=== PATIENT | female | born 1955 | race Caucasian/White ===

== ENCOUNTER → 2018-01-15 08:23 | Outpatient (CLI) | payer MEDICARE, OTHER, SELFPAY ==
--- NOTE | 2018-01-15 | DI.ECHO.S_ITS ---
[facility] +---------+ : : [address] : [address] : : : : [id number] : : : : Phone: [phone]+ Echocardiogram Report + + :Name: JASON WILKERSON Study Date: 01/15/2018 Height: 67 in : :[facility] Exam Location: IS Weight: 135 lb : : Gender: Female BSA: 1.7 m2 : :: 1955 Age: 63 yrs BP: 162/65 mmHg: :Reason For Study: MATTHIEU GODINEZ : : Performed By: Dionicio Bhandari : :Referring: YANELI YATES : + + Interpretation Summary The left ventricle is normal in size. The ejection fraction is estimated to be 60-65%. The right ventricle is normal in size and function. The left atrium is severely dilated. There is mild mitral regurgitation. The aortic root is normal size. The dimensions of the ascending aorta are normal. The aortic arch is normal in size. The IVC is of normal diameter and collapses greater than 50% with a sniff. This suggests a low right atrial pressure of 3 mm Hg. Procedure: A two-dimensional transthoracic echocardiogram with color flow and Doppler was performed. The study quality was technically good. There is no prior echocardiogram noted for this patient. The patient was in normal sinus rhythm during the exam. Left Ventricle: The left ventricle is normal in size. There is normal left ventricular wall thickness. There is no thrombus. The ejection fraction is estimated to be 60-65%. Septal motion is consistent with conduction abnormality. Assessment of diastolic parameters indicates normal left ventricular diastolic function and normal filling pressures. Right Ventricle: The right ventricle is normal in size and function. Atria: The left atrium is severely dilated. The right atrium is mildly dilated. The interatrial septum is intact with no evidence for an atrial septal defect. Mitral Valve: The mitral valve leaflets are slightly calcified. There is no evidence of mitral valve prolapse. There is mild mitral regurgitation. Aortic Valve: The aortic valve is trileaflet. The aortic valve opens well. There is no aortic valve stenosis. There is trace aortic regurgitation. Tricuspid Valve: The tricuspid valve is normal in structure and function. There is trace tricuspid regurgitation. The right ventricular systolic pressure is estimated at 19 mmHg assuming a right atrial pressure of 3 mm Hg. Pulmonic Valve: The pulmonic valve is normal in structure and function. There is trace pulmonic regurgitation. Great Vessels: The aortic root is normal size. The dimensions of the ascending aorta are normal. The aortic arch is normal in size. The pulmonary artery is normal size. The IVC is of normal diameter and collapses greater than 50% with a sniff. This suggests a low right atrial pressure of 3 mm Hg. Pericardium/ Pleura There is no pericardial effusion. There is an anterior echo-free space consistent with a fat pad. There is no pleural effusion. MMode/2D Measurements & Calculations LVIDd: 5.0 cm Ao root diam: 2.8 cm LVIDs: 3.3 cm Aortic Jxn: 2.4 cm FS: 33.7 % asc Aorta Diam: 3.2 cm EPSS: 0.28 cm Ao Arch Diam (Prox Trans): 2.7 cm IVSd: 0.82 cm LVPWd: 0.64 cm LV holguin. diameter/BSA (cm/m^2): 2.9 LV sys. diameter/BSA (cm/m^2): 2.0 LA dimension: 3.5 cm RA long axis: 4.8 cm LA A2 area: 22.7 cm2 RA area: 17.8 cm2 LA A4 area: 25.5 cm2 RA vol: 56.4 ml LA length (vol): 5.6 cm RA : 33.0 ml/m2 LA vol: 87.8 ml IVC diam: 1.9 cm LA vol index: 51.3 ml/m2 Doppler Measurements & Calculations Ao V2 max: 97.1 cm/sec MV E max timmy: 75.7 cm/sec Ao V2 mean: 70.6 cm/sec MV A max timmy: 46.7 cm/sec Ao max P.8 mmHg MV E/A: 1.6 Ao mean P.1 mmHg Med Peak E' Timmy: 11.9 cm/sec Ao V2 VTI: 22.4 cm E/E' med: 6.3 Lat Peak E' Timmy: 7.6 cm/sec E/E' lat: 9.9 E/e' average: 8.1 MV dec time: 0.13 sec TR max timmy: 197.2 cm/sec TR max P.6 mmHg PA V2 max: 68.6 cm/sec PA V2 mean: 51.4 cm/sec PA mean P.1 mmHg PA pr(Accel): 12.5 mmHg PA Accel Time: 0.14 sec Reading Physician:PM
--- NOTE | 2018-01-15 | DI.CT.S_ITS ---
PROCEDURE: CT ANGIO CHEST ABDOMEN INDICATIONS: MATTHIEU DANLOS SYNDROME PALPITATIONS TECHNIQUE: Precontrast 5 mm thick sections acquired from the lung apices to the iliac crests. After the administration of intravenous contrast, 2.5 mm thick sections again acquired from the lung apices to the iliac crests. 10 mm maximum intensity projection (MIP) oblique sagittal and coronal reformats were then acquired. For radiation dose reduction, the following was used: automated exposure control. COMPARISON: [facility], CHEST 2 VIEW, 05/27/2017, 12:51. [facility], CHEST 2 VIEW, 08/04/2014, 10:00. FINDINGS: Image quality: Excellent. AORTA: Intramural hematoma: Absent Maximum hematoma thickness: Not applicable. Focal contrast enhancement: Intramural blood pool (< 2 mm neck or imperceptible communication with aortic lumen): Absent Ulcer-like projection (broad communication with aortic lumen > 3 mm): Absent. Dissection: Absent Kennedy classification: Not applicable Maximum aortic diameter: 3.4 cm, ascending aorta. Periaortic hematoma: Absent. CHEST: Lungs and pleura: No acute airspace opacities. There is, however, a potential pulmonary mass lesion is present at the left lower lobe anteriorly, mid chest level, seen on series 6 image 53, measuring up to 4 mm AP, 9 mm transverse and approximately 6-7 mm craniocaudad. There is no associated internal calcification, and this structure cannot be seen on prior chest plain films. No pleural effusions or pneumothorax. Central and peripheral airways are patent and normal in caliber. Mediastinum: Heart size is normal. No pericardial effusion. No mediastinal or hilar adenopathy by size criteria. Central pulmonary arteries are normal in size. Esophagus is normal in caliber. No hiatal hernias. Bones and chest wall: No axillary adenopathy by size criteria. Thyroid gland appears normal where well visualized. No suspicious bony lesions. No vertebral body compression fractures. ABDOMEN: Vasculature: Celiac trunk and mesenteric arteries are patent. Renal arteries are also patent. Solid organs: Liver is normal in size and enhancement. Gallbladder appears normal. Biliary system is non dilated. Pancreas enhances normally. Spleen is normal in size and enhancement. No adrenal nodules. Both kidneys are normal in size and enhancement, without hydronephrosis. Peritoneum and bowel: No free fluid or air. Bowel loops are normal in caliber and wall thickness. Nodes and vessels: No retroperitoneal or mesenteric adenopathy by size criteria. Inferior vena cava is normal in morphology. Bones: No suspicious bony lesions. No vertebral body compression fractures. Miscellaneous: No ventral hernias. IMPRESSION: 1. No evidence of aortic aneurysm or dissection, or aortic branch vessel disease. No perianeurysmal fibrosis or inflammation is seen. 2. There is an unexpected finding requiring followup, comprised of a masslike lesion within the anterior border of the left lower lobe, measuring up to 9 mm in maximal dimension. Please refer to the Fleischner society criteria for pulmonary nodule workup below: Fleischner Society criteria for lung nodule followup. Nodule size (mm)Low-risk patientHigh-risk patient<=4No follow-up needed.Follow-up at 12 months; if no change, no further follow-up.>1-4Lsqzcu-iz CT at 12 months; if no change, no further follow-up needed.Initial follow-up CT at 6-12 months, then 18-24 months if no change.>6-8Initial follow-up CT at 6-12 months, then 18-24 months if no change.Initial follow-up CT at 3-6 months, then 9-12 months and 24 months if no change.>8Follow-up CT at 3,9 and 24 months or PET and/or biopsySame as for low-risk patientsNon-solid (ground-glass) or partly solid nodules may require longer follow-up to exclude indolent adenocarcinoma. Therefore, a followup noncontrast pulmonary nodule followup CT is recommended in 3 months and thereafter in 9 months from today and thereafter in months from today . Dictated by: Zelalem Bhatti M.D. on 01/15/2018 at 11:14 Approved by: Zelalem Bhatti M.D. on 01/15/2018 at 11:34
[2018-01-15 09:31] LABS: Blood Urea Nitrogen 11 mg/dL (7-17); Carbon Dioxide 29 mmol/L (22-32); Chloride 104 mmol/L (98-107); Estimated Glomerular Filt Rate 55.6 mL/min (>60); Glucose 98 mg/dL (80-110); HEMOLYSIS < 15 (0-50); Magnesium 2.1 mg/dL (1.6-2.3); Potassium 4.8 mmol/L (3.4-5.1); Sodium 142 mmol/L (137-145)
== END ==
PROVIDERS: Family Provider Physician Assistant; PCP Physician Assistant; Visit Provider Internal Medicine Cardiovascular Disease
DX: R00.2 Palpitations (principal); Q79.6 Ehlers-Danlos syndromes; I10 Essential (primary) hypertension; R91.8 Other nonspecific abnormal finding of lung field; I34.0 Nonrheumatic mitral (valve) insufficiency; I51.7 Cardiomegaly
CPT/HCPCS: 36415; 71275; 74175; 80048; 83735; 93306; Q9967

== ENCOUNTER → 2018-03-05 11:31 | Outpatient (CLI) | payer MEDICARE, OTHER, SELFPAY ==
[2018-03-05 12:43] LABS: Cholesterol 226 mg/dL (140-199); HDL Cholesterol 68 mg/dL (40-60); LDL Cholesterol Calculated 134 mg/dL (<100); Triglycerides 118 mg/dL (35-150)
== END ==
PROVIDERS: Family Provider Physician Assistant; PCP Physician Assistant; Visit Provider Internal Medicine Cardiovascular Disease
DX: E78.00 Pure hypercholesterolemia, unspecified (principal)
CPT/HCPCS: 36415; 80061

== ENCOUNTER → 2018-07-12 09:44 | Outpatient (CLI) | payer MEDICARE, OTHER, SELFPAY ==
--- NOTE | 2018-07-12 09:59 | DI.CT.S_ITS ---
PROCEDURE: CT CHEST WO CON INDICATIONS: PULMONARY NODULE TECHNIQUE: Noncontrast 5 mm thick sections acquired from the pulmonary apices to the posterior costophrenic angles. 7 mm thick coronal and sagittal MIP reformats were then acquired. For radiation dose reduction, the following was used: automated exposure control, adjustment of mA and/or kV according to patient size. COMPARISON: [facility], CT, CT ANGIO CHEST ABDOMEN, 01/15/2018, 9:57. FINDINGS: Image quality: Excellent. Lungs and pleura: Along the left oblique fissure, there is again seen a soft tissue nodule, as on series 2 image 78 that measures up to 8 mm. This is not significantly changed compared to the prior examination dated 01/15/18. No additional pulmonary soft tissue nodules can be seen. Scattered tiny calcified granulomas are seen within the lungs. No focal infiltrates are seen. No pneumothorax or pleural effusions are seen. The central airways are patent. Mediastinum: Heart size is normal. No pericardial effusion. No mediastinal adenopathy by size criteria. Thoracic aorta and central pulmonary arteries are normal in size. Esophagus is normal in caliber. No hiatal hernia. Bones and chest wall: No suspicious bony lesions. Mild dextroconvex scoliotic curvature is seen. Age-appropriate bony degenerative changes are seen. No vertebral body compression fractures. No axillary or supraclavicular adenopathy by size criteria. Thyroid gland is small in size. Abdomen: Visualized upper abdominal solid organs and bowel loops appear normal in the absence of contrast. IMPRESSION: Stable left midlung pulmonary nodule on the oblique fissure. A followup noncontrast chest CT is recommended in approximately 9 months for further evaluation. No new pulmonary nodules can be seen. Incidental note is made of: Prior granulomatous exposure. Dictated by: Mahendra Gaitan M.D. on 07/12/2018 at 10:33 Approved by: Mahendra Gaitan M.D. on 07/12/2018 at 10:40
== END ==
PROVIDERS: Family Provider Physician Assistant; PCP Physician Assistant; Visit Provider Internal Medicine
DX: R91.1 Solitary pulmonary nodule (principal)
CPT/HCPCS: 71250

== ENCOUNTER → 2019-05-30 12:04 | Outpatient (CLI) | payer MEDICARE, OTHER, SELFPAY ==
--- NOTE | 2019-05-30 | DI.CT.S_ITS ---
PROCEDURE: CT CHEST WO CON INDICATIONS: Other disorders of lung TECHNIQUE: Noncontrast 5 mm thick sections acquired from the pulmonary apices to the posterior costophrenic angles. 1 mm lung window, 5 mm thick coronal and sagittal and 7 mm axial MIP reformats were then acquired. For radiation dose reduction, the following was used: automated exposure control, adjustment of mA and/or kV according to patient size. COMPARISON: [facility], CR, XR CHEST 2VW, 08/26/2016, 16:12. [facility], CR, CHEST 2 VIEW, 05/27/2017, 12:51. [facility], CT, CT ANGIO CHEST ABDOMEN, 01/15/2018, 9:57. [facility], CT, CT CHEST WO CON, 07/12/2018, 9:46. FINDINGS: Image quality: Excellent. Lungs and pleura: No acute air space opacities. The focal density at the left mid lung is most accurately visualize by the current study and is seen to represent a focus of what appears to be scarring along the major fissure on the left, unchanged from the initial CT scanning and this could be seen 01/15/18. It measures approximately 3 x 9 mm. No pleural effusions or pneumothorax. Central and peripheral airways are patent and normal in caliber. Mediastinum: Heart size is normal. No pericardial effusion. No mediastinal adenopathy by size criteria. Thoracic aorta and central pulmonary arteries are normal in size. Esophagus is normal in caliber. No hiatal hernia. Bones and chest wall: No suspicious bony lesions. No vertebral body compression fractures. No axillary or supraclavicular adenopathy by size criteria. Thyroid gland is not well-seen.. Abdomen: Visualized upper abdominal solid organs and bowel loops appear normal in the absence of contrast. IMPRESSION: Stable appearance of focal pleural scarring left midlung, abutting the major fissure, from 01/15/18. No followup recommended. Dictated by: Zelalem Bhatti M.D. on 05/30/2019 at 12:55 Approved by: Zelalem Bhatti M.D. on 05/30/2019 at 13:00
== END ==
PROVIDERS: Family Provider Physician Assistant; PCP Physician Assistant; Visit Provider Physician Assistant
DX: J98.4 Other disorders of lung (principal)
CPT/HCPCS: 71250

== ENCOUNTER → 2019-09-05 12:41 | Outpatient (CLI) | payer MEDICARE, OTHER, SELFPAY ==
--- NOTE | 2019-09-05 | DI.MRI.S_ITS ---
PROCEDURE: MR STROKE Pre- and post-contrast brain MRI, non-contrast brain MR angiogram, pre- and postcontrast neck MR angiogram INDICATIONS: RIGHT ARM WEAKNESS TECHNIQUE: Brain: Noncontrast axial T1 spin echo, axial T2 fast spin echo, sagittal and axial FLAIR, coronal T2 fast spin echo, axial gradient echo, axial diffusion and ADC through the brain. After the administration of contrast, axial 3D VIBE of the cranial vasculature and brain. Brain MRA: Non-contrast 3-D time of flight MR angiogram, with multiple pcxfmgo-vdkbzeihe-nnabanroul (MIP) reformats performed. Neck MRA: Axial and sagittal TruFISP through the neck. Coronal dynamic MR angiogram during administration of contrast in the arterial and venous phases, with 3-dimenstional ishzifm-sooacemqh-aoolqexcwb (MIP) reformats constructed from subtraction images. COMPARISON: None. FINDINGS: Image quality: Excellent. BRAIN: CSF spaces: Ventricles are normal in size and shape. Basal cisterns are patent. No extra-axial fluid collections. Brain: No intracranial bleeds or mass effects. Scattered small white matter changes, probably represent chronic microvascular ischemic disease, versus statistically less likely demyelination or other infectious, inflammatory, neurodegenerative etiology, technically nonspecific. Freire-white matter interface is normal. Diffusion weighted images show no acute ischemic insults. Brainstem appears normal. Normal intravascular flow voids are present. No abnormal intracranial enhancement. Skull and face: Calvarial marrow signal is normal. Orbits appear normal. Sinuses: Sinuses and mastoids are clear. BRAIN MR ANGIOGRAM: Anterior circulation: Intracranial internal carotid arteries are normal in size and enhancement. The flow within the paired anterior cerebral arteries is normal and symmetric. The flow within the middle cerebral arteries is normal and symmetric. The anterior communicating artery is seen. Posterior circulation: The visualized portions of the vertebral arteries demonstrate normal caliber Possible basilar artery tip aneurysm although technically indeterminate measuring 3 mm. The flow within the posterior cerebral arteries is normal and symmetric. NECK MR ANGIOGRAM: Carotids: Great vessels demonstrate a conventional anatomy as they arise from the aortic arch. The origins of the common carotid arteries appear patent. The calibers and courses of both common carotid arteries are normal. The bifurcation regions appear normal bilaterally. The internal carotid arteries demonstrate normal course and caliber. Posterior circulation: Origin of the right vertebral artery appears grossly patent. The origin of the left vertebral artery not well-visualized. More superior portions of both vertebral arteries demonstrate normal course and caliber, and join to form a normal appearing basilar artery. Miscellaneous: Subclavian arteries appear patent. Pre-contrast images through the neck show no soft tissue abnormalities. IMPRESSION: BRAIN MRI: No areas of acute ischemia. Diffuse small white matter changes, probably represent chronic microvascular ischemic disease, versus statistically less likely demyelination or other infectious, inflammatory, neurodegenerative etiology, technically nonspecific. BRAIN MR ANGIOGRAM: Possible early basilar artery tip aneurysmal ectasia, although technically indeterminate and quite subtle If clinically desired, long-term surveillance with CTA head could be performed No intracranial stenosis or occlusion. NECK MR ANGIOGRAM: No ICA stenosis Dictated by: Christian Mendoza M.D. on 09/05/2019 at 15:19 Approved by: Christian Mendoza M.D. on 09/05/2019 at 15:37
--- NOTE | 2019-09-05 12:46 | DI.MRI.S_ITS ---
PROCEDURE: MR CERVICAL SPINE WO CON INDICATIONS: RIGHT ARM WEAKNESS TECHNIQUE: Noncontrast sagittal T1 spin echo and T2 fast spin echo, sagittal STIR, foraminal oblique sagittal T2 fast spin echo, and axial gradient echo or T2 fast spin echo through the cervical spine. COMPARISON: [facility], MR, MR CERVICAL SPINE WO CON, 10/29/2017, 8:32. FINDINGS: Image quality: Excellent. Alignment and Curvature: Focal kyphosis centered at the C5-C6 level as before. Chronic osseous fusion of the C4-C5, C5-C6 vertebral bodies. Bone Marrow: No fracture. Grade 1 anterolisthesis of C2 on C3 and C3 on C4. Spinal Cord: Visualized spinal cord has normal size and signal. No cerebellar tonsillar herniation. Paraspinous Soft Tissues: No paravertebral masses. Prevertebral soft tissues are normal in thickness. C2-C3: Minimal canal narrowing. Severe bilateral foraminal stenoses with nerve root compression, grossly unchanged. C3-C4: Minimal central canal narrowing. Severe left foraminal stenosis. Moderate right foraminal narrowing. Nerve root compression on both sides. C4-C5: Minimal canal narrowing. Mild left foraminal narrowing. Moderate foraminal stenosis with nerve root compression, grossly unchanged. C5-C6: Minimal canal narrowing. Severe bilateral foraminal stenoses with nerve root compression. C6-C7: Moderate canal stenosis, grossly unchanged. Severe bilateral foraminal narrowing with nerve root compression, unchanged. C7-T1: Minimal canal narrowing. Vnxz-kk-khyjisnn right foraminal stenosis with slight nerve root compression. No definite left foraminal stenosis. No interval change IMPRESSION: Overall, no interval change. 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 on 09/05/2019 at 14:57 Approved by: Christian Mendoza M.D. on 09/05/2019 at 15:19
== END ==
PROVIDERS: Family Provider Physician Assistant; PCP Physician Assistant; Referring Provider Physician Assistant; Visit Provider Physician Assistant
DX: R29.898 Other symptoms and signs involving the musculoskeletal system (principal); M43.12 Spondylolisthesis, cervical region; M48.02 Spinal stenosis, cervical region; M40.202 Unspecified kyphosis, cervical region; M43.22 Fusion of spine, cervical region
CPT/HCPCS: 70548; 70553; 72141; A9579

== ENCOUNTER → 2019-11-04 10:01 | Outpatient (CLI) | payer MEDICARE, OTHER, SELFPAY ==
[2019-11-04 10:57] LABS: Alanine Aminotransferase 20 IU/L (<35); Albumin 4.2 g/dL (3.5-5.0); Albumin Globulin Ratio 1.6 (1.0-2.8); Alkaline Phosphatase 59 U/L (38-126); Aspartate Aminotransferase 33 IU/L (14-36); BUN Creatinine Ratio 18.2 (6-22); Bilirubin Total 0.4 mg/dL (0.2-1.3); Blood Urea Nitrogen 16 mg/dL (7-17); Carbon Dioxide 28 mmol/L (22-32); Chloride 105 mmol/L (98-107); Cholesterol 279 mg/dL (140-199); Estimated Glomerular Filt Rate > 60.0 mL/min (>60); Globulin 2.6 g/dL (1.7-4.1); Glucose 111 mg/dL (80-110); HDL Cholesterol 58 mg/dL (40-60); HEMOLYSIS < 15 (0-50); LDL Cholesterol Calculated 203 mg/dL (<100); Potassium 4.9 mmol/L (3.4-5.1); Sodium 139 mmol/L (137-145); Total Protein 6.8 g/dL (6.3-8.2); Triglycerides 90 mg/dL (35-150)
--- NOTE | 2019-11-04 11:07 | DI.CT.S_ITS ---
PROCEDURE: CT ANGIO HEAD INDICATIONS: Cerebral aneurysm, nonruptured TECHNIQUE: Precontrast 4.5 mm thick angled axial sections acquired from the foramen magnum to the vertex. After the administration of intravenous contrast, 1 mm thick sections acquired through the [place] of [place]. Postcontrast 4.5 mm thick sections then re-acquired from the foramen magnum to the vertex. 10 mm thick wmnbrty-brtwqptcu-hfqaneqsrs (MIP) reformats were acquired of the central intracranial vasculature. For radiation dose reduction, the following was used: automated exposure control, adjustment of mA and/or kV according to patient size. COMPARISON: [facility], , MR STROKE, 09/05/2019, 13:16. FINDINGS: Image quality: Excellent. Anterior circulation: Intracranial internal carotid arteries are normal in size and flow. The flow within the paired anterior cerebral arteries is normal and symmetric. The flow within the middle cerebral arteries is normal and symmetric. The anterior communicating artery is seen. No aneurysms are seen. Posterior circulation: Visualized portions of the vertebral arteries demonstrate normal caliber. There is an unchanged appearance of mild proximal basilar aneurysmal dilation measuring approximately 3 mm. Flow within the posterior cerebral arteries is normal and symmetric. No aneurysms are seen. CSF spaces: Ventricles are normal in size and shape. Basal cisterns are patent. No extra-axial fluid collections. Brain: No midline shift. No intracranial bleeds or masses. Freire-white matter interface appears intact. Skull and face: Calvarium and facial bones appear intact, without suspicious lesions. Sinuses: Visualized sinuses and mastoids are clear. IMPRESSION: 1. Unchanged appearance of mild basilar aneurysmal prominence measuring 3 mm. Dictated by: Nelsy Hernandez M.D. on 11/04/2019 at 12:57 Approved by: Nelsy Hernandez M.D. on 11/04/2019 at 13:16
[2019-11-07 23:07] LABS: 1,25-Dihydroxy, Vitamin D-2 <10 pg/mL (.)
== END ==
PROVIDERS: Family Provider Physician Assistant; PCP Physician Assistant
DX: I67.1 Cerebral aneurysm, nonruptured (principal); E78.5 Hyperlipidemia, unspecified; M25.511 Pain in right shoulder; G89.29 Other chronic pain
CPT/HCPCS: 36415; 70496; 80053; 80061; 82652; Q9967

== ENCOUNTER → 2019-12-21 13:36 | Outpatient (CLI) | payer MEDICARE, OTHER, SELFPAY ==
--- NOTE | 2019-12-21 | DI.RAD.S_ITS ---
PROCEDURE: FL SHOULDER INJECTION MR/CT RT INDICATIONS: ARTHRITIS TECHNIQUE: The indications, alternatives, benefits, risks, and complications of the procedure were explained to the patient. Written informed consent was obtained and placed in the chart. The shoulder was examined fluoroscopically and a site for needle placement chosen for entry into the glenohumeral joint from an anterior approach. The skin was prepped and draped in a sterile fashion, and 1% lidocaine infiltrated from skin down to joint capsule. A spinal needle was inserted into the glenohumeral joint, and a small amount of iodinated contrast media injected to confirm intra-articular placement of the needle tip. This was followed by approximately 12 mL of iodinated contrast. The needle was removed and a dressing was applied. The patient was given postprocedural instructions and sent to the CT suite for imaging. FINDINGS: A single fluoroscopic spot image demonstrates intra-articular location of injected iodinated contrast. IMPRESSION: Successful fluoroscopically guided administration of iodinated contrast solution into the shoulder joint for CT arthrogram. Dictated by: Christian Mendoza M.D. on 12/21/2019 at 15:37 Approved by: Christian Mendoza M.D. on 12/21/2019 at 15:39
--- NOTE | 2019-12-21 | DI.CT.S_ITS ---
PROCEDURE: CT UE RT W CON INDICATIONS: ARTHRITIS TECHNIQUE: After the intra-articular administration of 12 mL of dilute non-ionic contrast, 1-1.5 mm thick sections acquired from the acromioclavicular joint to the inferior scapula, with coronal and sagittal reformatting. COMPARISON: [facility], RF, [place] SHOULDER INJECTION MR/CT RT, 12/21/2019, 13:14. [facility], CR, XR SHOULDER 2+ VIEWS RIGHT, 09/17/2018, 15:45. FINDINGS: Image quality: Excellent. Bones: No fracture or focal osseous destruction. Severe right shoulder joint degeneration with bvjo-fr-qdpq appearance. Injected contrast material outlines a large partially calcified focus in the posterior joint space measuring 2.0 x 1.6 cm, possibly loose body. Additional areas of presumed debris, versus reactive synovitis, within the dependent/posterior joint space for example image 74/2. Circumferential blunted labral tear. High-grade partial-thickness articular sided tear involving the supraspinatus tendon. There is probably pinpoint perforation possibly image 154/5 with leakage of injected contrast material into the subacromial-subdeltoid bursa. IMPRESSION: Severe right shoulder joint degeneration. Large loose body measuring 2.0 cm involving the posterior joint space. Additional area of debris/smaller loose bodies noted within the dependent/posterior joint space. Circumferential blunted appearance of the labrum suggestive of chronic tear/maceration High-grade partial-thickness articular sided tear of the supraspinatus tendon. Of note there is probable pinpoint full-thickness perforation of the bursal surface given leakage of contrast material into the subacromial-subdeltoid bursa. Dictated by: Christian Mendoza M.D. on 12/21/2019 at 15:43 Approved by: Christian Mendoza M.D. on 12/21/2019 at 15:49
== END ==
PROVIDERS: Family Provider Physician Assistant; PCP Physician Assistant; Referring Provider Orthopaedic Surgery; Visit Provider Orthopaedic Surgery
DX: M19.011 Primary osteoarthritis, right shoulder (principal); M75.111 Incomplete rotator cuff tear or rupture of right shoulder, not specified as traumatic
CPT/HCPCS: 23350; 73201; 77002

== ENCOUNTER → 2020-06-15 08:11 | Outpatient (CLI) | payer MEDICARE, OTHER, SELFPAY ==
--- NOTE | 2020-06-15 | DI.MRI.S_ITS ---
PROCEDURE: MR ANGIO HEAD WO CON INDICATIONS: Cerebral aneurysm, nonruptured TECHNIQUE: Noncontrast axial 3-D [id number] MR angiogram, with 3-dimensional maximum intensity projection (MIP) reformats of the internal carotid arteries and posterior circulation then performed. COMPARISON: [facility], MR, MR STROKE, 09/05/2019, 13:16. [facility], CT, CT ANGIO HEAD, 11/04/2019, 11:02. FINDINGS: Image quality: Excellent. Anterior circulation: Intracranial internal carotid arteries demonstrate normal size and intraluminal flow signal. The flow within the paired anterior cerebral arteries is normal and symmetric. The flow within the middle cerebral arteries is normal and symmetric. The anterior communicating artery is seen. No stenoses, occlusions, or aneurysms. Posterior circulation: Visualized portions of the vertebral arteries demonstrate normal caliber, and join to form a normal appearing basilar artery. The flow within the posterior cerebral arteries is normal and symmetric. No stenoses or occlusions. 3 millimeter basilar tip aneurysm is stable compared to prior exams.. 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 Dictated by: Apoorva Rose MD, PhD on 06/15/2020 at 14:17 Approved by: Apoorva Rose MD, PhD on 06/15/2020 at 14:23
== END ==
PROVIDERS: Family Provider Physician Assistant; PCP Physician Assistant; Referring Provider Physician Assistant; Visit Provider Neurological Surgery
DX: I67.1 Cerebral aneurysm, nonruptured (principal)
CPT/HCPCS: 70544

== ENCOUNTER → 2020-07-10 10:31 | Outpatient (CLI) | payer MEDICARE, OTHER, SELFPAY ==
--- NOTE | 2020-07-10 | DI.RAD.S_ITS ---
PROCEDURE: XR HIP W PEL IF DONE LT 2V INDICATIONS: LEFT HIP PAIN TECHNIQUE: A total of 2 views of the hip were acquired. [id number], [facility], 11:47. [facility], [facility], HIP 2V LEFT, 07/28/2008, 8:33. FINDINGS: Bones: No fractures or dislocations. No suspicious bony lesions. The visualized pelvic ring appears intact. Soft tissues: No suspicious soft tissue calcifications or masses. IMPRESSION: There is mild hip joint osteoarthritis symmetric bilaterally, and no trauma is found. Dictated by: Zelalem Bhatti M.D. on 07/10/2020 at 11:01 Approved by: Zelalem Bhatti M.D. on 07/10/2020 at 11:02
[2020-07-10 11:46] LABS: Alanine Aminotransferase 20 IU/L (<35); Albumin 4.1 g/dL (3.5-5.0); Albumin Globulin Ratio 1.8 (1.0-2.8); Alkaline Phosphatase 47 U/L (38-126); Aspartate Aminotransferase 29 IU/L (14-36); BUN Creatinine Ratio 14.1 (6-22); Bilirubin Total 0.3 mg/dL (0.2-1.3); Blood Urea Nitrogen 13 mg/dL (7-17); Calcium 9.5 mg/dL (8.4-10.2); Carbon Dioxide 28 mmol/L (22-32); Chloride 107 mmol/L (98-107); Cholesterol 249 mg/dL (140-199); Estimated Glomerular Filt Rate > 60.0 mL/min (>60); Globulin 2.3 g/dL (1.7-4.1); Glucose 104 mg/dL (80-110); HDL Cholesterol 76 mg/dL (40-60); HEMOLYSIS < 15 (0-50); LDL Cholesterol Calculated 151 mg/dL (<100); Potassium 4.4 mmol/L (3.4-5.1); Sodium 136 mmol/L (137-145); Total Protein 6.4 g/dL (6.3-8.2); Triglycerides 108 mg/dL (35-150)
[2020-07-10 12:27] LABS: Thyroid Stimulating Hormone 9.34 uIU/mL (0.47-4.68)
[2020-07-10 17:22] LABS: Vitamin D 25 Hydroxy (D3) 56.4 ng/mL (30.0-100.0)
[2020-07-12 03:17] LABS: Parathyroid Hormone Int 35 pg/mL (15-65)
[2020-07-13 13:46] LABS: Alkaline Phosphatase, Bone Spe 8.9 ug/L (.)
== END ==
PROVIDERS: Family Provider Physician Assistant; PCP Physician Assistant; Referring Provider Internal Medicine Endocrinology, Diabetes & Metabolism; Visit Provider Physician Assistant
DX: M25.552 Pain in left hip (principal); E78.5 Hyperlipidemia, unspecified; E55.9 Vitamin D deficiency, unspecified; M80.00XS Age-related osteoporosis with current pathological fracture, unspecified site, sequela; Q79.60 Ehlers-Danlos syndrome, unspecified
CPT/HCPCS: 36415; 73502; 80053; 80061; 82306; 82523; 83970; 84080; 84443

== ENCOUNTER → 2020-09-10 08:13 | Outpatient (CLI) | payer MEDICARE, OTHER, SELFPAY ==
[2020-09-10] MEDS: COVID-19 VACC, Ad26(JANSSEN)/PF 0.5 ML IM (08:20)
== END ==
PROVIDERS: Family Provider Physician Assistant; PCP Physician Assistant; Visit Provider Internal Medicine
DX: Z23 Encounter for immunization (principal)
CPT/HCPCS: 0031A; 91303

== ENCOUNTER → 2020-12-25 08:09 | Outpatient (CLI) | payer MEDICARE, OTHER, SELFPAY ==
--- NOTE | 2020-12-25 08:13 | DI.RAD.S_ITS ---
PROCEDURE: FL SHOULDER INJECTION MR/CT RT INDICATIONS: ARTHRITIS OF RIGHT GLENOHUMERAL JOINT COMPARISON: [facility], US, US NONVASCULAR EXTREMITY RIGHT, 10/17/2020, 10:32. [facility], [place], CT UE RT W CON, 12/25/2020, 8:52. TECHNIQUE: The indications, alternatives, benefits, risks, and complications of the procedure were explained to the patient. Written informed consent was obtained and placed in the chart. The shoulder was examined fluoroscopically and a site for needle placement chosen for entry into the glenohumeral joint from an anterior approach. The skin was prepped and draped in a sterile fashion, and 1% lidocaine infiltrated from skin down to joint capsule. A spinal needle was inserted into the glenohumeral joint, and a small amount of iodinated contrast media injected to confirm intra-articular placement of the needle tip. This was followed by approximately 12 mL of iodinated contrast. The needle was removed and a dressing was applied. The patient was given postprocedural instructions and sent to the CT suite for imaging. FINDINGS: A single fluoroscopic spot image demonstrates intra-articular location of injected iodinated contrast. IMPRESSION: Successful fluoroscopically guided administration of iodinated contrast solution into the shoulder joint for CT arthrogram. Dictated by: Brenda Rojo M.D. on 12/25/2020 at 11:09 Approved by: Brenda Rojo M.D. on 12/25/2020 at 11:10
--- NOTE | 2020-12-25 09:16 | DI.CT.S_ITS ---
PROCEDURE: CT UE RT W CON INDICATIONS: ARTHRITIS OF RIGHT GLENOHUMERAL JOINT TECHNIQUE: After the intra-articular administration of 12 mL of dilute non-ionic contrast, 1-1.5 mm thick sections acquired from the acromioclavicular joint to the inferior scapula, with coronal and sagittal reformatting. COMPARISON: [facility], CR, XR SHOULDER 2+ VIEWS RIGHT, 03/19/2020, 13:30. [facility], CR, XR SHOULDER 2+ VIEWS RIGHT, 09/19/2020, 12:52. [facility], [place], [place] SHOULDER INJECTION MR/CT RT, 12/25/2020, 8:29. [facility], CT, CT UE RT W CON, 12/21/2019, 14:34. FINDINGS: Image quality: Excellent. Bones: Postsurgical changes are seen from conventional right total shoulder arthroplasty. The glenoid component is visualized in expected position without signs of loosening. The humeral component is intact without signs of loosening. There is superior migration of the humeral head relative to the glenoid. No acute perihardware fracture is identified. Thinning of the lateral acromion may be related to chronic remodeling or prior acromioplasty. The remainder of the scapula and the included ribs are intact. Soft tissues: There is a full-thickness defect in the distal supraspinatus tendon measuring approximately 1.1 cm in anterior-posterior dimension with proximal tendon retraction measuring up to 1.6 cm and contrast material extending through the defect into the subacromial/subdeltoid bursa. Is the infraspinatus tendon appears to be intact. Evaluation of the teres minor and subscapularis tendons are mildly compromised by metallic streak artifact, but no full-thickness defect is seen. Evaluation of the supraspinatus muscle belly is also partially compromised, but no definite severe fatty infiltration is seen. The biceps long head tendon is not well visualized. Included portions of the right lung are clear. IMPRESSION: 1. Postsurgical changes from conventional shoulder arthroplasty. The hardware is intact. There is mild superior migration of the humeral head component relative to the glenoid. 2. Full-thickness tearing of the supraspinatus tendon at its distal insertion measuring 1.1 cm in anterior-posterior dimension with proximal tendon retraction measuring up to 1.6 cm. Glenohumeral contrast material communicates with the subacromial/subdeltoid bursa. 1. Dictated by: Kane Ruiz M.D. on 12/25/2020 at 12:16 Approved by: Kane Ruiz M.D. on 12/25/2020 at 12:26
== END ==
PROVIDERS: Family Provider Physician Assistant; PCP Physician Assistant; Referring Provider Orthopaedic Surgery; Visit Provider Orthopaedic Surgery
DX: M19.011 Primary osteoarthritis, right shoulder (principal); M75.121 Complete rotator cuff tear or rupture of right shoulder, not specified as traumatic
CPT/HCPCS: 23350; 73201; 77002

== ENCOUNTER → 2021-03-15 08:12 | Outpatient (CLI) | payer MEDICARE, OTHER, SELFPAY ==
--- NOTE | 2021-03-15 | DI.RAD.S_ITS ---
PROCEDURE: XR FOOT LT MIN 3V INDICATIONS: Pham-Danlos syndrome, unspecified TECHNIQUE: 3 views of the foot were acquired. COMPARISON: [facility], CR, ANKLE 3 VIEWS LEFT, 02/22/2007, 12:25. 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 A metallic screw is seen in the proximal 5th metatarsal shaft. The hardware is intact. There is generalized osteopenia. No acute fracture or dislocation is seen. The 2nd and 3rd metatarsophalangeal joints are extended with flexion of the proximal interphalangeal joints, which is nonspecific on a nonweightbearing exam. The posterior subtalar joint space is not well seen with cystic changes, possibly representing an osseous coalition. Soft tissues: No suspicious soft tissue calcification. IMPRESSION: 1. No acute osseous abnormality. If the symptoms persist, consider cross sectional imaging such as MRI or CT for further assessment. 2. Chronic postsurgical changes involving the 5th metatarsal and 5th proximal phalanx. 3. 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 Dictated by: Kane Ruiz M.D. on 03/15/2021 at 8:46 Approved by: Kane Ruiz M.D. on 03/15/2021 at 8:52
--- NOTE | 2021-03-15 | DI.RAD.S_ITS ---
PROCEDURE: XR ANKLE LT MIN 3V INDICATIONS: Pham-Danlos syndrome, unspecified TECHNIQUE: 3 views of the ankle were acquired. COMPARISON: [facility], , ANKLE 3 VIEWS LEFT, 02/22/2007, 12:25. FINDINGS: Bones: Postsurgical changes are seen involving the 5th metatarsal with a metallic screw. The hardware is intact. There is generalized osteopenia. No acute fracture or dislocation is seen. The ankle mortise is maintained. Chronic posttraumatic changes are seen at the medial malleolus. Irregularity of the posterior subtalar facet with subchondral lucencies may represent degenerative changes or fiber osseous coalition. No fractures or dislocations. Ankle mortise is normally aligned. No suspicious bony lesions. Soft tissues: No suspicious soft tissue calcification. IMPRESSION: 1. No acute osseous abnormality. If the symptoms persist, consider cross sectional imaging such as MRI or CT for further assessment. 2. Postsurgical changes at the 5th metatarsal base. 3. Possible fibro-osseous coalition versus degenerative changes at the posterior subtalar facet. Dictated by: Kane Ruiz M.D. on 03/15/2021 at 8:52 Approved by: Kane Ruiz M.D. on 03/15/2021 at 8:57
--- NOTE | 2021-03-15 | DI.RAD.S_ITS ---
PROCEDURE: XR FOOT RT MIN 3V INDICATIONS: Pham-Danlos syndrome, unspecified TECHNIQUE: 3 views of the foot were acquired. COMPARISON: [facility], CR, XR FOOT 3+ VIEWS RIGHT, 09/07/2018, 14:03. FINDINGS: Bones: There is generalized osteopenia. No acute fractures or dislocations. No suspicious bony lesions. Soft tissues: No suspicious soft tissue calcification. IMPRESSION: No acute osseous abnormality. If the symptoms persist, consider cross sectional imaging such as MRI or CT for further assessment. Dictated by: Kane Ruiz M.D. on 03/15/2021 at 8:43 Approved by: Kane Ruiz M.D. on 03/15/2021 at 8:45
== END ==
PROVIDERS: Family Provider Physician Assistant; PCP Physician Assistant; Referring Provider Physician Assistant; Visit Provider Physician Assistant
DX: Q79.60 Ehlers-Danlos syndrome, unspecified (principal)
CPT/HCPCS: 73610; 73630

== ENCOUNTER 2021-03-27 05:50 | Emergency (ER) | payer MEDICARE, OTHER, SELFPAY ==
[2021-03-27 05:57] VITALS: BP 148/67; PULSE 70; RESP 18; TEMP 36.6; O2SAT 97; BMI 20.3
--- NOTE | 2021-03-27 06:04 | ED.RECABL ---
HPI - Recheck/Abnormal Lab/Rx General Chief Complaint: Recheck/Abnormal Lab/Rx Stated Complaint: mental problems, ran out of medication Time Seen by Provider: 03/27/21 05:51 Source: patient Mode of arrival: Ambulatory Limitations: no limitations History of Present Illness HPI narrative: This is a 66-year-old female comes emergency department with complaint of anxiety and depression which is longstanding. She states she was quite depressed for some time but has actually been improving recently. She states she out of her Wellbutrin and Cymbalta about 2 days ago. She has felt some increased anxiety. She denies any thoughts of self-harm or harm to others. She states she has a prescription that is supposed to be filled but she is not sure if she can fill today or perhaps by the . She is requesting a dose of each medication if available here as well as a short-term prescription of a few tablets. She takes Wellbutrin 200 mg b.i.d. as well as Cymbalta she states 60 mg daily. She follows with primary care doctor Berhane in [facility]. She has a history of Pahm-Danlos, atrophic right kidney with chronic renal insufficiency, hypothyroidism, osteoarthritis and depression. Patient denies any drug allergies. Related Data Home Medications Medication Instructions Recorded Confirmed losartan 25 mg tablet (Cozaar) 50 mg PO HS #0 10/25/12 hydrocodone 7.5 mg-acetaminophen 1 tab PO TID #0 01/31/16 325 mg tablet amlodipine 5 mg tablet (Norvasc) 5 mg PO QDAY #0 09/03/16 Previous Rx's Medication Instructions Recorded aripiprazole 2 mg tablet (Abilify) 2 mg PO QDAY #30 tab 04/17/17 buspirone 10 mg tablet 10 mg PO BID #60 tab 04/17/17 duloxetine 30 mg capsule,delayed 90 mg PO QDAY #90 cap 04/17/17 release (Cymbalta) prazosin 1 mg capsule (Minipress) 1 mg PO HS #30 cap 05/18/17 bupropion HCl 200 mg tablet,12 hr 200 mg PO BID #60 tab 10/29/17 sustained-release bupropion HCl 200 mg tablet,12 hr 200 mg PO BID #10 ea 03/27/21 sustained-release duloxetine 60 mg capsule,delayed 60 mg PO DAILY #5 cap 03/27/21 release (Cymbalta) Review of Systems Review of Systems ROS Unobtainable: All systems reviewed & are unremarkable except as noted in HPI and below Patient History Family History (Updated 01/19/14 @ 00:00 by Dread Smith MD) Sister Tremor Sister Tremor Social History Smoking Status: Never smoker Smoking Status: Never smoker Substance Use Type: marijuana Exam Narrative Exam Narrative: GENERAL: Alert and oriented x three, thin female in mild distress. Patient appears anxious. HEENT: Head normocephalic, atraumatic, EOMI, pupils reactive, face symmetric, moist mucous membranes NECK: Supple, full range of motion CARDIOVASCULAR: Regular rate and rhythm without murmurs, rubs or gallops. RESPIRATORY: Breath sounds equal bilaterally, no wheezes rales or rhonchi. ABDOMEN: Soft, nontender. Normoactive bowel sounds all 4 quadrants. No guarding or rebound, rigidity, no mass : No CVA tenderness EXTREMITIES: Normal range of motion, no clubbing or edema. Neurovascularly intact NEUROLOGICAL: Cranial nerves II through XII grossly intact. Moving all extremities SKIN: Warm, dry, no petechiae, no rashes or lesions. PSYCH: anxiety and depression, no thoughts or self harm or injury, no thoughts of harm to others. Initial Vital Signs Initial Vital Signs: Vital Signs Temperature 98 F 03/27/21 05:57 Pulse Rate 70 03/27/21 05:57 Respiratory Rate 18 03/27/21 05:57 Blood Pressure 148/67 H 03/27/21 05:57 Pulse Oximetry 97 03/27/21 05:57 Course Orders Ordered: Discontinued Medications Bupropion HCl (Bupropion 100 Mg Tablet) 200 mg PO NOW ONE Stop: 03/27/21 06:05 Last Admin: 03/27/21 06:17 Dose: 200 mg Documented by: Duloxetine HCl (Duloxetine 30 Mg Capsule) 60 mg PO NOW ONE Stop: 03/27/21 06:04 Last Admin: 03/27/21 06:17 Dose: 60 mg Documented by: Vital Signs Vital signs: Vital Signs - 8 hr 03/27/21 05:57 Temperature 98 F Pulse Rate 70 Respiratory Rate 18 Blood Pressure 148/67 H Pulse Oximetry 97 MDM - Recheck/Abnormal Lab/Rx MDM Narrative Medical decision making narrative: This is a 66 female with known mental health disorder of anxiety and depression. Patient is requesting dose of her Cymbalta and Wellbutrin which she states she has run out of 2 days ago. She has been touch with her primary care she has a prescription at the supposed to be filled within the next couple days but she is not sure if the prescription is available yet. She does ask if she can have a prescription for a few days worth of medication for a short-term bridging prescription. She alert, appropriate and denies any thoughts of harm or injury to others and does not appear to be gravely disabled. Discharge Plan Departure Patient Disposition: Home Clinical Impression: Medication requested, Anxiety Activity Restrictions/Additional Instructions: Follow up with your physician. I hope you feel better after getting restarted on your medications. Prescription was sent to [facility] in [place]. Please return if you have thoughts of harming yourself or others, feel that your depression or anxiety is uncontrolled or for having other new or concerning symptoms. Prescriptions: New bupropion HCl 200 mg tablet sustained-release 12 hr 200 mg PO BID Qty: 10 RF: 0 duloxetine [Cymbalta] 60 mg capsule,delayed release(DR/EC) 60 mg PO DAILY Qty: 5 RF: 0 No Action losartan [Cozaar] 25 MG tablet 50 mg PO HS Qty: 0 RF: 0 hydrocodone-acetaminophen 7.5 MG/325 MG tablet 1 tab PO TID Qty: 0 RF: 0 amlodipine [Norvasc] 5 MG tablet 5 mg PO QDAY Qty: 0 RF: 0 buspirone 10 MG tablet 10 mg PO BID Qty: 60 RF: 2 duloxetine [Cymbalta] 30 MG capsule,delayed release(DR/EC) 90 mg PO QDAY Qty: 90 RF: 2 aripiprazole [Abilify] 2 MG tablet 2 mg PO QDAY Qty: 30 RF: 2 prazosin [Minipress] 1 MG capsule 1 mg PO HS Qty: 30 RF: 1 bupropion HCl 200 mg tablet extended release 12 hr 200 mg PO BID Qty: 60 RF: 0 Referrals: Mallory Last PA-C [Primary Care Provider] -
[2021-03-27] MEDS: buPROPion 100 MG TABLET 200 MG PO (06:17)
[2021-03-27] MEDS: DULOXETINE 30 MG CAPSULE 60 MG PO (06:17)
--- NOTE | 2021-03-27 06:19 | PC.NURSE ---
She has history of depression and anxiety which she says is improving.Denies any thoughts of self harm or homicidal ideas.Very,polite,calm appearing.Here because she is out of her meds for two days.
== END 2021-03-27 06:23 | disposition home or self-care (01) ==
PROVIDERS: Emergency Provider Emergency Medicine; Family Provider Physician Assistant; PCP Physician Assistant
DX: Z76.0 Encounter for issue of repeat prescription (principal); F41.9 Anxiety disorder, unspecified; F32.9 Major depressive disorder, single episode, unspecified
CPT/HCPCS: 99283

== ENCOUNTER → 2021-04-24 09:58 | Outpatient (CLI) | payer MEDICARE, OTHER, SELFPAY ==
--- NOTE | 2021-04-24 10:03 | DI.RAD.S_ITS ---
PROCEDURE: XR ANKLE RT MIN 3V INDICATIONS: MATTHIEU DANLOS DISEASE TECHNIQUE: 3 views of the ankle were acquired. COMPARISON: [facility], CR, XR ANKLE LT MIN 3V, 03/15/2021, 8:10. FINDINGS: Bones: No fractures or dislocations. Fibrocystic change of the posterior subtalar articulation. Ankle mortise is normally aligned. No suspicious bony lesions. Soft tissues: No tibiotalar joint effusion. Achilles tendon appears normal. IMPRESSION: No acute abnormality. Dictated by: Casey Hernández M.D. on 04/24/2021 at 10:23 Approved by: Casey Hernández M.D. on 04/24/2021 at 10:26
== END ==
PROVIDERS: Family Provider Physician Assistant; PCP Physician Assistant; Referring Provider Physician Assistant; Visit Provider Physician Assistant
DX: Q79.60 Ehlers-Danlos syndrome, unspecified (principal)
CPT/HCPCS: 73610

== ENCOUNTER → 2021-05-03 07:09 | Outpatient (CLI) | payer MEDICARE, OTHER, SELFPAY ==
--- NOTE | 2021-05-03 | DI.MRI.S_ITS ---
PROCEDURE: MR ANGIO HEAD WO CON INDICATIONS: Cerebral aneurysm, nonruptured TECHNIQUE: Noncontrast axial 3-D [id number] MR angiogram, with 3-dimensional maximum intensity projection (MIP) reformats of the internal carotid arteries and posterior circulation then performed. COMPARISON: [facility], MR, MR STROKE, 09/05/2019, 13:16. [facility], CT, CT ANGIO HEAD, 11/04/2019, 11:02. [facility], MR, MR ANGIO HEAD WO CON, 06/15/2020, 8:30. FINDINGS: Image quality: Diagnostic, with note made of motion artifact. Anterior circulation: Intracranial internal carotid arteries demonstrate normal size and intraluminal flow signal. The flow within the paired anterior cerebral arteries is normal and symmetric. The flow within the middle cerebral arteries is normal and symmetric. The anterior communicating artery is seen. No stenoses, occlusions, or aneurysms. Posterior circulation: Visualized portions of the vertebral arteries demonstrate normal caliber, and join to form a normal appearing basilar artery. The left distal vertebral artery largely terminates in the left posterior inferior cerebellar artery. The flow within the posterior cerebral arteries is normal and symmetric. No stenoses or occlusions are seen. There is a mild stable 3 mm aneurysm seen at the basilar tip. 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 Dictated by: Mahendra Gaitan M.D. on 05/03/2021 at 8:30 Approved by: Mahendra Gaitan M.D. on 05/03/2021 at 8:33
== END ==
PROVIDERS: Family Provider Physician Assistant; PCP Physician Assistant; Referring Provider Nurse Practitioner Family; Visit Provider Nurse Practitioner Family
DX: I67.1 Cerebral aneurysm, nonruptured (principal)
CPT/HCPCS: 70544

== ENCOUNTER → 2021-12-24 08:06 | Outpatient (CLI) | payer MEDICARE, OTHER, SELFPAY ==
--- NOTE | 2021-12-24 08:40 | DI.CT.S_ITS ---
PROCEDURE: CT UE LT WO CON INDICATIONS: Primary osteoarthritis, left shoulder TECHNIQUE: Noncontrast 1-1.5 mm thick sections acquired from the acromioclavicular joint to the inferior scapula, with coronal and sagittal reformatting. COMPARISON: None. FINDINGS: Image quality: Excellent. Bones: Shoulder alignment is anatomic. Moderate to severe glenohumeral joint osteoarthritic changes are seen with joint space narrowing, subchondral sclerosis and inferior marginal osteophyte formation. Moderate acromioclavicular joint osteoarthritic changes also seen. Nonspecific subcortical cystic areas are seen scattered in posterior and lateral aspect of humeral head. No suspicious intraosseous lesion. Visualized left upper ribs are intact. Soft tissues: There is no full-thickness rotator cuff tendon rupture. Mild to moderate supraspinatus muscle atrophy is seen on sagittal images. Small to moderate joint effusion is seen, no intra-articular loose bodies. No abnormal soft tissue calcifications. There is no left axillary lymphadenopathy. Visualized left lung field show no focal infiltrate or pneumothorax. IMPRESSION: 1. Moderate to severe glenohumeral joint osteoarthritis and moderate acromioclavicular joint osteoarthritis. No fracture or dislocation. Nonspecific subcortical cystic area in posterior and lateral aspect of humeral head. No suspicious intraosseous lesions. 2. No full-thickness rotator cuff tendon rupture. Mild to moderate supraspinatus muscle atrophy. 3. Small to moderate joint effusion. No gross intra-articular loose bodies. No abnormal soft tissue calcifications. Dictated by: Kenny Mayfield M.D. on 12/24/2021 at 10:59 Approved by: Kenny Mayfield M.D. on 12/24/2021 at 11:04
== END ==
PROVIDERS: Family Provider Physician Assistant; PCP Physician Assistant; Referring Provider Orthopaedic Surgery; Visit Provider Orthopaedic Surgery
DX: M19.012 Primary osteoarthritis, left shoulder (principal); M25.412 Effusion, left shoulder; M62.512 Muscle wasting and atrophy, not elsewhere classified, left shoulder
CPT/HCPCS: 73200

== ENCOUNTER → 2022-05-07 15:09 | Outpatient (CLI) | payer MEDICARE, OTHER, SELFPAY ==
--- NOTE | 2022-05-07 15:11 | DI.MRI.S_ITS ---
PROCEDURE: MR ANGIO HEAD WO CON INDICATIONS: Aneurysm of other precerebral arteries TECHNIQUE: Noncontrast axial 3-D [id number] MR angiogram, with 3-dimensional maximum intensity projection (MIP) reformats of the internal carotid arteries and posterior circulation then performed. COMPARISON: [facility], MR, MR STROKE, 09/05/2019, 13:16. [facility], MR, MR ANGIO HEAD WO CON, 05/03/2021, 7:49. [facility], MR, MR ANGIO HEAD WO CON, 06/15/2020, 8:30. FINDINGS: Image quality: Excellent. Anterior circulation: Intracranial internal carotid arteries demonstrate normal size and intraluminal flow signal. The flow within the paired anterior cerebral arteries is normal and symmetric. The flow within the middle cerebral arteries is normal and symmetric. The anterior communicating artery is seen. No stenoses, occlusions, or aneurysms. Posterior circulation: Visualized portions of the vertebral arteries demonstrate normal caliber, with note made that the right vertebral artery is dominant to the left. They join to form the basilar artery. At the basilar artery tip, there is mild prominence seen, which is similar over time, with a 3 mm basilar tip aneurysm. The flow within the posterior cerebral arteries is normal and symmetric. No stenoses, occlusions, or aneurysms. IMPRESSION: There is a stable appearance of the 3 mm basilar tip aneurysm. Dictated by: Mahendra Gaitan M.D. on 05/07/2022 at 17:07 Approved by: Mahendra Gaitan M.D. on 05/07/2022 at 17:11
== END ==
PROVIDERS: Family Provider Physician Assistant; PCP Physician Assistant; Referring Provider Neurological Surgery; Visit Provider Neurological Surgery
DX: I72.5 Aneurysm of other precerebral arteries (principal)
CPT/HCPCS: 70544

== ENCOUNTER 2022-07-05 03:47 | Emergency (ER) | payer MEDICARE, OTHER, SELFPAY ==
[2022-07-05 03:50] VITALS: BP 144/64; PULSE 69; RESP 18; TEMP 36.6; O2SAT 99
--- NOTE | 2022-07-05 03:57 | DI.CT.S_ITS ---
PROCEDURE: CT HEAD/BRAIN WO CON INDICATIONS: fall with LOC TECHNIQUE: Noncontrast 4.5 mm thick angled axial sections acquired from the foramen magnum to the vertex, with coronal and sagittal reformats. For radiation dose reduction, the following was used: automated exposure control, adjustment of mA and/or kV according to patient size. COMPARISON: [facility], CT, HEAD WITHOUT CONTRAST, 02/06/2015, 12:50. FINDINGS: Image quality: Excellent. CSF spaces: Basal cisterns are patent. No extra-axial fluid collections. Ventricles are normal in size and shape. Brain: No midline shift. No intracranial masses or hemorrhage. Freire-white matter interface is normal. Moderate cerebral and cerebellar volume loss with multifocal white matter chronic ischemic change noted. Atherosclerotic calcification noted associated with cavernous segments of both internal carotid arteries. Skull and face: Calvarium and visualized facial bones are intact, without suspicious lesions. Sinuses: Visualized sinuses and mastoids are clear. IMPRESSION: Atrophy and ischemic change without intracranial hemorrhage or mass Note: Final report is concordant with preliminary interpretation by [facility], [place] Approved by: Parag Preston M.D. on 07/05/2022 at 6:37
--- NOTE | 2022-07-05 03:58 | ED.GENADULT ---
HPI - General Adult General Chief complaint: Trauma Stated complaint: fell cut chin/upper rt. eye Time Seen by Provider: 07/05/22 03:54 Source: patient and family () Mode of arrival: Ambulatory Limitations: no limitations History of Present Illness HPI narrative: 67-year-old female not on anticoagulation who is here for evaluation of injuries that she sustained when she tripped very a piece of cardboard that they were using to block a door way in order to contain some cast. She fell forward and did hit her face. She reports no injuries except for cut above her right eye and under her chin. She is unsure if she lost consciousness but does not quite remember the event. The patient's who is at bedside states that after she fell she was repeating questions about what had happened to her. She is no neck pain. Denies any extremity injuries. Denies any dental complaints Related Data Home Medications Medication Instructions Recorded Confirmed losartan 25 mg tablet (Cozaar) 50 mg PO HS ##0 10/25/12 hydrocodone 7.5 mg-acetaminophen 1 tab PO TID ##0 01/31/16 325 mg tablet amlodipine 5 mg tablet (Norvasc) 5 mg PO QDAY ##0 09/03/16 Previous Rx's Medication Instructions Recorded aripiprazole 2 mg tablet (Abilify) 2 mg PO QDAY #30 tabs 04/17/17 buspirone 10 mg tablet 10 mg PO BID #60 tabs 04/17/17 duloxetine 30 mg capsule,delayed 90 mg PO QDAY #90 caps 04/17/17 release (Cymbalta) prazosin 1 mg capsule (Minipress) 1 mg PO HS #30 caps 05/18/17 bupropion HCl 200 mg tablet,12 hr 200 mg PO BID #60 tabs 10/29/17 sustained-release bupropion HCl 200 mg tablet,12 hr 200 mg PO BID #10 ea 03/27/21 sustained-release duloxetine 60 mg capsule,delayed 60 mg PO DAILY #5 caps 03/27/21 release (Cymbalta) Review of Systems Constitutional Constitutional: Reports system reviewed and no additional complaints, except as documented Eyes Eyes: Reports system reviewed and no additional complaints, except as documented ENT Ears, Nose, Mouth, and Throat: Reports system reviewed and no additional complaints, except as documented Cardiovascular Cardiovascular: Reports system reviewed and no additional complaints, except as documented Respiratory Respiratory: Reports system reviewed and no additional complaints, except as documented Gastrointestinal Gastrointestinal: Reports system reviewed and no additional complaints, except as documented Integumentary/Breasts Comments: Cut above right eye and under chin Neurologic Neurologic: Reports system reviewed and no additional complaints, except as documented Hematologic/Lymphatic On Anticoagulants: No Patient History Family History (Updated 01/19/14 @ 00:00 by Dread Smith MD) Sister Tremor Sister Tremor Social History Smoking Status: Never smoker Smoking Status: Never smoker Substance Use Type: marijuana Exam Initial Vital Signs Initial Vital Signs: Vital Signs Temperature 98 F 07/05/22 03:50 Pulse Rate 69 07/05/22 03:50 Respiratory Rate 18 07/05/22 03:50 Blood Pressure 144/64 H 07/05/22 03:50 Pulse Oximetry 99 07/05/22 03:50 Oxygen Delivery Method 07/05/22 03:50 Const General: cooperative and healthy appearing [facility] Head: No contusion, No hematoma and No laceration Eyes General: Yes appearance normal, both eyes and all related structures Resp Effort & Inspection: normal respiratory effort Back/Spine/Pelvis Cervical Spine: No cervical spinal tenderness Skin Other: A custom of right eye and under chin. Extrem General: normal to inspection and capillary refill normal Procedures Laceration Repair Laceration 1: Site: other (Chin) Side (If applicable): right Size (cm): 1 Description: linear Depth: simple, single layer Local Anesthetic: lidocaine 2% Amount of anesthesia used (mL): 1.5 Pre-repair: wound explored and deep structures intact Skin layer closed with: nylon Skin layer suture size: 5-0 Number of sutures: 4 Technique: simple, interrupted Laceration 2: Site: other (Above right eye) Side (If applicable): right Size (cm): 1 Description: linear Depth: simple, single layer Local Anesthetic: lidocaine 2% Amount of anesthesia used (mL): 1.5 Pre-repair: wound explored Skin layer closed with: nylon Skin layer suture size: 5-0 Number of sutures: 4 Technique: simple, interrupted Scores GCS Tatum coma scale eye opening: Spontaneous Tatum coma scale verbal response: Orientated Tatum coma scale motor response: Obey commands Jarrod coma scale total score: 15 Nexus Score for C-Spine Focal Neurologic deficit present: No Midline spinal tenderness present: No Altered level of conciousness present: No Intoxication present: No Distracting Injury Present: No Nexus Criteria for C-spine: 0 Course Orders Ordered: ED Orders 07/05/22 03:57 CT head/brain wo con Stat Discontinued Medications Bacitracin (Bacitracin Oint 0.9 Gm Pckt) 1 applic TOP NOW ONE Stop: 07/05/22 04:37 Last Admin: 07/05/22 04:49 Dose: 1 applic Documented By: AP Vital Signs Vital signs: Vital Signs - 8 hr 07/05/22 03:50 07/05/22 04:19 Temperature 98 F Pulse Rate 69 80 Respiratory Rate 18 18 Blood Pressure 144/64 H 141/61 H Pulse Oximetry 99 98 Oxygen Delivery Method Room Air Room Air Medical Decision Making Imaging Data CT scan - head: Radiologist's Impression: No acute intracranial findings MDM Narrative Medical decision making narrative: The lacerations above her right eye and under her chin were closed as described above. She reports no other injuries from the event. Currently she is alert oriented x3 and has a GCS of 15. Her cervical spine was cleared by nexus criteria. This was an obvious mechanical fall as she tripped. Given the fact that she does not remember the event and has some confusion afterwards I do suspect that she sustained a concussion. We discussed care instructions and return precautions. She expressed understanding and agreement. Discharge Plan Departure Patient Disposition: Home Clinical Impression: Concussion, Chin laceration, Eyebrow laceration Instructions: Concussion, DI for Laceration Repair -- Simple Activity Restrictions/Additional Instructions: You can continue to take all medications as directed. You can eat like normal and sleep like normal. You can take Tylenol for any headaches. The stitches that were placed today do need to be removed in approximately 10 days. You can cover the cuts with antibiotic ointment and a bandage. You can shower like normal. Return to the emergency department for any new symptoms. Prescriptions: No Action losartan [Cozaar] 25 MG tablet 50 mg PO HS Qty: 0 hydrocodone-acetaminophen 7.5 MG/325 MG tablet 1 tab PO TID Qty: 0 amlodipine [Norvasc] 5 MG tablet 5 mg PO QDAY Qty: 0 buspirone 10 MG tablet 10 mg PO BID Qty: 60 2RF duloxetine [Cymbalta] 30 MG capsule,delayed release(/EC) 90 mg PO QDAY Qty: 90 2RF aripiprazole [Abilify] 2 MG tablet 2 mg PO QDAY Qty: 30 2RF prazosin [Minipress] 1 MG capsule 1 mg PO HS Qty: 30 1RF bupropion HCl 200 mg tablet extended release 12 hr 200 mg PO BID Qty: 60 0RF Rx Instructions: I tab twice daily. needs to be scheduled for follow up for further refills. call to schedule. bupropion HCl 200 mg tablet sustained-release 12 hr 200 mg PO BID Qty: 10 0RF duloxetine [Cymbalta] 60 mg capsule,delayed release(DR/EC) 60 mg PO DAILY Qty: 5 0RF Referrals: Mallory Last PA-C [Primary Care Provider] - Stand Alone Forms: Patient Portal/API
[2022-07-05 04:19] VITALS: BP 141/61; PULSE 80; RESP 18; O2SAT 98
--- NOTE | 2022-07-05 04:46 | PC.NURSE ---
Addendum entered by Deidre Bourne R.N. 07/05/22 05:08: eye brow lac not eye lid Original Note: after wound cleaning by dr purvis and sutures,bacitracin and bank aids to rt eylid and chin lacs.
[2022-07-05] MEDS: BACITRACIN OINT 0.9 GM PCKT 1 APPLIC TOP (04:49)
== END 2022-07-05 05:07 | disposition home or self-care (01) ==
PROVIDERS: Emergency Provider Emergency Medicine; Family Provider Physician Assistant; PCP Physician Assistant
DX: S06.0X0A Concussion without loss of consciousness, initial encounter (principal); S01.81XA Laceration without foreign body of other part of head, initial encounter; S01.111A Laceration without foreign body of right eyelid and periocular area, initial encounter; W01.10XA Fall on same level from slipping, tripping and stumbling with subsequent striking against unspecified object, initial encounter
CPT/HCPCS: 12011; 70450; 99283; 99284

== ENCOUNTER → 2022-09-01 12:40 | Outpatient (CLI) | payer MEDICARE, OTHER, SELFPAY ==
--- NOTE | 2022-09-01 13:24 | DI.MRI.S_ITS ---
PROCEDURE: MR LUMBAR SPINE WO CON INDICATIONS: Radiculopathy, lumbar region TECHNIQUE: Noncontrast sagittal T1 spin echo and T2 fast echo, sagittal STIR, and T2 fast spin echo through the lumbar spine. In cases with scoliosis, additional coronal T2 fast spin echo may be performed. COMPARISON: [facility], MR, L-SPINE WITHOUT CONTRAST, 08/01/2013, 17:58. FINDINGS: Image quality: Excellent. Alignment and Curvature: Trace anterolisthesis of L2 on L3. Interval increase in levocurvature, centered L2, [id number]. Bone Marrow: Marrow is of normal overall signal. No acute vertebral body compression fractures. Spinal Cord: Conus medullaris terminates at the T12-L1 level. Visualized cord demonstrates normal signal and size. Paraspinous Soft Tissues: No paravertebral masses. T11-T12: Normal appearance. T12-L1: Normal appearance. L1-L2: Disc bulge. Facet hypertrophy. No significant canal stenosis. No significant foraminal stenosis. L2-L3: Interval development of a large free fragment in the right lateral recess slightly above the disc space and extending into the right foramen. The disc fragment measures approximately 10 x 16 x 8 mm. It obliterates the right L2 nerve root in the lateral recess above the foramen and also in the medial foramen. L3-L4: Disc bulge. Facet hypertrophy. No canal stenosis. Mild left foraminal stenosis. L4-L5: Central canal is unchanged with disc bulge and facet hypertrophy resulting in moderate canal stenosis. There has been interval development of a right foraminal disc protrusion which contributes to moderate to severe right foraminal narrowing with right foraminal L4 nerve root impingement. No significant left foraminal narrowing. L5-S1: Posterior disc bulge. Facet hypertrophy. No canal stenosis. [id number] right foraminal narrowing. Progression of left foraminal narrowing with moderate to severe left foraminal narrowing and a mild degree of left foraminal L5 nerve root impingement. IMPRESSION: 1. Interval development of a large free disc fragment arising from L2-L3 in the right lateral recess extending superiorly behind the L2 vertebral body. It also extends into the foramen. It obliterates the right L2 nerve root in the right lateral recess above the foramen and also in the medial foramen. 2. At L4-L5, a right foraminal disc protrusion has developed, contributing to moderate to severe right foraminal narrowing. 3. Again noted is moderate canal stenosis at L4-L5. 4. Multilevel foraminal narrowing as described above. This includes moderate to severe right foraminal narrowing at L4-L5 and moderate to severe left foraminal narrowing at L5-S1. Dictated by: Ja Lemus M.D. on 09/01/2022 at 14:25 Approved by: Ja Lemus M.D. on 09/01/2022 at 14:37
== END ==
PROVIDERS: Family Provider Physician Assistant; PCP Physician Assistant; Referring Provider Physician Assistant; Visit Provider Physician Assistant
DX: M51.16 Intervertebral disc disorders with radiculopathy, lumbar region (principal); M51.17 Intervertebral disc disorders with radiculopathy, lumbosacral region; M48.061 Spinal stenosis, lumbar region without neurogenic claudication; M48.07 Spinal stenosis, lumbosacral region
CPT/HCPCS: 72148

== ENCOUNTER 2023-05-14 08:15 | Outpatient (RCR) | payer MEDICARE, OTHER, SELFPAY ==
--- NOTE | 2023-03-04 11:53 | PT.OIE ---
Current Diagnoses Primary osteoarthritis, right shoulder (03/04/23) Weakness (03/04/23) Other mechanical complication of other internal orthopedic devices, implants and grafts, subsequent encounter (03/04/23) Encounter for other preprocedural examination (03/04/23) Visit Care Team Role Provider Type Mallory Last PA-C Family Provider Non-Staff Primary Care Provider Specialty: Medical Address: [address] [place] [address] [address], [place], [address] Email: Mamadou Hernandez DO Attending Provider Non-Staff Referring Provider Specialty: Orthopedics Address: [address] [place] [address], [id number] Email: Physical Therapy Initial Evaluation PT-OP-A Visit Information Start: 02/12/23 15:57 Freq: Status: Active Protocol: Document 03/04/23 10:32 SAK (Rec: 03/04/23 11:45 [facility] [id number]) Out-Patient Physical Therapy Visit Information Visit Information Visit Type Initial Evaluation Visit Note Post op reverse total shoulder 01/03/23 Visit Start Time 10:32 Visit Stop Time 11:20 Total Visit Minutes 48 Visit Number 1 Evaluation Information Evaluation Date 03/04/23 Precautions Precautions Ehler's Danlo, essential tremor, osteoporosis, left TKA , c/s fusion, triple arthrodesis right foot, depression, SOTO, history falls POST OP PROTOCOL IN CHART PT-OP-B Current Condition Start: 02/12/23 15:57 Freq: Status: Active Protocol: Document 03/04/23 10:32 SAK (Rec: 03/04/23 11:45 [facility] [id number]) Current Condition History of Current Condition Onset Date 02/03/23 Current Complaints right UE pain and limited function History of Current Condition Has had 1 reverse TSA on left and 2 on right most recently Feb 03 2023 at [facility]. Reports doctor said no precautions. Hasn't done PT yet; has been doing wall walking. Brought referral Treatment Goals Patient/Caregiver Goals regain functional use of right UE. Patient is left handed. Prior Functional Status Baseline Function- ADL's Modified Independent Current Functional Impairments (Reported) Functional Limitations- ADL's can't reach overhead or behind his back. PT-OP-C Subjective Start: 02/12/23 15:57 Freq: Status: Active Protocol: Document 03/04/23 10:32 SAK (Rec: 03/04/23 11:45 [facility] [id number]) OP-PT Pain Assessment Pain Assessment Grid Paper Pain Assessment Grid Completed Yes Location right shoulder Intensity 8 PT-OP-H Neuro Start: 02/12/23 15:57 Freq: Status: Active Protocol: Document 03/04/23 10:32 SAK (Rec: 03/04/23 11:45 [facility] [id number]) Sensation Evaluation Gross Sensation Gross Sensation Right UE Impaired Sensation Description [employer] PT-OP-J Posture/Palpation/Skin Start: 02/12/23 15:57 Freq: Status: Active Protocol: Document 03/04/23 10:32 SAK (Rec: 03/04/23 11:45 [facility] [id number]) Posture Evaluation Position Sitting Head/C-Spine Posture Forward Head Shoulder Posture (L) Rounded,(R) Rounded Scapula Posture (R) Tipped Arm Posture (L) Internally Rotated,(R) Internally Rotated Palpation Assessment Location scar tissue Palpation Findings Soft Tissue Tightness Skin Assessment Incisional Assessment Incision Appearance/Comments well-healed, no signs or symptoms of infection. PT-OP-K Range of Motion Start: 02/12/23 15:57 Freq: Status: Active Protocol: Document 03/04/23 10:32 SAK (Rec: 03/04/23 11:45 [facility] [id number]) Cervical Spine Range of Motion Cervical Spine Active Comments mod limitations all motions, prior c/s fusion Shoulder Goniometric Range of Motion Shoulder Right Shoulder ROM WFL No Testing Position Standing Flexion 84 Extension 10 Abduction 78 External Rotation at 0 degrees Abduction 25 Internal Rotation Behind Back (text) lateral hip Left Flexion 125 Extension 20 Abduction 120 External Rotation at 45 degrees 28 Abduction External Rotation at 0 degrees Abduction 40 Internal Rotation 70 Internal Rotation Behind Back (text) T10 Elbow/Forearm Range of Motion Elbow/Forearm sadia Elbow/Forearm ROM WFL Yes PT-OP-M Strength Start: 02/12/23 15:57 Freq: Status: Active Protocol: Document 03/04/23 10:32 SAK (Rec: 03/04/23 11:45 [facility] [id number]) Shoulder Strength Shoulder Manual Muscle Testing Left Flexion 4 Good Extension 4 Good Abduction (C5) 4 Good External Rotation 4- Good- Internal Rotation 4 Good Right Flexion 3- Fair- Extension 3- Fair- Abduction (C5) 3- Fair- Adduction 3+ Fair+ External Rotation 3- Fair- Internal Rotation 3- Fair- Horizontal Abduction 3- Fair- Horizontal Adduction 3- Fair- PT-OP-Q Treatments Start: 02/12/23 15:57 Freq: Status: Active Protocol: Document 03/04/23 10:32 SAK (Rec: 03/04/23 11:45 [facility] [id number]) Therapeutic Exercises Supine Exercises shoulder IR Comments NEXT SESSION shoulder ER Comments NEXT SESSION shoulder flex Comments NEXT SESSION Sidelying Exercises shoulder flex Comments NEXT SESSION shoulder abd Comments NEXT SESSION Sitting Exercises pulleys Sitting Exercise Name flex and scap Side right Comments NEXT SESSION scapular retraction Comments NEXT SESSION shoulder rolls Sitting Exercise Name sadia and unil Comments NEXT SESSION Standing Exercises wall slide Comments NEXT SESSION Manual Therapy Treatment Joint Mobilizations scapulothoracic Comments next session Self-Care/Home Management Treatment Education Patient Education Home Exercise Program,Posture Other Education issued written handout, urged to do in pain-free ROM PT-OP-R Modalities Start: 02/12/23 15:57 Freq: Status: Active Protocol: Document 03/04/23 10:32 SAK (Rec: 03/04/23 11:47 [facility] [id number]) Hot Pack/Cold Pack Treatment Hot Pack Location right shoulder Patient Position Hooklying Treatment Duration (minutes) 15 Patient Tolerance Good Comments during patient education PT-OP-T Assessment and Plan Start: 02/12/23 15:57 Freq: Status: Active Protocol: Document 03/04/23 10:32 SAK (Rec: 03/04/23 11:45 [facility] [id number]) Physical Therapy Assessment Goals Three Impairment Q Impairment Quickdash UE disability score 82% Short Term Goal (STG) Improver Quickdash score to no greater than 60% STG Duration 04/03/23 Fire Suppression Captain Goal (LTG) Improve Quickdash score to no greater than 30% as measure of improved right UE function in her daily life LTG Duration 05/04/23 Two Impairment weakness right shoulder Impairment 3-/5 Short Term Goal (STG) Instruct in strengthening exercises for right shoulder STG Duration 04/03/23 Prison Goal (LTG) Patient will demonstrate at least 4/5 muscle strength throughout right shoulder to allow her to do all usual activities LTG Duration 05/04/23 One Impairment unable to reach overhead or behind her back to perform ADL 's Short Term Goal (STG) Patient to be instructed in a progressive HEP for purposes of restoring functional ROM to her right UE, following post- op protocol STG Duration 04/03/23 Fire Suppression Captain Goal (LTG) Patient will be independent and compliant with HEP and will demonstrate ability to reach overhead and behind her back to perform all ADL's and usual activities without difficulty LTG Duration 05/04/23 Assessment Summary Assessment Patient presents to PT s/p right reverese total shoulder arthroplasty with c/o typical limited ROM, pain 2-02/05, uses ice and heat at home. So far only doing wall walk exercise . Will benefit from PT to achieve functional active use of her right UE. Precautions include Ehler's Danlo and osteoporosis. Physical Therapy Plan Frequency and Duration Frequency of Treatment 2x/Week Duration of treatment (weeks) 8 Plan of Care Start Date 03/04/23 Plan of Care End Date 04/03/23 Therapeutic Interventions Therapeutic Interventions Home Exercise Program,Joint Mobilizations,Manual Therapy, Patient/Caregiver Education, Self-Care/Home Management,Soft Tissue Mobilization,Taping, Therapeutic Activities, Therapeutic Exercises Modalities Cold Pack/Ice Massage,Electric Stimulation,Hot Packs, Iontophoresis Next Visit Focus/Plan Next Note Type Treatment Note Next Visit Plan Review HEP, post-op protocol, gentle progression of shoulder ROM as tolerated, avoid IR and hyperextension per protocol. Instruct in submax shoulder isometric ex. Gentle scapular mobilization. Manual therapy to decrease muscle tension and pain. Ice or heat PRN pain.
--- NOTE | 2023-03-04 11:53 | PT.OPPOC ---
Physical, Occupational & Speech Therapy At Current Diagnoses Primary osteoarthritis, right shoulder (03/04/23) Weakness (03/04/23) Other mechanical complication of other internal orthopedic devices, implants and grafts, subsequent encounter (03/04/23) Encounter for other preprocedural examination (03/04/23) Visit Care Team Role Provider Type Mallory Last PA-C Family Provider Non-Staff Primary Care Provider Specialty: Medical Address: [address] [place] [address] [address], [place], [address] Email: Mamadou Hernandez DO Attending Provider Non-Staff Referring Provider Specialty: Orthopedics Address: [address] [place] [address], [id number] Email: Plan Of Care PT-OP-T Assessment and Plan Start: 02/12/23 15:57 Freq: Status: Active Protocol: Document 03/04/23 10:32 SAK (Rec: 03/04/23 11:45 [facility] [id number]) Physical Therapy Assessment Goals Three Impairment Q Impairment Quickdash UE disability score 82% Short Term Goal (STG) Improver Quickdash score to no greater than 60% STG Duration 04/03/23 Prop Maker Goal (LTG) Improve Quickdash score to no greater than 30% as measure of improved right UE function in her daily life LTG Duration 05/04/23 Two Impairment weakness right shoulder Impairment 3-/5 Short Term Goal (STG) Instruct in strengthening exercises for right shoulder STG Duration 04/03/23 Prop Maker Goal (LTG) Patient will demonstrate at least 4/5 muscle strength throughout right shoulder to allow her to do all usual activities LTG Duration 05/04/23 One Impairment unable to reach overhead or behind her back to perform ADL 's Short Term Goal (STG) Patient to be instructed in a progressive HEP for purposes of restoring functional ROM to her right UE, following post- op protocol STG Duration 04/03/23 Assisted Goal (LTG) Patient will be independent and compliant with HEP and will demonstrate ability to reach overhead and behind her back to perform all ADL's and usual activities without difficulty LTG Duration 05/04/23 Assessment Summary Assessment Patient presents to PT s/p right reverese total shoulder arthroplasty with c/o typical limited ROM, pain 2-02/05, uses ice and heat at home. So far only doing wall walk exercise . Will benefit from PT to achieve functional active use of her right UE. Precautions include Ehler's Danlo and osteoporosis. Physical Therapy Plan Frequency and Duration Frequency of Treatment 2x/Week Duration of treatment (weeks) 8 Plan of Care Start Date 03/04/23 Plan of Care End Date 04/03/23 Therapeutic Interventions Therapeutic Interventions Home Exercise Program,Joint Mobilizations,Manual Therapy, Patient/Caregiver Education, Self-Care/Home Management,Soft Tissue Mobilization,Taping, Therapeutic Activities, Therapeutic Exercises Modalities Cold Pack/Ice Massage,Electric Stimulation,Hot Packs, Iontophoresis Next Visit Focus/Plan Next Note Type Treatment Note Next Visit Plan Review HEP, post-op protocol, gentle progression of shoulder ROM as tolerated, avoid IR and hyperextension per protocol. Instruct in submax shoulder isometric ex. Gentle scapular mobilization. Manual therapy to decrease muscle tension and pain. Ice or heat PRN pain. Plan of Care Dates Plan of Care Start Date 03/04/23 Plan of Care End Date 04/03/23 Electronically Signed by: Maddie Cassidy, PT 03/04/23 8084 If you are in agreement with this Plan of Care, please return a signed and dated copy. I have reviewed this Plan of Care and certify that the skilled therapy services above are required to meet the patient?s needs. Physician Signature Date Printed Name and Credentials Clinical Instructor Signature Printed Name and Credentials
--- NOTE | 2023-03-06 10:45 | PT.OTN ---
Current Diagnoses Primary osteoarthritis, right shoulder (03/06/23) Weakness (03/06/23) Other mechanical complication of other internal orthopedic devices, implants and grafts, subsequent encounter (03/06/23) Encounter for other preprocedural examination (03/06/23) Physical Therapy Treatment Note PT-OP-A Visit Information Start: 02/12/23 15:57 Freq: Status: Active Protocol: Document 03/06/23 10:04 SP (Rec: 03/06/23 10:49 SP [id number]) Out-Patient Physical Therapy Visit Information Visit Information Visit Type Treatment Note Visit Start Time 10:04 Visit Stop Time 10:45 Total Visit Minutes 41 Visit Number 2 Number of FOOD SAFETY MANAGER Visits 1 Evaluation Information Evaluation Date 03/04/23 Precautions Precautions Ehler's Danlo, essential tremor, osteoporosis, left TKA , c/s fusion, triple arthrodesis right foot, depression, SOTO, history falls POST OP PROTOCOL IN CHART Post op reverse total shoulder 01/03/23 PT-OP-B Current Condition Start: 02/12/23 15:57 Freq: Status: Active Protocol: Document 03/04/23 10:32 SAK (Rec: 03/04/23 11:45 SAK [id number]) Current Condition History of Current Condition Onset Date 02/03/23 Current Complaints right UE pain and limited function History of Current Condition Has had 1 reverse TSA on left and 2 on right most recently Feb [address] [facility]. Reports doctor said no precautions. Hasn't done PT yet; has been doing wall walking. Brought referral Treatment Goals Patient/Caregiver Goals regain functional use of right UE. Patient is left handed. Prior Functional Status Baseline Function- ADL's Modified Independent Current Functional Impairments (Reported) Functional Limitations- ADL's can't reach overhead or behind his back. PT-OP-C Subjective Start: 02/12/23 15:57 Freq: Status: Active Protocol: Document 03/06/23 10:04 SP (Rec: 03/06/23 10:49 SP [id number]) OP-PT Subjective Patient Comments Patient Comments Pt reported did not start the exercises yet that was given at eval/ last tx. PT-OP-H Neuro Start: 02/12/23 15:57 Freq: Status: Active Protocol: Document 03/04/23 10:32 SAK (Rec: 03/04/23 11:45 SAK [id number]) Sensation Evaluation Gross Sensation Gross Sensation Right UE Impaired Sensation Description [place] [facility] [place] PT-OP-J Posture/Palpation/Skin Start: 02/12/23 15:57 Freq: Status: Active Protocol: Document 03/04/23 10:[address] [facility] (Rec: 03/04/23 11:[address] [facility] [id number]) Posture Evaluation Position Sitting Head/C-Spine Posture Forward Head Shoulder Posture (L) Rounded,(R) Rounded Scapula Posture (R) Tipped Arm Posture (L) Internally Rotated,(R) Internally Rotated Palpation Assessment Location scar tissue Palpation Findings Soft Tissue Tightness Skin Assessment Incisional Assessment Incision Appearance/Comments well-healed, no signs or symptoms of infection. PT-OP-K Range of Motion Start: 02/12/23 15:57 Freq: Status: Active Protocol: Document 03/04/23 10:[address] [facility] (Rec: 03/04/23 11:[address] [facility] [id number]) Cervical Spine Range of Motion Cervical Spine Active Comments mod limitations all motions, prior c/s fusion Shoulder Goniometric Range of Motion Shoulder Right Shoulder ROM WFL No Testing Position Standing Flexion 84 Extension 10 Abduction 78 External Rotation at 0 degrees Abduction 25 Internal Rotation Behind Back (text) lateral hip Left Flexion 125 Extension 20 Abduction 120 External Rotation at 45 degrees 28 Abduction External Rotation at 0 degrees Abduction 40 Internal Rotation 70 Internal Rotation Behind Back (text) T10 Elbow/Forearm Range of Motion Elbow/Forearm sadia Elbow/Forearm ROM WFL Yes PT-OP-M Strength Start: 02/12/23 15:57 Freq: Status: Active Protocol: Document 03/04/23 10:[address] [facility] (Rec: 03/04/23 11:[address] [facility] [id number]) Shoulder Strength Shoulder Manual Muscle Testing Left Flexion 4 Good Extension 4 Good Abduction (C5) 4 Good External Rotation 4- Good- Internal Rotation 4 Good Right Flexion 3- Fair- Extension 3- Fair- Abduction (C5) 3- Fair- Adduction 3+ Fair+ External Rotation 3- Fair- Internal Rotation 3- Fair- Horizontal Abduction 3- Fair- Horizontal Adduction 3- Fair- PT-OP-Q Treatments Start: 02/12/23 15:57 Freq: Status: Active Protocol: Document 03/06/23 10:04 SP (Rec: 03/06/23 10:49 SP [id number]) Therapeutic Exercises Supine Exercises shoulder IR Supine Exercise Name HEP reviewed w/ HOs: humerus 45 deg abd Side right Resistance AAROM Reps/Minutes x10 reps Comments cued slow pacing, tolerant 45 deg abd today shoulder ER Supine Exercise Name HEP reviewed w/ HOs: humerus 45 deg abd Side right Resistance AAROM Equipment Used dowel assist Reps/Minutes 10 reps Comments cued slow pacing, tolerant 45 deg abd today shoulder flex Supine Exercise Name HEP reviewed w/ HOs Resistance AAROM Equipment Used dowel Reps/Minutes 10 reps 5 SH Comments cued slow pacing Sidelying Exercises shoulder flex Sidelying Exercise Name in PT Side right Resistance AAROM therapist support Equipment Used dowel Reps/Minutes 8 reps Comments cued slow pacing, painfree and fluid AAROM shoulder abd Sidelying Exercise Name in PT Side right Resistance AAROM therapist support Reps/Minutes 8 reps Comments cued slow pacing, painfree and fluid AAROM Sitting Exercises pulleys Sitting Exercise Name flex and scap Side right Comments NEXT SESSION scapular retraction Sitting Exercise Name added to HEP Side bilateral Reps/Minutes 5 SH x10 reps- discussed the baseline support when progress strengthening Comments cued let arms rest in lap, just scapular ROM- improved form with reps shoulder rolls Comments NEXT SESSION Standing Exercises wall slide Comments NEXT SESSION Other Exercises self STMs Other Exercise Name theracane posterior neck, ball wall post scap: rhomboid, UT Side right Reps/Minutes theracane only performed 10 sec good feedback response feels good. Comments MWM head nods/turns , self ball roll at wall (suggested in sock) Manual Therapy Treatment Soft Tissue Mobilization R shld,neck Body Location UT, LS, rhomboid, supra, infra , pec Comments manual, MWM theracane/ ball wall Joint Mobilizations scapulothoracic Joint R shld: PROM Direction protraction/retraction, UR/DR with PROM abd Grade I Body Position Sidelying Comments manual PROM, AAROM scapular w/ FF, ABD, HABD with tactile cues for scapular glide mobility. PT-OP-R Modalities Start: 02/12/23 15:57 Freq: Status: Active Protocol: Document 03/04/23 10:[address] [facility] (Rec: 03/04/23 11:[address] [facility] [id number]) Hot Pack/Cold Pack Treatment Hot Pack Location right shoulder Patient Position Hooklying Treatment Duration (minutes) 15 Patient Tolerance Good Comments during patient education PT-OP-T Assessment and Plan Start: 02/12/23 15:57 Freq: Status: Active Protocol: Document 03/06/23 10:04 SP (Rec: 03/06/23 10:49 SP [id number]) Physical Therapy Assessment Goals Three Impairment Q Impairment Quickdash UE disability score 82% Short Term Goal (STG) Improver Quickdash score to no greater than 60% STG Duration 04/03/23 Fpc Goal (LTG) Improve Quickdash score to no greater than 30% as measure of improved right UE function in her daily life LTG Duration 05/04/23 Assessment Summary Assessment Pt responded well to manual and ed on self application use theracane and racquetball/ tennis ball on wall at home carryover. She reports the stretching and AAROM HEP review allowed her muscles to be more active and able to move shoulder with less pain and tension in neck. Good understanding with added handouts for set up/proper form post cues. Physical Therapy Plan Frequency and Duration Frequency of Treatment 2x/Week Duration of treatment (weeks) 8 Plan of Care Start Date 03/04/23 Plan of Care End Date 04/03/23 Therapeutic Interventions Therapeutic Interventions Home Exercise Program,Joint Mobilizations,Manual Therapy, Patient/Caregiver Education, Self-Care/Home Management,Soft Tissue Mobilization,Taping, Therapeutic Activities, Therapeutic Exercises Modalities Cold Pack/Ice Massage,Electric Stimulation,Hot Packs, Iontophoresis Next Visit Focus/Plan Next Note Type Treatment Note Next Visit Plan *avoid IR and hyperextension per protocol. Review HEP, post-op protocol, gentle progression of shoulder ROM as tolerated. Instruct in submax shoulder isometric ex. Gentle scapular mobilization. Manual therapy to decrease muscle tension and pain. Ice or heat PRN pain.
--- NOTE | 2023-03-09 16:18 | PT.OTN ---
Current Diagnoses Primary osteoarthritis, right shoulder (03/09/23) Weakness (03/09/23) Other mechanical complication of other internal orthopedic devices, implants and grafts, subsequent encounter (03/09/23) Encounter for other preprocedural examination (03/09/23) Physical Therapy Treatment Note PT-OP-A Visit Information Start: 02/12/23 15:57 Freq: Status: Active Protocol: Document 03/09/23 13:59 SAK (Rec: 03/09/23 15:00 SAK [id number]) Out-Patient Physical Therapy Visit Information Visit Information Visit Type Treatment Note Visit Start Time 14:00 Visit Stop Time 14:55 Total Visit Minutes 55 Visit Number 3 Evaluation Information Evaluation Date 03/04/23 Precautions Precautions Ehler's Danlo, essential tremor, osteoporosis, left TKA , c/s fusion, triple arthrodesis right foot, depression, SOTO, history falls POST OP PROTOCOL IN CHART Post op reverse total shoulder 01/03/23 PT-OP-B Current Condition Start: 02/12/23 15:57 Freq: Status: Active Protocol: Document 03/04/23 10:32 SAK (Rec: 03/04/23 11:45 SAK [id number]) Current Condition History of Current Condition Onset Date 02/03/23 Current Complaints right UE pain and limited function History of Current Condition Has had 1 reverse TSA on left and 2 on right most recently Feb 03 2023 at [facility]. Reports doctor said no precautions. Hasn't done PT yet; has been doing wall walking. Brought referral Treatment Goals Patient/Caregiver Goals regain functional use of right UE. Patient is left handed. Prior Functional Status Baseline Function- ADL's Modified Independent Current Functional Impairments (Reported) Functional Limitations- ADL's can't reach overhead or behind his back. PT-OP-C Subjective Start: 02/12/23 15:57 Freq: Status: Active Protocol: Document 03/09/23 13:59 SAK (Rec: 03/09/23 15:00 SAK [id number]) OP-PT Subjective Patient Comments Patient Comments No new c/o, no inc in pain with PT. Compliant with HEP, states she feels she continues to improve. PT-OP-H Neuro Start: 02/12/23 15:57 Freq: Status: Active Protocol: Document 03/04/23 10:32 SAK (Rec: 03/04/23 11:45 [facility] [id number]) Sensation Evaluation Gross Sensation Gross Sensation Right UE Impaired Sensation Description [place] PT-OP-J Posture/Palpation/Skin Start: 02/12/23 15:57 Freq: Status: Active Protocol: Document 03/04/23 10:32 [facility] (Rec: 03/04/23 11:45 [facility] [id number]) Posture Evaluation Position Sitting Head/C-Spine Posture Forward Head Shoulder Posture (L) Rounded,(R) Rounded Scapula Posture (R) Tipped Arm Posture (L) Internally Rotated,(R) Internally Rotated Palpation Assessment Location scar tissue Palpation Findings Soft Tissue Tightness Skin Assessment Incisional Assessment Incision Appearance/Comments well-healed, no signs or symptoms of infection. PT-OP-K Range of Motion Start: 02/12/23 15:57 Freq: Status: Active Protocol: Document 03/04/23 10:32 [facility] (Rec: 03/04/23 11:45 [facility] [id number]) Cervical Spine Range of Motion Cervical Spine Active Comments mod limitations all motions, prior c/s fusion Shoulder Goniometric Range of Motion Shoulder Right Shoulder ROM WFL No Testing Position Standing Flexion 84 Extension 10 Abduction 78 External Rotation at 0 degrees Abduction 25 Internal Rotation Behind Back (text) lateral hip Left Flexion 125 Extension 20 Abduction 120 External Rotation at 45 degrees 28 Abduction External Rotation at 0 degrees Abduction 40 Internal Rotation 70 Internal Rotation Behind Back (text) T10 Elbow/Forearm Range of Motion Elbow/Forearm sadia Elbow/Forearm ROM WFL Yes PT-OP-M Strength Start: 02/12/23 15:57 Freq: Status: Active Protocol: Document 03/04/23 10:32 [facility] (Rec: 03/04/23 11:45 [facility] [id number]) Shoulder Strength Shoulder Manual Muscle Testing Left Flexion 4 Good Extension 4 Good Abduction (C5) 4 Good External Rotation 4- Good- Internal Rotation 4 Good Right Flexion 3- Fair- Extension 3- Fair- Abduction (C5) 3- Fair- Adduction 3+ Fair+ External Rotation 3- Fair- Internal Rotation 3- Fair- Horizontal Abduction 3- Fair- Horizontal Adduction 3- Fair- PT-OP-Q Treatments Start: 02/12/23 15:57 Freq: Status: Active Protocol: Document 03/09/23 13:59 [facility] (Rec: 03/09/23 15:00 [facility] [id number]) Therapeutic Exercises Supine Exercises shoulder IR Supine Exercise Name no greater than 50 deg Side right Resistance AAROM Reps/Minutes x10 reps Comments cued slow pacing, tolerant 45 deg abd today shoulder ER Side right Resistance AAROM Equipment Used dowel assist Reps/Minutes 10 reps Comments cued slow pacing, tolerant 50 deg abd today shoulder flex Supine Exercise Name HEP reviewed w/ HOs Resistance AAROM Equipment Used dowel Reps/Minutes 10 reps 5 SH Comments cued slow pacing Sidelying Exercises rhythmic stab scap Reps/Minutes 5 ea direction shoulder IR Reps/Minutes 10x shoulder ER Reps/Minutes 10x shoulder flex Sidelying Exercise Name in PT Side right Resistance AAROM therapist support Equipment Used dowel Reps/Minutes 5 reps Comments cued slow pacing, painfree and fluid AAROM shoulder abd Sidelying Exercise Name in PT Side right Resistance AAROM therapist support Reps/Minutes 5 reps Comments cued slow pacing, painfree and fluid AAROM Sitting Exercises table slide Sitting Exercise Name flex Equipment Used slider sheet Reps/Minutes 10x pulleys Sitting Exercise Name flex and scap Side right Reps/Minutes 5x Comments instructed gentle at home scapular retraction Sitting Exercise Name added to HEP Side bilateral Reps/Minutes 5 SH x10 reps- discussed the baseline support when progress strengthening Comments cued let arms rest in lap, just scapular ROM- improved form with reps shoulder rolls Sitting Exercise Name sadia and un Reps/Minutes 5x Standing Exercises ball roll Standing Exercise Name fwd, diagonal AROM UE reaching motion with ball support Equipment Used table Reps/Minutes 5x shoulder ER/IR Standing Exercise Name elbows straight Reps/Minutes 5x ER/IR isometric Reps/Minutes 5x wall slide Reps/Minutes 5x Other Exercises self STMs Other Exercise Name review Manual Therapy Treatment Soft Tissue Mobilization R shld,neck Body Location UT, LS, rhomboid, supra, infra , pec Comments manual, Joint Mobilizations scapulothoracic Joint R shld: PROM Direction protraction/retraction, UR/DR with PROM abd Grade I Body Position Sidelying Comments manual PROM, AAROM scapular w/ FF, ABD, HABD with tactile cues for scapular glide mobility. Self-Care/Home Management Treatment Education Patient Education Home Exercise Program,Joint Protection,Pain Management, Posture,Safety Other Education caution to be gentle with ther ex, continue to limit IR to no more than 45-50 deg PT-OP-R Modalities Start: 02/12/23 15:57 Freq: Status: Active Protocol: Document 03/09/23 13:59 [facility] (Rec: 03/09/23 16:18 [facility] [id number]) Hot Pack/Cold Pack Treatment Hot Pack Location right shoulder Patient Position Hooklying Treatment Duration (minutes) 15 Patient Tolerance Good PT-OP-T Assessment and Plan Start: 02/12/23 15:57 Freq: Status: Active Protocol: Document 03/09/23 13:59 [facility] (Rec: 03/09/23 15:00 [facility] [id number]) Physical Therapy Assessment Goals Three Impairment Q Impairment Quickdash UE disability score 82% Short Term Goal (STG) Improver Quickdash score to no greater than 60% STG Duration 04/03/23 [employer] Gatherer Goal (LTG) Improve Quickdash score to no greater than 30% as measure of improved right UE function in her daily life LTG Duration 05/04/23 Two Impairment weakness right shoulder Impairment 3-/5 Short Term Goal (STG) Instruct in strengthening exercises for right shoulder STG Duration 04/03/23 Moss Gatherer Goal (LTG) Patient will demonstrate at least 4/5 muscle strength throughout right shoulder to allow her to do all usual activities LTG Duration 05/04/23 One Impairment unable to reach overhead or behind her back to perform ADL 's Short Term Goal (STG) Patient to be instructed in a progressive HEP for purposes of restoring functional ROM to her right UE, following post- op protocol STG Duration 04/03/23 Fpc Goal (LTG) Patient will be independent and compliant with HEP and will demonstrate ability to reach overhead and behind her back to perform all ADL's and usual activities without difficulty LTG Duration 05/04/23 Assessment Summary Assessment Gentle progression of ther ex today with good tolerance, cues to inhibit UT, gentle with ther ex. Updated written HEP. Patient felt table slide and use of therapy ball for ROM helpful, demonstrates good understanding of new ex. Physical Therapy Plan Frequency and Duration Frequency of Treatment 2x/Week Duration of treatment (weeks) 8 Plan of Care Start Date 03/04/23 Plan of Care End Date 04/03/23 Therapeutic Interventions Therapeutic Interventions Home Exercise Program,Joint Mobilizations,Manual Therapy, Patient/Caregiver Education, Self-Care/Home Management,Soft Tissue Mobilization,Taping, Therapeutic Activities, Therapeutic Exercises Modalities Cold Pack/Ice Massage,Electric Stimulation,Hot Packs, Iontophoresis Next Visit Focus/Plan Next Note Type Treatment Note Next Visit Plan *avoid IR and hyperextension per protocol. Review updated HEP, continue to progress per protocol as tolerated, encourage gentle, painfree, no impingment symptoms.
--- NOTE | 2023-03-11 13:39 | PT.OTN ---
Current Diagnoses Primary osteoarthritis, right shoulder (03/11/23) Weakness (03/11/23) Other mechanical complication of other internal orthopedic devices, implants and grafts, subsequent encounter (03/11/23) Encounter for other preprocedural examination (03/11/23) Physical Therapy Treatment Note PT-OP-A Visit Information Start: 02/12/23 15:57 Freq: Status: Active Protocol: Document 03/11/23 11:19 [facility] (Rec: 03/11/23 12:[address] [facility] [id number]) Out-Patient Physical Therapy Visit Information Visit Information Visit Type Treatment Note Visit Start Time 11:20 Visit Stop Time 12:10 Total Visit Minutes 55 Visit Number 4 Evaluation Information Evaluation Date 03/04/23 Precautions Precautions Ehler's Danlo, essential tremor, osteoporosis, left TKA , c/s fusion, triple arthrodesis right foot, depression, SOTO, history falls POST OP PROTOCOL IN CHART Post op reverse total shoulder 01/03/23 PT-OP-B Current Condition Start: 02/12/23 15:57 Freq: Status: Active Protocol: Document 03/04/23 10:32 [facility] (Rec: 03/04/23 11:[address] [facility] [id number]) Current Condition History of Current Condition Onset Date 02/03/23 Current Complaints right UE pain and limited function History of Current Condition Has had 1 reverse TSA on left and 2 on right most recently Feb 03 2023 at [facility]. Reports doctor said no precautions. Hasn't done PT yet; has been doing wall walking. Brought referral Treatment Goals Patient/Caregiver Goals regain functional use of right UE. Patient is left handed. Prior Functional Status Baseline Function- ADL's Modified Independent Current Functional Impairments (Reported) Functional Limitations- ADL's can't reach overhead or behind his back. PT-OP-C Subjective Start: 02/12/23 15:57 Freq: Status: Active Protocol: Document 03/11/23 11:19 [facility]AK (Rec: 03/11/23 12:[address] [facility] [id number]) OP-PT Subjective Patient Comments Patient Comments A little sore. PT-OP-H Neuro Start: 02/12/23 15:57 Freq: Status: Active Protocol: Document 03/04/23 10:32 [facility]AK (Rec: 03/04/23 11:[address] [facility] [id number]) Sensation Evaluation Gross Sensation Gross Sensation Right UE Impaired Sensation Description [facility] [employer] [place] PT-OP-J Posture/Palpation/Skin Start: 02/12/23 15:57 Freq: Status: Active Protocol: Document 03/04/23 10:[address] [facility] (Rec: 03/04/23 11:[address] [facility] [id number]) Posture Evaluation Position Sitting Head/C-Spine Posture Forward Head Shoulder Posture (L) Rounded,(R) Rounded Scapula Posture (R) Tipped Arm Posture (L) Internally Rotated,(R) Internally Rotated Palpation Assessment Location scar tissue Palpation Findings Soft Tissue Tightness Skin Assessment Incisional Assessment Incision Appearance/Comments well-healed, no signs or symptoms of infection. PT-OP-K Range of Motion Start: 02/12/23 15:57 Freq: Status: Active Protocol: Document 03/04/23 10:[address] [facility] (Rec: 03/04/23 11:[address] [facility] [id number]) Cervical Spine Range of Motion Cervical Spine Active Comments mod limitations all motions, prior c/s fusion Shoulder Goniometric Range of Motion Shoulder Right Shoulder ROM WFL No Testing Position Standing Flexion 84 Extension 10 Abduction 78 External Rotation at 0 degrees Abduction 25 Internal Rotation Behind Back (text) lateral hip Left Flexion 125 Extension 20 Abduction 120 External Rotation at 45 degrees 28 Abduction External Rotation at 0 degrees Abduction 40 Internal Rotation 70 Internal Rotation Behind Back (text) T10 Elbow/Forearm Range of Motion Elbow/Forearm sadia Elbow/Forearm ROM WFL Yes PT-OP-M Strength Start: 02/12/23 15:57 Freq: Status: Active Protocol: Document 03/04/23 10:[address] [facility] (Rec: 03/04/23 11:[address] [facility] [id number]) Shoulder Strength Shoulder Manual Muscle Testing Left Flexion 4 Good Extension 4 Good Abduction (C5) 4 Good External Rotation 4- Good- Internal Rotation 4 Good Right Flexion 3- Fair- Extension 3- Fair- Abduction (C5) 3- Fair- Adduction 3+ Fair+ External Rotation 3- Fair- Internal Rotation 3- Fair- Horizontal Abduction 3- Fair- Horizontal Adduction 3- Fair- PT-OP-Q Treatments Start: 02/12/23 15:57 Freq: Status: Active Protocol: Document 03/11/23 11:[address] [facility] (Rec: 03/11/23 12:[address] [facility] [id number]) Therapeutic Exercises Supine Exercises shoulder IR Supine Exercise Name no greater than 50 deg Side right Resistance AAROM Reps/Minutes x10 reps Comments cued slow pacing, tolerant 45 deg abd today shoulder ER Side right Resistance AAROM Equipment Used dowel assist Reps/Minutes 10 reps Comments cued slow pacing, tolerant 50 deg abd today shoulder flex Supine Exercise Name HEP reviewed w/ HOs Resistance AAROM Equipment Used dowel Reps/Minutes 10 reps 5 SH Comments cued slow pacing Sidelying Exercises rhythmic stab scap Reps/Minutes 5 ea direction shoulder ER Reps/Minutes 10x Comments verbal and tactile cues shoulder flex Sidelying Exercise Name in PT Side right Resistance AAROM therapist support Equipment Used dowel Reps/Minutes 5 reps Comments cued slow pacing, painfree and fluid AAROM Sitting Exercises pulleys Sitting Exercise Name flex and scap Side right Reps/Minutes 5x Comments instructed gentle at home scapular retraction Sitting Exercise Name added to HEP Side bilateral Reps/Minutes 5 SH x10 reps- discussed the baseline support when progress strengthening Comments cued let arms rest in lap, just scapular ROM- improved form with reps shoulder rolls Sitting Exercise Name sadia and un Reps/Minutes 10x Standing Exercises shoulder ER/IR Standing Exercise Name elbows straight Reps/Minutes 5x ER/IR isometric Equipment Used wall Reps/Minutes 7x wall slide Equipment Used pillowcase Reps/Minutes 6x Manual Therapy Treatment Soft Tissue Mobilization incision Body Location right shoulder Mobilization Type Instrument Assisted,Myofascial Release,Strumming Intensity/Depth gentle Body Position Hooklying Comments small suction tool R shld,neck Body Location UT, LS, rhomboid, supra, infra , pec Comments manual, Joint Mobilizations scapulothoracic Joint R shld: PROM Direction protraction/retraction, UR/DR with PROM abd Grade I Body Position Sidelying Comments manual PROM, AAROM scapular w/ FF, ABD, HABD with tactile cues for scapular glide mobility. PT-OP-R Modalities Start: 02/12/23 15:57 Freq: Status: Active Protocol: Document 03/11/23 11:[address] [facility] (Rec: 03/11/23 12:[address] [facility] [id number]) Hot Pack/Cold Pack Treatment Hot Pack Location right shoulder Patient Position Hooklying Treatment Duration (minutes) 15 Patient Tolerance Good PT-OP-T Assessment and Plan Start: 02/12/23 15:57 Freq: Status: Active Protocol: Document 03/11/23 11:[address] [facility] (Rec: 03/11/23 12:[address] [facility] [id number]) Physical Therapy Assessment Goals Three Impairment Q Impairment Quickdash UE disability score 82% Short Term Goal (STG) Improver Quickdash score to no greater than 60% STG Duration 04/03/23 [employer] Goal (LTG) Improve Quickdash score to no greater than 30% as measure of improved right UE function in her daily life LTG Duration 05/04/23 Two Impairment weakness right shoulder Impairment 3-/5 Short Term Goal (STG) Instruct in strengthening exercises for right shoulder STG Duration 04/03/23 [employer] Goal (LTG) Patient will demonstrate at least 4/5 muscle strength throughout right shoulder to allow her to do all usual activities LTG Duration 05/04/23 One Impairment unable to reach overhead or behind her back to perform ADL 's Short Term Goal (STG) Patient to be instructed in a progressive HEP for purposes of restoring functional ROM to her right UE, following post- op protocol STG Duration 04/03/23 [employer] Goal (LTG) Patient will be independent and compliant with HEP and will demonstrate ability to reach overhead and behind her back to perform all ADL's and usual activities without difficulty LTG Duration 05/04/23 Assessment Summary Assessment Demonstrating improved functional use and scapular activation. Has started using her own pulleys at home. Shoulder ER to 54 eg AAROM. Shoulder flex 126 AAROM. Continue to limit IR to no greater than 50 deg. Patient instructed further in self massage of scar noting directional restrictions. Physical Therapy Plan Frequency and Duration Frequency of Treatment 2x/Week Duration of treatment (weeks) 8 Plan of Care Start Date 03/04/23 Plan of Care End Date 04/03/23 Therapeutic Interventions Therapeutic Interventions Home Exercise Program,Joint Mobilizations,Manual Therapy, Patient/Caregiver Education, Self-Care/Home Management,Soft Tissue Mobilization,Taping, Therapeutic Activities, Therapeutic Exercises Modalities Cold Pack/Ice Massage,Electric Stimulation,Hot Packs, Iontophoresis Next Visit Focus/Plan Next Note Type Treatment Note Next Visit Plan *avoid IR and hyperextension per protocol. Continue ther ex per protocol, manual therapy to scar, scapula. Modalities PRN pain. Emphasis on pain free, gentle, movement with no impingement.
--- NOTE | 2023-03-16 14:47 | PT.OTN ---
Current Diagnoses Primary osteoarthritis, right shoulder (03/16/23) Weakness (03/16/23) Other mechanical complication of other internal orthopedic devices, implants and grafts, subsequent encounter (03/16/23) Encounter for other preprocedural examination (03/16/23) Physical Therapy Treatment Note PT-OP-A Visit Information Start: 02/12/23 15:57 Freq: Status: Active Protocol: Document 03/16/23 14:02 [facility]AK (Rec: 03/16/23 14:44 [facility] [id number]) Out-Patient Physical Therapy Visit Information Visit Information Visit Type Treatment Note Visit Start Time 14:02 PT-OP-B Current Condition Start: 02/12/23 15:57 Freq: Status: Active Protocol: Document 03/04/23 10:32 [facility]AK (Rec: 03/04/23 11:45 [facility] [id number]) Current Condition History of Current Condition Onset Date 02/03/23 Current Complaints right UE pain and limited function History of Current Condition Has had 1 reverse TSA on left and 2 on right most recently Feb 03 2023 at [facility]. Reports doctor said no precautions. Hasn't done PT yet; has been doing wall walking. Brought referral Treatment Goals Patient/Caregiver Goals regain functional use of right UE. Patient is left handed. Prior Functional Status Baseline Function- ADL's Modified Independent Current Functional Impairments (Reported) Functional Limitations- ADL's can't reach overhead or behind his back. PT-OP-C Subjective Start: 02/12/23 15:57 Freq: Status: Active Protocol: Document 03/16/23 14:02 [facility]AK (Rec: 03/16/23 14:46 [facility] [id number]) OP-PT Subjective Patient Comments Patient Reported Progress Improving PT-OP-H Neuro Start: 02/12/23 15:57 Freq: Status: Active Protocol: Document 03/04/23 10:32 [facility]AK (Rec: 03/04/23 11:45 [facility]AK [id number]) Sensation Evaluation Gross Sensation Gross Sensation Right UE Impaired Sensation Description [facility] [place] PT-OP-J Posture/Palpation/Skin Start: 02/12/23 15:57 Freq: Status: Active Protocol: Document 03/04/23 10:32 [facility]AK (Rec: 03/04/23 11:45 [facility]AK [id number]) Posture Evaluation Position Sitting Head/C-Spine Posture Forward Head Shoulder Posture (L) Rounded,(R) Rounded Scapula Posture (R) Tipped Arm Posture (L) Internally Rotated,(R) Internally Rotated Palpation Assessment Location scar tissue Palpation Findings Soft Tissue Tightness Skin Assessment Incisional Assessment Incision Appearance/Comments well-healed, no signs or symptoms of infection. PT-OP-K Range of Motion Start: 02/12/23 15:57 Freq: Status: Active Protocol: Document 03/04/23 10:32 [facility] (Rec: 03/04/23 11:45 [facility] [id number]) Cervical Spine Range of Motion Cervical Spine Active Comments mod limitations all motions, prior c/s fusion Shoulder Goniometric Range of Motion Shoulder Right Shoulder ROM WFL No Testing Position Standing Flexion 84 Extension 10 Abduction 78 External Rotation at 0 degrees Abduction 25 Internal Rotation Behind Back (text) lateral hip Left Flexion 125 Extension 20 Abduction 120 External Rotation at 45 degrees 28 Abduction External Rotation at 0 degrees Abduction 40 Internal Rotation 70 Internal Rotation Behind Back (text) T10 Elbow/Forearm Range of Motion Elbow/Forearm sadia Elbow/Forearm ROM WFL Yes PT-OP-M Strength Start: 02/12/23 15:57 Freq: Status: Active Protocol: Document 03/04/23 10:32 [facility] (Rec: 03/04/23 11:45 [facility] [id number]) Shoulder Strength Shoulder Manual Muscle Testing Left Flexion 4 Good Extension 4 Good Abduction (C5) 4 Good External Rotation 4- Good- Internal Rotation 4 Good Right Flexion 3- Fair- Extension 3- Fair- Abduction (C5) 3- Fair- Adduction 3+ Fair+ External Rotation 3- Fair- Internal Rotation 3- Fair- Horizontal Abduction 3- Fair- Horizontal Adduction 3- Fair- PT-OP-Q Treatments Start: 02/12/23 15:57 Freq: Status: Active Protocol: Document 03/16/23 14:02 [facility] (Rec: 03/16/23 14:44 [facility] [id number]) Therapeutic Exercises Sidelying Exercises chest press Sidelying Exercise Name 40 deg elevated HOB plinth Side bilateral Reps/Minutes 10x rhythmic stab scap Reps/Minutes 5 ea direction shoulder IR Reps/Minutes 10x shoulder ER Reps/Minutes 10x Comments verbal and tactile cues shoulder flex Sidelying Exercise Name 40 deg elevated HOB plinth Side bilateral Resistance AAROM therapist support Equipment Used dowel Reps/Minutes 10x Comments cued slow pacing, painfree and fluid AAROM shoulder abd Sidelying Exercise Name in PT Side right Resistance AAROM therapist support Reps/Minutes 5 reps Comments cued slow pacing, painfree and fluid AAROM Sitting Exercises pulleys Sitting Exercise Name flex and scap Side right Reps/Minutes 5x Comments instructed gentle at home shoulder rolls Sitting Exercise Name sadia and un Reps/Minutes 10x Standing Exercises bicep curl Side bilateral Equipment Used 1# wts Reps/Minutes 10x ball roll Standing Exercise Name fwd, diagonal AROM UE reaching motion with ball support Equipment Used table Reps/Minutes 5x Manual Therapy Treatment Soft Tissue Mobilization incision Body Location right shoulder Mobilization Type Instrument Assisted,Myofascial Release,Strumming Intensity/Depth gentle Body Position Hooklying Comments small suction tool R shld,neck Body Location UT, LS, rhomboid, supra, infra , pec Comments manual, Joint Mobilizations scapulothoracic Joint R shld: PROM Direction protraction/retraction, UR/DR with PROM abd Grade I Body Position Sidelying Comments manual PROM, AAROM scapular w/ FF, ABD, HABD with tactile cues for scapular glide mobility. PT-OP-R Modalities Start: 02/12/23 15:57 Freq: Status: Active Protocol: Document 03/16/23 14:02 [facility] (Rec: 03/16/23 14:45 [facility] [id number]) Hot Pack/Cold Pack Treatment Hot Pack Location right shoulder Patient Position Hooklying Treatment Duration (minutes) 15 Patient Tolerance Good PT-OP-T Assessment and Plan Start: 02/12/23 15:57 Freq: Status: Active Protocol: Document 03/16/23 14:02 [facility] (Rec: 03/16/23 14:44 [facility] [id number]) Physical Therapy Assessment Goals Three Impairment Q Impairment Quickdash UE disability score 82% Short Term Goal (STG) Improver Quickdash score to no greater than 60% STG Duration 04/03/23 [facility] Goal (LTG) Improve Quickdash score to no greater than 30% as measure of improved right UE function in her daily life LTG Duration 05/04/23 Two Impairment weakness right shoulder Impairment 3-/5 Short Term Goal (STG) Instruct in strengthening exercises for right shoulder STG Duration 04/03/23 [employer] Goal (LTG) Patient will demonstrate at least 4/5 muscle strength throughout right shoulder to allow her to do all usual activities LTG Duration 05/04/23 One Impairment unable to reach overhead or behind her back to perform ADL 's Short Term Goal (STG) Patient to be instructed in a progressive HEP for purposes of restoring functional ROM to her right UE, following post- op protocol STG Duration 04/03/23 [facility] Goal (LTG) Patient will be independent and compliant with HEP and will demonstrate ability to reach overhead and behind her back to perform all ADL's and usual activities without difficulty LTG Duration 05/04/23 Assessment Summary Assessment Soreness, no increase in pain. Continue with ROM, gentle strengthening per post-op protocol in chart with good tolerance. Benefits from scapular mob and soft tissue mob entire GH girdle. Physical Therapy Plan Frequency and Duration Frequency of Treatment 2x/Week Duration of treatment (weeks) 8 Plan of Care Start Date 03/04/23 Plan of Care End Date 04/03/23 Therapeutic Interventions Therapeutic Interventions Home Exercise Program,Joint Mobilizations,Manual Therapy, Patient/Caregiver Education, Self-Care/Home Management,Soft Tissue Mobilization,Taping, Therapeutic Activities, Therapeutic Exercises Modalities Cold Pack/Ice Massage,Electric Stimulation,Hot Packs, Iontophoresis Next Visit Focus/Plan Next Note Type Treatment Note Next Visit Plan *avoid IR and hyperextension per protocol. Continue ther ex per protocol, manual therapy to scar, scapula. Modalities PRN pain. Emphasis on pain free, gentle, movement with no impingement.
--- NOTE | 2023-03-19 09:55 | PT.OTN ---
Current Diagnoses Primary osteoarthritis, right shoulder (03/19/23) Weakness (03/19/23) Other mechanical complication of other internal orthopedic devices, implants and grafts, subsequent encounter (03/19/23) Encounter for other preprocedural examination (03/19/23) Physical Therapy Treatment Note PT-OP-A Visit Information Start: 02/12/23 15:57 Freq: Status: Active Protocol: Document 03/19/23 09:05 SP (Rec: 03/19/23 09:50 SP [id number]) Out-Patient Physical Therapy Visit Information Visit Information Visit Type Treatment Note Visit Start Time 09:05 Visit Stop Time 09:55 Total Visit Minutes 50 Visit Number 6 Number of GAMBLING COUNSELLOR Visits 1 Evaluation Information Evaluation Date 03/04/23 Precautions Precautions Ehler's Danlo, essential tremor, osteoporosis, left TKA , c/s fusion, triple arthrodesis right foot, depression, SOTO, history falls POST OP PROTOCOL IN CHART Post op reverse total shoulder 01/03/23 PT-OP-B Current Condition Start: 02/12/23 15:57 Freq: Status: Active Protocol: Document 03/04/23 10:32 SAK (Rec: 03/04/23 11:45 SAK [id number]) Current Condition History of Current Condition Onset Date 02/03/23 Current Complaints right UE pain and limited function History of Current Condition Has had 1 reverse TSA on left and 2 on right most recently Feb 03 2023 at [facility]. Reports doctor said no precautions. Hasn't done PT yet; has been doing wall walking. Brought referral Treatment Goals Patient/Caregiver Goals regain functional use of right UE. Patient is left handed. Prior Functional Status Baseline Function- ADL's Modified Independent Current Functional Impairments (Reported) Functional Limitations- ADL's can't reach overhead or behind his back. PT-OP-C Subjective Start: 02/12/23 15:57 Freq: Status: Active Protocol: Document 03/19/23 09:05 SP (Rec: 03/19/23 09:50 SP [id number]) OP-PT Subjective Patient Comments Patient Comments Pt reports R shld coming along well with PT's help. Patient Reported Progress Improving PT-OP-H Neuro Start: 02/12/23 15:57 Freq: Status: Active Protocol: Document 03/04/23 10:32 SAK (Rec: 03/04/23 11:45 SAK [id number]) Sensation Evaluation Gross Sensation Gross Sensation Right UE Impaired Sensation Description [facility] [employer] [place] PT-OP-J Posture/Palpation/Skin Start: 02/12/23 15:57 Freq: Status: Active Protocol: Document 03/04/23 10:32 [facility] (Rec: 03/04/23 11:45 [facility] [id number]) Posture Evaluation Position Sitting Head/C-Spine Posture Forward Head Shoulder Posture (L) Rounded,(R) Rounded Scapula Posture (R) Tipped Arm Posture (L) Internally Rotated,(R) Internally Rotated Palpation Assessment Location scar tissue Palpation Findings Soft Tissue Tightness Skin Assessment Incisional Assessment Incision Appearance/Comments well-healed, no signs or symptoms of infection. PT-OP-K Range of Motion Start: 02/12/23 15:57 Freq: Status: Active Protocol: Document 03/04/23 10:32 [facility] (Rec: 03/04/23 11:45 [facility] [id number]) Cervical Spine Range of Motion Cervical Spine Active Comments mod limitations all motions, prior c/s fusion Shoulder Goniometric Range of Motion Shoulder Right Shoulder ROM WFL No Testing Position Standing Flexion 84 Extension 10 Abduction 78 External Rotation at 0 degrees Abduction 25 Internal Rotation Behind Back (text) lateral hip Left Flexion 125 Extension 20 Abduction 120 External Rotation at 45 degrees 28 Abduction External Rotation at 0 degrees Abduction 40 Internal Rotation 70 Internal Rotation Behind Back (text) T10 Elbow/Forearm Range of Motion Elbow/Forearm sadia Elbow/Forearm ROM WFL Yes PT-OP-M Strength Start: 02/12/23 15:57 Freq: Status: Active Protocol: Document 03/04/23 10:32 [facility] (Rec: 03/04/23 11:45 [facility] [id number]) Shoulder Strength Shoulder Manual Muscle Testing Left Flexion 4 Good Extension 4 Good Abduction (C5) 4 Good External Rotation 4- Good- Internal Rotation 4 Good Right Flexion 3- Fair- Extension 3- Fair- Abduction (C5) 3- Fair- Adduction 3+ Fair+ External Rotation 3- Fair- Internal Rotation 3- Fair- Horizontal Abduction 3- Fair- Horizontal Adduction 3- Fair- PT-OP-Q Treatments Start: 02/12/23 15:57 Freq: Status: Active Protocol: Document 03/19/23 09:05 SP (Rec: 03/19/23 09:50 SP [id number]) Therapeutic Exercises Sidelying Exercises chest press Sidelying Exercise Name 40 deg elevated HOB plinth Side bilateral Reps/Minutes 10x Comments tactile cues for rhomboid, LT engagement support prevent winging. shoulder IR Reps/Minutes 10x Comments tactile cues for rhomboid, LT engagement support prevent winging. shoulder ER Reps/Minutes 10x Comments verbal and tactile cues shoulder flex Sidelying Exercise Name 40 deg elevated HOB plinth Side bilateral Resistance AAROM therapist support 10%A Reps/Minutes 10x Comments cued slow pacing, painfree and fluid AAROM, elbow straight w / fist shoulder abd Sidelying Exercise Name in PT Side right Resistance 5%A therapist support Reps/Minutes 5 reps Comments cued slow pacing, rhomboid/LT fac tactile cues, elbow straight w/ fist Sitting Exercises pulleys Sitting Exercise Name flex and scap Side right Equipment Used use mirror level shld/neutral CS Reps/Minutes 2x5 reps Comments instructed gentle at home, palm toward face as elevates shoulder rolls Sitting Exercise Name sadia and un Equipment Used mirror use for scapular ROM fluid mov't self awareness Reps/Minutes 10x Comments good form Manual Therapy Treatment Soft Tissue Mobilization incision Body Location right shoulder Mobilization Type Instrument Assisted,Myofascial Release,Strumming Intensity/Depth gentle Body Position Hooklying Comments small suction tool R shld,neck Body Location UT, LS, rhomboid, supra, infra , pec Comments manual, Joint Mobilizations scapulothoracic Joint R shld: PROM, AAROM Direction protraction/retraction, UR/DR with PROM abd Grade I Body Position Sidelying Comments manual PROM, AAROM scapular w/ FF, ABD, HABD with tactile cues for Rhomboid, LT scapular stability mobility. PT-OP-R Modalities Start: 02/12/23 15:57 Freq: Status: Active Protocol: Document 03/19/23 09:05 SP (Rec: 03/19/23 09:50 SP [id number]) Hot Pack/Cold Pack Treatment Hot Pack Location right shoulder Patient Position Hooklying Treatment Duration (minutes) 15 Patient Tolerance Good PT-OP-T Assessment and Plan Start: 02/12/23 15:57 Freq: Status: Active Protocol: Document 03/19/23 09:05 SP (Rec: 03/19/23 09:50 SP [id number]) Physical Therapy Assessment Goals Three Impairment Q Impairment Quickdash UE disability score 82% Short Term Goal (STG) Improver Quickdash score to no greater than 60% STG Duration 04/03/23 Detention Goal (LTG) Improve Quickdash score to no greater than 30% as measure of improved right UE function in her daily life LTG Duration 05/04/23 Two Impairment weakness right shoulder Impairment 3-/5 Short Term Goal (STG) Instruct in strengthening exercises for right shoulder STG Duration 04/03/23 Detention Goal (LTG) Patient will demonstrate at least 4/5 muscle strength throughout right shoulder to allow her to do all usual activities LTG Duration 05/04/23 One Impairment unable to reach overhead or behind her back to perform ADL 's Short Term Goal (STG) Patient to be instructed in a progressive HEP for purposes of restoring functional ROM to her right UE, following post- op protocol STG Duration 04/03/23 Detention Goal (LTG) Patient will be independent and compliant with HEP and will demonstrate ability to reach overhead and behind her back to perform all ADL's and usual activities without difficulty LTG Duration 05/04/23 Assessment Summary Assessment Pt tolerated ther ex well, little soreness but painfree and muscle tiring. Tactile cues for R rhomboid, LT and tricep fac during during ther ex to allow scapular stabilization and lessen UT recruitment, prevent winging. Improved form and reports muscle tiring, therapist light support. Physical Therapy Plan Frequency and Duration Frequency of Treatment 2x/Week Duration of treatment (weeks) 8 Plan of Care Start Date 03/04/23 Plan of Care End Date 04/03/23 Therapeutic Interventions Therapeutic Interventions Home Exercise Program,Joint Mobilizations,Manual Therapy, Patient/Caregiver Education, Self-Care/Home Management,Soft Tissue Mobilization,Taping, Therapeutic Activities, Therapeutic Exercises Modalities Cold Pack/Ice Massage,Electric Stimulation,Hot Packs, Iontophoresis Next Visit Focus/Plan Next Note Type Treatment Note Next Visit Plan Update POC: 04/02 appt. *avoid IR and hyperextension per protocol. Continue ther ex per protocol, manual therapy to scar, scapula. Modalities PRN pain. Emphasis on pain free, gentle, movement with no impingement.
--- NOTE | 2023-03-26 10:30 | PT.OTN ---
Current Diagnoses Primary osteoarthritis, right shoulder (03/26/23) Weakness (03/26/23) Other mechanical complication of other internal orthopedic devices, implants and grafts, subsequent encounter (03/26/23) Encounter for other preprocedural examination (03/26/23) Physical Therapy Treatment Note PT-OP-A Visit Information Start: 02/12/23 15:57 Freq: Status: Active Protocol: Document 03/26/23 09:31 SAK (Rec: 03/26/23 10:30 SAK [id number]) Out-Patient Physical Therapy Visit Information Visit Information Visit Type Treatment Note Visit Start Time 09:30 Total Visit Minutes 50 Visit Number 7 Number of [employer]ALS Visits 0 Evaluation Information Evaluation Date 03/04/23 Precautions Precautions Ehler's Danlo, essential tremor, osteoporosis, left TKA , c/s fusion, triple arthrodesis right foot, depression, SOTO, history falls POST OP PROTOCOL IN CHART Post op reverse total shoulder 01/03/23 PT-OP-B Current Condition Start: 02/12/23 15:57 Freq: Status: Active Protocol: Document 03/04/23 10:32 SAK (Rec: 03/04/23 11:45 SAK [id number]) Current Condition History of Current Condition Onset Date 02/03/23 Current Complaints right UE pain and limited function History of Current Condition Has had 1 reverse TSA on left and 2 on right most recently Feb 03 2023 at [facility]. Reports doctor said no precautions. Hasn't done PT yet; has been doing wall walking. Brought referral Treatment Goals Patient/Caregiver Goals regain functional use of right UE. Patient is left handed. Prior Functional Status Baseline Function- ADL's Modified Independent Current Functional Impairments (Reported) Functional Limitations- ADL's can't reach overhead or behind his back. PT-OP-C Subjective Start: 02/12/23 15:57 Freq: Status: Active Protocol: Document 03/26/23 09:31 SAK (Rec: 03/26/23 10:30 SAK [id number]) OP-PT Subjective Patient Comments Patient Comments No new c/o, compliant with HEP . Can put cup into cupboard, pain has decreased. Sees surgeon next Thursday. Patient Reported Progress Improving PT-OP-H Neuro Start: 02/12/23 15:57 Freq: Status: Active Protocol: Document 03/04/23 10:32 SAK (Rec: 03/04/23 11:45 [facility] [id number]) Sensation Evaluation Gross Sensation Gross Sensation Right UE Impaired Sensation Description [facility] [place] PT-OP-J Posture/Palpation/Skin Start: 02/12/23 15:57 Freq: Status: Active Protocol: Document 03/04/23 10:32 [facility] (Rec: 03/04/23 11:45 [facility] [id number]) Posture Evaluation Position Sitting Head/C-Spine Posture Forward Head Shoulder Posture (L) Rounded,(R) Rounded Scapula Posture (R) Tipped Arm Posture (L) Internally Rotated,(R) Internally Rotated Palpation Assessment Location scar tissue Palpation Findings Soft Tissue Tightness Skin Assessment Incisional Assessment Incision Appearance/Comments well-healed, no signs or symptoms of infection. PT-OP-K Range of Motion Start: 02/12/23 15:57 Freq: Status: Active Protocol: Document 03/04/23 10:32 [facility] (Rec: 03/04/23 11:45 [facility] [id number]) Cervical Spine Range of Motion Cervical Spine Active Comments mod limitations all motions, prior c/s fusion Shoulder Goniometric Range of Motion Shoulder Right Shoulder ROM WFL No Testing Position Standing Flexion 84 Extension 10 Abduction 78 External Rotation at 0 degrees Abduction 25 Internal Rotation Behind Back (text) lateral hip Left Flexion 125 Extension 20 Abduction 120 External Rotation at 45 degrees 28 Abduction External Rotation at 0 degrees Abduction 40 Internal Rotation 70 Internal Rotation Behind Back (text) T10 Elbow/Forearm Range of Motion Elbow/Forearm sadia Elbow/Forearm ROM WFL Yes PT-OP-M Strength Start: 02/12/23 15:57 Freq: Status: Active Protocol: Document 03/04/23 10:32 [facility] (Rec: 03/04/23 11:45 [facility] [id number]) Shoulder Strength Shoulder Manual Muscle Testing Left Flexion 4 Good Extension 4 Good Abduction (C5) 4 Good External Rotation 4- Good- Internal Rotation 4 Good Right Flexion 3- Fair- Extension 3- Fair- Abduction (C5) 3- Fair- Adduction 3+ Fair+ External Rotation 3- Fair- Internal Rotation 3- Fair- Horizontal Abduction 3- Fair- Horizontal Adduction 3- Fair- PT-OP-Q Treatments Start: 02/12/23 15:57 Freq: Status: Active Protocol: Document 03/26/23 09:31 [facility] (Rec: 03/26/23 10:30 [facility] [id number]) Cardio Equipment Recumbent Elliptical (Biodex) Duration (Minutes) 5 Resistance 1 Seat Position 7 Other cues for gentle Therapeutic Exercises Sidelying Exercises open book Reps/Minutes 5x Comments cues for gentle chest press Sidelying Exercise Name 40 deg elevated HOB plinth; supine Side bilateral Reps/Minutes 10x Comments tactile cues for rhomboid, LT engagement support prevent winging. shoulder IR Reps/Minutes 10x Comments tactile cues for rhomboid, LT engagement support prevent winging. shoulder ER Reps/Minutes 10x Comments verbal and tactile cues shoulder flex Sidelying Exercise Name 40 deg elevated HOB plinth Side bilateral Resistance AAROM therapist support 10%A Reps/Minutes 10x Comments cued slow pacing, painfree and fluid AAROM, elbow straight w / fist shoulder abd Sidelying Exercise Name in PT Side right Resistance 5%A therapist support Reps/Minutes 5 reps Comments cued slow pacing, rhomboid/LT fac tactile cues, elbow straight w/ fist Sitting Exercises pulleys Sitting Exercise Name flex and scap Side right Equipment Used use mirror level shld/neutral CS Reps/Minutes 2x5 reps Comments instructed gentle at home, palm toward face as elevates Standing Exercises shld ER Resistance L1 TB Reps/Minutes 10x shld add Resistance L1 TB Reps/Minutes 10x shld ext Resistance L1 TB row Resistance L1 TB Reps/Minutes 10x ball roll Standing Exercise Name fwd Equipment Used table, 55 cm Reps/Minutes 5x Comments table elevated and on appr 30 deg incline, max 125 deg elevaion Manual Therapy Treatment Soft Tissue Mobilization incision Body Location right shoulder Mobilization Type Instrument Assisted,Myofascial Release,Strumming Intensity/Depth gentle Body Position Hooklying Comments small suction tool R shld,neck Body Location UT, LS, rhomboid, supra, infra , pec Comments manual, PT-OP-R Modalities Start: 02/12/23 15:57 Freq: Status: Active Protocol: Document 03/26/23 09:31 [facility] (Rec: 03/26/23 10:30 [facility] [id number]) Hot Pack/Cold Pack Treatment Hot Pack Location right shoulder Patient Position Hooklying Treatment Duration (minutes) 15 Patient Tolerance Good PT-OP-T Assessment and Plan Start: 02/12/23 15:57 Freq: Status: Active Protocol: Document 03/26/23 09:31 [facility] (Rec: 03/26/23 10:30 SAK [id number]) Physical Therapy Assessment Goals Three Impairment Q Impairment Quickdash UE disability score 82% Short Term Goal (STG) Improver Quickdash score to no greater than 60% STG Duration 04/03/23 [employer] Employee [employer] Goal (LTG) Improve Quickdash score to no greater than 30% as measure of improved right UE function in her daily life LTG Duration 05/04/23 Two Impairment weakness right shoulder Impairment 3-/5 Short Term Goal (STG) Instruct in strengthening exercises for right shoulder STG Duration 04/03/23 [employer] Employee [employer] Goal (LTG) Patient will demonstrate at least 4/5 muscle strength throughout right shoulder to allow her to do all usual activities LTG Duration 05/04/23 One Impairment unable to reach overhead or behind her back to perform ADL 's Short Term Goal (STG) Patient to be instructed in a progressive HEP for purposes of restoring functional ROM to her right UE, following post- op protocol STG Duration 04/03/23 [facility] Goal (LTG) Patient will be independent and compliant with HEP and will demonstrate ability to reach overhead and behind her back to perform all ADL's and usual activities without difficulty LTG Duration 05/04/23 Progress Towards Goals Progress Towards Goals Progressing Toward Goals Assessment Summary Assessment Shoulder elevation to 125 with ball roll, ER supine 55. Compliant to HEP. Cues for dec UT activation, scap stab Physical Therapy Plan Frequency and Duration Frequency of Treatment 2x/Week Duration of treatment (weeks) 8 Plan of Care Start Date 03/04/23 Plan of Care End Date 04/03/23 Therapeutic Interventions Therapeutic Interventions Home Exercise Program,Joint Mobilizations,Manual Therapy, Patient/Caregiver Education, Self-Care/Home Management,Soft Tissue Mobilization,Taping, Therapeutic Activities, Therapeutic Exercises Modalities Cold Pack/Ice Massage,Electric Stimulation,Hot Packs, Iontophoresis Next Visit Focus/Plan Next Note Type Treatment Note Next Visit Plan Update POC: 04/02 appt. *avoid IR and hyperextension per protocol. Continue ther ex per protocol, manual therapy to scar, scapula. Modalities PRN pain. Emphasis on pain free, gentle, movement with no impingement.
--- NOTE | 2023-03-30 11:20 | PT.OTN ---
Current Diagnoses Primary osteoarthritis, right shoulder (03/30/23) Weakness (03/30/23) Other mechanical complication of other internal orthopedic devices, implants and grafts, subsequent encounter (03/30/23) Encounter for other preprocedural examination (03/30/23) Physical Therapy Treatment Note PT-OP-A Visit Information Start: 02/12/23 15:57 Freq: Status: Active Protocol: Document 03/30/23 10:47 SP (Rec: 03/30/23 11:29 SP [id number]) Out-Patient Physical Therapy Visit Information Visit Information Visit Type Treatment Note Visit Start Time 10:47 Visit Stop Time 11:20 Total Visit Minutes 33 Visit Number 8 Number of HOT MILL SHEARER Visits 1 Evaluation Information Evaluation Date 03/04/23 Precautions Precautions Ehler's Danlo, essential tremor, osteoporosis, left TKA , c/s fusion, triple arthrodesis right foot, depression, SOTO, history falls POST OP PROTOCOL IN CHART Post op reverse total shoulder 01/03/23 PT-OP-B Current Condition Start: 02/12/23 15:57 Freq: Status: Active Protocol: Document 03/04/23 10:32 SAK (Rec: 03/04/23 11:45 SAK [id number]) Current Condition History of Current Condition Onset Date 02/03/23 Current Complaints right UE pain and limited function History of Current Condition Has had 1 reverse TSA on left and 2 on right most recently Feb 03 2023 at [facility]. Reports doctor said no precautions. Hasn't done PT yet; has been doing wall walking. Brought referral Treatment Goals Patient/Caregiver Goals regain functional use of right UE. Patient is left handed. Prior Functional Status Baseline Function- ADL's Modified Independent Current Functional Impairments (Reported) Functional Limitations- ADL's can't reach overhead or behind his back. PT-OP-C Subjective Start: 02/12/23 15:57 Freq: Status: Active Protocol: Document 03/30/23 10:47 SP (Rec: 03/30/23 11:29 SP [id number]) OP-PT Subjective Patient Comments Patient Comments Pt reports has to leave little early to attend brother's appt. She reports her ROM seems to be improving, but still challenged pushing motion like getting shoes off. Patient Reported Progress Improving PT-OP-H Neuro Start: 02/12/23 15:57 Freq: Status: Active Protocol: Document 03/04/23 10:32 SAK (Rec: 03/04/23 11:45 [facility] [id number]) Sensation Evaluation Gross Sensation Gross Sensation Right UE Impaired Sensation Description [place] PT-OP-J Posture/Palpation/Skin Start: 02/12/23 15:57 Freq: Status: Active Protocol: Document 03/04/23 10:32 SAK (Rec: 03/04/23 11:45 [facility] [id number]) Posture Evaluation Position Sitting Head/C-Spine Posture Forward Head Shoulder Posture (L) Rounded,(R) Rounded Scapula Posture (R) Tipped Arm Posture (L) Internally Rotated,(R) Internally Rotated Palpation Assessment Location scar tissue Palpation Findings Soft Tissue Tightness Skin Assessment Incisional Assessment Incision Appearance/Comments well-healed, no signs or symptoms of infection. PT-OP-K Range of Motion Start: 02/12/23 15:57 Freq: Status: Active Protocol: Document 03/04/23 10:32 SAK (Rec: 03/04/23 11:45 [facility] [id number]) Cervical Spine Range of Motion Cervical Spine Active Comments mod limitations all motions, prior c/s fusion Shoulder Goniometric Range of Motion Shoulder Right Shoulder ROM WFL No Testing Position Standing Flexion 84 Extension 10 Abduction 78 External Rotation at 0 degrees Abduction 25 Internal Rotation Behind Back (text) lateral hip Left Flexion 125 Extension 20 Abduction 120 External Rotation at 45 degrees 28 Abduction External Rotation at 0 degrees Abduction 40 Internal Rotation 70 Internal Rotation Behind Back (text) T10 Elbow/Forearm Range of Motion Elbow/Forearm sadia Elbow/Forearm ROM WFL Yes PT-OP-M Strength Start: 02/12/23 15:57 Freq: Status: Active Protocol: Document 03/04/23 10:32 SAK (Rec: 03/04/23 11:45 [facility] [id number]) Shoulder Strength Shoulder Manual Muscle Testing Left Flexion 4 Good Extension 4 Good Abduction (C5) 4 Good External Rotation 4- Good- Internal Rotation 4 Good Right Flexion 3- Fair- Extension 3- Fair- Abduction (C5) 3- Fair- Adduction 3+ Fair+ External Rotation 3- Fair- Internal Rotation 3- Fair- Horizontal Abduction 3- Fair- Horizontal Adduction 3- Fair- PT-OP-Q Treatments Start: 02/12/23 15:57 Freq: Status: Active Protocol: Document 03/30/23 10:47 SP (Rec: 03/30/23 11:29 SP [id number]) Cardio Equipment Recumbent Elliptical (Biodex) Other unavailable 10/2 Recumbent Stepper (Sci-Fit) Duration (Minutes) 6 Resistance 2 Seat Position 9 Other BUEs and LEs. Therapeutic Exercises Sitting Exercises pulleys Sitting Exercise Name flex and scap Side right Resistance AAROM Equipment Used use mirror level shld/neutral CS Reps/Minutes x10 reps Comments cued slow pacing AAROM Standing Exercises shld ER Standing Exercise Name Challenged ROM against resistance 10/2 shld add Standing Exercise Name added to HEP Side right Resistance L1 TB Reps/Minutes 5 reps x2 Comments cued shld ext Standing Exercise Name added to HEP Side right Resistance L1 TB Reps/Minutes 5 reps x2 Comments good scap retract/depress row Standing Exercise Name added to HEP Resistance L1 TB Reps/Minutes 5 reps x2 Comments cued UE depression (no UT recruitment ecc return) ER/IR isometric Standing Exercise Name IR and ER isometric step outs Side right Resistance TB #1 peach Equipment Used towel roll under arm Reps/Minutes 1 step out/back x5 reps x2 sets Comments cued maintain 90 deg front then small step out maintain position- painfree PT-OP-R Modalities Start: 02/12/23 15:57 Freq: Status: Active Protocol: Document 03/26/23 09:31 SAK (Rec: 03/26/23 10:30 SAK [id number]) Hot Pack/Cold Pack Treatment Hot Pack Location right shoulder Patient Position Hooklying Treatment Duration (minutes) 15 Patient Tolerance Good PT-OP-T Assessment and Plan Start: 02/12/23 15:57 Freq: Status: Active Protocol: Document 03/30/23 10:47 SP (Rec: 03/30/23 11:29 SP [id number]) Physical Therapy Assessment Goals Three Impairment Q Impairment Quickdash UE disability score 82% Short Term Goal (STG) Improver Quickdash score to no greater than 60% STG Duration 04/03/23 [place] Pocket Machine Operator Goal (LTG) Improve Quickdash score to no greater than 30% as measure of improved right UE function in her daily life LTG Duration 05/04/23 Two Impairment weakness right shoulder Impairment 3-/5 Short Term Goal (STG) Instruct in strengthening exercises for right shoulder STG Duration 04/03/23 Prison Goal (LTG) Patient will demonstrate at least 4/5 muscle strength throughout right shoulder to allow her to do all usual activities LTG Duration 05/04/23 One Impairment unable to reach overhead or behind her back to perform ADL 's Short Term Goal (STG) Patient to be instructed in a progressive HEP for purposes of restoring functional ROM to her right UE, following post- op protocol STG Duration 04/03/23 Prison Goal (LTG) Patient will be independent and compliant with HEP and will demonstrate ability to reach overhead and behind her back to perform all ADL's and usual activities without difficulty LTG Duration 05/04/23 Assessment Summary Assessment Pt good tolerance to ther ex today. Occasional cues for CS and level shld during pulleys, mirror use for self corrections improvement. Modified resisted TB IR&ER to isometric walk out with good response. Limited appt time today, had to leave early for appt. Pt good understanding set up/form for carryover R shld strengthening at home, provided HOs and peach TB for support. She reported will use modalities if need later. Physical Therapy Plan Frequency and Duration Frequency of Treatment 2x/Week Duration of treatment (weeks) 8 Plan of Care Start Date 03/04/23 Plan of Care End Date 04/03/23 Therapeutic Interventions Therapeutic Interventions Home Exercise Program,Joint Mobilizations,Manual Therapy, Patient/Caregiver Education, Self-Care/Home Management,Soft Tissue Mobilization,Taping, Therapeutic Activities, Therapeutic Exercises Modalities Cold Pack/Ice Massage,Electric Stimulation,Hot Packs, Iontophoresis Next Visit Focus/Plan Next Note Type Treatment Note Next Visit Plan Update POC: 04/02 appt. *avoid IR and hyperextension per protocol. Continue ther ex per protocol, manual therapy to scar, scapula. Modalities PRN pain. Emphasis on pain free, gentle, movement with no impingement.
--- NOTE | 2023-04-02 16:49 | PT.OTRE ---
Current Diagnoses Primary osteoarthritis, right shoulder (04/02/23) Weakness (04/02/23) Other mechanical complication of other internal orthopedic devices, implants and grafts, subsequent encounter (04/02/23) Encounter for other preprocedural examination (04/02/23) Visit Care Team Role Provider Type Mallory Last PA-C Family Provider Non-Staff Primary Care Provider Specialty: Medical Address: [address] [place] [address] [address], [place], [address] Email: Mamadou Hernandez DO Attending Provider Non-Staff Referring Provider Specialty: Orthopedics Address: [address] [place] [address], [id number] Email: Physical Therapy Re-Evaluation PT-OP-A Visit Information Start: 02/12/23 15:57 Freq: Status: Active Protocol: Document 04/02/23 10:23 SAK (Rec: 04/02/23 11:18 [facility] [id number]) Out-Patient Physical Therapy Visit Information Visit Information Visit Type Treatment Note Visit Start Time 10:30 Visit Stop Time 11:25 Total Visit Minutes 55 Visit Number 9 Number of HOUSE MOVING SUPERVISOR Visits 0 Precautions Precautions Ehler's Danlo, essential tremor, osteoporosis, left TKA , c/s fusion, triple arthrodesis right foot, depression, SOTO, history falls POST OP PROTOCOL IN CHART Post op reverse total shoulder 01/03/23 PT-OP-B Current Condition Start: 02/12/23 15:57 Freq: Status: Active Protocol: Document 03/04/23 10:32 SAK (Rec: 03/04/23 11:45 [facility] [id number]) Current Condition History of Current Condition Onset Date 02/03/23 Current Complaints right UE pain and limited function History of Current Condition Has had 1 reverse TSA on left and 2 on right most recently Feb 03 2023 at [facility]. Reports doctor said no precautions. Hasn't done PT yet; has been doing wall walking. Brought referral Treatment Goals Patient/Caregiver Goals regain functional use of right UE. Patient is left handed. Prior Functional Status Baseline Function- ADL's Modified Independent Current Functional Impairments (Reported) Functional Limitations- ADL's can't reach overhead or behind his back. PT-OP-C Subjective Start: 02/12/23 15:57 Freq: Status: Active Protocol: Document 04/02/23 10:23 SAK (Rec: 04/02/23 11:18 [facility] [id number]) OP-PT Subjective Patient Comments Patient Comments Shoulder feeling stiff this am , but thats always the case. Uses ice and heat at home, doing HEP and using pulleys. PT-OP-H Neuro Start: 02/12/23 15:57 Freq: Status: Active Protocol: Document 03/04/23 10:32 SAK (Rec: 03/04/23 11:45 [facility] [id number]) Sensation Evaluation Gross Sensation Gross Sensation Right UE Impaired Sensation Description [place] PT-OP-J Posture/Palpation/Skin Start: 02/12/23 15:57 Freq: Status: Active Protocol: Document 03/04/23 10:32 SAK (Rec: 03/04/23 11:45 [facility] [id number]) Posture Evaluation Position Sitting Head/C-Spine Posture Forward Head Shoulder Posture (L) Rounded,(R) Rounded Scapula Posture (R) Tipped Arm Posture (L) Internally Rotated,(R) Internally Rotated Palpation Assessment Location scar tissue Palpation Findings Soft Tissue Tightness Skin Assessment Incisional Assessment Incision Appearance/Comments well-healed, no signs or symptoms of infection. PT-OP-K Range of Motion Start: 02/12/23 15:57 Freq: Status: Active Protocol: Document 03/04/23 10:32 SAK (Rec: 03/04/23 11:45 [facility] [id number]) Cervical Spine Range of Motion Cervical Spine Active Comments mod limitations all motions, prior c/s fusion Shoulder Goniometric Range of Motion Shoulder Measured in Degrees Right Shoulder ROM WFL No Testing Position Standing Flexion 84 Extension 10 Abduction 78 External Rotation at 0 degrees Abduction 25 Internal Rotation Behind Back (text) lateral hip Left Flexion 125 Extension 20 Abduction 120 External Rotation at 45 degrees 28 Abduction External Rotation at 0 degrees Abduction 40 Internal Rotation 70 Internal Rotation Behind Back (text) T10 Elbow/Forearm Range of Motion Elbow/Forearm Measured in Degrees sadia Elbow/Forearm ROM WFL Yes PT-OP-M Strength Start: 02/12/23 15:57 Freq: Status: Active Protocol: Document 03/04/23 10:32 SAK (Rec: 03/04/23 11:45 [facility] [id number]) Shoulder Strength Shoulder Manual Muscle Testing Left Flexion 4 Good Extension 4 Good Abduction (C5) 4 Good External Rotation 4- Good- Internal Rotation 4 Good Right Flexion 3- Fair- Extension 3- Fair- Abduction (C5) 3- Fair- Adduction 3+ Fair+ External Rotation 3- Fair- Internal Rotation 3- Fair- Horizontal Abduction 3- Fair- Horizontal Adduction 3- Fair- PT-OP-Q Treatments Start: 02/12/23 15:57 Freq: Status: Active Protocol: Document 04/02/23 10:23 [facility] (Rec: 04/02/23 11:18 [facility] [id number]) Cardio Equipment Recumbent Elliptical (BiodDasher) Duration (Minutes) 6 Resistance 1-2 Seat Position 6 Therapeutic Exercises Supine Exercises overhead press Resistance 1# Reps/Minutes 5x chest press Resistance 1# Reps/Minutes 10 fly Resistance 1# Reps/Minutes 5x shoulder ER Side right Resistance AAROM Reps/Minutes 10x Comments PT assist shoulder flex Resistance 1# Reps/Minutes 10x Comments cued slow pacing Sidelying Exercises open book Reps/Minutes 5x Comments cues for gentle rhythmic stab scap Reps/Minutes 5 ea direction shoulder IR Reps/Minutes 10x Comments tactile cues for rhomboid, LT engagement support prevent winging. shoulder ER Reps/Minutes 10x Comments verbal and tactile cues, patient reports painful today shoulder flex Sidelying Exercise Name 40 deg elevated HOB plinth Side bilateral Resistance AAROM therapist support 10%A Reps/Minutes 10x Comments cued slow pacing, painfree and fluid AAROM, elbow straight w / fist shoulder abd Sidelying Exercise Name in PT Side right Resistance 5%A therapist support Reps/Minutes 5 reps Comments with pin and stretch manual by PT Sitting Exercises pulleys Sitting Exercise Name flex and scap Side right Resistance AAROM Equipment Used use mirror level shld/neutral CS Reps/Minutes x10 reps Comments cued slow pacing AAROM Standing Exercises shld add Side right Resistance L1 TB Reps/Minutes 5 reps x2 Comments cued ball roll Standing Exercise Name fwd Equipment Used table, 55 cm Reps/Minutes 10x Comments table elevated and on appr 40 deg incline, max 125 deg elevation, end-range shoulder ER/IR Standing Exercise Name elbows straight Reps/Minutes 5x ER/IR isometric Standing Exercise Name IR and ER isometric step outs Side right Resistance TB #1 peach Equipment Used towel roll under arm Reps/Minutes 10 reps x 5 se Comments cued maintain 90 deg front then small step out maintain position- painfree Manual Therapy Treatment Soft Tissue Mobilization incision Body Location right shoulder Mobilization Type Instrument Assisted,Myofascial Release,Strumming Intensity/Depth gentle Body Position Hooklying Comments small and medium suction tool for scar mobilization PT-OP-R Modalities Start: 02/12/23 15:57 Freq: Status: Active Protocol: Document 04/02/23 10:23 [facility] (Rec: 04/02/23 16:48 [facility] [id number]) Hot Pack/Cold Pack Treatment Cold Pack Location right shoulder Patient Position Hooklying Treatment Duration (minutes) 10 PT-OP-T Assessment and Plan Start: 02/12/23 15:57 Freq: Status: Active Protocol: Document 04/02/23 10:23 [facility] (Rec: 04/02/23 11:18 [facility] [id number]) Physical Therapy Assessment Goals Three Impairment Q Impairment Quickdash UE disability score 82% Short Term Goal (STG) Improver Quickdash score to no greater than 60% 04/02/23: 52% STG Duration goal met Intermediate Goal (LTG) Improve Quickdash score to no greater than 30% as measure of improved right UE function in her daily life LTG Duration 05/04/23 Two Impairment weakness right shoulder Impairment 3-/5 Short Term Goal (STG) Instruct in strengthening exercises for right shoulder 04/02/23: per protocol, ongoing progression, goal met STG Duration goal met Intermediate Goal (LTG) Patient will demonstrate at least 4/5 muscle strength throughout right shoulder to allow her to do all usual activities LTG Duration 05/04/23 One Impairment unable to reach overhead or behind her back to perform ADL 's Short Term Goal (STG) Patient to be instructed in a progressive HEP for purposes of restoring functional ROM to her right UE, following post- op protocol 04/02/23: continue progression per protocol, patient highly compliant STG Duration goal met Coating Machine Operator Helper Goal (LTG) Patient will be independent and compliant with HEP and will demonstrate ability to reach overhead and behind her back to perform all ADL's and usual activities without difficulty LTG Duration 05/04/23 Progress Towards Goals Progress Towards Goals Progressing Toward Goals Assessment Summary Assessment Right shoulder flex 118 AROM 127 PROM, abd 100 AROM 132 AAROM, ER 24 AROM, 78 PROM, IR 10 AROM, 19 PROM, continue to follow post-op protocol. Patient making steady progress . Scar mobility very restricted so have started scar mobilization and instructed patient. She is highly motivated and compliant to HEP and all recommendations. Should continue to improve with progression of protocol pending physician approval next week. Physical Therapy Plan Frequency and Duration Frequency of Treatment 2x/Week Duration of treatment (weeks) 8 Plan of Care Start Date 04/02/23 Plan of Care End Date 06/03/23 Therapeutic Interventions Therapeutic Interventions Home Exercise Program,Joint Mobilizations,Manual Therapy, Patient/Caregiver Education, Self-Care/Home Management,Soft Tissue Mobilization,Taping, Therapeutic Activities, Therapeutic Exercises Modalities Cold Pack/Ice Massage,Electric Stimulation,Hot Packs, Iontophoresis Next Visit Focus/Plan Next Note Type Treatment Note Next Visit Plan Continue PT per POC following post-op protocol to help patient regain active functional use of her right shoulder with minimal to no pain.
--- NOTE | 2023-04-02 16:49 | PT.OPPOC ---
Physical, Occupational & Speech Therapy At [facility] Current Diagnoses Primary osteoarthritis, right shoulder (04/02/23) Weakness (04/02/23) Other mechanical complication of other internal orthopedic devices, implants and grafts, subsequent encounter (04/02/23) Encounter for other preprocedural examination (04/02/23) Visit Care Team Role Provider Type Mallory Last PA-C Family Provider Non-Staff Primary Care Provider Specialty: Medical Address: [address] [place] [address] [address], [place], [address] Email: Mamadou Hernandez DO Attending Provider Non-Staff Referring Provider Specialty: Orthopedics Address: [address] [place] [address], [id number] Email: Plan Of Care PT-OP-T Assessment and Plan Start: 02/12/23 15:57 Freq: Status: Active Protocol: Document 04/02/23 10:23 SAK (Rec: 04/02/23 11:18 [facility] [id number]) Physical Therapy Assessment Goals Three Impairment Q Impairment Quickdash UE disability score 82% Short Term Goal (STG) Improver Quickdash score to no greater than 60% 04/02/23: 52% STG Duration goal met Public Relations Counselor Goal (LTG) Improve Quickdash score to no greater than 30% as measure of improved right UE function in her daily life LTG Duration 05/04/23 Two Impairment weakness right shoulder Impairment 3-/5 Short Term Goal (STG) Instruct in strengthening exercises for right shoulder 04/02/23: per protocol, ongoing progression, goal met STG Duration goal met Public Relations Counselor Goal (LTG) Patient will demonstrate at least 4/5 muscle strength throughout right shoulder to allow her to do all usual activities LTG Duration 05/04/23 One Impairment unable to reach overhead or behind her back to perform ADL 's Short Term Goal (STG) Patient to be instructed in a progressive HEP for purposes of restoring functional ROM to her right UE, following post- op protocol 04/02/23: continue progression per protocol, patient highly compliant STG Duration goal met Public Relations Counselor Goal (LTG) Patient will be independent and compliant with HEP and will demonstrate ability to reach overhead and behind her back to perform all ADL's and usual activities without difficulty LTG Duration 05/04/23 Progress Towards Goals Progress Towards Goals Progressing Toward Goals Assessment Summary Assessment Right shoulder flex 118 AROM 127 PROM, abd 100 AROM 132 AAROM, ER 24 AROM, 78 PROM, IR 10 AROM, 19 PROM, continue to follow post-op protocol. Patient making steady progress . Scar mobility very restricted so have started scar mobilization and instructed patient. She is highly motivated and compliant to HEP and all recommendations. Should continue to improve with progression of protocol pending physician approval next week. Physical Therapy Plan Frequency and Duration Frequency of Treatment 2x/Week Duration of treatment (weeks) 8 Plan of Care Start Date 04/02/23 Plan of Care End Date 06/03/23 Therapeutic Interventions Therapeutic Interventions Home Exercise Program,Joint Mobilizations,Manual Therapy, Patient/Caregiver Education, Self-Care/Home Management,Soft Tissue Mobilization,Taping, Therapeutic Activities, Therapeutic Exercises Modalities Cold Pack/Ice Massage,Electric Stimulation,Hot Packs, Iontophoresis Next Visit Focus/Plan Next Note Type Treatment Note Next Visit Plan Continue PT per POC following post-op protocol to help patient regain active functional use of her right shoulder with minimal to no pain. Plan of Care Dates Plan of Care Start Date 04/02/23 Plan of Care End Date 06/03/23 Electronically Signed by: Maddie Cassidy, PT 04/02/23 0619 If you are in agreement with this Plan of Care, please return a signed and dated copy. I have reviewed this Plan of Care and certify that the skilled therapy services above are required to meet the patient?s needs. Physician Signature Date Printed Name and Credentials Clinical Instructor Signature Printed Name and Credentials
--- NOTE | 2023-04-06 09:44 | PT-OP ANOTE ---
VENEER GRADER called to inquire reason for cancel today, no reason given in messaging. VENEER GRADER left voice message inquiring reason of cancel if would affect our therapy should be aware of. Also requested call back to change 04/09 appt time from 0815 to 9 or 10 am due to therapist unavailable teaching class to incoming new staff from 730-9.
--- NOTE | 2023-04-09 09:24 | PT-OP ANOTE ---
Pt cancelled today appt, having colitis flare up and unable to attend appt. Confirmed tomorrow's appt at 0815 and will call as far advance if needs to cancel but at this time plans to attend appt tomorrow.
--- NOTE | 2023-04-10 09:33 | PT-OP ANOTE ---
Pt called early this am <24 hrs to cancel today's appt due to continued intestinal issue flare up today unable to attend PT.
--- NOTE | 2023-04-13 16:45 | PT.OTN ---
Current Diagnoses Primary osteoarthritis, right shoulder (04/13/23) Weakness (04/13/23) Other mechanical complication of other internal orthopedic devices, implants and grafts, subsequent encounter (04/13/23) Encounter for other preprocedural examination (04/13/23) Physical Therapy Treatment Note PT-OP-A Visit Information Start: 02/12/23 15:57 Freq: Status: Active Protocol: Document 04/13/23 10:32 SAK (Rec: 04/13/23 11:16 SAK [id number]) Out-Patient Physical Therapy Visit Information Visit Information Visit Type Treatment Note Visit Start Time : Visit Stop Time 11:25 Total Visit Minutes 53 Visit Number 10 Precautions Precautions Ehler's Danlo, essential tremor, osteoporosis, left TKA , c/s fusion, triple arthrodesis right foot, depression, SOTO, history falls POST OP PROTOCOL IN CHART Post op reverse total shoulder 01/03/23 PT-OP-B Current Condition Start: 02/12/23 15:57 Freq: Status: Active Protocol: Document 03/04/23 10:32 SAK (Rec: 03/04/23 11:45 SAK [id number]) Current Condition History of Current Condition Onset Date 02/03/23 Current Complaints right UE pain and limited function History of Current Condition Has had 1 reverse TSA on left and 2 on right most recently Feb 03 2023 at [facility]. Reports doctor said no precautions. Hasn't done PT yet; has been doing wall walking. Brought referral Treatment Goals Patient/Caregiver Goals regain functional use of right UE. Patient is left handed. Prior Functional Status Baseline Function- ADL's Modified Independent Current Functional Impairments (Reported) Functional Limitations- ADL's can't reach overhead or behind his back. PT-OP-C Subjective Start: 02/12/23 15:57 Freq: Status: Active Protocol: Document 04/13/23 10:32 SAK (Rec: 04/13/23 11:16 SAK [id number]) OP-PT Subjective Patient Comments Patient Comments Had to cancel appt with surgeon due to her colitis, also missed last PT session. PT-OP-H Neuro Start: 02/12/23 15:57 Freq: Status: Active Protocol: Document 03/04/23 10:32 SAK (Rec: 03/04/23 11:45 SAK [id number]) Sensation Evaluation Gross Sensation Gross Sensation Right UE Impaired Sensation Description [facility] [facility] [place] PT-OP-J Posture/Palpation/Skin Start: 02/12/23 15:57 Freq: Status: Active Protocol: Document 03/04/23 10:32 [facility] (Rec: 03/04/23 11:45 [facility] [id number]) Posture Evaluation Position Sitting Head/C-Spine Posture Forward Head Shoulder Posture (L) Rounded,(R) Rounded Scapula Posture (R) Tipped Arm Posture (L) Internally Rotated,(R) Internally Rotated Palpation Assessment Location scar tissue Palpation Findings Soft Tissue Tightness Skin Assessment Incisional Assessment Incision Appearance/Comments well-healed, no signs or symptoms of infection. PT-OP-K Range of Motion Start: 02/12/23 15:57 Freq: Status: Active Protocol: Document 03/04/23 10:32 [facility] (Rec: 03/04/23 11:45 [facility] [id number]) Cervical Spine Range of Motion Cervical Spine Active Comments mod limitations all motions, prior c/s fusion Shoulder Goniometric Range of Motion Shoulder Right Shoulder ROM WFL No Testing Position Standing Flexion 84 Extension 10 Abduction 78 External Rotation at 0 degrees Abduction 25 Internal Rotation Behind Back (text) lateral hip Left Flexion 125 Extension 20 Abduction 120 External Rotation at 45 degrees 28 Abduction External Rotation at 0 degrees Abduction 40 Internal Rotation 70 Internal Rotation Behind Back (text) T10 Elbow/Forearm Range of Motion Elbow/Forearm sadia Elbow/Forearm ROM WFL Yes PT-OP-M Strength Start: 02/12/23 15:57 Freq: Status: Active Protocol: Document 03/04/23 10:32 [facility] (Rec: 03/04/23 11:45 [facility] [id number]) Shoulder Strength Shoulder Manual Muscle Testing Left Flexion 4 Good Extension 4 Good Abduction (C5) 4 Good External Rotation 4- Good- Internal Rotation 4 Good Right Flexion 3- Fair- Extension 3- Fair- Abduction (C5) 3- Fair- Adduction 3+ Fair+ External Rotation 3- Fair- Internal Rotation 3- Fair- Horizontal Abduction 3- Fair- Horizontal Adduction 3- Fair- PT-OP-Q Treatments Start: 02/12/23 15:57 Freq: Status: Active Protocol: Document 04/13/23 10:32 [facility] (Rec: 04/13/23 11:16 [facility] [id number]) Cardio Equipment Recumbent Elliptical ([employer]) Duration (Minutes) 8 Resistance 1-2 Seat Position 6 Therapeutic Exercises Standing Exercises overhead press Equipment Used wand Reps/Minutes 10x shoulder IR Equipment Used wand Reps/Minutes 10x Comments cues for neutral posture, gentle shld ER Standing Exercise Name AAROM, AROM Equipment Used dowl for AAROM, towel roll Reps/Minutes 10x, 10x shld ext Standing Exercise Name AAROM Equipment Used wand Reps/Minutes 10 Comments cues for neutral posture, gentle wall slide Equipment Used pillowcase, railing on stairs Reps/Minutes 6x Comments forward flexion at hips with slide Manual Therapy Treatment Soft Tissue Mobilization incision Body Location right shoulder Mobilization Type Instrument Assisted,Myofascial Release,Strumming Intensity/Depth gentle Body Position Hooklying Joint Mobilizations scapulothoracic Joint R shld: PROM, AAROM Direction protraction/retraction, UR/DR with PROM abd Grade I Body Position Sidelying Comments manual PROM, AAROM scapular w/ FF, ABD, HABD with tactile cues for Rhomboid, LT scapular stability mobility. PT-OP-R Modalities Start: 02/12/23 15:57 Freq: Status: Active Protocol: Document 04/13/23 10:32 [facility] (Rec: 04/13/23 11:16 [facility] [id number]) Hot Pack/Cold Pack Treatment Hot Pack Location right shoulder Patient Position Hooklying Treatment Duration (minutes) 15 Patient Tolerance Good PT-OP-T Assessment and Plan Start: 02/12/23 15:57 Freq: Status: Active Protocol: Document 04/13/23 10:32 [facility] (Rec: 04/13/23 11:16 [facility] [id number]) Physical Therapy Assessment Goals Three Impairment Q Impairment Quickdash UE disability score 82% Short Term Goal (STG) Improver Quickdash score to no greater than 60% 04/02/23: 52% STG Duration goal met Residential Goal (LTG) Improve Quickdash score to no greater than 30% as measure of improved right UE function in her daily life 04/13/23:59% LTG Duration 05/04/23 Two Impairment weakness right shoulder Impairment 3-/5 Short Term Goal (STG) Instruct in strengthening exercises for right shoulder 04/02/23: per protocol, ongoing progression, goal met STG Duration goal met [place] Automatic Goal (LTG) Patient will demonstrate at least 4/5 muscle strength throughout right shoulder to allow her to do all usual activities 04/13/23: goal progress LTG Duration 05/04/23 One Impairment unable to reach overhead or behind her back to perform ADL 's Short Term Goal (STG) Patient to be instructed in a progressive HEP for purposes of restoring functional ROM to her right UE, following post- op protocol 04/02/23: continue progression per protocol, patient highly compliant STG Duration goal met [place] Automatic Goal (LTG) Patient will be independent and compliant with HEP and will demonstrate ability to reach overhead and behind her back to perform all ADL's and usual activities without difficulty 04/13/23: goal progress LTG Duration 05/04/23 Assessment Summary Assessment Right shoulder flex 121 AROM 127 PROM, abd 101 AROM 132 AAROM, ER 24 AROM, 78 PROM, IR 10 AROM, 25 PROM, continue to follow post-op protocol. Patient making steady progress and is highly compliant with HEP and highly motivated. Physical Therapy Plan Frequency and Duration Frequency of Treatment 2x/Week Duration of treatment (weeks) 8 Plan of Care Start Date 04/02/23 Plan of Care End Date 06/03/23 Therapeutic Interventions Therapeutic Interventions Home Exercise Program,Joint Mobilizations,Manual Therapy, Patient/Caregiver Education, Self-Care/Home Management,Soft Tissue Mobilization,Taping, Therapeutic Activities, Therapeutic Exercises Modalities Cold Pack/Ice Massage,Electric Stimulation,Hot Packs, Iontophoresis Next Visit Focus/Plan Next Note Type Treatment Note Next Visit Plan Continue PT per POC following post-op protocol to help patient regain active functional use of her right shoulder with minimal to no pain.
--- NOTE | 2023-04-16 09:45 | PT.OTN ---
Current Diagnoses Primary osteoarthritis, right shoulder (04/16/23) Weakness (04/16/23) Other mechanical complication of other internal orthopedic devices, implants and grafts, subsequent encounter (04/16/23) Encounter for other preprocedural examination (04/16/23) Physical Therapy Treatment Note PT-OP-A Visit Information Start: 02/12/23 15:57 Freq: Status: Active Protocol: Document 04/16/23 09:02 SP (Rec: 04/16/23 09:51 SP [id number]) Out-Patient Physical Therapy Visit Information Visit Information Visit Type Treatment Note Visit Start Time 09:02 Visit Stop Time 09:45 Total Visit Minutes 43 Visit Number 11 Number of WEAVER DOBBY LOOM Visits 1 Evaluation Information Evaluation Date 03/04/23 Precautions Precautions Ehler's Danlo, essential tremor, osteoporosis, left TKA , c/s fusion, triple arthrodesis right foot, depression, SOTO, history falls POST OP PROTOCOL IN CHART Post op reverse total shoulder 01/03/23 PT-OP-B Current Condition Start: 02/12/23 15:57 Freq: Status: Active Protocol: Document 03/04/23 10:32 SAK (Rec: 03/04/23 11:45 SAK [id number]) Current Condition History of Current Condition Onset Date 02/03/23 Current Complaints right UE pain and limited function History of Current Condition Has had 1 reverse TSA on left and 2 on right most recently Feb 03 2023 at [facility]. Reports doctor said no precautions. Hasn't done PT yet; has been doing wall walking. Brought referral Treatment Goals Patient/Caregiver Goals regain functional use of right UE. Patient is left handed. Prior Functional Status Baseline Function- ADL's Modified Independent Current Functional Impairments (Reported) Functional Limitations- ADL's can't reach overhead or behind his back. PT-OP-C Subjective Start: 02/12/23 15:57 Freq: Status: Active Protocol: Document 04/16/23 09:02 SP (Rec: 04/16/23 09:51 SP [id number]) OP-PT Subjective Patient Comments Patient Comments Pt reports see Dr Hernandez with [facility] in 2 weeks. PT-OP-H Neuro Start: 02/12/23 15:57 Freq: Status: Active Protocol: Document 03/04/23 10:32 SAK (Rec: 03/04/23 11:45 SAK [id number]) Sensation Evaluation Gross Sensation Gross Sensation Right UE Impaired Sensation Description [place] PT-OP-J Posture/Palpation/Skin Start: 02/12/23 15:57 Freq: Status: Active Protocol: Document 03/04/23 10:[address] [facility] (Rec: 03/04/23 11:[address] [facility] [id number]) Posture Evaluation Position Sitting Head/C-Spine Posture Forward Head Shoulder Posture (L) Rounded,(R) Rounded Scapula Posture (R) Tipped Arm Posture (L) Internally Rotated,(R) Internally Rotated Palpation Assessment Location scar tissue Palpation Findings Soft Tissue Tightness Skin Assessment Incisional Assessment Incision Appearance/Comments well-healed, no signs or symptoms of infection. PT-OP-K Range of Motion Start: 02/12/23 15:57 Freq: Status: Active Protocol: Document 03/04/23 10:[address] [facility] (Rec: 03/04/23 11:[address] [facility] [id number]) Cervical Spine Range of Motion Cervical Spine Active Comments mod limitations all motions, prior c/s fusion Shoulder Goniometric Range of Motion Shoulder Right Shoulder ROM WFL No Testing Position Standing Flexion 84 Extension 10 Abduction 78 External Rotation at 0 degrees Abduction 25 Internal Rotation Behind Back (text) lateral hip Left Flexion 125 Extension 20 Abduction 120 External Rotation at 45 degrees 28 Abduction External Rotation at 0 degrees Abduction 40 Internal Rotation 70 Internal Rotation Behind Back (text) T10 Elbow/Forearm Range of Motion Elbow/Forearm sadia Elbow/Forearm ROM WFL Yes PT-OP-M Strength Start: 02/12/23 15:57 Freq: Status: Active Protocol: Document 03/04/23 10:[address] [facility] (Rec: 03/04/23 11:[address] [facility] [id number]) Shoulder Strength Shoulder Manual Muscle Testing Left Flexion 4 Good Extension 4 Good Abduction (C5) 4 Good External Rotation 4- Good- Internal Rotation 4 Good Right Flexion 3- Fair- Extension 3- Fair- Abduction (C5) 3- Fair- Adduction 3+ Fair+ External Rotation 3- Fair- Internal Rotation 3- Fair- Horizontal Abduction 3- Fair- Horizontal Adduction 3- Fair- PT-OP-Q Treatments Start: 02/12/23 15:57 Freq: Status: Active Protocol: Document 04/16/23 09:02 SP (Rec: 04/16/23 09:51 SP [id number]) Cardio Equipment Recumbent Elliptical ([employer]) Duration (Minutes) 8 Resistance 1-2 Seat Position 6 Therapeutic Exercises Supine Exercises chest press Resistance 1# DB Reps/Minutes 10 Comments weakness bicep flickering. fly Supine Exercise Name hooklying Resistance 1# DB Reps/Minutes x10 Comments little shaky weakeness- painfree ROM shoulder ER Side right Resistance AAROM Reps/Minutes 10x Comments WEAVER DOBBY LOOM assist shoulder flex Supine Exercise Name alternate UEs hooklying Resistance 1#DB Reps/Minutes 10x Comments cued slow pacing, tolerant range Standing Exercises overhead press Standing Exercise Name FF, Scaption Resistance AAROM Equipment Used wand, in mirror Reps/Minutes 10x shoulder IR Standing Exercise Name AAROM Side bilateral Resistance front mirror for posturing Equipment Used wand/towel behind back Reps/Minutes 10x Comments cues for neutral posture, gentle shld ER Standing Exercise Name AAROM, AROM Resistance in mirror Equipment Used dowl for AAROM, towel roll under arm Reps/Minutes 10x, 10x Comments cued shld add Side right Resistance L1 TB Reps/Minutes 10 reps Comments weakness, only pulled to side, unable cross front. shld ext Standing Exercise Name AAROM Equipment Used wand Reps/Minutes 10 Comments cues for neutral posture, gentle ball roll Standing Exercise Name FF, scaption (does home) Equipment Used table 27, 55 cm (home) Reps/Minutes 10x each Comments forward flexion at hips PT-OP-R Modalities Start: 02/12/23 15:57 Freq: Status: Active Protocol: Document 04/13/23 10:32 SAK (Rec: 04/13/23 11:16 SAK [id number]) Hot Pack/Cold Pack Treatment Hot Pack Location right shoulder Patient Position Hooklying Treatment Duration (minutes) 15 Patient Tolerance Good PT-OP-T Assessment and Plan Start: 02/12/23 15:57 Freq: Status: Active Protocol: Document 04/16/23 09:02 SP (Rec: 04/16/23 09:51 SP [id number]) Physical Therapy Assessment Goals Three Impairment Q Impairment Quickdash UE disability score 82% Short Term Goal (STG) Improver Quickdash score to no greater than 60% 04/02/23: 52% STG Duration goal met [employer] Man Goal (LTG) Improve Quickdash score to no greater than 30% as measure of improved right UE function in her daily life 04/13/23:59% LTG Duration 05/04/23 Two Impairment weakness right shoulder Impairment 3-/5 Short Term Goal (STG) Instruct in strengthening exercises for right shoulder 04/02/23: per protocol, ongoing progression, goal met STG Duration goal met [employer] Man Goal (LTG) Patient will demonstrate at least 4/5 muscle strength throughout right shoulder to allow her to do all usual activities 04/13/23: goal progress LTG Duration 05/04/23 One Impairment unable to reach overhead or behind her back to perform ADL 's Short Term Goal (STG) Patient to be instructed in a progressive HEP for purposes of restoring functional ROM to her right UE, following post- op protocol 04/02/23: continue progression per protocol, patient highly compliant STG Duration goal met [employer] Man Goal (LTG) Patient will be independent and compliant with HEP and will demonstrate ability to reach overhead and behind her back to perform all ADL's and usual activities without difficulty 04/13/23: goal progress LTG Duration 05/04/23 Assessment Summary Assessment Pt good feedback AAROM use wand and DB for progression in ROM painfree. Cues for alignment as needed. Physical Therapy Plan Frequency and Duration Frequency of Treatment 2x/Week Duration of treatment (weeks) 8 Plan of Care Start Date 04/02/23 Plan of Care End Date 06/03/23 Therapeutic Interventions Therapeutic Interventions Home Exercise Program,Joint Mobilizations,Manual Therapy, Patient/Caregiver Education, Self-Care/Home Management,Soft Tissue Mobilization,Taping, Therapeutic Activities, Therapeutic Exercises Modalities Cold Pack/Ice Massage,Electric Stimulation,Hot Packs, Iontophoresis Next Visit Focus/Plan Next Note Type Treatment Note Next Visit Plan Continue PT per POC following post-op protocol to help patient regain active functional use of her right shoulder with minimal to no pain.
--- NOTE | 2023-04-20 16:21 | PT-OP ANOTE ---
cancelled today's appt, sick.
--- NOTE | 2023-04-23 10:25 | PT.OTN ---
Current Diagnoses Primary osteoarthritis, right shoulder (04/23/23) Weakness (04/23/23) Other mechanical complication of other internal orthopedic devices, implants and grafts, subsequent encounter (04/23/23) Encounter for other preprocedural examination (04/23/23) Physical Therapy Treatment Note PT-OP-A Visit Information Start: 02/12/23 15:57 Freq: Status: Active Protocol: Document 04/23/23 09:37 SAK (Rec: 04/23/23 10:24 SAK [id number]) Out-Patient Physical Therapy Visit Information Visit Information Visit Type Treatment Note Visit Start Time 09:34 Total Visit Minutes 41 Visit Number 12 Evaluation Information Evaluation Date 03/04/23 Precautions Precautions Ehler's Danlo, essential tremor, osteoporosis, left TKA , c/s fusion, triple arthrodesis right foot, depression, SOTO, history falls POST OP PROTOCOL IN CHART Post op reverse total shoulder 01/03/23 PT-OP-B Current Condition Start: 02/12/23 15:57 Freq: Status: Active Protocol: Document 03/04/23 10:32 SAK (Rec: 03/04/23 11:45 SAK [id number]) Current Condition History of Current Condition Onset Date 02/03/23 Current Complaints right UE pain and limited function History of Current Condition Has had 1 reverse TSA on left and 2 on right most recently Feb 03 2023 at [facility]. Reports doctor said no precautions. Hasn't done PT yet; has been doing wall walking. Brought referral Treatment Goals Patient/Caregiver Goals regain functional use of right UE. Patient is left handed. Prior Functional Status Baseline Function- ADL's Modified Independent Current Functional Impairments (Reported) Functional Limitations- ADL's can't reach overhead or behind his back. PT-OP-C Subjective Start: 02/12/23 15:57 Freq: Status: Active Protocol: Document 04/23/23 09:37 SAK (Rec: 04/23/23 10:24 SAK [id number]) OP-PT Subjective Patient Comments Patient Comments Patient reports able to wash her hair using her right UE for the first time. States she irritated her right arm yesterday while making her bed ; used right UE to throw blanket across her bed without thinking about it. PT-OP-H Neuro Start: 02/12/23 15:57 Freq: Status: Active Protocol: Document 03/04/23 10:32 SAK (Rec: 03/04/23 11:45 [facility] [id number]) Sensation Evaluation Gross Sensation Gross Sensation Right UE Impaired Sensation Description [place] [employer] [place] PT-OP-J Posture/Palpation/Skin Start: 02/12/23 15:57 Freq: Status: Active Protocol: Document 03/04/23 10:32 SAK (Rec: 03/04/23 11:45 [facility] [id number]) Posture Evaluation Position Sitting Head/C-Spine Posture Forward Head Shoulder Posture (L) Rounded,(R) Rounded Scapula Posture (R) Tipped Arm Posture (L) Internally Rotated,(R) Internally Rotated Palpation Assessment Location scar tissue Palpation Findings Soft Tissue Tightness Skin Assessment Incisional Assessment Incision Appearance/Comments well-healed, no signs or symptoms of infection. PT-OP-K Range of Motion Start: 02/12/23 15:57 Freq: Status: Active Protocol: Document 03/04/23 10:32 SAK (Rec: 03/04/23 11:45 [facility] [id number]) Cervical Spine Range of Motion Cervical Spine Active Comments mod limitations all motions, prior c/s fusion Shoulder Goniometric Range of Motion Shoulder Right Shoulder ROM WFL No Testing Position Standing Flexion 84 Extension 10 Abduction 78 External Rotation at 0 degrees Abduction 25 Internal Rotation Behind Back (text) lateral hip Left Flexion 125 Extension 20 Abduction 120 External Rotation at 45 degrees 28 Abduction External Rotation at 0 degrees Abduction 40 Internal Rotation 70 Internal Rotation Behind Back (text) T10 Elbow/Forearm Range of Motion Elbow/Forearm sadia Elbow/Forearm ROM WFL Yes PT-OP-M Strength Start: 02/12/23 15:57 Freq: Status: Active Protocol: Document 03/04/23 10:32 SAK (Rec: 03/04/23 11:45 [facility] [id number]) Shoulder Strength Shoulder Manual Muscle Testing Left Flexion 4 Good Extension 4 Good Abduction (C5) 4 Good External Rotation 4- Good- Internal Rotation 4 Good Right Flexion 3- Fair- Extension 3- Fair- Abduction (C5) 3- Fair- Adduction 3+ Fair+ External Rotation 3- Fair- Internal Rotation 3- Fair- Horizontal Abduction 3- Fair- Horizontal Adduction 3- Fair- PT-OP-Q Treatments Start: 02/12/23 15:57 Freq: Status: Active Protocol: Document 04/23/23 09:37 SAK (Rec: 04/23/23 10:24 [facility] [id number]) Cardio Equipment Recumbent Elliptical (Biodex) Duration (Minutes) 8 Resistance 1-2 Seat Position 6 Therapeutic Exercises Supine Exercises chest press Resistance 1# DB Reps/Minutes 10 Comments weakness bicep flickering. fly Supine Exercise Name hooklying Resistance 1# DB Reps/Minutes x10 Comments little shaky weakeness- painfree ROM shoulder ER Side right Resistance AAROM Reps/Minutes 10x Comments PT assist shoulder flex Supine Exercise Name alternate UEs hooklying Resistance 1#DB Reps/Minutes 10x Comments cued slow pacing, tolerant range Standing Exercises overhead press Standing Exercise Name FF, Scaption Resistance AAROM Equipment Used wand, in mirror Reps/Minutes 10x shoulder IR Standing Exercise Name AAROM Side bilateral Resistance front mirror for posturing Equipment Used wand/towel behind back Reps/Minutes 10x Comments cues for neutral posture, gentle shld ER Standing Exercise Name AAROM, AROM Resistance in mirror Equipment Used dowl for AAROM, towel roll under arm Reps/Minutes 10x, 10x Comments cued shld add Side right Resistance L1 TB Reps/Minutes 10 reps Comments weakness, only pulled to side, unable cross front. shld ext Standing Exercise Name AAROM Equipment Used wand Reps/Minutes 10 Comments cues for neutral posture, gentle wall slide Equipment Used pillowcase, railing on stairs Reps/Minutes 6x Comments forward flexion at hips with slide Manual Therapy Treatment Joint Mobilizations scapulothoracic Joint R shld: PROM, AAROM Direction protraction/retraction, UR/DR with PROM abd Grade I Body Position Sidelying Comments manual PROM, AAROM scapular w/ FF, ABD, HABD with tactile cues for Rhomboid, LT scapular stability mobility. PT-OP-R Modalities Start: 02/12/23 15:57 Freq: Status: Active Protocol: Document 04/23/23 09:37 [facility] (Rec: 04/23/23 10:25 [facility] [id number]) Hot Pack/Cold Pack Treatment Hot Pack Location right shoulder Patient Position Hooklying Treatment Duration (minutes) 15 Patient Tolerance Good Comments heat vs ice per patient request. PT-OP-T Assessment and Plan Start: 02/12/23 15:57 Freq: Status: Active Protocol: Document 04/23/23 09:37 [facility] (Rec: 10/26/23 10:24 SAK [id number]) Physical Therapy Assessment Goals Three Impairment Q Impairment Quickdash UE disability score 82% Short Term Goal (STG) Improver Quickdash score to no greater than 60% 04/02/23: 52% STG Duration goal met Assembly Supervisor Goal (LTG) Improve Quickdash score to no greater than 30% as measure of improved right UE function in her daily life 04/13/23:59% LTG Duration 05/04/23 Two Impairment weakness right shoulder Impairment 3-/5 Short Term Goal (STG) Instruct in strengthening exercises for right shoulder 04/02/23: per protocol, ongoing progression, goal met STG Duration goal met Assembly Supervisor Goal (LTG) Patient will demonstrate at least 4/5 muscle strength throughout right shoulder to allow her to do all usual activities 04/13/23: goal progress LTG Duration 05/04/23 One Impairment unable to reach overhead or behind her back to perform ADL 's Short Term Goal (STG) Patient to be instructed in a progressive HEP for purposes of restoring functional ROM to her right UE, following post- op protocol 04/02/23: continue progression per protocol, patient highly compliant STG Duration goal met Fpc Goal (LTG) Patient will be independent and compliant with HEP and will demonstrate ability to reach overhead and behind her back to perform all ADL's and usual activities without difficulty 04/13/23: goal progress LTG Duration 05/04/23 Assessment Summary Assessment Patient ROM more restricted today due to irritating right shoulder after throwing a blanklet. Highly motivated and compliant to HEP. Patient having teeth pulled tomorrow and will be cancelling PT next week due to this and getting used to dentures. Agrees to continue HEP as tolerated, use UE for function but no fast movements. Physical Therapy Plan Frequency and Duration Frequency of Treatment 2x/Week Duration of treatment (weeks) 8 Plan of Care Start Date 04/02/23 Plan of Care End Date 06/03/23 Therapeutic Interventions Therapeutic Interventions Home Exercise Program,Joint Mobilizations,Manual Therapy, Patient/Caregiver Education, Self-Care/Home Management,Soft Tissue Mobilization,Taping, Therapeutic Activities, Therapeutic Exercises Modalities Cold Pack/Ice Massage,Electric Stimulation,Hot Packs, Iontophoresis Next Visit Focus/Plan Next Note Type Treatment Note Next Visit Plan REsume PT after patient off x 1 week for dental procedure.
--- NOTE | 2023-05-04 16:17 | PT-OP ANOTE ---
Pt has had to cancel last 4 appts due to intestinal medical known chronic flare up and unable to go to far from the bathroom so challenged by attending lately. She stated saw ortho and is pleased with progress is making in PT and to continue. Pt confirmed next appt 05/07.
--- NOTE | 2023-05-07 09:51 | PT.OTN ---
Current Diagnoses Primary osteoarthritis, right shoulder (05/07/23) Weakness (05/07/23) Other mechanical complication of other internal orthopedic devices, implants and grafts, subsequent encounter (05/07/23) Encounter for other preprocedural examination (05/07/23) Physical Therapy Treatment Note PT-OP-A Visit Information Start: 02/12/23 15:57 Freq: Status: Active Protocol: Document 05/07/23 07:56 SAK (Rec: 05/07/23 08:46 SAK [id number]) Out-Patient Physical Therapy Visit Information Visit Information Visit Type Treatment Note Visit Start Time 08:00 Visit Stop Time 08:56 Total Visit Minutes 56 Visit Number 13 Evaluation Information Evaluation Date 03/04/23 Precautions Precautions Ehler's Danlo, essential tremor, osteoporosis, left TKA , c/s fusion, triple arthrodesis right foot, depression, SOTO, history falls POST OP PROTOCOL IN CHART Post op reverse total shoulder 01/03/23 PT-OP-B Current Condition Start: 02/12/23 15:57 Freq: Status: Active Protocol: Document 05/07/23 07:56 SAK (Rec: 05/07/23 08:46 SAK [id number]) Current Condition History of Current Condition Onset Date 02/03/23 Current Complaints right UE pain and limited function History of Current Condition Has had 1 reverse TSA on left and 2 on right most recently Feb 03 2023 at . Reports doctor said no precautions. Hasn't done PT yet; has been doing wall walking. Brought referral Treatment Goals Patient/Caregiver Goals regain functional use of right UE. Patient is left handed. PT-OP-C Subjective Start: 02/12/23 15:57 Freq: Status: Active Protocol: Document 05/07/23 07:56 SAK (Rec: 05/07/23 08:46 SAK [id number]) OP-PT Subjective Patient Comments Patient Comments PT on hold due to dental procedure. Returns to PT. No new c/o. Can now wash under her left arm with right UE. PT-OP-H Neuro Start: 02/12/23 15:57 Freq: Status: Active Protocol: Document 03/04/23 10:32 SAK (Rec: 03/04/23 11:45 SAK [id number]) Sensation Evaluation Gross Sensation Gross Sensation Right UE Impaired Sensation Description [place] [employer] [place] PT-OP-J Posture/Palpation/Skin Start: 02/12/23 15:57 Freq: Status: Active Protocol: Document 03/04/23 10:32 [facility] (Rec: 03/04/23 11:45 [facility] [id number]) Posture Evaluation Position Sitting Head/C-Spine Posture Forward Head Shoulder Posture (L) Rounded,(R) Rounded Scapula Posture (R) Tipped Arm Posture (L) Internally Rotated,(R) Internally Rotated Palpation Assessment Location scar tissue Palpation Findings Soft Tissue Tightness Skin Assessment Incisional Assessment Incision Appearance/Comments well-healed, no signs or symptoms of infection. PT-OP-K Range of Motion Start: 02/12/23 15:57 Freq: Status: Active Protocol: Document 03/04/23 10:32 [facility] (Rec: 03/04/23 11:45 [facility] [id number]) Cervical Spine Range of Motion Cervical Spine Active Comments mod limitations all motions, prior c/s fusion Shoulder Goniometric Range of Motion Shoulder Right Shoulder ROM WFL No Testing Position Standing Flexion 84 Extension 10 Abduction 78 External Rotation at 0 degrees Abduction 25 Internal Rotation Behind Back (text) lateral hip Left Flexion 125 Extension 20 Abduction 120 External Rotation at 45 degrees 28 Abduction External Rotation at 0 degrees Abduction 40 Internal Rotation 70 Internal Rotation Behind Back (text) T10 Elbow/Forearm Range of Motion Elbow/Forearm sadia Elbow/Forearm ROM WFL Yes PT-OP-M Strength Start: 02/12/23 15:57 Freq: Status: Active Protocol: Document 03/04/23 10:32 [facility] (Rec: 03/04/23 11:45 [facility] [id number]) Shoulder Strength Shoulder Manual Muscle Testing Left Flexion 4 Good Extension 4 Good Abduction (C5) 4 Good External Rotation 4- Good- Internal Rotation 4 Good Right Flexion 3- Fair- Extension 3- Fair- Abduction (C5) 3- Fair- Adduction 3+ Fair+ External Rotation 3- Fair- Internal Rotation 3- Fair- Horizontal Abduction 3- Fair- Horizontal Adduction 3- Fair- PT-OP-Q Treatments Start: 02/12/23 15:57 Freq: Status: Active Protocol: Document 05/07/23 07:56 SAK (Rec: 05/07/23 08:46 [facility] [id number]) Cardio Equipment Recumbent Elliptical (shoutr) Duration (Minutes) 10 Resistance 2 Seat Position 6 Therapeutic Exercises Supine Exercises shoulder IR Side right Resistance AAROM Reps/Minutes x10 reps w/5sh Comments PT assist, to 50 deg shoulder ER Side right Resistance AAROM Reps/Minutes 10x Comments PT assist, to 60 deg Sidelying Exercises open book Reps/Minutes 5x Comments cues for gentle rhythmic stab scap Reps/Minutes 5 ea direction shoulder IR Reps/Minutes 10x Comments tactile cues for rhomboid, LT engagement support prevent winging. shoulder ER Reps/Minutes 10x Comments verbal and tactile cues, no pain today, to 30 deg shoulder abd Sidelying Exercise Name in PT Side right Resistance 5%A therapist support Reps/Minutes 10 reps Comments with pin and stretch manual by PT, to 95 deg Sitting Exercises shoulder ext Side bilateral Equipment Used L1 TB Reps/Minutes 10x pulleys Sitting Exercise Name flex, scap, IR Side right Resistance AAROM Equipment Used use mirror level shld/neutral CS Reps/Minutes x10 reps Comments cued slow pacing AAROM Standing Exercises wall push-ups Reps/Minutes 10x Comments small movement, close to wall good tolerance Manual Therapy Treatment Soft Tissue Mobilization incision Body Location right shoulder Mobilization Type Instrument Assisted,Myofascial Release,Strumming Intensity/Depth Moderate Body Position Hooklying Joint Mobilizations scapulothoracic Joint R shld: PROM, AAROM Direction protraction/retraction, UR/DR with PROM abd Grade I Body Position Sidelying Comments manual PROM, AAROM scapular w/ FF, ABD, HABD with tactile cues for Rhomboid, LT scapular stability mobility. PT-OP-R Modalities Start: 02/12/23 15:57 Freq: Status: Active Protocol: Document 05/07/23 07:56 [facility] (Rec: 05/07/23 08:46 [facility] [id number]) Hot Pack/Cold Pack Treatment Hot Pack Location right shoulder Patient Position Hooklying Treatment Duration (minutes) 15 Patient Tolerance Good Comments heat vs ice per patient request. PT-OP-T Assessment and Plan Start: 02/12/23 15:57 Freq: Status: Active Protocol: Document 05/07/23 07:56 [facility] (Rec: 05/07/23 08:46 [facility] [id number]) Physical Therapy Assessment Goals Three Impairment Q Impairment Quickdash UE disability score 82% Short Term Goal (STG) Improver Quickdash score to no greater than 60% 04/02/23: 52% STG Duration goal met Web Content Coordinator Goal (LTG) Improve Quickdash score to no greater than 30% as measure of improved right UE function in her daily life 04/13/23:59% LTG Duration 06/03/23 Two Impairment weakness right shoulder Impairment 3-/5 Short Term Goal (STG) Instruct in strengthening exercises for right shoulder 04/02/23: per protocol, ongoing progression, goal met STG Duration goal met Senior Living Goal (LTG) Patient will demonstrate at least 4/5 muscle strength throughout right shoulder to allow her to do all usual activities 04/13/23: goal progress LTG Duration 06/03/23 One Impairment unable to reach overhead or behind her back to perform ADL 's Short Term Goal (STG) Patient to be instructed in a progressive HEP for purposes of restoring functional ROM to her right UE, following post- op protocol 04/02/23: continue progression per protocol, patient highly compliant STG Duration goal met Senior Living Goal (LTG) Patient will be independent and compliant with HEP and will demonstrate ability to reach overhead and behind her back to perform all ADL's and usual activities without difficulty 04/13/23: goal progress LTG Duration 06/03/23 Assessment Summary Assessment Patient reporting functional improvement now able to reach across body with right UE to wash left underarm. Having difficulty achieving further shoulder elevation. Min pain with all mobility skills. Functional IR to buttock, now able to use right UE to help pull up pants. Physical Therapy Plan Frequency and Duration Frequency of Treatment 2x/Week Duration of treatment (weeks) 8 Plan of Care Start Date 04/02/23 Plan of Care End Date 06/03/23 Therapeutic Interventions Therapeutic Interventions Home Exercise Program,Joint Mobilizations,Manual Therapy, Patient/Caregiver Education, Self-Care/Home Management,Soft Tissue Mobilization,Taping, Therapeutic Activities, Therapeutic Exercises Modalities Cold Pack/Ice Massage,Electric Stimulation,Hot Packs, Iontophoresis Next Visit Focus/Plan Next Note Type Treatment Note Next Visit Plan Continue gentle therapeutic exercise progression for ROM and strengthening right shoulder.
--- NOTE | 2023-05-11 10:30 | PT.OTN ---
Current Diagnoses Primary osteoarthritis, right shoulder (05/11/23) Weakness (05/11/23) Other mechanical complication of other internal orthopedic devices, implants and grafts, subsequent encounter (05/11/23) Encounter for other preprocedural examination (05/11/23) Physical Therapy Treatment Note PT-OP-A Visit Information Start: 02/12/23 15:57 Freq: Status: Active Protocol: Document 05/11/23 09:48 SP (Rec: 05/11/23 10:33 SP [id number]) Out-Patient Physical Therapy Visit Information Visit Information Visit Type Treatment Note Visit Start Time 09:48 Visit Stop Time 10:30 Total Visit Minutes 42 Visit Number 14 Number of EARTHMOVING LABOURER Visits 1 Evaluation Information Evaluation Date 03/04/23 Precautions Precautions Ehler's Danlo, essential tremor, osteoporosis, left TKA , c/s fusion, triple arthrodesis right foot, depression, SOTO, history falls POST OP PROTOCOL IN CHART Post op reverse total shoulder 01/03/23 PT-OP-B Current Condition Start: 02/12/23 15:57 Freq: Status: Active Protocol: Document 05/07/23 07:56 SAK (Rec: 05/07/23 08:46 SAK [id number]) Current Condition History of Current Condition Onset Date 02/03/23 Current Complaints right UE pain and limited function History of Current Condition Has had 1 reverse TSA on left and 2 on right most recently Feb 03 2023 at [facility]. Reports doctor said no precautions. Hasn't done PT yet; has been doing wall walking. Brought referral Treatment Goals Patient/Caregiver Goals regain functional use of right UE. Patient is left handed. PT-OP-C Subjective Start: 02/12/23 15:57 Freq: Status: Active Protocol: Document 05/11/23 09:48 SP (Rec: 05/11/23 10:33 SP [id number]) OP-PT Subjective Patient Comments Patient Comments Pt reports had her all her shots: RSV, [place], COVID, Flu at [employer] yesterday. She stated able to snap own shirts , wash under her arm L arm now with RUE. She states exercises helping feel stronger. PT-OP-H Neuro Start: 02/12/23 15:57 Freq: Status: Active Protocol: Document 03/04/23 10:32 SAK (Rec: 03/04/23 11:45 SAK [id number]) Sensation Evaluation Gross Sensation Gross Sensation Right UE Impaired Sensation Description [place] PT-OP-J Posture/Palpation/Skin Start: 02/12/23 15:57 Freq: Status: Active Protocol: Document 03/04/23 10:32 [facility] (Rec: 03/04/23 11:45 [facility] [id number]) Posture Evaluation Position Sitting Head/C-Spine Posture Forward Head Shoulder Posture (L) Rounded,(R) Rounded Scapula Posture (R) Tipped Arm Posture (L) Internally Rotated,(R) Internally Rotated Palpation Assessment Location scar tissue Palpation Findings Soft Tissue Tightness Skin Assessment Incisional Assessment Incision Appearance/Comments well-healed, no signs or symptoms of infection. PT-OP-K Range of Motion Start: 02/12/23 15:57 Freq: Status: Active Protocol: Document 03/04/23 10:32 [facility] (Rec: 03/04/23 11:45 [facility] [id number]) Cervical Spine Range of Motion Cervical Spine Active Comments mod limitations all motions, prior c/s fusion Shoulder Goniometric Range of Motion Shoulder Right Shoulder ROM WFL No Testing Position Standing Flexion 84 Extension 10 Abduction 78 External Rotation at 0 degrees Abduction 25 Internal Rotation Behind Back (text) lateral hip Left Flexion 125 Extension 20 Abduction 120 External Rotation at 45 degrees 28 Abduction External Rotation at 0 degrees Abduction 40 Internal Rotation 70 Internal Rotation Behind Back (text) T10 Elbow/Forearm Range of Motion Elbow/Forearm sadia Elbow/Forearm ROM WFL Yes PT-OP-M Strength Start: 02/12/23 15:57 Freq: Status: Active Protocol: Document 03/04/23 10:32 [facility] (Rec: 03/04/23 11:45 [facility] [id number]) Shoulder Strength Shoulder Manual Muscle Testing Left Flexion 4 Good Extension 4 Good Abduction (C5) 4 Good External Rotation 4- Good- Internal Rotation 4 Good Right Flexion 3- Fair- Extension 3- Fair- Abduction (C5) 3- Fair- Adduction 3+ Fair+ External Rotation 3- Fair- Internal Rotation 3- Fair- Horizontal Abduction 3- Fair- Horizontal Adduction 3- Fair- PT-OP-Q Treatments Start: 02/12/23 15:57 Freq: Status: Active Protocol: Document 05/11/23 09:48 SP (Rec: 05/11/23 10:33 SP [id number]) Cardio Equipment Recumbent Elliptical (Biodex) Duration (Minutes) 10 Resistance 2>3 Seat Position 7 Other BUEs/BLEs Therapeutic Exercises Sidelying Exercises open book Side right Reps/Minutes 10x Comments good slow ROM, cued slow head turn with AROM, go c/scap glide not GH stress shoulder IR Reps/Minutes 10x Comments tactile cues for rhomboid, LT engagement support prevent winging. shoulder abd Sidelying Exercise Name AROM 120>126 deg post manual Side right Resistance AROM Reps/Minutes 10 reps Comments tactile cues stacked on side, humeral inf glide try stay in frontal plane Standing Exercises wall push-ups Equipment Used Naomy shape hands on wall, tactile cues no UT awareness, elbows 45 deg Reps/Minutes 5 reps x2 Comments small movement, close to wall good tolerance overhead press Standing Exercise Name FF, Scaption Side right Resistance AAROM Equipment Used wand, in mirror Reps/Minutes 10x Comments cued try no UT more scapular ROM wall slide Standing Exercise Name wall walk: FF/scaption 122 deg Side right Resistance AAROM Reps/Minutes x3 reps, 3 breath hold ROM Comments cued level shld, no LB arch PT-OP-R Modalities Start: 02/12/23 15:57 Freq: Status: Active Protocol: Document 05/07/23 07:56 SAK (Rec: 05/07/23 08:46 SAK [id number]) Hot Pack/Cold Pack Treatment Hot Pack Location right shoulder Patient Position Hooklying Treatment Duration (minutes) 15 Patient Tolerance Good Comments heat vs ice per patient request. PT-OP-T Assessment and Plan Start: 02/12/23 15:57 Freq: Status: Active Protocol: Document 05/11/23 09:48 SP (Rec: 05/11/23 10:33 SP [id number]) Physical Therapy Assessment Goals Three Impairment Q Impairment Quickdash UE disability score 82% Short Term Goal (STG) Improver Quickdash score to no greater than 60% 04/02/23: 52% STG Duration goal met Snf Goal (LTG) Improve Quickdash score to no greater than 30% as measure of improved right UE function in her daily life 04/13/23:59% LTG Duration 06/03/23 Two Impairment weakness right shoulder Impairment 3-/5 Short Term Goal (STG) Instruct in strengthening exercises for right shoulder 04/02/23: per protocol, ongoing progression, goal met STG Duration goal met Snf Goal (LTG) Patient will demonstrate at least 4/5 muscle strength throughout right shoulder to allow her to do all usual activities 04/13/23: goal progress LTG Duration 06/03/23 One Impairment unable to reach overhead or behind her back to perform ADL 's Short Term Goal (STG) Patient to be instructed in a progressive HEP for purposes of restoring functional ROM to her right UE, following post- op protocol 04/02/23: continue progression per protocol, patient highly compliant STG Duration goal met Snf Goal (LTG) Patient will be independent and compliant with HEP and will demonstrate ability to reach overhead and behind her back to perform all ADL's and usual activities without difficulty 04/13/23: goal progress LTG Duration 06/03/23 Assessment Summary Assessment Pt improved less UT recruitment during ther ex with vc/ tactile cues for trunk and shld alignment awareness. Pt able to increase into AROM gained ROM approx 120-122 deg. Physical Therapy Plan Frequency and Duration Frequency of Treatment 2x/Week Duration of treatment (weeks) 8 Plan of Care Start Date 04/02/23 Plan of Care End Date 06/03/23 Therapeutic Interventions Therapeutic Interventions Home Exercise Program,Joint Mobilizations,Manual Therapy, Patient/Caregiver Education, Self-Care/Home Management,Soft Tissue Mobilization,Taping, Therapeutic Activities, Therapeutic Exercises Modalities Cold Pack/Ice Massage,Electric Stimulation,Hot Packs, Iontophoresis Next Visit Focus/Plan Next Note Type Treatment Note Next Visit Plan Continue gentle therapeutic exercise progression for ROM and strengthening right shoulder.
--- NOTE | 2023-05-14 11:49 | PT.OTN ---
Current Diagnoses Primary osteoarthritis, right shoulder (05/14/23) Weakness (05/14/23) Other mechanical complication of other internal orthopedic devices, implants and grafts, subsequent encounter (05/14/23) Encounter for other preprocedural examination (05/14/23) Physical Therapy Treatment Note PT-OP-A Visit Information Start: 02/12/23 15:57 Freq: Status: Active Protocol: Document 05/14/23 08:18 SAK (Rec: 05/14/23 09:01 [facility] [id number]) Out-Patient Physical Therapy Visit Information Visit Information Visit Type Treatment Note Visit Start Time 08:15 Visit Stop Time 09:14 Total Visit Minutes 59 Visit Number 15 Number of PIPE COVERER Visits 0 Evaluation Information Evaluation Date 03/04/23 Precautions Precautions Ehler's Danlo, essential tremor, osteoporosis, left TKA , c/s fusion, triple arthrodesis right foot, depression, SOTO, history falls POST OP PROTOCOL IN CHART Post op reverse total shoulder 01/03/23 PT-OP-B Current Condition Start: 02/12/23 15:57 Freq: Status: Active Protocol: Document 05/14/23 08:18 SAK (Rec: 05/14/23 09:01 [facility] [id number]) Current Condition History of Current Condition Onset Date 02/03/23 Current Complaints right UE pain and limited function History of Current Condition Has had 1 reverse TSA on left and 2 on right most recently Feb 03 2023 at [facility]. Reports doctor said no precautions. Hasn't done PT yet; has been doing wall walking. Brought referral Treatment Goals Patient/Caregiver Goals regain functional use of right UE. Patient is left handed. PT-OP-C Subjective Start: 02/12/23 15:57 Freq: Status: Active Protocol: Document 05/14/23 08:18 SAK (Rec: 05/14/23 09:01 [facility] [id number]) OP-PT Subjective Patient Comments Patient Comments States her shoulder is feeling better, Dr. Hernandez told me it would never be as good as my left because of 2 prior shoulder replacements. PT-OP-H Neuro Start: 02/12/23 15:57 Freq: Status: Active Protocol: Document 03/04/23 10:32 SAK (Rec: 03/04/23 11:45 SAK [id number]) Sensation Evaluation Gross Sensation Gross Sensation Right UE Impaired Sensation Description [place] PT-OP-J Posture/Palpation/Skin Start: 02/12/23 15:57 Freq: Status: Active Protocol: Document 03/04/23 10:32 [facility] (Rec: 03/04/23 11:45 [facility] [id number]) Posture Evaluation Position Sitting Head/C-Spine Posture Forward Head Shoulder Posture (L) Rounded,(R) Rounded Scapula Posture (R) Tipped Arm Posture (L) Internally Rotated,(R) Internally Rotated Palpation Assessment Location scar tissue Palpation Findings Soft Tissue Tightness Skin Assessment Incisional Assessment Incision Appearance/Comments well-healed, no signs or symptoms of infection. PT-OP-K Range of Motion Start: 02/12/23 15:57 Freq: Status: Active Protocol: Document 03/04/23 10:32 [facility] (Rec: 03/04/23 11:45 [facility] [id number]) Cervical Spine Range of Motion Cervical Spine Active Comments mod limitations all motions, prior c/s fusion Shoulder Goniometric Range of Motion Shoulder Right Shoulder ROM WFL No Testing Position Standing Flexion 84 Extension 10 Abduction 78 External Rotation at 0 degrees Abduction 25 Internal Rotation Behind Back (text) lateral hip Left Flexion 125 Extension 20 Abduction 120 External Rotation at 45 degrees 28 Abduction External Rotation at 0 degrees Abduction 40 Internal Rotation 70 Internal Rotation Behind Back (text) T10 Elbow/Forearm Range of Motion Elbow/Forearm sadia Elbow/Forearm ROM WFL Yes PT-OP-M Strength Start: 02/12/23 15:57 Freq: Status: Active Protocol: Document 03/04/23 10:32 [facility] (Rec: 03/04/23 11:45 [facility] [id number]) Shoulder Strength Shoulder Manual Muscle Testing Left Flexion 4 Good Extension 4 Good Abduction (C5) 4 Good External Rotation 4- Good- Internal Rotation 4 Good Right Flexion 3- Fair- Extension 3- Fair- Abduction (C5) 3- Fair- Adduction 3+ Fair+ External Rotation 3- Fair- Internal Rotation 3- Fair- Horizontal Abduction 3- Fair- Horizontal Adduction 3- Fair- PT-OP-Q Treatments Start: 02/12/23 15:57 Freq: Status: Active Protocol: Document 05/14/23 08:18 SAK (Rec: 05/14/23 09:01 [facility] [id number]) Cardio Equipment Recumbent Elliptical (Hyperfair) Duration (Minutes) 10 Resistance 2>3 Seat Position 7 Other BUEs/BLEs Therapeutic Exercises Supine Exercises serratus punch Reps/Minutes 10x Comments tactile and verbal cues shoulder IR Side right Resistance AAROM Reps/Minutes x10 reps w/5sh Comments PT assist, to 50 deg shoulder ER Side right Resistance AAROM Reps/Minutes 10x Comments PT assist, to 60 deg Sidelying Exercises scapular clock Side right Resistance light manual Reps/Minutes 10 x ea Comments 9:00, 8:00, 7:00 open book Side right Reps/Minutes 10x Comments good slow ROM, cued slow head turn with AROM, go c/scap glide not GH stress shoulder IR Reps/Minutes 10x Comments tactile cues for rhomboid, LT engagement support prevent winging. shoulder abd Sidelying Exercise Name AROM 120>126 deg post manual Side right Resistance AROM Reps/Minutes 10 reps Comments tactile cues stacked on side, humeral inf glide try stay in frontal plane Sitting Exercises pulleys Sitting Exercise Name flex, scap, IR Side right Resistance AAROM Equipment Used use mirror level shld/neutral CS Reps/Minutes x10 reps Comments cued slow pacing AAROM Manual Therapy Treatment Joint Mobilizations scapulothoracic Joint R shld: PROM, AAROM Direction protraction/retraction, UR/DR with PROM abd Grade I Body Position Sidelying Comments manual PROM, AAROM scapular w/ FF, ABD, HABD with tactile cues for Rhomboid, LT scapular stability mobility. Self-Care/Home Management Treatment Education Other Education pt ed regarding scapulohumeral rhythm, importance of upward rotation of scapular for shoulder mobility and health; demonstrated good understanding. PT-OP-R Modalities Start: 02/12/23 15:57 Freq: Status: Active Protocol: Document 05/07/23 07:56 [facility] (Rec: 05/07/23 08:46 [facility] [id number]) Hot Pack/Cold Pack Treatment Hot Pack Location right shoulder Patient Position Hooklying Treatment Duration (minutes) 15 Patient Tolerance Good Comments heat vs ice per patient request. PT-OP-T Assessment and Plan Start: 02/12/23 15:57 Freq: Status: Active Protocol: Document 05/14/23 08:18 [facility] (Rec: 05/14/23 09:01 [facility] [id number]) Physical Therapy Assessment Goals Three Impairment Q Impairment Quickdash UE disability score 82% Short Term Goal (STG) Improver Quickdash score to no greater than 60% 04/02/23: 52% STG Duration goal met [employer] Bench Goal (LTG) Improve Quickdash score to no greater than 30% as measure of improved right UE function in her daily life 04/13/23:59% LTG Duration 06/03/23 Two Impairment weakness right shoulder Impairment 3-/5 Short Term Goal (STG) Instruct in strengthening exercises for right shoulder 04/02/23: per protocol, ongoing progression, goal met STG Duration goal met [employer] Bench Goal (LTG) Patient will demonstrate at least 4/5 muscle strength throughout right shoulder to allow her to do all usual activities 04/13/23: goal progress LTG Duration 06/03/23 One Impairment unable to reach overhead or behind her back to perform ADL 's Short Term Goal (STG) Patient to be instructed in a progressive HEP for purposes of restoring functional ROM to her right UE, following post- op protocol 04/02/23: continue progression per protocol, patient highly compliant STG Duration goal met [facility] Goal (LTG) Patient will be independent and compliant with HEP and will demonstrate ability to reach overhead and behind her back to perform all ADL's and usual activities without difficulty 04/13/23: goal progress LTG Duration 06/03/23 Assessment Summary Assessment demonstrated good understanding of need for scapula to rotate upward with shoulder elevation after further discussion, shown online picture. Patient compliant to HEP, improving right shoulder function. Physical Therapy Plan Frequency and Duration Frequency of Treatment 2x/Week Duration of treatment (weeks) 8 Plan of Care Start Date 04/02/23 Plan of Care End Date 06/03/23 Therapeutic Interventions Therapeutic Interventions Home Exercise Program,Joint Mobilizations,Manual Therapy, Patient/Caregiver Education, Self-Care/Home Management,Soft Tissue Mobilization,Taping, Therapeutic Activities, Therapeutic Exercises Modalities Cold Pack/Ice Massage,Electric Stimulation,Hot Packs, Iontophoresis Next Visit Focus/Plan Next Note Type Treatment Note Next Visit Plan Continue gentle therapeutic exercise progression for ROM and strengthening right shoulder.
--- NOTE | 2023-05-18 09:14 | PT-OP ANOTE ---
Called patient when she was 10 min late for appt today; her roommate reports Leta in hospital in [place] due to SOB, CHF exacerbation. Likely will need to cancel PT appt 05/20/23 as well.
--- NOTE | 2023-05-20 08:23 | PT-OP ANOTE ---
Pt cancelled today due to currently admitted in ER in [place] for pneumonia. STEAMBOAT INSPECTOR spoke with family and she is improving and on way to visit and see if/when cleared to DC home. STEAMBOAT INSPECTOR suggested to speak with DC'ing physician and if ok to return to PT to progress with shoulder rehab. Family member verbalized understanding.
--- NOTE | 2023-05-25 10:03 | PT.OPDS ---
Current Diagnoses Primary osteoarthritis, right shoulder (05/14/23) Weakness (05/14/23) Other mechanical complication of other internal orthopedic devices, implants and grafts, subsequent encounter (05/14/23) Encounter for other preprocedural examination (05/14/23) Visit Care Team Role Provider Type Mallory Last PA-C Family Provider Non-Staff Primary Care Provider Specialty: Medical Address: [address] [place] [address] [place], [address] Email: Mamadou Hernandez DO Attending Provider Non-Staff Referring Provider Specialty: Orthopedics Address: [address] [place] [address], [id number] Email: Visit Number Visit Number 15 Discharge Summary PT-OP-B Current Condition Start: 02/12/23 15:57 Freq: Status: Active Protocol: Document 05/14/23 08:18 SAK (Rec: 05/14/23 09:01 [facility] [id number]) Current Condition History of Current Condition Onset Date 02/03/23 Current Complaints right UE pain and limited function History of Current Condition Has had 1 reverse TSA on left and 2 on right most recently Feb 03 2023 at [facility]. Reports doctor said no precautions. Hasn't done PT yet; has been doing wall walking. Brought referral Treatment Goals Patient/Caregiver Goals regain functional use of right UE. Patient is left handed. PT-OP-C Subjective Start: 02/12/23 15:57 Freq: Status: Active Protocol: Document 05/14/23 08:18 SAK (Rec: 05/14/23 09:01 [facility] [id number]) OP-PT Subjective Patient Comments Patient Comments States her shoulder is feeling better, Dr. Hernandez told me it would never be as good as my left because of 2 prior shoulder replacements. PT-OP-H Neuro Start: 02/12/23 15:57 Freq: Status: Active Protocol: Document 03/04/23 10:32 SAK (Rec: 03/04/23 11:45 [facility]AK [id number]) Sensation Evaluation Gross Sensation Gross Sensation Right UE Impaired Sensation Description [place] PT-OP-J Posture/Palpation/Skin Start: 02/12/23 15:57 Freq: Status: Active Protocol: Document 03/04/23 10:32 [facility] (Rec: 03/04/23 11:45 [facility] [id number]) Posture Evaluation Position Sitting Head/C-Spine Posture Forward Head Shoulder Posture (L) Rounded,(R) Rounded Scapula Posture (R) Tipped Arm Posture (L) Internally Rotated,(R) Internally Rotated Palpation Assessment Location scar tissue Palpation Findings Soft Tissue Tightness Skin Assessment Incisional Assessment Incision Appearance/Comments well-healed, no signs or symptoms of infection. PT-OP-K Range of Motion Start: 02/12/23 15:57 Freq: Status: Active Protocol: Document 03/04/23 10:32 [facility] (Rec: 03/04/23 11:45 [facility] [id number]) Cervical Spine Range of Motion Cervical Spine Active Comments mod limitations all motions, prior c/s fusion Shoulder Goniometric Range of Motion Shoulder Right Shoulder ROM WFL No Testing Position Standing Flexion 84 Extension 10 Abduction 78 External Rotation at 0 degrees Abduction 25 Internal Rotation Behind Back (text) lateral hip Left Flexion 125 Extension 20 Abduction 120 External Rotation at 45 degrees 28 Abduction External Rotation at 0 degrees Abduction 40 Internal Rotation 70 Internal Rotation Behind Back (text) T10 Elbow/Forearm Range of Motion Elbow/Forearm sadia Elbow/Forearm ROM WFL Yes PT-OP-M Strength Start: 02/12/23 15:57 Freq: Status: Active Protocol: Document 03/04/23 10:32 [facility] (Rec: 03/04/23 11:45 [facility] [id number]) Shoulder Strength Shoulder Manual Muscle Testing Left Flexion 4 Good Extension 4 Good Abduction (C5) 4 Good External Rotation 4- Good- Internal Rotation 4 Good Right Flexion 3- Fair- Extension 3- Fair- Abduction (C5) 3- Fair- Adduction 3+ Fair+ External Rotation 3- Fair- Internal Rotation 3- Fair- Horizontal Abduction 3- Fair- Horizontal Adduction 3- Fair- PT-OP-T Assessment and Plan Start: 02/12/23 15:57 Freq: Status: Active Protocol: Document 05/25/23 10:02 SAK (Rec: 05/25/23 10:03 [facility] [id number]) Physical Therapy Plan Discharge Physical Therapy Discharge Reasons No Longer Attending PT Discharge Comments Patient was in ICU in [place] at [facility] last week. She contacted PT to report having cardiac issues and will be attending cardiac rehab at this time. Will get new prescription for shoulder when cardiac issues stabilized.
== END 2023-05-27 13:28 | disposition home or self-care (01) ==
LOC: PHYS 08:15
PROVIDERS: Family Provider Physician Assistant; PCP Physician Assistant; Referring Provider Orthopaedic Surgery; Visit Provider Orthopaedic Surgery
DX: Z01.818 Encounter for other preprocedural examination (principal); T84.498D Other mechanical complication of other internal orthopedic devices, implants and grafts, subsequent encounter; M19.011 Primary osteoarthritis, right shoulder; R53.1 Weakness
CPT/HCPCS: 97110; 97140; 97162; 97535

== ENCOUNTER 2023-05-17 07:14 | Emergency (ER) | payer MEDICARE, OTHER, SELFPAY ==
[2023-05-17] VITALS (16 sets, daily range): BP systolic 100–157; BP diastolic 66–86; PULSE 103–114; RESP 16–25; TEMP 36.6; O2SAT 90–99; BMI 24.0
--- NOTE | 2023-05-17 07:25 | ED_ITS ---
HPI - SOB/Dyspnea General Chief Complaint: Weakness Stated Complaint: Weakness, SOB Time Seen by Provider: 05/17/23 07:25 Source: patient, EMS, RN notes reviewed and old records reviewed Mode of arrival: EMS Limitations: no limitations History of Present Illness HPI Narrative: 68-year-old female with history anxiety and depression, Pham-Danlos, hypertension, dyslipidemia, chronic kidney disease, hypothyroidism, osteoarthritis. Patient presents with complaint of recent flare in her colitis she states this happens about once monthly, she is had diarrhea she denies any black or bloody stools. She states she has had nausea and vomiting over the last 24 hours. She states this has been going on for about 24 hours but then today started to feel short of breath. She denies fevers, chills or diaphoresis. She states no chest pain or pressure but she feels like she is short of breath. She denies any cough. She denies any orthopnea. Patient denies any swelling of extremities. Patient states she has lower pelvic pain as well as bilateral flank pain which is typical of her colitis flares. She states loose liquidy stools with no black or blood. She states her urine has been dark and had an odor. She denies any dysuria, urgency or frequency but states there has been slower than usual. She denies rash or skin changes. Patient states she is on multiple medications including aspirin, Wellbutrin, duloxetine, lisinopril, labetalol, Valium as needed, rosuvastatin she does not recall all of her medications states there may be some missing. She was noted to be 90 systolic with EMS initially but came up to 117 systolic. Patient states normally about 120 systolic. She notes she is had prior left knee surgery bilateral shoulder surgery and had surgery for bilateral ectopics in the past. Denies any drug allergies. No tobacco, alcohol, no IV drug she uses marijuana once weekly. Dr. Last at [facility] is her primary care. Related Data Home Medications Medication Instructions Recorded Confirmed losartan 25 mg tablet (Cozaar) 50 mg PO HS ##0 10/25/12 hydrocodone 7.5 mg-acetaminophen 1 tab PO TID ##0 01/31/16 325 mg tablet amlodipine 5 mg tablet (Norvasc) 5 mg PO QDAY ##0 09/03/16 Previous Rx's Medication Instructions Recorded aripiprazole 2 mg tablet (Abilify) 2 mg PO QDAY #30 tabs 04/17/17 buspirone 10 mg tablet 10 mg PO BID #60 tabs 04/17/17 duloxetine 30 mg capsule,delayed 90 mg (3 x 30 mg) PO QDAY #90 caps 04/17/17 release (Cymbalta) prazosin 1 mg capsule (Minipress) 1 mg PO HS #30 caps 05/18/17 bupropion HCl 200 mg tablet,12 hr 200 mg PO BID #60 tabs 10/29/17 sustained-release bupropion HCl 200 mg tablet,12 hr 200 mg PO BID #10 ea 03/27/21 sustained-release duloxetine 60 mg capsule,delayed 60 mg PO DAILY #5 caps 03/27/21 release (Cymbalta) Allergies Allergy/AdvReac Type Severity Reaction Status Date / Time No Known Drug Allergies Allergy Verified 05/17/23 10:53 Review of Systems Review of Systems ROS Unobtainable: All systems reviewed & are unremarkable except as noted in HPI and below Patient History Family History Sister Tremor Sister Tremor Social History Smoking Status: Never smoker Smoking Status: Never smoker Substance Use Type: marijuana Exam Narrative Exam Narrative: GEN: Thin female, alert and oriented x 3, patient appears to be in [default value] distress. Patient appears slightly jaundiced. HEENT: Atraumatic, pupils are equal round reactive to light, extraocular movements are intact, nares are clear, Tthere is no conjunctival pallor. Throat is clear without any exudates, erythema, tonsillar enlargement or uvular deviation HEART: Regular rate and rhythm without murmur, clicks, rubs. pulses are equal in upper and lower extremities LUNGS:Lungs clear to auscultation, no wheezes, rales, crackles, chest moves symmetrically, no tachypnea accessory muscle use, patient's speaks in full sentences ABD:bowel sounds normal, soft, non-tender, no guarding, rebound, rigidity, no masses noted, no hepatosplenomegaly :No CVA tenderness MSCL: Non-tender, no muscle atrophy, muscles strength 5/5 upper and lower extremities, full range of motion, normal gait NEURO:CN 2-12 intact, sensation normal SKIN: Patient appears slightly jaundiced. Initial Vital Signs Initial Vital Signs: Vital Signs Pulse Rate 114 H 05/17/23 07:19 Blood Pressure 119/69 05/17/23 07:19 Course Orders Ordered: ED Orders 05/17/23 07:25 Complete Blood Count AUTO DIFF Stat Comprehensive Metabolic Panel Stat D Dimer Stat Lactate (Lactic Acid) Stat NT-proBNP (BNP-Adult 18+) Stat PTT Partial Thromboplastin Tico Stat Procalcitonin Stat Prothrombin Time INR Stat Troponin & CK Cardiac Panel Stat 05/17/23 07:32 XR chest 1V Stat 05/17/23 07:35 EKG-12 Lead Stat 05/17/23 07:56 CT abdomen pelvis w con Stat CT angio chest PE protocol Stat 05/17/23 08:08 Blood Culture Stat 05/17/23 08:19 EC echo doppler complete Stat 05/17/23 08:30 Respiratory Panel (Film Array) Stat 05/17/23 09:19 Troponin I Stat 05/17/23 11:53 Urine Microscopic Stat Discontinued Medications Heparin Sodium (Porcine) (Heparin 5,000 Unit/Ml Vial) 3,900 unit 60 unit/kg (3900 unit) IV NOW ONE Stop: 05/17/23 10:32 Last Admin: 05/17/23 10:55 Dose: 3,900 unit Documented By: LISSETH Sodium Chloride (Normal Saline 0.9%) 1,000 mls @ 1,000 mls/hr IV BOLUS ONE Stop: 05/17/23 08:35 Last Admin: 05/17/23 07:57 Dose: Not Given Documented By: CTS Sodium Chloride (Normal Saline 0.9%) 1,962 mls @ 654 mls/hr 30 ml/kg infuse over 3 hr (1962 ml) IV NOW ONE Stop: 05/17/23 10:53 Last Admin: 05/17/23 08:27 Dose: Not Given Documented By: CTS Piperacillin Sod/Tazobactam (Sod 4.5 gm/ Sodium Chloride) 100 mls @ 200 mls/hr IV NOW ONE Stop: 05/17/23 07:55 Last Infusion: 05/17/23 09:10 Dose: Infused Documented By: Admin: 05/17/23 08:28 Dose: 200 mls/hr Documented By: CTS Sodium Chloride (Normal Saline 0.9%) 1,000 mls @ 1,000 mls/hr IV BOLUS ONE Stop: 05/17/23 09:18 Last Admin: 05/17/23 08:25 Dose: Not Given Documented By: JAMIN Heparin Sodium/Dextrose (Heparin Drip) 25,000 unit in 500 mls @ 15.696 mls/hr IV CONT TANA; Protocol Last Titration: 05/17/23 12:33 Dose: 12 units/kg/hr, 15.696 mls/hr Documented By: JAMIN Co-signed By: JESUS Admin: 05/17/23 10:57 Dose: 12 units/kg/hr, 15.696 mls/hr Documented By: LISSETH Co-signed By: JESUS Doxycycline Hyclate 100 mg/ (Sodium Chloride) 100 mls @ 100 mls/hr IV NOW ONE Stop: 05/17/23 11:19 Last Infusion: 05/17/23 12:33 Dose: 100 mls/hr Documented By: Admin: 05/17/23 12:01 Dose: 100 mls/hr Documented By: LISSETH Ondansetron HCl (Ondansetron 4 Mg/2 Ml Inj) 4 mg IV NOW ONE Stop: 05/17/23 07:37 Last Admin: 05/17/23 08:27 Dose: 4 mg Documented By: JAMIN Vital Signs Vital signs: Vital Signs - 8 hr 05/17/23 08:29 05/17/23 08:29 05/17/23 08:30 Pulse Rate 113 H 114 H Respiratory Rate 24 18 Blood Pressure 157/71 H Pulse Oximetry 91 90 L Oxygen Delivery Method Oxygen Flow Rate 05/17/23 08:31 05/17/23 08:31 05/17/23 09:00 Pulse Rate 114 H 108 H Respiratory Rate 16 21 Blood Pressure 130/77 Pulse Oximetry 90 L 97 Oxygen Delivery Method Oxygen Flow Rate 05/17/23 09:00 05/17/23 09:30 05/17/23 09:33 Pulse Rate 105 H 103 H Respiratory Rate 21 18 Blood Pressure 117/86 Pulse Oximetry 98 97 Oxygen Delivery Method Oxygen Flow Rate 05/17/23 09:33 05/17/23 10:00 05/17/23 10:00 Pulse Rate 106 H Respiratory Rate 21 Blood Pressure 114/75 106/83 Pulse Oximetry 98 Oxygen Delivery Method Oxygen Flow Rate 05/17/23 10:30 05/17/23 10:30 05/17/23 11:00 Pulse Rate 107 H 109 H Respiratory Rate 21 22 Blood Pressure 132/66 Pulse Oximetry 97 95 Oxygen Delivery Method Oxygen Flow Rate 05/17/23 11:00 05/17/23 11:30 05/17/23 11:30 Pulse Rate 106 H Respiratory Rate 21 Blood Pressure 119/78 113/84 Pulse Oximetry 97 Oxygen Delivery Method Room Air Oxygen Flow Rate 05/17/23 12:00 05/17/23 12:30 Pulse Rate 104 H 104 H Respiratory Rate 19 Blood Pressure Pulse Oximetry 97 96 Oxygen Delivery Method Nasal Cannula Oxygen Flow Rate 2 MDM - SOB/Dyspnea Lab Data 05/17/23 07:25 05/17/23 07:25 Labs: Lab Results 05/17/23 05/17/23 05/17/23 Range/Units 07:25 08:30 09:19 WBC 25.2 H (4.5-11.0) X10^3/uL RBC 4.39 (4.0-5.2) X10^6/uL Hgb 13.0 (12.0-16.0) g/dL Hct 40.0 (36-46) % MCV 91.0 (80-100) fL MCH 29.6 (26-34) PG MCHC 32.5 (30-36) % RDW 15.4 H (11.6-14.8) % Plt Count 461 H (150-400) X10^3/uL Neut % (Auto) Not Reportable Lymph % (Auto) Not Reportable Beadle % (Auto) Not Reportable Eos % (Auto) Not Reportable Baso % (Auto) Not Reportable Lymph # (Auto) Not Reportable [place] # (Auto) Not Reportable Baso # (Auto) Not Reportable Total Counted 100 Seg Neutrophils % 81.0 H (38-70) % Band Neutrophils % 1.0 L (3-7) % Lymphocytes % (Manual) 14.0 L (25-45) % Monocytes % (Manual) 3.0 (2-11) % Metamyelocytes % 1.0 H (-0) % Neutrophils # (Manual) 14795 H (5269-3135) /uL RBC Morphology Normal morphology PT 13.9 H (10.1-12.7) SECONDS INR 1.2 (0.9-1.3) APTT 25 L (26-36) SECONDS D-Dimer 2282 H (<500) ng/ml Sodium 140 (137-145) mmol/L Potassium 3.6 (3.4-5.1) mmol/L Chloride 115 H (98-107) mmol/L Carbon Dioxide 14 L (22-32) mmol/L BUN 26 H (7-17) mg/dL Creatinine 1.12 H (0.52-1.04) mg/dL Estimated GFR 53 L (>60) mL/min BUN/Creatinine Ratio 23.2 H (6-22) Glucose 172 H (80-110) mg/dL Lactate 4.2 H* 3.5 H (0.7-2.1) mmol/L Calcium 8.1 L (8.4-10.2) mg/dL Total Bilirubin 0.4 (0.2-1.3) mg/dL AST 33 (14-36) IU/L ALT 18 (<35) IU/L Alkaline Phosphatase 55 (38-126) U/L Total Creatine Kinase 234 H (30-135) U/L Troponin I 1.290 H* 1.600 H* (0.01-0.034) ng/mL NT-Pro-B Natriuret Pep 93954 H (<125) pg/mL Total Protein 5.2 L (6.3-8.2) g/dL Albumin 3.0 L (3.5-5.0) g/dL Globulin 2.2 (1.7-4.1) g/dL Albumin/Globulin Ratio 1.4 (1.0-2.8) Procalcitonin 0.51 H (<0.5) ng/mL Urine RBC (0-5/HPF) Urine WBC (0-5/HPF) Ur Squamous Epith Cells (0-5/HPF) Urine Bacteria (None) Hyaline Casts (None) Ur Culture Indicated? Chlamy pneumoniae PCR Not detected (Not Detect) Adenovirus (PCR) Not detected (Not Detect) B.parapertussis DNA PCR Not detected (Not Detecte) Coronavirus OC43 (PCR) Not detected (Not Detect) Coronavirus HKU1 (PCR) Not detected (Not Detect) Coronavirus 229E (PCR) Not detected (Not Detect) SARS-CoV-2 (PCR) Not detected (Not Detecte) Coronavirus NL63 (PCR) Not detected (Not Detect) Human Metapneumovir PCR Not detected (Not Detect) Influenza Type A (PCR) Not detected (Not Detect) Influenza Type B (PCR) Not detected (Not Detect) M. pneumoniae (PCR) Not detected (Not Detect) Parainfluenza 1 (PCR) Not detected (Not Detect) Parainfluenza 2 (PCR) Not detected (Not Detect) Parainfluenza 3 (PCR) Not detected (Not Detect) Parainfluenza 4 (PCR) Not detected (Not Detect) RSV (PCR) Not detected (Not Detect) Entero/Rhino (PCR) Not detected (Not Detect) 05/17/23 Range/Units 11:53 WBC (4.5-11.0) X10^3/uL RBC (4.0-5.2) X10^6/uL Hgb (12.0-16.0) g/dL Hct (36-46) % MCV (80-100) fL MCH (26-34) PG MCHC (30-36) % RDW (11.6-14.8) % Plt Count (150-400) X10^3/uL Neut % (Auto) Lymph % (Auto) Beadle % (Auto) Eos % (Auto) Baso % (Auto) Lymph # (Auto) Beadle # (Auto) Baso # (Auto) Total Counted Seg Neutrophils % (38-70) % Band Neutrophils % (3-7) % Lymphocytes % (Manual) (25-45) % Monocytes % (Manual) (2-11) % Metamyelocytes % (-0) % Neutrophils # (Manual) (6372-8372) /uL RBC Morphology PT (10.1-12.7) SECONDS INR (0.9-1.3) APTT (26-36) SECONDS D-Dimer (<500) ng/ml Sodium (137-145) mmol/L Potassium (3.4-5.1) mmol/L Chloride (98-107) mmol/L Carbon Dioxide (22-32) mmol/L BUN (7-17) mg/dL Creatinine (0.52-1.04) mg/dL Estimated GFR (>60) mL/min BUN/Creatinine Ratio (6-22) Glucose (80-110) mg/dL Lactate (0.7-2.1) mmol/L Calcium (8.4-10.2) mg/dL Total Bilirubin (0.2-1.3) mg/dL AST (14-36) IU/L ALT (<35) IU/L Alkaline Phosphatase (38-126) U/L Total Creatine Kinase (30-135) U/L Troponin I (0.01-0.034) ng/mL NT-Pro-B Natriuret Pep (<125) pg/mL Total Protein (6.3-8.2) g/dL Albumin (3.5-5.0) g/dL Globulin (1.7-4.1) g/dL Albumin/Globulin Ratio (1.0-2.8) Procalcitonin (<0.5) ng/mL Urine RBC 0-1/hpf (0-5/HPF) Urine WBC None seen (0-5/HPF) Ur Squamous Epith Cells None seen (0-5/HPF) Urine Bacteria Occasional (0-1) (None) Hyaline Casts 0-1/lpf (None) Ur Culture Indicated? Cult not indicated Chlamy pneumoniae PCR (Not Detect) Adenovirus (PCR) (Not Detect) B.parapertussis DNA PCR (Not Detecte) Coronavirus OC43 (PCR) (Not Detect) Coronavirus HKU1 (PCR) (Not Detect) Coronavirus 229E (PCR) (Not Detect) SARS-CoV-2 (PCR) (Not Detecte) Coronavirus NL63 (PCR) (Not Detect) Human Metapneumovir PCR (Not Detect) Influenza Type A (PCR) (Not Detect) Influenza Type B (PCR) (Not Detect) M. pneumoniae (PCR) (Not Detect) Parainfluenza 1 (PCR) (Not Detect) Parainfluenza 2 (PCR) (Not Detect) Parainfluenza 3 (PCR) (Not Detect) Parainfluenza 4 (PCR) (Not Detect) RSV (PCR) (Not Detect) Entero/Rhino (PCR) (Not Detect) Urine Dip Bedside Urine Glucose Negative Bedside Urine Bilirubin - Negative Bedside Urine Ketone - Negative Urine Specific [place] 1.015 Bedside Urine Occult Blood - Negative Bedside Urine pH 5.0 Bedside Urine Protein + 30 Bedside Urine Urobilinogen - Negative Bedside Urine Nitrite - Negative Bedside Urine Leukocytes +/- 15 Esterase Imaging Data Chest x-ray: Radiologist's Impression: [address] [address] XRay Report Signed Patient: Leta Block MR#: [id number] : 1955 Acct:[id number] Age/Sex: 68 / F Date of Service: 05/17/23 Loc: ED Accession Number: [id number] Procedure: XR chest 1V Ordering Provider: Magda Palma D.O. PROCEDURE: XR CHEST 1V INDICATIONS: sob, abd pain, n/v TECHNIQUE: One view of the chest was acquired. COMPARISON: [facility], CT, CT CHEST WO CON, 05/30/2019, 12:04. FINDINGS: Surgical changes and devices: Bilateral reverse total shoulder arthroplasties. Lungs and pleura: Diffuse interstitial prominence is seen throughout both lungs. No focal consolidation. No pleural effusion or pneumothorax. Mediastinum: Mediastinal contours appear normal. Heart size is normal. Bones and chest wall: No suspicious bony lesions. Overlying soft tissues appear unremarkable. IMPRESSION: Diffuse bilateral interstitial prominence is suspicious for an atypical or viral pneumonia versus mild interstitial edema. Approved by: Kane Ruiz M.D. on 05/17/2023 at 7:59 ECG Data Attestation: I personally reviewed and interpreted this ECG as follows: Prior ECG tracings: available for review Interpretation: Sinus rhythm with marked sinus arrhythmia rate of 93 OK 154 QRS 82 QTC 467. Patient has what appears to be new T-wave inversion in to AVF, V4 V5 V6. No new ST elevation noted priors from 04/27/2012 with similar appearing V1 V2 AVR aVL and lead 1. [facility] [place] Narrative Medical decision making narrative: 68-year-old presents with complaint of shortness of breath but also nausea vomiting and diarrhea with abdominal and flank pain. Patient states nausea vomiting diarrhea is consistent with her prior colitis she gets a flare about every month but the shortness of breath is new. No syncope, no chest pain or pressure no diaphoresis but patient does appear dry and unwell. She is tachycardic initially blood pressure was 119/69 afebrile with no tachypnea accessory muscle use. Initial white count is 25, lactate 4.2, creatinine is slightly bumped at 1.12 BUN 26 potassium is 3 6 with a sodium of 140 and a CO2 of 14, total CK is 234. Troponin BNP Procalcitonin EKG shows a sinus rhythm at 93 but she does appear to have T-wave inversion with some depression in 2 3 AVF and lateral leads no elevation noted V1 V2 AVR and aVL appears similar to priors from 04/27/2012. Patient appears more dry than fluid overloaded initially on examination was given flipped sepsis fluids, IV antibiotics, CT of chest as well abdomen pelvis for further evaluation. CT angio does not show any pulmonary emboli does show changes consistent with possible pneumonia and/or edema. CT abdomen shows some mild colitis but no perforation or other significant infection. [place] [address], troponin is positive at 1.29 with a positive procalcitonin as well. Unclear if this is demand ischemia versus NSTEMI patient does have T-wave changes but no elevation. Patient's fluids were held she received 1L total made blood pressure has been maintaining about 114 occasional dips below but has not dropped her MAP below 70. Did start to require 2 L of O2. Has not had significant increased work of breathing at this point. Echo was ordered and is currently pending. Called for transfer for inpatient ICU and/or Cardiology which we do not have we do have tele intensive care. Spoke with Dr. Fernandez cardiology [facility] happy to follow with patient states potentially be NSTEMI but could also be demand ischemia would like to see the echo. Recommends talk with hospitalist or ICU and they are happy to consult. Patient's lactate trending down words from 4.2-3.5 but troponin trending upward from 1.29-1 6. Heparin was initiated. Spoke with Usama, textile bag sewer [facility] reviewed patient's workup findings and evaluation likely would benefit from sort of intermediate care he would asked that we speak with the hospitalist if hospitalist his uncomfortable will take the patient for ICU otherwise under hospitalist service. Spoke with Dr. Cornell hospitalist who accepts for transfe to [facility].. Does ask for some atypical coverage with azithromycin or doxycycline. Discussed have not given Lasix yet but she is been maintaining with somewhat soft pressures so will hold off unless we have increasing work of breathing. ECHO still pending prior to transport. Will forward on to [facility] after results are back. ECHO: Report shows EF of 10-15% with diffuse hypokinesis accepted basal segments. Consider stress cardiomyopathy. [facility] was contacted and results faxed to coordinator. Critical Care Time Critical Care Time Critical Care Time: Yes Total Critical Care Time: 45 Attestation: The high probability of a clinically significant, sudden or life threatening deterioration of the [cardiac, pulm] system(s) required my full and direct attention, intervention and personal management. The aggregate critical care time was [] minutes. This time is in addition to time spent performing reported procedures but includes the following: [x] Data Review and interpretation [x] Patient assessment and monitoring of vital signs [x] Documentation [x] Medication orders and management Discharge Plan Departure Patient Disposition: [facility] Clinical Impression: Sepsis, Non-ST elevation [place] (NSTEMI), Acute exacerbation of CHF (congestive heart failure), Pneumonia Prescriptions: No Action losartan [Cozaar] 25 MG tablet 50 mg PO HS Qty: 0 hydrocodone-acetaminophen 7.5 MG/325 MG tablet 1 tab PO TID Qty: 0 amlodipine [Norvasc] 5 MG tablet 5 mg PO QDAY Qty: 0 buspirone 10 MG tablet 10 mg PO BID Qty: 60 2RF duloxetine [Cymbalta] 30 MG capsule,delayed release(DR/EC) 90 mg PO QDAY Qty: 90 2RF aripiprazole [Abilify] 2 MG tablet 2 mg PO QDAY Qty: 30 2RF prazosin [Minipress] 1 MG capsule 1 mg PO HS Qty: 30 1RF bupropion HCl 200 mg tablet extended release 12 hr 200 mg PO BID Qty: 60 0RF Rx Instructions: I tab twice daily. needs to be scheduled for follow up for further refills. call to schedule. bupropion HCl 200 mg tablet sustained-release 12 hr 200 mg PO BID Qty: 10 0RF duloxetine [Cymbalta] 60 mg capsule,delayed release(DR/EC) 60 mg PO DAILY Qty: 5 0RF Referrals: Mallory Last PA-C [Primary Care Provider] -
--- NOTE | 2023-05-17 07:32 | DI.RAD.S_ITS ---
PROCEDURE: XR CHEST 1V INDICATIONS: sob, abd pain, n/v TECHNIQUE: One view of the chest was acquired. COMPARISON: [facility], CT, CT CHEST WO CON, 05/30/2019, 12:04. FINDINGS: Surgical changes and devices: Bilateral reverse total shoulder arthroplasties. Lungs and pleura: Diffuse interstitial prominence is seen throughout both lungs. No focal consolidation. No pleural effusion or pneumothorax. Mediastinum: Mediastinal contours appear normal. Heart size is normal. Bones and chest wall: No suspicious bony lesions. Overlying soft tissues appear unremarkable. IMPRESSION: Diffuse bilateral interstitial prominence is suspicious for an atypical or viral pneumonia versus mild interstitial edema. Approved by: Kane Ruiz M.D. on 05/17/2023 at 7:59
[2023-05-17 07:48] LABS: Add Manual Diff / Slide Review YES; Alanine Aminotransferase 18 IU/L (<35); Albumin Globulin Ratio 1.4 (1.0-2.8); Alkaline Phosphatase 55 U/L (38-126); Aspartate Aminotransferase 33 IU/L (14-36); BUN Creatinine Ratio 23.2 (6-22); Bilirubin Total 0.4 mg/dL (0.2-1.3); Blood Urea Nitrogen 26 mg/dL (7-17); Calcium 8.1 mg/dL (8.4-10.2); Carbon Dioxide 14 mmol/L (22-32); Chloride 115 mmol/L (98-107); Creatine Kinase 234 U/L (30-135); Estimated Glomerular Filt Rate 53 mL/min (>60); Globulin 2.2 g/dL (1.7-4.1); Glucose 172 mg/dL (80-110); HEMOLYSIS < 15 (0-50); Mean Corpuscular HGB Conc 32.5 % (30-36); Mean Corpuscular Hemoglobin 29.6 PG (26-34); Platelet Count 461 X10^3/uL (150-400); Potassium 3.6 mmol/L (3.4-5.1); Red Blood Cell Count 4.39 X10^6/uL (4.0-5.2); Red Cell Distribution Width 15.4 % (11.6-14.8); Sodium 140 mmol/L (137-145); Total Protein 5.2 g/dL (6.3-8.2); White Blood Cell Count 25.2 X10^3/uL (4.5-11.0)
[2023-05-17 07:50] LABS: D Dimer 2282 ng/ml (<500); INR 1.2 (0.9-1.3); Prothrombin Time 13.9 SECONDS (10.1-12.7)
[2023-05-17 07:51] LABS: PTT Partial Thromboplastin Tim 25 SECONDS (26-36)
[2023-05-17 07:53] LABS: Lactate (Lactic Acid) 4.2 mmol/L (0.7-2.1)
--- NOTE | 2023-05-17 07:56 | DI.CT.S_ITS ---
PROCEDURE: CT ABDOMEN PELVIS W CON INDICATIONS: n/v/diarrhea with abd pain hx colitis, new SOB TECHNIQUE: After the administration of intravenous contrast, axial sections acquired from the lung bases to the pubic symphysis. Coronal and sagittal reformats were performed. For radiation dose reduction, the following was used: automated exposure control, adjustment of mA and/or kV according to patient size. COMPARISON: None. FINDINGS: Image quality: Excellent. Lung bases: Small bilateral pleural effusions with atelectasis at the lung bases. Ground-glass opacities and interlobular septal thickening are also noted in the included lungs. Heart: Mildly enlarged. ABDOMEN: Liver: Unremarkable. Gallbladder: Unremarkable. Biliary ducts: Unremarkable. Pancreas: Unremarkable. Spleen: Unremarkable. Adrenal Glands: Unremarkable. Kidneys and Ureters: Unremarkable. Stomach and Bowel: Scattered diverticula are seen in the colon. There is diffuse bowel wall thickening versus underdistention throughout the entire colon. No signs of small bowel obstruction. Peritoneum: No abnormal intraperitoneal fluid. No free air. Ventral Wall: No hernias. Abdominal Nodes: No retroperitoneal or mesenteric adenopathy by size criteria. Vessels: Aorta and inferior vena cava are normal in size. PELVIS: Pelvic Organs: Status post hysterectomy. Bladder: Unremarkable. Pelvic Nodes: No enlarged lymph nodes. Miscellaneous: No hernias are seen. Bones: Multilevel degenerative changes are seen in the spine. Mild levoconvex curvature. IMPRESSION: 1. Diffuse bowel wall thickening throughout the colon may be secondary to underdistention versus a nonspecific colitis. No signs of small bowel obstruction. 2. Colonic diverticulosis without signs of acute diverticulitis. 3. Small bilateral pleural effusions with ground-glass opacities and interlobular septal thickening at the lung bases. Mild cardiomegaly. Approved by: Kane Ruiz M.D. on 05/17/2023 at 8:54
--- NOTE | 2023-05-17 07:56 | DI.CT.S_ITS ---
PROCEDURE: CT ANGIO CHEST PE PROTOCOL INDICATIONS: n/v/diarrhea with abd pain hx colitis, new SOB TECHNIQUE: After the administration of intravenous contrast, 2 mm thick sections acquired from the pulmonary apices to the posterior costophrenic angles. 3-dimensional maximum intensity projection (MIP) coronal and sagittal reformats were then acquired through the thorax. For radiation dose reduction, the following was used: automated exposure control, adjustment of mA and/or kV according to patient size. COMPARISON: [facility], CR, XR CHEST 1V, 05/17/2023, 7:37. FINDINGS: Image quality: Diagnostic. Pulmonary arteries: Pulmonary arteries are normal in size, and demonstrate no intraluminal filling defects to suggest central pulmonary embolism. Lungs and pleura: Small bilateral pleural effusions, slightly greater on the right than on the left, with atelectasis of the adjacent lung bases. No pneumothorax. Diffuse bilateral ground-glass opacities and interlobular septal thickening in both lungs. No suspicious pulmonary nodule that requires dedicated imaging follow-up, although evaluation is compromised by additional pulmonary findings. Central and peripheral airways are patent. Mediastinum: Heart size is mildly enlarged, without pericardial effusion. No mediastinal or hilar adenopathy. Thoracic aorta is normal in caliber and enhancement. Esophagus is normal in caliber, without hiatal hernia. 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 No suspicious bony lesions. Ribs and thoracic spine appear intact throughout. No axillary or supraclavicular adenopathy. No thyroid nodules which require sonographic follow up, per consensus guidelines. Abdomen: There is reflux of contrast material into the hepatic veins. Chondral organs are better evaluated on the dedicated CT of the abdomen and pelvis performed same time. IMPRESSION: 1. No acute pulmonary embolus. 2. Bilateral ground-glass opacities, interlobular septal thickening, and small pleural effusions are suspicious for pulmonary edema although an atypical pneumonia could appear similarly. 3. Mild cardiomegaly. Approved by: Kane Ruiz M.D. on 05/17/2023 at 8:49
[2023-05-17 08:05] LABS: Procalcitonin 0.51 ng/mL (<0.5)
[2023-05-17 08:14] LABS: NT-proBNP (BNP-Adult 18+) 48600 pg/mL (<125)
[2023-05-17 08:17] LABS: Neutrophils Absolute Manual 20664 /uL (3000-5900); Total Cells Counted 100
[2023-05-17 08:18] LABS: RBC Morphology Normal Morphology
--- NOTE | 2023-05-17 08:19 | DI.ECHO.S_ITS ---
[facility] +---------+ : : [address] : : : : [id number] : : : : Phone: [phone]---------+ Echocardiogram Report + + :Name: JASON WILKERSON Study Date: 05/17/2023 Height: 65 in : :[facility] ReadingLocation: Weight: 144 lb : : Gender: Female BSA: 1.7 m2 : :: 1955 Age: 68 yrs BP: 130/77 mmHg: :Reason For Study: Congestive Heart Failure : :Ordering Physician: ELIDA, : :MARAH Performed By: Trena Valladares : :Referring: MARAH MARRERO : + + Interpretation Summary The left ventricle is mildly dilated. The ejection fraction is estimated to be 10-15%. There is severe diffuse hypokinesis except in the basal segments. Consider stress cardiomyopathy. Diastolic function could not be accurately assessed due to unobtainable data. The left atrium is moderately dilated. The right ventricle is normal in size and function. There is moderate mitral regurgitation. There is trace aortic regurgitation. There is mild to moderate tricuspid regurgitation. The right ventricular systolic pressure is estimated to be at least 40 mmHg based on an estimated right atrial pressure of 3 mm Hg. Compared to the prior study dated 01/15/2018, there is now a severely reduced ejection fraction. Procedure: A two-dimensional transthoracic echocardiogram with color flow and Doppler was performed. The study quality was technically adequate. Comparison is made with the echocardiogram of 01/15/2018. The patient was in sinus tachycardia with heart rates between 105-115 bpm during the exam. Left Ventricle: The left ventricle is mildly dilated. There is normal left ventricular wall thickness. The ejection fraction is estimated to be 10-15%. There is severe diffuse hypokinesis except in the basal segments. Consider stress cardiomyopathy. Diastolic function could not be accurately assessed due to unobtainable data. Right Ventricle: The right ventricle is normal in size and function. Atria: The left atrium is moderately dilated. Right atrial size is normal. There is no Doppler evidence for an interatrial shunt. Mitral Valve: The mitral valve leaflets appear borderline thickened, but open well. There is moderate mitral regurgitation. Aortic Valve: The aortic valve is trileaflet. The aortic valve opens well. There is no aortic valve stenosis. There is trace aortic regurgitation. Tricuspid Valve: The tricuspid valve leaflets are thin and pliable. There is mild to moderate tricuspid regurgitation. The right ventricular systolic pressure is estimated to be at least 40 mmHg based on an estimated right atrial pressure of 3 mm Hg. Pulmonic Valve: The pulmonic valve is not well seen, but is grossly normal. There is no pulmonic valvular regurgitation. Great Vessels: The aortic root is normal size. The dimensions of the ascending aorta are normal. The IVC is of normal diameter and collapses greater than 50% with a sniff. This suggests a low right atrial pressure of 3 mm Hg. Pericardium/ Pleura There is no pericardial effusion. There is no pleural effusion. MMode/2D Measurements & Calculations LVIDd: 4.6 cm LVOT diam: 2.0 cm LVIDs: 4.1 cm Ao root diam: 3.0 cm FS: 10.1 % asc Aorta Diam: 2.7 cm EPSS: 1.1 cm Ao Arch Diam (Prox Trans): 2.7 cm IVSd: 0.93 cm LVPWd: 0.81 cm LV holguin. diameter/BSA (cm/m^2): 2.7 LV sys. diameter/BSA (cm/m^2): 2.4 LA A2 area: 16.0 cm2 RA long axis: 4.0 cm LA A4 area: 21.1 cm2 RA area: 10.1 cm2 LA length (vol): 5.3 cm RA vol: 21.5 ml LA vol: 54.2 ml RA : 12.5 ml/m2 LA vol index: 31.5 ml/m2 IVC diam: 1.3 cm RVD1 (basal): 3.5 cm TAPSE: 1.7 cm Doppler Measurements & Calculations Ao V2 max: 73.2 cm/sec LVOT Max Timmy: 41.1 cm/sec Ao V2 mean: 52.7 cm/sec LV V1 max P.68 mmHg Ao max P.1 mmHg LV V1 VTI: 5.2 cm Ao mean P.2 mmHg IDA(I,D): 2.0 cm2 Ao V2 VTI: 8.6 cm IDA(V,D): 1.8 cm2 sev ratio: 0.61 IDA indexed to BSA (cm^2/m^2): 1.1 MV E max timmy: 65.9 cm/sec TR max timmy: 298.9 cm/sec MV A max timmy: 19.3 cm/sec TR max P.8 mmHg MV E/A: 3.4 PA pr(Accel): 57.2 mmHg Med Peak E' Timmy: 5.5 cm/sec E/E' med: 11.9 Lat Peak E' Timmy: 7.7 cm/sec E/E' lat: 8.5 E/e' average: 10.2 MV dec time: 0.13 sec SV(LVOT): 16.9 ml Reading Physician:12:18 PM
--- NOTE | 2023-05-17 08:25 | PC.NURSE ---
Addendum entered by Shirley Nava R.N. 05/17/23 08:25: Pt received 1L NS from EMS which has completed Original Note: fluids held per Dr Palma for BNP over 4000
[2023-05-17] MEDS: ONDANSETRON 4 MG/2 ML INJ IV (08:27)
[2023-05-17] MEDS: PIPERACILLIN/TAZO 4.5 GM in SODIUM CHLORIDE 0.9% 100 ML IV (08:28)
--- NOTE | 2023-05-17 08:38 | PC.NURSE ---
86% on RA. placed on 3L with improvement to 97%
[2023-05-17 09:20] LABS: Reflexed Lactate in 2 Hours Y
[2023-05-17 09:35] LABS: Adenovirus Not Detected (Not Detect); B. parapertussis Not Detected (Not Detecte); Bordetella pertussis Not Detected (Not Detect); Chlamydophila pneumoniae Not Detected (Not Detect); Coronavirus 229E Not Detected (Not Detect); Coronavirus HKU1 Not Detected (Not Detect); Coronavirus NL 63 Not Detected (Not Detect); Coronavirus OC43 Not Detected (Not Detect); Human Metapneumovirus Not Detected (Not Detect); Human Rhinovirus/Enterovirus Not Detected (Not Detect); Influenza A Not Detected (Not Detect); Influenza B Not Detected (Not Detect); Mycoplasma pneumoniae Not Detected (Not Detect); Parainfluenza Virus 1 Not Detected (Not Detect); Parainfluenza Virus 2 Not Detected (Not Detect); Parainfluenza Virus 3 Not Detected (Not Detect); Parainfluenza Virus 4 Not Detected (Not Detect); Respiratory Syncytial Virus Not Detected (Not Detect); SARS- CoV-2 Not Detected (Not Detecte)
[2023-05-17 09:42] LABS: Lactate 2HR (Lactic Acid Rflx) 3.5 mmol/L (0.7-2.1)
[2023-05-17] MEDS: HEPARIN 5,000 UNIT/ML VIAL 3900 UNIT IV (10:55)
[2023-05-17] MEDS: HEPARIN DRIP 25,000 UNIT/500 ML IV.SOLN 15.696 UNIT IV (10:57)
--- NOTE | 2023-05-17 11:53 | PC.NURSE ---
report given to Kassidy CANALES at [facility]
[2023-05-17] MEDS: DOXYCYCLINE 100 MG in SODIUM CHLORIDE 0.9% 100 ML IV (12:01)
[2023-05-17 12:08] LABS: Bacteria Urine Occasional (0-1); Culture Indicated Urine Cult Not Indicated; Hyaline Casts Urine 0-1/LPF; RBC Urine 0-1/HPF (0-5/HPF); Squamous Epithelial Cell Urine None Seen (0-5/HPF); WBC Urine None Seen (0-5/HPF)
== END 2023-05-17 12:34 | disposition short-term general hospital (02) ==
PROVIDERS: Emergency Provider Emergency Medicine; Family Provider Physician Assistant; PCP Physician Assistant
DX: J18.9 Pneumonia, unspecified organism (principal); I50.9 Heart failure, unspecified; A41.9 Sepsis, unspecified organism; R10.2 Pelvic and perineal pain; Z20.822 Contact with and (suspected) exposure to COVID-19; R11.2 Nausea with vomiting, unspecified; Z79.899 Other long term (current) drug therapy
CPT/HCPCS: 36415; 71045; 71275; 74177; 80053; 81003; 81015; 82550; 83605; 83880; 84145; 84484; 85007; 85025; 85379; 85610; 85730; 87040; 87633; 93005; 93010; 93306; 96365; 96366; 96367; 96368; 96375; 99285; J1644; J2405; J2543

== ENCOUNTER 2023-05-25 16:35 | Emergency (ER) | payer MEDICARE, OTHER, SELFPAY ==
[2023-05-25] VITALS (12 sets, daily range): BP systolic 99–136; BP diastolic 49–67; PULSE 71–89; RESP 13–25; TEMP 38.1; O2SAT 87–98; BMI 20.9
--- NOTE | 2023-05-25 17:00 | DI.RAD.S_ITS ---
PROCEDURE: XR CHEST 1V INDICATIONS: chest pain TECHNIQUE: One view of the chest was acquired. COMPARISON: [facility], CR, XR CHEST 1V, 05/17/2023, 7:37. FINDINGS: Surgical changes and devices: Bilateral reverse shoulder arthroplasties. Lungs and pleura: Lungs are clear. No pleural effusions or pneumothorax. Mediastinum: Mediastinal contours appear normal. Heart size is stable. Bones and chest wall: No suspicious bony lesions. Overlying soft tissues appear unremarkable. IMPRESSION: No acute cardiopulmonary abnormality is seen. Previously seen interstitial opacities have resolved. Approved by: Kane Ruiz M.D. on 05/25/2023 at 17:23
[2023-05-25] MEDS: ASPIRIN 81 MG CHEW TAB 324 MG PO (17:25)
[2023-05-25 17:27] LABS: Add Manual Diff / Slide Review NO; Basophils Absolute Auto 100 /uL (0-100); Basophils Percent Auto 1.1 % (0-2); Eosinophils Absolute Auto 300 /uL (0-450); Eosinophils Percent Auto 2.9 % (2-4); Hematocrit 33.3 % (36-46); Hemoglobin 11.2 g/dL (12.0-16.0); Lymphocytes Absolute Auto 3500 /uL (1100-4500); Lymphocytes Percent Auto 31.9 % (25-40); Mean Corpuscular HGB Conc 33.6 % (30-36); Mean Corpuscular Hemoglobin 30.6 PG (26-34); Monocytes Absolute Auto 1700 /uL (0-900); Monocytes Percent Auto 15.8 % (3-14); Neutrophils Absolute Auto 5300 /uL (1500-7000); Neutrophils Percent Auto 48.3 % (50-75); Platelet Count 331 X10^3/uL (150-400); Red Blood Cell Count 3.66 X10^6/uL (4.0-5.2); Red Cell Distribution Width 15.1 % (11.6-14.8)
--- NOTE | 2023-05-25 17:37 | PC.NURSE ---
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
[2023-05-25 17:38] LABS: PTT Partial Thromboplastin Tim 29 SECONDS (25.1-36.5)
[2023-05-25 17:44] LABS: Alanine Aminotransferase 21 IU/L (<35); Albumin 3.8 g/dL (3.5-5.0); Albumin Globulin Ratio 1.5 (1.0-2.8); Alkaline Phosphatase 62 U/L (38-126); Aspartate Aminotransferase 35 IU/L (14-36); BUN Creatinine Ratio 14.1 (6-22); Bilirubin Total 0.4 mg/dL (0.2-1.3); Blood Urea Nitrogen 12 mg/dL (7-17); Calcium 9.7 mg/dL (8.4-10.2); Carbon Dioxide 27 mmol/L (22-32); Chloride 102 mmol/L (98-107); Creatine Kinase 26 U/L (30-135); Estimated Glomerular Filt Rate > 60 mL/min (>60); Globulin 2.6 g/dL (1.7-4.1); Glucose 101 mg/dL (80-110); HEMOLYSIS < 15 (0-50); Lipase 231 U/L (23-300); Magnesium 1.8 mg/dL (1.6-2.3); Potassium 3.5 mmol/L (3.4-5.1); Sodium 135 mmol/L (137-145); Total Protein 6.4 g/dL (6.3-8.2)
--- NOTE | 2023-05-25 17:53 | ED_ITS ---
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 Patient states that she was recently seen here and transferred to [facility] for pneumonia and ?water around my heart?. Patient is a very poor historian and she does not remember many of the details of her hospitalization at [facility], but states that she did have a heart catheterization and her heart ?only functions at 10%?. Currently pain-free Related Data Home Medications Medication Instructions Recorded Confirmed losartan 25 mg tablet (Cozaar) 50 mg PO HS ##0 10/25/12 hydrocodone 7.5 mg-acetaminophen 1 tab PO TID ##0 01/31/16 325 mg tablet amlodipine 5 mg tablet (Norvasc) 5 mg PO QDAY ##0 09/03/16 Previous Rx's Medication Instructions Recorded aripiprazole 2 mg tablet (Abilify) 2 mg PO QDAY #30 tabs 04/17/17 buspirone 10 mg tablet 10 mg PO BID #60 tabs 04/17/17 duloxetine 30 mg capsule,delayed 90 mg (3 x 30 mg) PO QDAY #90 caps 04/17/17 release (Cymbalta) prazosin 1 mg capsule (Minipress) 1 mg PO HS #30 caps 05/18/17 bupropion HCl 200 mg tablet,12 hr 200 mg PO BID #60 tabs 10/29/17 sustained-release bupropion HCl 200 mg tablet,12 hr 200 mg PO BID #10 ea 03/27/21 sustained-release duloxetine 60 mg capsule,delayed 60 mg PO DAILY #5 caps 03/27/21 release (Cymbalta) Allergies Allergy/AdvReac Type Severity Reaction Status Date / Time No Known Drug Allergies Allergy Verified 05/17/23 10:53 Review of Systems <Magda Turner MD - Last Filed: 05/26/23 09:13> Review of Systems Narrative: Negative except as noted above Patient History <Magda Turner MD - Last Filed: 05/26/23 09:13> Family History Sister Tremor Sister Tremor Social History Smoking Status: Former smoker Smoking Status: Former smoker Substance Use Type: does not use Exam <Magda Turner MD - Last Filed: 05/26/23 09:13> Initial Vital Signs Initial Vital Signs: Vital Signs Temperature 100.6 F H 05/25/23 16:54 Pulse Rate 87 05/25/23 16:54 Respiratory Rate 20 05/25/23 16:54 Blood Pressure 129/67 05/25/23 16:54 Pulse Oximetry 98 05/25/23 16:54 Oxygen Delivery Method Room Air 05/25/23 16:54 Const: Awake, alert, no acute distress Eyes: PERRL, EOMI, conjunctiva normal ENT: Atraumatic, dentition normal, mucous membranes moist Cardiac: regular rate, regular rhythm RESP: unlabored, clear bilaterally, no wheezing GI: Atraumatic, soft, nontender, nondistended, no rebound, no guarding MSK: Atraumatic, full range of motion, pulses equal Skin: Warm, Dry, intact, no rashes Neuro: AO x3, CN II-XII grossly intact, moves all extremities Psych: affect normal, mood normal, not suicidal, not homicidal <Giovanny Banerjee DO - Last Filed: 05/26/23 03:32> Initial Vital Signs Initial Vital Signs: Vital Signs Temperature 100.6 F H 05/25/23 16:54 Pulse Rate 87 05/25/23 16:54 Respiratory Rate 20 05/25/23 16:54 Blood Pressure 129/67 05/25/23 16:54 Pulse Oximetry 98 05/25/23 16:54 Oxygen Delivery Method Room Air 05/25/23 16:54 Course <Magda Turner MD - Last Filed: 05/26/23 09:13> Orders Ordered: Discontinued Medications Aspirin (Aspirin 81 Mg Chew Tab) 324 mg PO NOW ONE Stop: 05/25/23 17:00 Last Admin: 05/25/23 17:25 Dose: 324 mg Documented By: SPF Vital Signs Vital signs: Vital Signs - 8 hr 05/25/23 19:30 05/25/23 19:30 05/25/23 20:00 Pulse Rate 72 71 Respiratory Rate 13 18 Blood Pressure 107/53 L Pulse Oximetry 96 95 05/25/23 20:00 05/25/23 20:30 05/25/23 20:31 Pulse Rate 74 78 Respiratory Rate 21 23 Blood Pressure 105/56 L Pulse Oximetry 96 97 05/25/23 20:31 Pulse Rate Respiratory Rate Blood Pressure 99/49 L Pulse Oximetry <Giovanny Banerjee DO - Last Filed: 05/26/23 03:32> Orders Ordered: Discontinued Medications Aspirin (Aspirin 81 Mg Chew Tab) 324 mg PO NOW ONE Stop: 05/25/23 17:00 Last Admin: 05/25/23 17:25 Dose: 324 mg Documented By: SPF Vital Signs Vital signs: Vital Signs - 8 hr 05/25/23 19:30 05/25/23 19:30 05/25/23 20:00 Pulse Rate 72 71 Respiratory Rate 13 18 Blood Pressure 107/53 L Pulse Oximetry 96 95 05/25/23 20:00 05/25/23 20:30 05/25/23 20:31 Pulse Rate 74 78 Respiratory Rate 21 23 Blood Pressure 105/56 L Pulse Oximetry 96 97 05/25/23 20:31 Pulse Rate Respiratory Rate Blood Pressure 99/49 L Pulse Oximetry MDM - Chest Pain <Magda Turner MD - Last Filed: 05/26/23 09:13> Differential Diagnosis Differential diagnosis: Likely pneumothorax, stable angina and unstable angina pectoris Lab Data 05/25/23 17:15 05/25/23 17:15 Labs: Lab Results 05/25/23 05/25/23 Range/Units 17:15 20:13 WBC 11.0 (4.5-11.0) X10^3/uL RBC 3.66 L (4.0-5.2) X10^6/uL Hgb 11.2 L (12.0-16.0) g/dL Hct 33.3 L (36-46) % MCV 91.0 (80-100) fL MCH 30.6 (26-34) PG MCHC 33.6 (30-36) % RDW 15.1 H (11.6-14.8) % Plt Count 331 (150-400) X10^3/uL Neut % (Auto) 48.3 L (50-75) % Lymph % (Auto) 31.9 (25-40) % Carlisle % (Auto) 15.8 H (3-14) % Eos % (Auto) 2.9 (2-4) % Baso % (Auto) 1.1 (0-2) % Neut # (Auto) 5300 (0835-4447) /uL Lymph # (Auto) 3500 (1552-4731) /uL Carlisle # (Auto) 1700 H (0-900) /uL Eos # (Auto) 300 (0-450) /uL Baso # (Auto) 100 (0-100) /uL PT 12.0 (9.4-12.5) SECONDS INR 1.0 (0.9-1.3) APTT 29 (25.1-36.5) SECONDS Sodium 135 L (137-145) mmol/L Potassium 3.5 (3.4-5.1) mmol/L Chloride 102 (98-107) mmol/L Carbon Dioxide 27 (22-32) mmol/L BUN 12 (7-17) mg/dL Creatinine 0.85 (0.52-1.04) mg/dL Estimated GFR > 60 (>60) mL/min BUN/Creatinine Ratio 14.1 (6-22) Glucose 101 (80-110) mg/dL Calcium 9.7 (8.4-10.2) mg/dL Magnesium 1.8 (1.6-2.3) mg/dL Total Bilirubin 0.4 (0.2-1.3) mg/dL AST 35 (14-36) IU/L ALT 21 (<35) IU/L Alkaline Phosphatase 62 (38-126) U/L Total Creatine Kinase 26 L D 22 L (30-135) U/L Troponin I 0.055 H 0.065 H (0.01-0.034) ng/mL Total Protein 6.4 (6.3-8.2) g/dL Albumin 3.8 (3.5-5.0) g/dL Globulin 2.6 (1.7-4.1) g/dL Albumin/Globulin Ratio 1.5 (1.0-2.8) Lipase 231 (23-300) U/L ECG Data Interpretation: Normal sinus rhthm, diffuse t-wave inversions, worse than prior on 05/17/23 MDM Narrative Medical decision making narrative: Patient presenting for chest pain. Recently transferred to [facility] for NSTEMI. EKG does show diffuse T-/wave inversions, these were seen on previous EKG, slightly worse. Patient reports negative cardiac catheterization at [facility], we will attempt to obtain medical records from [facility] as patient is a poor historian. 1800 - care of patient signed to Dr. Banerjee. So far patient workup significant for troponin 0.055, previous value on 07/17/22 1.600, unknown peak troponin level. Final dispo pending. <Giovanny Banerjee, - Last Filed: 05/26/23 03:32> Medical Records Data Attestation: I reviewed the patient's medical records. Lab Data Attestation: I reviewed the patient's lab results. Labs: Lab Results 05/25/23 05/25/23 Range/Units 17:15 20:13 WBC 11.0 (4.5-11.0) X10^3/uL RBC 3.66 L (4.0-5.2) X10^6/uL Hgb 11.2 L (12.0-16.0) g/dL Hct 33.3 L (36-46) % MCV 91.0 (80-100) fL MCH 30.6 (26-34) PG MCHC 33.6 (30-36) % RDW 15.1 H (11.6-14.8) % Plt Count 331 (150-400) X10^3/uL Neut % (Auto) 48.3 L (50-75) % Lymph % (Auto) 31.9 (25-40) % Carlisle % (Auto) 15.8 H (3-14) % Eos % (Auto) 2.9 (2-4) % Baso % (Auto) 1.1 (0-2) % Neut # (Auto) 5300 (7973-9057) /uL Lymph # (Auto) 3500 (9036-3946) /uL Carlisle # (Auto) 1700 H (0-900) /uL Eos # (Auto) 300 (0-450) /uL Baso # (Auto) 100 (0-100) /uL PT 12.0 (9.4-12.5) SECONDS INR 1.0 (0.9-1.3) APTT 29 (25.1-36.5) SECONDS Sodium 135 L (137-145) mmol/L Potassium 3.5 (3.4-5.1) mmol/L Chloride 102 (98-107) mmol/L Carbon Dioxide 27 (22-32) mmol/L BUN 12 (7-17) mg/dL Creatinine 0.85 (0.52-1.04) mg/dL Estimated GFR > 60 (>60) mL/min BUN/Creatinine Ratio 14.1 (6-22) Glucose 101 (80-110) mg/dL Calcium 9.7 (8.4-10.2) mg/dL Magnesium 1.8 (1.6-2.3) mg/dL Total Bilirubin 0.4 (0.2-1.3) mg/dL AST 35 (14-36) IU/L ALT 21 (<35) IU/L Alkaline Phosphatase 62 (38-126) U/L Total Creatine Kinase 26 L D 22 L (30-135) U/L Troponin I 0.055 H 0.065 H (0.01-0.034) ng/mL Total Protein 6.4 (6.3-8.2) g/dL Albumin 3.8 (3.5-5.0) g/dL Globulin 2.6 (1.7-4.1) g/dL Albumin/Globulin Ratio 1.5 (1.0-2.8) Lipase 231 (23-300) U/L [facility] Narrative Medical decision making narrative: Patient presenting for chest pain. Recently transferred to [facility] for NSTEMI. EKG does show diffuse T-/wave inversions, these were seen on previous EKG, slightly worse. Patient reports negative cardiac catheterization at [facility], we will attempt to obtain medical records from [facility] as patient is a poor historian. 1800 - care of patient signed to Dr. Banerjee. So far patient workup significant for troponin 0.055, previous value on 07/17/22 1.600, unknown peak troponin level. Final dispo pending. Dr. Banerjee: Received turned over. With the patient's history and physical and workup up to this point. Patient is now completely asymptomatic. I did get records from her recent hospital admission. During that admission she was diuresed, had an echocardiogram that showed an ejection fraction of 15%. No ventricular arrhythmias. Had a cardiac catheterization that showed a 30-40% stenosis of the proximal LAD, 90% ostial stenosis of the 1st diagonal but no stent was placed. She would a 30% proximal major OM trunk in less than 30% in mid RCA. 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 She has a follow-up with cardiology already scheduled in 2 weeks. She does not specifically remember the medications she is taking. Troponins are improved from when she was here a short time ago and transferred to the outside facility where she had the workup. Repeat troponin relatively unchanged. Given her recent cardiac workup, her labs today, resolution of symptoms, known cardiac history will hold on further workup for now and have patient contact her primary doctor for follow-up. She was given return precautions. She expressed understanding and agreement with plan. Discharge Plan Departure Patient Disposition: Home Clinical Impression: Chest pain Instructions: DI for Chest Pain Activity Restrictions/Additional Instructions: Recommend that you continue to take all of your medications as directed. Keep all of your scheduled medical appointments. Return to the emergency department for new or worsening symptoms. Prescriptions: No Action losartan [Cozaar] 25 MG tablet 50 mg PO HS Qty: 0 hydrocodone-acetaminophen 7.5 MG/325 MG tablet 1 tab PO TID Qty: 0 amlodipine [Norvasc] 5 MG tablet 5 mg PO QDAY Qty: 0 buspirone 10 MG tablet 10 mg PO BID Qty: 60 2RF duloxetine [Cymbalta] 30 MG capsule,delayed release(DR/EC) 90 mg PO QDAY Qty: 90 2RF aripiprazole [Abilify] 2 MG tablet 2 mg PO QDAY Qty: 30 2RF prazosin [Minipress] 1 MG capsule 1 mg PO HS Qty: 30 1RF bupropion HCl 200 mg tablet extended release 12 hr 200 mg PO BID Qty: 60 0RF Rx Instructions: I tab twice daily. needs to be scheduled for follow up for further refills. call to schedule. bupropion HCl 200 mg tablet sustained-release 12 hr 200 mg PO BID Qty: 10 0RF duloxetine [Cymbalta] 60 mg capsule,delayed release(DR/EC) 60 mg PO DAILY Qty: 5 0RF Referrals: Mallory Last PA-C [Primary Care Provider] - Stand Alone Forms: Patient Portal/API
[2023-05-25 17:55] LABS: Troponin I 0.055 ng/mL (0.01-0.034)
[2023-05-25 20:39] LABS: Creatine Kinase 22 U/L (30-135)
[2023-05-25 20:52] LABS: Troponin I 0.065 ng/mL (0.01-0.034)
== END 2023-05-25 21:08 | disposition home or self-care (01) ==
PROVIDERS: Emergency Medicine; Emergency Provider Emergency Medicine; Family Provider Physician Assistant; PCP Physician Assistant
DX: R07.9 Chest pain, unspecified (principal); I45.19 Other right bundle-branch block; R94.31 Abnormal electrocardiogram [ECG] [EKG]; I13.0 Hypertensive heart and chronic kidney disease with heart failure and stage 1 through stage 4 chronic kidney disease, or unspecified chronic kidney disease; I50.9 Heart failure, unspecified; N18.9 Chronic kidney disease, unspecified; E78.5 Hyperlipidemia, unspecified
CPT/HCPCS: 36415; 71045; 80053; 82550; 83690; 83735; 84484; 85025; 85610; 85730; 93005; 99284

== ENCOUNTER → 2023-07-02 08:06 | Outpatient (CLI) | payer MEDICARE, OTHER, SELFPAY ==
[2023-07-02 11:36] LABS: Alanine Aminotransferase 12 IU/L (<35); Albumin 3.3 g/dL (3.5-5.0); Albumin Globulin Ratio 1.4 (1.0-2.8); Alkaline Phosphatase 67 U/L (38-126); BUN Creatinine Ratio 17.5 (6-22); Bilirubin Total 0.3 mg/dL (0.2-1.3); Blood Urea Nitrogen 20 mg/dL (7-17); Calcium 9.4 mg/dL (8.4-10.2); Carbon Dioxide 30 mmol/L (22-32); Chloride 103 mmol/L (98-107); Estimated Glomerular Filt Rate 52 mL/min (>60); Globulin 2.4 g/dL (1.7-4.1); Glucose 80 mg/dL (80-110); HEMOLYSIS < 15 (0-50); Potassium 4.7 mmol/L (3.4-5.1); Sodium 136 mmol/L (137-145); Total Protein 5.7 g/dL (6.3-8.2)
[2023-07-03 15:10] LABS: Aspartate Aminotransferase 24 IU/L (14-36)
== END ==
PROVIDERS: Family Provider Physician Assistant; PCP Physician Assistant; Referring Provider Nurse Practitioner; Visit Provider Nurse Practitioner
DX: I50.20 Unspecified systolic (congestive) heart failure (principal)
CPT/HCPCS: 36415; 80053

== ENCOUNTER → 2023-07-21 08:06 | Outpatient (CLI) | payer MEDICARE, OTHER, SELFPAY ==
--- NOTE | 2023-07-21 08:07 | DI.MRI.S_ITS ---
PROCEDURE: MR ANGIO HEAD WO CON INDICATIONS: Aneurysm of other cerebral arteries TECHNIQUE: Noncontrast axial 3-D [id number] MR angiogram, with 3-dimensional maximum intensity projection (MIP) reformats of the internal carotid arteries and posterior circulation then performed. COMPARISON: [facility], MR, MR ANGIO HEAD WO CON, 05/03/2021, 7:49. [facility], MR, MR ANGIO HEAD WO CON, 05/07/2022, 15:15. [facility], MR, MR ANGIO HEAD WO CON, 06/15/2020, 8:30. FINDINGS: Image quality: Excellent. Anterior circulation: Intracranial internal carotid arteries demonstrate normal size and intraluminal flow signal. The flow within the paired anterior cerebral arteries is normal and symmetric. The flow within the middle cerebral arteries is normal and symmetric. The anterior communicating artery is not well seen. No stenoses, occlusions, or aneurysms. Posterior circulation: There is again seen a mild aneurysm involving the tip of the basilar artery, measuring 3 mm. This aneurysm demonstrates a broad base and is seen just to the right of the midline. The right V4 segment is normal. The left V4 segment largely terminates in the left posterior inferior cerebellar artery. There is a normal appearing basilar artery. The flow within the posterior cerebral arteries is normal and symmetric. No stenoses or occlusions are seen. IMPRESSION: Stable 3 mm basilar tip aneurysm. Dictated by: Mahendra Gaitan M.D. on 07/21/2023 at 9:42 Approved by: Mahendra Gaitan M.D. on 07/21/2023 at 9:45
== END ==
PROVIDERS: Family Provider Physician Assistant; PCP Physician Assistant; Referring Provider Neurological Surgery; Visit Provider Neurological Surgery
DX: I72.5 Aneurysm of other precerebral arteries (principal)
CPT/HCPCS: 70544

== ENCOUNTER → 2023-07-31 10:17 | Outpatient (CLI) | payer MEDICARE, OTHER, SELFPAY ==
[2023-07-31 11:26] LABS: NT-proBNP (BNP-Adult 18+) 1150 pg/mL (<125)
== END ==
PROVIDERS: Family Provider Physician Assistant; PCP Physician Assistant; Referring Provider Physician Assistant; Visit Provider Physician Assistant
DX: I50.22 Chronic systolic (congestive) heart failure (principal); I51.81 Takotsubo syndrome
CPT/HCPCS: 36415; 80048; 83880

== ENCOUNTER → 2023-07-31 12:10 | Outpatient (CLI) | payer MEDICARE, OTHER, SELFPAY ==
[2023-07-31 12:32] LABS: BUN Creatinine Ratio 17.6 (6-22); Blood Urea Nitrogen 19 mg/dL (7-17); Calcium 9.3 mg/dL (8.4-10.2); Carbon Dioxide 27 mmol/L (22-32); Chloride 102 mmol/L (98-107); Estimated Glomerular Filt Rate 55 mL/min (>60); Glucose 91 mg/dL (80-110); HEMOLYSIS < 15 (0-50); Potassium 4.5 mmol/L (3.4-5.1); Sodium 136 mmol/L (137-145)
== END ==
LOC: LAB 12:11
PROVIDERS: Family Provider Physician Assistant; PCP Physician Assistant; Referring Provider Nurse Practitioner; Visit Provider Nurse Practitioner
DX: I51.81 Takotsubo syndrome (principal); I50.20 Unspecified systolic (congestive) heart failure
CPT/HCPCS: 80048

== ENCOUNTER 2023-09-08 18:09 | Emergency (ER) | payer MEDICARE, OTHER, SELFPAY ==
[2023-09-08 18:34] VITALS: BP 122/57; PULSE 75; RESP 17; TEMP 36.8; O2SAT 95; BMI 20.9
--- NOTE | 2023-09-08 18:38 | DI.RAD.S_ITS ---
PROCEDURE: XR WRIST LT MIN 3V INDICATIONS: fall, pain TECHNIQUE: Four views of the wrist were acquired. COMPARISON: None. FINDINGS: Bones: No fractures or dislocations. No suspicious bony lesions. Soft tissues: No suspicious soft tissue calcifications. IMPRESSION: No visible fractures. If there is continued concern for occult fracture, immobilization and reimaging in 7-10 days is recommended. Dictated by: America Schuster M.D. on 09/08/2023 at 20:25 Approved by: America Schuster M.D. on 09/08/2023 at 20:26
[2023-09-08 20:13] VITALS: BP 133/62; PULSE 67; RESP 20; O2SAT 97
--- NOTE | 2023-09-08 21:08 | ED_ITS ---
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 She was sitting in a chair her pant leg got stuck on 1 of the hooks in the chair she went to get up and fell from the chair landing directly on her face and left wrist. No loss of consciousness no nausea or vomiting. She has obvious left periorbital contusion. She reports that her nose was definitely off center and she moved it back. She has no neck pain. Complaining of some left wrist pain. No nausea vomiting. Not on any antiplatelet or antic oagulation medications. Related Data Home Medications Medication Instructions Recorded Confirmed losartan 25 mg tablet (Cozaar) 50 mg PO HS ##0 10/25/12 hydrocodone 7.5 mg-acetaminophen 1 tab PO TID ##0 01/31/16 325 mg tablet amlodipine 5 mg tablet (Norvasc) 5 mg PO QDAY ##0 09/03/16 Previous Rx's Medication Instructions Recorded aripiprazole 2 mg tablet (Abilify) 2 mg PO QDAY #30 tabs 04/17/17 buspirone 10 mg tablet 10 mg PO BID #60 tabs 04/17/17 duloxetine 30 mg capsule,delayed 90 mg (3 x 30 mg) PO QDAY #90 caps 04/17/17 release (Cymbalta) prazosin 1 mg capsule (Minipress) 1 mg PO HS #30 caps 05/18/17 bupropion HCl 200 mg tablet,12 hr 200 mg PO BID #60 tabs 10/29/17 sustained-release bupropion HCl 200 mg tablet,12 hr 200 mg PO BID #10 ea 03/27/21 sustained-release duloxetine 60 mg capsule,delayed 60 mg PO DAILY #5 caps 03/27/21 release (Cymbalta) hydrocodone 5 mg-acetaminophen 325 1 tab PO Q6H PRN pain #10 tabs 09/08/23 mg tablet Allergies Allergy/AdvReac Type Severity Reaction Status Date / Time No Known Drug Allergies Allergy Verified 09/08/23 18:34 Patient History Family History Sister Tremor Sister Tremor Social History Smoking Status: Former smoker Smoking Status: Former smoker Substance Use Type: does not use Exam Initial Vital Signs Initial Vital Signs: Vital Signs Temperature 98.2 F 09/08/23 18:34 Pulse Rate 75 09/08/23 18:34 Respiratory Rate 17 09/08/23 18:34 Blood Pressure 122/57 L 09/08/23 18:34 Pulse Oximetry 95 09/08/23 18:34 Oxygen Delivery Method Room Air 09/08/23 18:34 GENERAL: Alert pleasant well-appearing 68-year-old female and in no acute distress. HEENT: Head atraumatic,EOMI, pupils reactive, left periorbital contusion no significant swelling no obvious entrapment nose is definitely swollen off center no obvious epistaxis face symmetric, moist mucous membranes Neck: No vertebral tenderness no step-off full range of motion CARDIOVASCULAR: Regular rate and rhythm without murmurs, rubs or gallops. RESPIRATORY: Breath sounds equal bilaterally, no wheezes rales or rhonchi. ABDOMEN: Soft, nontender. Normoactive bowel sounds all 4 quadrants. No guarding or rebound. EXTREMITIES: Normal range of motion, no clubbing or edema. Neurovascularly intact NEUROLOGICAL: Alert and oriented x4.Normal gait and speech. Cranial nerves II through XII grossly intact. SKIN: Warm, dry, no laceration, no petechiae, no rashes or lesions. Periorbital contusion as described Course Orders Ordered: ED Orders 09/08/23 18:38 XR wrist LT min 3V Stat 09/08/23 21:26 CT cervical spine wo con Stat CT facial bones wo con Stat CT head/brain wo con Stat Discontinued Medications Acetaminophen (Acetaminophen 325 Mg Tablet) 975 mg PO NOW ONE Stop: 09/08/23 21:28 Last Admin: 09/08/23 21:44 Dose: 975 mg Documented By: NAPOLEON Vital Signs Vital signs: Vital Signs - 8 hr 09/08/23 20:13 09/08/23 22:57 Pulse Rate 67 70 Respiratory Rate 20 18 Blood Pressure 133/62 127/63 Pulse Oximetry 97 99 Oxygen Delivery Method Room Air Room Air MDM - Fall Imaging Data Extremity x-ray #1: Radiologist's Impression: PROCEDURE: XR WRIST LT MIN 3V INDICATIONS: fall, pain TECHNIQUE: Four views of the wrist were acquired. COMPARISON: None. FINDINGS: Bones: No fractures or dislocations. No suspicious bony lesions. Soft tissues: No suspicious soft tissue calcifications. IMPRESSION: No visible fractures. If there is continued concern for occult fracture, immobilization and reimaging in 7-10 days is recommended. Dictated by: America Schuster M.D. on 09/08/2023 at 20:25 CT scan - head: Radiologist's Impression: PROCEDURE: CT HEAD/BRAIN WO CON INDICATIONS: fall left eye contusion and nose fx TECHNIQUE: Noncontrast 4.5 mm thick angled axial sections acquired from the foramen magnum to the vertex, with coronal and sagittal reformats. For radiation dose reduction, the following was used: automated exposure control, adjustment of mA and/or kV according to patient size. COMPARISON: [facility], CT, CT HEAD/BRAIN WO CON, 07/05/2022, 4:02. [facility], CT, HEAD WITHOUT CONTRAST, 02/06/2015, 12:50. FINDINGS: Image quality: Diagnostic. CSF spaces: Basal cisterns are patent. No extra-axial fluid collections. The ventricles are symmetric in size and shape. Brain: No acute intracranial hemorrhage or mass effect. There is cerebral volume loss for age, with resultant ventricular and sulcal prominence. There are periventricular and deep white matter chronic small vessel ischemic changes. There is intracranial internal carotid artery atherosclerosis. Skull and face: Mild subcutaneous edema is seen along the left orbital ridge. Calvarium and visualized facial bones appear intact, without suspicious lesions. Sinuses: Visualized sinuses and mastoids are clear. IMPRESSION: No acute intracranial pathology. Approved by: Kane Ruiz M.D. on 09/08/2023 at 21:53 CT - cervical spine: Radiologist's Impression: PROCEDURE: CT CERVICAL SPINE WO CON INDICATIONS: fall TECHNIQUE: Noncontrast 3 mm thick sections acquired from the skull base to the T4 level. Sagittal and coronal reformats were then constructed. For radiation dose reduction, the following was used: automated exposure control, adjustment of mA and/or kV according to patient size. COMPARISON: [facility], CT, C-SPINE WITHOUT CONTRAST, 02/06/2015, 12:50. FINDINGS: Image quality: Excellent. Bones: No acute fractures or dislocations. Generalized osteopenia. There is reversal of the normal cervical lordosis, which does not appear significantly changed when compared to the exam from 02/06/2015. There is solid osseous bridging across the C4-5 and C5-6 disc spaces. Multilevel degenerative disc disease, uncovertebral joint hypertrophy, and facet hypertrophy. Visualized superior ribs are intact. Soft tissues: Prevertebral soft tissues are normal in thickness. No paravertebral hematomas. No apical pneumothoraces. IMPRESSION: No displaced fracture or traumatic subluxation. Approved by: Kane Ruiz M.D. on 09/08/2023 at 21:59 ct facial bone: Radiologist's Impression: PROCEDURE: CT FACIAL BONES WO CON INDICATIONS: fall left eye contusion and nasal bone TECHNIQUE: Noncontrast 2.5 mm thick axial images acquired from the mandible through the fro ntal sinuses, with coronal and sagittal reformatting. For radiation dose reduction, the following was used: automated exposure control, adjustment of mA and/or kV according to patient size. COMPARISON: None. FINDINGS: Image quality: Excellent. Bones and teeth: Minimally displaced left nasal bone fracture. A definite right nasal bone fracture line is seen. Nasal septum is intact. Orbital estrada are intact. Sinus estrada show no fracture or deformity. Visualized portions of the mandible demonstrate no fractures or subluxation. Zygomatic arches are intact. Pterygoid plates are intact. Visualized portions of the skull base and auditory canals are intact. Kyphotic curvature of the included cervical spine. Sinuses: Paranasal sinuses are aerated, without fluid levels, mucosal thickening, or mucoceles. Mastoid air cells are aerated. Soft tissues: Mild soft tissue edema is seen overlying the nose and the left overall ridge. No enlarged lymph nodes. No soft tissue lacerations or debris. Vascular: Visualized vascular structures appear normal in the absence of contrast. Bony vascular foramina and canals are intact. IMPRESSION: Minimally displaced left nasal bone fracture. Approved by: Kane Ruiz M.D. on 09/08/2023 at 21:57 MDM Narrative Medical decision making narrative: Patient is 68-year-old female presents today followed of a chair. He apparently got caught on the chair and she fell face 1st onto the ground. She is obvious nasal swelling left periorbital contusion and complaining of left wrist. No anticoagulation. No nausea vomiting mild headache. All imaging has been reviewed including CTs x-ray. She does have mildly displaced nasal bone fracture but no periorbital fracture or wrist fracture. At this time supportive care only. She is having more swelling on her face on the left side which is to be expected. Encouraged ice. Discharge Plan Departure Patient Disposition: Home Clinical Impression: Closed fracture nasal bone, Left wrist sprain Instructions: Nose Fracture, DI for Wrist Sprain Activity Restrictions/Additional Instructions: *You have been diagnosed with nasal bone fracture, left wrist sprain *What to do: At this time do not blow your nose this should heal. May ice 20- 30 minutes at a time. It may experience right eye contusion as well *Continue to take medications as directed Effie 1 tablet every 6 hours if needed for severe pain Ibuprofen 600 mg every 6 hours if needed for [id number] pain *Follow up with your primary care provider in 2-3 days or call [phone] *Return to ER if you should have increasing pain weakness [or] any new, worsening or concerning symptoms CONTROLLED SUBSTANCE DISCHARGE (Narcotoic/benzodiazepine/Flexeril/Phenergan) 1. You have been prescribed narcotic medications, it does have acetaminophen/Tylenol/paracetamol in it, DO NOT TAKE MORE THAN 4,00mg in 24 hours of Tylenol. TRAMADOL DOES NOT CONTAIN TYLENOL 2. Please understand that we cannot provide further refills of narcotics, benzodiazepines or controlled substances through the ED and her pain management will need to be through your provider. 3. While on these medications you cannot drive or operate heavy machinery. 4. You cannot sign legal documents or perform any duties such as this. 5. As long as you're taking opiate pain medications he should also be taking a stool softener such as Colace, Dulcolax, MiraLAX or prune juice, to help avoid constipation. Prescriptions: New hydrocodone-acetaminophen 5-325 mg tablet 1 tab PO Q6H PRN (Reason: pain) Qty: 10 0RF No Action losartan [Cozaar] 25 MG tablet 50 mg PO HS Qty: 0 hydrocodone-acetaminophen 7.5 MG/325 MG tablet 1 tab PO TID Qty: 0 amlodipine [Norvasc] 5 MG tablet 5 mg PO QDAY Qty: 0 buspirone 10 MG tablet 10 mg PO BID Qty: 60 2RF duloxetine [Cymbalta] 30 MG capsule,delayed release(DR/EC) 90 mg PO QDAY Qty: 90 2RF aripiprazole [Abilify] 2 MG tablet 2 mg PO QDAY Qty: 30 2RF prazosin [Minipress] 1 MG capsule 1 mg PO HS Qty: 30 1RF bupropion HCl 200 mg tablet extended release 12 hr 200 mg PO BID Qty: 60 0RF Rx Instructions: I tab twice daily. needs to be scheduled for follow up for further refills. call to schedule. bupropion HCl 200 mg tablet sustained-release 12 hr 200 mg PO BID Qty: 10 0RF duloxetine [Cymbalta] 60 mg capsule,delayed release(DR/EC) 60 mg PO DAILY Qty: 5 0RF Referrals: Mallory Last PA-C [Primary Care Provider] - Stand Alone Forms: Patient Portal/API
--- NOTE | 2023-09-08 21:26 | DI.CT.S_ITS ---
PROCEDURE: CT FACIAL BONES WO CON INDICATIONS: fall left eye contusion and nasal bone TECHNIQUE: Noncontrast 2.5 mm thick axial images acquired from the mandible through the frontal sinuses, with coronal and sagittal reformatting. For radiation dose reduction, the following was used: automated exposure control, adjustment of mA and/or kV according to patient size. COMPARISON: None. FINDINGS: Image quality: Excellent. Bones and teeth: Minimally displaced left nasal bone fracture. A definite right nasal bone fracture line is seen. Nasal septum is intact. Orbital estrada are intact. Sinus estrada show no fracture or deformity. Visualized portions of the mandible demonstrate no fractures or subluxation. Zygomatic arches are intact. Pterygoid plates are intact. Visualized portions of the skull base and auditory canals are intact. Kyphotic curvature of the included cervical spine. Sinuses: Paranasal sinuses are aerated, without fluid levels, mucosal thickening, or mucoceles. Mastoid air cells are aerated. Soft tissues: Mild soft tissue edema is seen overlying the nose and the left overall ridge. No enlarged lymph nodes. No soft tissue lacerations or debris. Vascular: Visualized vascular structures appear normal in the absence of contrast. Bony vascular foramina and canals are intact. IMPRESSION: Minimally displaced left nasal bone fracture. Approved by: Kane Ruiz M.D. on 09/08/2023 at 21:57
--- NOTE | 2023-09-08 21:26 | DI.CT.S_ITS ---
PROCEDURE: CT CERVICAL SPINE WO CON INDICATIONS: fall TECHNIQUE: Noncontrast 3 mm thick sections acquired from the skull base to the T4 level. Sagittal and coronal reformats were then constructed. For radiation dose reduction, the following was used: automated exposure control, adjustment of mA and/or kV according to patient size. COMPARISON: [facility], CT, C-SPINE WITHOUT CONTRAST, 02/06/2015, 12:50. FINDINGS: Image quality: Excellent. Bones: No acute fractures or dislocations. Generalized osteopenia. There is reversal of the normal cervical lordosis, which does not appear significantly changed when compared to the exam from 02/06/2015. There is solid osseous bridging across the C4-5 and C5-6 disc spaces. Multilevel degenerative disc disease, uncovertebral joint hypertrophy, and facet hypertrophy. Visualized superior ribs are intact. Soft tissues: Prevertebral soft tissues are normal in thickness. No paravertebral hematomas. No apical pneumothoraces. IMPRESSION: No displaced fracture or traumatic subluxation. Approved by: Kane Ruiz M.D. on 09/08/2023 at 21:59
--- NOTE | 2023-09-08 21:26 | DI.CT.S_ITS ---
PROCEDURE: CT HEAD/BRAIN WO CON INDICATIONS: fall left eye contusion and nose fx TECHNIQUE: Noncontrast 4.5 mm thick angled axial sections acquired from the foramen magnum to the vertex, with coronal and sagittal reformats. For radiation dose reduction, the following was used: automated exposure control, adjustment of mA and/or kV according to patient size. COMPARISON: [facility], CT, CT HEAD/BRAIN WO CON, 07/05/2022, 4:02. [facility], CT, HEAD WITHOUT CONTRAST, 02/06/2015, 12:50. FINDINGS: Image quality: Diagnostic. CSF spaces: Basal cisterns are patent. No extra-axial fluid collections. The ventricles are symmetric in size and shape. Brain: No acute intracranial hemorrhage or mass effect. There is cerebral volume loss for age, with resultant ventricular and sulcal prominence. There are periventricular and deep white matter chronic small vessel ischemic changes. There is intracranial internal carotid artery atherosclerosis. Skull and face: Mild subcutaneous edema is seen along the left orbital ridge. Calvarium and visualized facial bones appear intact, without suspicious lesions. Sinuses: Visualized sinuses and mastoids are clear. IMPRESSION: No acute intracranial pathology. Approved by: Kane Ruiz M.D. on 09/08/2023 at 21:53
[2023-09-08] MEDS: ACETAMINOPHEN 325 MG TABLET 975 MG PO (21:44)
[2023-09-08 22:57] VITALS: BP 127/63; PULSE 70; RESP 18; O2SAT 99
== END 2023-09-08 22:58 | disposition home or self-care (01) ==
PROVIDERS: Emergency Provider Emergency Medicine; Family Provider Physician Assistant; PCP Physician Assistant
DX: S02.2XXA Fracture of nasal bones, initial encounter for closed fracture (principal); S63.502A Unspecified sprain of left wrist, initial encounter; W18.30XA Fall on same level, unspecified, initial encounter
CPT/HCPCS: 70450; 70486; 72125; 73110; 99284

== ENCOUNTER 2023-12-09 10:15 | Outpatient (RCR) | payer MEDICARE, OTHER, SELFPAY | END 2023-12-09 12:15 | LOC: CAR 10:15 | PROVIDERS: Family Provider Physician Assistant; PCP Physician Assistant; Referring Provider Internal Medicine Cardiovascular Disease; Visit Provider Internal Medicine Cardiovascular Disease | DX: I50.20 Unspecified systolic (congestive) heart failure (principal); I21.4 Non-ST elevation (NSTEMI) myocardial infarction; I51.81 Takotsubo syndrome | CPT/HCPCS: 93798 ==

== ENCOUNTER 2024-03-24 13:45 | Outpatient (RCR) | payer MEDICARE, OTHER, SELFPAY ==
--- NOTE | 2024-01-05 16:36 | PT.OIE ---
Current Diagnoses Muscle weakness (generalized) (01/05/24) Unsteadiness on feet (01/05/24) Other abnormalities of gait and mobility (01/05/24) Repeated falls (01/05/24) Visit Care Team Role Provider Type Mallory Last PA-C Attending Provider Non-Staff Family Provider Primary Care Provider Referring Provider Specialty: Medical Address: [address] [place] [address] [address], [place], [address] Email: Physical Therapy Initial Evaluation PT-OP-A Visit Information Start: 01/05/24 15:59 Freq: Status: Active Protocol: Document 01/05/24 11:15 DCW (Rec: 01/05/24 16:36 DCW [id number]) Out-Patient Physical Therapy Visit Information Visit Information Visit Type Initial Evaluation Visit Start Time 11:15 Visit Stop Time 12:00 Visit Number 1 Number of IMPORT/EXPORT CLERK Visits 0 Evaluation Information Evaluation Date 01/05/24 PT-OP-B Current Condition Start: 01/05/24 15:59 Freq: Status: Active Protocol: Document 01/05/24 11:15 DCW (Rec: 01/05/24 16:36 DC [id number]) Current Condition History of Current Condition Onset Date Long-standing history Current Complaints Repeated falls, weakness, imbalance History of Current Condition Pt is a 68 year old female presenting with a long- standing, highly-complex medical history. Pt's current complaints involve repeated falls, which is not a new thing for her, however pt reports her falls have been more frequent and more severe over the past four months. Falls have recently been right backwards, or to the left ( due to repeated rolling of left ankle). Pt reports her feet often get tangled together, she can't tell where they're going to land on the floor, but denies any numbness. Does ambulate at all times with a SPC. Personal Factors Other Personal Factors That May Effect Highly-complex medical history Therapy/Recovery - Pham-Danlos Syndrome, Fibromyositis, Brain aneurysm, CHF, Concussion, Non-STEMI, Pneumonia, bilateral TSA, R ankle fusion, PTSD, Lumbar disc rupture, among many others PT-OP-C Subjective Start: 01/05/24 15:59 Freq: Status: Active Protocol: Document 01/05/24 11:15 DCW (Rec: 01/05/24 16:36 [facility] [id number]) OP-PT Subjective Patient Comments Patient Comments My last fall I was trying to stretch my hamstring out and put my foot up, fell right back. Last time I'll do that. Patient Reported Progress Worse Patient Questionnaires Dizziness Handicap Inventory DHI Score 100% DHI Functional Impairment 100% Impaired (Score 100) Other Questionnaire Name and Score Falls Efficacy Scale- International: 50/64 PT-OP-D Balance Start: 01/05/24 15:59 Freq: Status: Active Protocol: Document 01/05/24 11:15 DCW (Rec: 01/05/24 16:36 DC [id number]) Balance Tests Robin Balance Test Robin Balance Test Score 34/56 Robin Balance Assessment Evaluation Sitting to Standing Ability Independent w/out Hands Unsupported Stance Unable w/out Assistance Sitting Unsupported, Feet on Floor Safely- 2 minutes Standing to Sitting Ability Assist, Control w/Hands Transfer Ability Supervision, Verbal Cues Unsupported Stance- Eyes Closed Supervision, 10 seconds Unsupported Stance- Eyes Open Independent, <30 seconds Reaching Forward Standing Safely, 5 inches Pick- Up Object From Floor Supervision Look Behind Shoulder - Standing Shifts Weight Well Turning 360 Degrees Supervision/Verbal Cues Unsupported Stance, Alternating Feet on 2 Steps w/Minimum Assist Stair Unsupported Tandem Stance Holds Tandem- 30 seconds Unilateral Leg Stance Lifts Leg/Unable to Hold Total Score Robin Total Score (out of 56 points) 34 Robin Impairment Rating 20 to 39% Impaired (Score 34- 44) PT-OP-E Functional Tests Start: 01/05/24 15:59 Freq: Status: Active Protocol: Document 01/05/24 11:15 DCW (Rec: 01/05/24 16:36 [facility] [id number]) Functional Tests Dynamic Gait Index (DGI) Score 04/21 DGI Impairment Rating 40 to <60% Impaired (Score 10- 14) Timed Up and Go (TUG) Score 12.18 /c SPC Comments Three-trial average (13.47, 11 .79, 11.27) PT-OP-M Strength Start: 01/05/24 15:59 Freq: Status: Active Protocol: Document 01/05/24 11:15 DCW (Rec: 01/05/24 16:36 [facility] [id number]) Hip Strength Hip Manual Muscle Testing Right Flexion (L2) 3+ Fair+ Abduction 4 Good Adduction 3+ Fair+ External Rotation 3 Fair Internal Rotation 4 Good Left Flexion (L2) 4 Good Abduction 4 Good Adduction 4 Good External Rotation 4 Good Internal Rotation 4 Good Knee Strength Knee Manual Muscle Testing Right Flexion (S2) 4+ Good+ Extension (L3) 4+ Good+ Left Flexion (S2) 4+ Good+ Extension (L3) 4+ Good+ Ankle/Foot Strength Ankle and Foot Manual Muscle Testing Right Dorsiflexion (L4) 3 Fair Plantarflexion (S1) 2+ Poor+ Inversion 2 Poor Eversion (S1) 2 Poor Left Dorsiflexion (L4) 4- Good- Plantarflexion (S1) 2 Poor Inversion 2 Poor Eversion (S1) 2 Poor PT-OP-T Assessment and Plan Start: 01/05/24 15:59 Freq: Status: Active Protocol: Document 01/05/24 11:15 DCW (Rec: 01/05/24 16:36 DC [id number]) Physical Therapy Assessment Rehab Potential Rehabilitation Potential Fair Evaluation Complexity Number of Personal Factors/Comorbidities 3 or More Number of Body Systems Impaired 4 or More Clinical Presentation at Evaluation Unstable Impairments Impairments Activity Tolerance,Balance, Functional Activities, Functional Mobility,Gait, Strength,Transfers Goals One Impairment Pt does not have an appropriate home exercise program Short Term Goal (STG) Pt to be independent and compliant with an appropriate HEP STG Duration 02/05/24 Three Impairment Severe bilateral ankle weakness (2/5 in nearly all planes) Impairment . Book Mender Goal (LTG) Pt to improve bilateral ankle MMT to >3-/5 in order to improve ankle strategies to help decrease falls and improve limits of stability LTG Duration 04/04/24 Two Impairment Pt presents with high falls risk, per Robin (34/56) and DGI (/) Impairment . Book Mender Goal (LTG) Pt to increase DGI score by at least five points to in order to demonstrate improvement with overall falls risk LTG Duration 04/04/24 Assessment Summary Assessment Pt presents with a highly- complex medical history and a fairly severe increased risk of falls. Pt scores a 10/24 on the DGI and a 34/56 on the Robin, both scores suggesting a very high falls risk. Pt additionally exhibits significant LE weakness, with her right leg more affected than her right, but bilateral ankle weakness negatively impacting her ability to perform ankle strategies following small LOB. Pt should benefit from LE strengthening , balance/coordination training, improved activity tolerance, gait training, and assistive device training. Pt' s medical history likely will impact her rehab potential, most notably her history of EDS , brain aneurysm, and CHF. Physical Therapy Plan Frequency and Duration Frequency of Treatment 2x/Week Plan of Care Start Date 01/05/24 Plan of Care End Date 04/04/24 Therapeutic Interventions Therapeutic Interventions Balance Training,Coordination Training,Gait Training,Home Exercise Program,Joint Mobilizations,Manual Therapy, Neuromuscular Re-education, Patient/Caregiver Education, Self-Care/Home Management,Soft Tissue Mobilization, Therapeutic Activities, Therapeutic Exercises, Vestibular Rehabilitation Next Visit Focus/Plan Next Note Type Treatment Note Next Visit Plan Retro wall falls, LE strengthening, static/dynamic balance challenges, coordination training
--- NOTE | 2024-01-05 16:37 | PT.OPPOC ---
Physical, Occupational & Speech Therapy At [facility] Current Diagnoses Muscle weakness (generalized) (01/05/24) Unsteadiness on feet (01/05/24) Other abnormalities of gait and mobility (01/05/24) Repeated falls (01/05/24) Visit Care Team Role Provider Type Mallory Last PA-C Attending Provider Non-Staff Family Provider Primary Care Provider Referring Provider Specialty: Medical Address: [address] [place] [address] [address], [place], [address] Email: Plan Of Care PT-OP-T Assessment and Plan Start: 01/05/24 15:59 Freq: Status: Active Protocol: Document 01/05/24 11:15 DCW (Rec: 01/05/24 16:36 DCW [id number]) Physical Therapy Assessment Rehab Potential Rehabilitation Potential Fair Evaluation Complexity Number of Personal Factors/Comorbidities 3 or More Number of Body Systems Impaired 4 or More Clinical Presentation at Evaluation Unstable Impairments Impairments Activity Tolerance,Balance, Functional Activities, Functional Mobility,Gait, Strength,Transfers Goals One Impairment Pt does not have an appropriate home exercise program Short Term Goal (STG) Pt to be independent and compliant with an appropriate HEP STG Duration 02/05/24 Three Impairment Severe bilateral ankle weakness (2/5 in nearly all planes) Impairment . Orthophotography Technician Goal (LTG) Pt to improve bilateral ankle MMT to >3-/5 in order to improve ankle strategies to help decrease falls and improve limits of stability LTG Duration 04/04/24 Two Impairment Pt presents with high falls risk, per Robin (34/56) and DGI (/24) Impairment . Orthophotography Technician Goal (LTG) Pt to increase DGI score by at least five points to 15/24 in order to demonstrate improvement with overall falls risk LTG Duration 04/04/24 Assessment Summary Assessment Pt presents with a highly- complex medical history and a fairly severe increased risk of falls. Pt scores a 10/24 on the DGI and a 34/56 on the Robin, both scores suggesting a very high falls risk. Pt additionally exhibits significant LE weakness, with her right leg more affected than her right, but bilateral ankle weakness negatively impacting her ability to perform ankle strategies following small LOB. Pt should benefit from LE strengthening , balance/coordination training, improved activity tolerance, gait training, and assistive device training. Pt' s medical history likely will impact her rehab potential, most notably her history of EDS, brain aneurysm, and CHF. Physical Therapy Plan Frequency and Duration Frequency of Treatment 2x/Week Plan of Care Start Date 01/05/24 Plan of Care End Date 04/04/24 Therapeutic Interventions Therapeutic Interventions Balance Training,Coordination Training,Gait Training,Home Exercise Program,Joint Mobilizations,Manual Therapy, Neuromuscular Re-education, Patient/Caregiver Education, Self-Care/Home Management,Soft Tissue Mobilization, Therapeutic Activities, Therapeutic Exercises, Vestibular Rehabilitation Next Visit Focus/Plan Next Note Type Treatment Note Next Visit Plan Retro wall falls, LE strengthening, static/dynamic balance challenges, coordination training Plan of Care Dates Plan of Care Start Date 01/05/24 Plan of Care End Date 04/04/24 Electronically Signed by: Brant Medeiros, PT 01/05/24 0465 If you are in agreement with this Plan of Care, please return a signed and dated copy. I have reviewed this Plan of Care and certify that the skilled therapy services above are required to meet the patient?s needs. Physician Signature Date Printed Name and Credentials Clinical Instructor Signature Printed Name and Credentials
--- NOTE | 2024-01-07 10:29 | PT.OTN ---
Current Diagnoses Muscle weakness (generalized) (01/07/24) Unsteadiness on feet (01/07/24) Other abnormalities of gait and mobility (01/07/24) Repeated falls (01/07/24) Physical Therapy Treatment Note PT-OP-A Visit Information Start: 01/05/24 15:59 Freq: Status: Active Protocol: Document 01/07/24 09:45 DCW (Rec: 01/07/24 10:29 DCW [id number]) Out-Patient Physical Therapy Visit Information Visit Information Visit Type Treatment Note Visit Start Time 09:45 Visit Stop Time 10:30 Visit Number 2 Number of AGRICULTURAL ENGINEER Visits 0 Evaluation Information Evaluation Date 01/05/24 PT-OP-B Current Condition Start: 01/05/24 15:59 Freq: Status: Active Protocol: Document 01/05/24 11:15 DCW (Rec: 01/05/24 16:36 DCW [id number]) Current Condition History of Current Condition Onset Date Long-standing history Current Complaints Repeated falls, weakness, imbalance History of Current Condition Pt is a 68 year old female presenting with a long- standing, highly-complex medical history. Pt's current complaints involve repeated falls, which is not a new thing for her, however pt reports her falls have been more frequent and more severe over the past four months. Falls have recently been right backwards, or to the left ( due to repeated rolling of left ankle). Pt reports her feet often get tangled together, she can't tell where they're going to land on the floor, but denies any numbness. Does ambulate at all times with a SPC. Personal Factors Other Personal Factors That May Effect Highly-complex medical history Therapy/Recovery - Pham-Danlos Syndrome, Fibromyositis, Brain aneurysm, CHF, Concussion, Non-STEMI, Pneumonia, bilateral TSA, R ankle fusion, PTSD, Lumbar disc rupture, among many others PT-OP-C Subjective Start: 01/05/24 15:59 Freq: Status: Active Protocol: Document 01/07/24 09:45 DCW (Rec: 01/07/24 10:29 DCW [id number]) OP-PT Subjective Patient Comments Patient Comments Pt reports that she work up having a bad day, her balance is pretty off today. PT-OP-D Balance Start: 01/05/24 15:59 Freq: Status: Active Protocol: Document 01/05/24 11:15 DCW (Rec: 01/05/24 16:36 [facility] [id number]) Balance Tests Robin Balance Test Robin Balance Test Score 34/56 Robin Balance Assessment Evaluation Sitting to Standing Ability Independent w/out Hands Unsupported Stance Unable w/out Assistance Sitting Unsupported, Feet on Floor Safely- 2 minutes Standing to Sitting Ability Assist, Control w/Hands Transfer Ability Supervision, Verbal Cues Unsupported Stance- Eyes Closed Supervision, 10 seconds Unsupported Stance- Eyes Open Independent, <30 seconds Reaching Forward Standing Safely, 5 inches Pick- Up Object From Floor Supervision Look Behind Shoulder - Standing Shifts Weight Well Turning 360 Degrees Supervision/Verbal Cues Unsupported Stance, Alternating Feet on 2 Steps w/Minimum Assist Stair Unsupported Tandem Stance Holds Tandem- 30 seconds Unilateral Leg Stance Lifts Leg/Unable to Hold Total Score Robin Total Score (out of 56 points) 34 Robin Impairment Rating 20 to 39% Impaired (Score 34- 44) PT-OP-E Functional Tests Start: 01/05/24 15:59 Freq: Status: Active Protocol: Document 01/05/24 11:15 DCW (Rec: 01/05/24 16:36 [facility] [id number]) Functional Tests Dynamic Gait Index (DGI) Score 10 DGI Impairment Rating 40 to <60% Impaired (Score 10- 14) Timed Up and Go (TUG) Score 12.18 /c SPC Comments Three-trial average (13.47, 11 .79, 11.27) PT-OP-M Strength Start: 01/05/24 15:59 Freq: Status: Active Protocol: Document 01/05/24 11:15 DCW (Rec: 01/05/24 16:36 [facility] [id number]) Hip Strength Hip Manual Muscle Testing Right Flexion (L2) 3+ Fair+ Abduction 4 Good Adduction 3+ Fair+ External Rotation 3 Fair Internal Rotation 4 Good Left Flexion (L2) 4 Good Abduction 4 Good Adduction 4 Good External Rotation 4 Good Internal Rotation 4 Good Knee Strength Knee Manual Muscle Testing Right Flexion (S2) 4+ Good+ Extension (L3) 4+ Good+ Left Flexion (S2) 4+ Good+ Extension (L3) 4+ Good+ Ankle/Foot Strength Ankle and Foot Manual Muscle Testing Right Dorsiflexion (L4) 3 Fair Plantarflexion (S1) 2+ Poor+ Inversion 2 Poor Eversion (S1) 2 Poor Left Dorsiflexion (L4) 4- Good- Plantarflexion (S1) 2 Poor Inversion 2 Poor Eversion (S1) 2 Poor PT-OP-Q Treatments Start: 01/05/24 15:59 Freq: Status: Active Protocol: Document 01/07/24 09:45 DCW (Rec: 01/07/24 10:29 DCW [id number]) Cardio Equipment Recumbent Stepper (Sci-Fit) Duration (Minutes) 3 Resistance 3 Seat Position 9 Other Stopped d/t knee pain Gym Equipment Shuttle Recovery Bilateral Heel Raises Resistance 37# Reps/Time x15 Unilateral Squats Resistance 25# Shuttle Recovery Platform Stable Reps/Time x15 Bilateral Squats Resistance 50# Shuttle Recovery Platform Stable Reps/Time x20 Therapeutic Exercises Standing Exercises Extension Standing Exercise Name Hip Extension Side bilateral Resistance Lv 2 loop Other Exercises Resisted Ambulation Other Exercise Name Resisted side-stepping Resistance Lv 2 Loop Neuro Re-Education Treatment Balance Activities Retro Wall Fall Details Retro wall fall Comments heels 4 from wall Foam Details NBOS /c head turns Surface AirEx Hurdles Comments Forward, Backward PT-OP-T Assessment and Plan Start: 01/05/24 15:59 Freq: Status: Active Protocol: Document 01/07/24 09:45 DCW (Rec: 01/07/24 10:29 DCW [id number]) Physical Therapy Assessment Impairments Impairments Activity Tolerance,Balance, Functional Activities, Functional Mobility,Gait, Strength,Transfers Goals One Impairment Pt does not have an appropriate home exercise program Short Term Goal (STG) Pt to be independent and compliant with an appropriate HEP STG Duration 02/05/24 Three Impairment Severe bilateral ankle weakness (2/5 in nearly all planes) Impairment . Mcfp Goal (LTG) Pt to improve bilateral ankle MMT to >3-/5 in order to improve ankle strategies to help decrease falls and improve limits of stability LTG Duration 04/04/24 Two Impairment Pt presents with high falls risk, per Robin (34/56) and DGI (04/21) Impairment . Mcfp Goal (LTG) Pt to increase DGI score by at least five points to in order to demonstrate improvement with overall falls risk LTG Duration 04/04/24 Assessment Summary Assessment Pt demonstrated good response to intervention, had obvious difficulty with most activities, but did well putting forth very good effort . Discussed importance of energy conservation, requested pt report next visit how she felt following her appointment and how long recovery takes. Physical Therapy Plan Frequency and Duration Frequency of Treatment 2x/Week Plan of Care Start Date 01/05/24 Plan of Care End Date 04/04/24 Therapeutic Interventions Therapeutic Interventions Balance Training,Coordination Training,Gait Training,Home Exercise Program,Joint Mobilizations,Manual Therapy, Neuromuscular Re-education, Patient/Caregiver Education, Self-Care/Home Management,Soft Tissue Mobilization, Therapeutic Activities, Therapeutic Exercises, Vestibular Rehabilitation Next Visit Focus/Plan Next Note Type Treatment Note Next Visit Plan Retro wall falls, LE strengthening, static/dynamic balance challenges, coordination training
--- NOTE | 2024-01-12 10:29 | PT.OTN ---
Current Diagnoses Muscle weakness (generalized) (01/12/24) Unsteadiness on feet (01/12/24) Other abnormalities of gait and mobility (01/12/24) Repeated falls (01/12/24) Physical Therapy Treatment Note PT-OP-A Visit Information Start: 01/05/24 15:59 Freq: Status: Active Protocol: Document 01/12/24 09:45 DCW (Rec: 01/12/24 10:29 DCW [id number]) Out-Patient Physical Therapy Visit Information Visit Information Visit Type Treatment Note Visit Start Time 09:45 Visit Stop Time 10:30 Visit Number 3 Number of STRATEGIC COMMUNICATIONS SPECIALIST Visits 0 Evaluation Information Evaluation Date 01/05/24 PT-OP-B Current Condition Start: 01/05/24 15:59 Freq: Status: Active Protocol: Document 01/05/24 11:15 DCW (Rec: 01/05/24 16:36 DCW [id number]) Current Condition History of Current Condition Onset Date Long-standing history Current Complaints Repeated falls, weakness, imbalance History of Current Condition Pt is a 68 year old female presenting with a long- standing, highly-complex medical history. Pt's current complaints involve repeated falls, which is not a new thing for her, however pt reports her falls have been more frequent and more severe over the past four months. Falls have recently been right backwards, or to the left ( due to repeated rolling of left ankle). Pt reports her feet often get tangled together, she can't tell where they're going to land on the floor, but denies any numbness. Does ambulate at all times with a SPC. Personal Factors Other Personal Factors That May Effect Highly-complex medical history Therapy/Recovery - Pham-Danlos Syndrome, Fibromyositis, Brain aneurysm, CHF, Concussion, Non-STEMI, Pneumonia, bilateral TSA, R ankle fusion, PTSD, Lumbar disc rupture, among many others PT-OP-C Subjective Start: 01/05/24 15:59 Freq: Status: Active Protocol: Document 01/12/24 09:45 DCW (Rec: 01/12/24 10:29 DCW [id number]) OP-PT Subjective Patient Comments Patient Comments I'm better than I was last time. Notes her back was bothering her following her last appointment, but does not feel like she did too much during her last session. PT-OP-D Balance Start: 01/05/24 15:59 Freq: Status: Active Protocol: Document 01/05/24 11:15 DCW (Rec: 01/05/24 16:36 DCW [id number]) Balance Tests Robin Balance Test Robin Balance Test Score 34/56 Robin Balance Assessment Evaluation Sitting to Standing Ability Independent w/out Hands Unsupported Stance Unable w/out Assistance Sitting Unsupported, Feet on Floor Safely- 2 minutes Standing to Sitting Ability Assist, Control w/Hands Transfer Ability Supervision, Verbal Cues Unsupported Stance- Eyes Closed Supervision, 10 seconds Unsupported Stance- Eyes Open Independent, <30 seconds Reaching Forward Standing Safely, 5 inches Pick- Up Object From Floor Supervision Look Behind Shoulder - Standing Shifts Weight Well Turning 360 Degrees Supervision/Verbal Cues Unsupported Stance, Alternating Feet on 2 Steps w/Minimum Assist Stair Unsupported Tandem Stance Holds Tandem- 30 seconds Unilateral Leg Stance Lifts Leg/Unable to Hold Total Score Robin Total Score (out of 56 points) 34 Robin Impairment Rating 20 to 39% Impaired (Score 34- 44) PT-OP-E Functional Tests Start: 01/05/24 15:59 Freq: Status: Active Protocol: Document 01/05/24 11:15 DCW (Rec: 01/05/24 16:36 DCW [id number]) Functional Tests Dynamic Gait Index (DGI) Score 10 DGI Impairment Rating 40 to <60% Impaired (Score 10- 14) Timed Up and Go (TUG) Score 12.18 /c SPC Comments Three-trial average (13.47, 11 .79, 11.27) PT-OP-M Strength Start: 01/05/24 15:59 Freq: Status: Active Protocol: Document 01/05/24 11:15 DCW (Rec: 01/05/24 16:36 DC [id number]) Hip Strength Hip Manual Muscle Testing Right Flexion (L2) 3+ Fair+ Abduction 4 Good Adduction 3+ Fair+ External Rotation 3 Fair Internal Rotation 4 Good Left Flexion (L2) 4 Good Abduction 4 Good Adduction 4 Good External Rotation 4 Good Internal Rotation 4 Good Knee Strength Knee Manual Muscle Testing Right Flexion (S2) 4+ Good+ Extension (L3) 4+ Good+ Left Flexion (S2) 4+ Good+ Extension (L3) 4+ Good+ Ankle/Foot Strength Ankle and Foot Manual Muscle Testing Right Dorsiflexion (L4) 3 Fair Plantarflexion (S1) 2+ Poor+ Inversion 2 Poor Eversion (S1) 2 Poor Left Dorsiflexion (L4) 4- Good- Plantarflexion (S1) 2 Poor Inversion 2 Poor Eversion (S1) 2 Poor PT-OP-Q Treatments Start: 01/05/24 15:59 Freq: Status: Active Protocol: Document 01/12/24 09:45 DCW (Rec: 01/12/24 10:29 DCW [id number]) Gym Equipment Shuttle Recovery Bilateral Heel Raises Resistance 37# Reps/Time x15 Unilateral Squats Resistance 25# Shuttle Recovery Platform Stable Reps/Time x15 Bilateral Squats Resistance 50# Shuttle Recovery Platform Stable Reps/Time 2x20 Shuttle Balance Red Details WBOS, Staggered Therapeutic Exercises Other Exercises Resisted Ambulation Other Exercise Name Resisted side-stepping Resistance Lv 2 Loop Neuro Re-Education Treatment Balance Activities Ball/Cone Transfers Details Ball/cone transfers Comments Cross body reach /c normal stepping, then same-side reach /c tandem ambulation Hurdles Details Foam/Hurdles Comments Forward, Lateral PT-OP-T Assessment and Plan Start: 01/05/24 15:59 Freq: Status: Active Protocol: Document 01/12/24 09:45 DCW (Rec: 01/12/24 10:29 DCW [id number]) Physical Therapy Assessment Impairments Impairments Activity Tolerance,Balance, Functional Activities, Functional Mobility,Gait, Strength,Transfers Goals One Impairment Pt does not have an appropriate home exercise program Short Term Goal (STG) Pt to be independent and compliant with an appropriate HEP STG Duration 02/05/24 Three Impairment Severe bilateral ankle weakness (2/5 in nearly all planes) Damage Assessor Goal (LTG) Pt to improve bilateral ankle MMT to >3-/5 in order to improve ankle strategies to help decrease falls and improve limits of stability LTG Duration 04/04/24 Two Impairment Pt presents with high falls risk, per Robin (34/56) and DGI (04/21) Half-Way Goal (LTG) Pt to increase DGI score by at least five points to in order to demonstrate improvement with overall falls risk LTG Duration 04/04/24 Assessment Summary Assessment Pt required fewer rest breaks today, but was still very fatigued by end of session. Good response to balance challenges, continue to work on static and dynamic balance activities. Physical Therapy Plan Frequency and Duration Frequency of Treatment 2x/Week Plan of Care Start Date 01/05/24 Plan of Care End Date 04/04/24 Therapeutic Interventions Therapeutic Interventions Balance Training,Coordination Training,Gait Training,Home Exercise Program,Joint Mobilizations,Manual Therapy, Neuromuscular Re-education, Patient/Caregiver Education, Self-Care/Home Management,Soft Tissue Mobilization, Therapeutic Activities, Therapeutic Exercises, Vestibular Rehabilitation Next Visit Focus/Plan Next Note Type Treatment Note Next Visit Plan Retro wall falls, LE strengthening, static/dynamic balance challenges, coordination training
--- NOTE | 2024-01-14 10:33 | PT.OTN ---
Current Diagnoses Muscle weakness (generalized) (01/14/24) Unsteadiness on feet (01/14/24) Other abnormalities of gait and mobility (01/14/24) Repeated falls (01/14/24) Physical Therapy Treatment Note PT-OP-A Visit Information Start: 01/05/24 15:59 Freq: Status: Active Protocol: Document 01/14/24 09:45 DCW (Rec: 01/14/24 10:33 DCW [id number]) Out-Patient Physical Therapy Visit Information Visit Information Visit Type Treatment Note Visit Start Time 09:45 Visit Stop Time 10:30 Visit Number [address] Visits 0 Evaluation Information Evaluation Date 01/05/24 PT-OP-B Current Condition Start: 01/05/24 15:59 Freq: Status: Active Protocol: Document 01/05/24 11:15 DCW (Rec: 01/05/24 16:36 DCW [id number]) Current Condition History of Current Condition Onset Date Long-standing history Current Complaints Repeated falls, weakness, imbalance History of Current Condition Pt is a 68 year old female presenting with a long- standing, highly-complex medical history. Pt's current complaints involve repeated falls, which is not a new thing for her, however pt reports her falls have been more frequent and more severe over the past four months. Falls have recently been right backwards, or to the left ( due to repeated rolling of left ankle). Pt reports her feet often get tangled together, she can't tell where they're going to land on the floor, but denies any numbness. Does ambulate at all times with a SPC. Personal Factors Other Personal Factors That May Effect Highly-complex medical history Therapy/Recovery - Pham-Danlos Syndrome, Fibromyositis, Brain aneurysm, CHF, Concussion, Non-STEMI, Pneumonia, bilateral TSA, R ankle fusion, PTSD, Lumbar disc rupture, among many others PT-OP-C Subjective Start: 01/05/24 15:59 Freq: Status: Active Protocol: Document 01/14/24 09:45 DCW (Rec: 01/14/24 10:33 DCW [id number]) OP-PT Subjective Patient Comments Patient Comments Pt reports she is doing pretty well, her back is even feeling better. PT-OP-D Balance Start: 01/05/24 15:59 Freq: Status: Active Protocol: Document 01/05/24 11:15 DCW (Rec: 01/05/24 16:36 [facility] [id number]) Balance Tests Robin Balance Test Robin Balance Test Score 34/56 Robin Balance Assessment Evaluation Sitting to Standing Ability Independent w/out Hands Unsupported Stance Unable w/out Assistance Sitting Unsupported, Feet on Floor Safely- 2 minutes Standing to Sitting Ability Assist, Control w/Hands Transfer Ability Supervision, Verbal Cues Unsupported Stance- Eyes Closed Supervision, 10 seconds Unsupported Stance- Eyes Open Independent, <30 seconds Reaching Forward Standing Safely, 5 inches Pick- Up Object From Floor Supervision Look Behind Shoulder - Standing Shifts Weight Well Turning 360 Degrees Supervision/Verbal Cues Unsupported Stance, Alternating Feet on 2 Steps w/Minimum Assist Stair Unsupported Tandem Stance Holds Tandem- 30 seconds Unilateral Leg Stance Lifts Leg/Unable to Hold Total Score Robin Total Score (out of 56 points) 34 Robin Impairment Rating 20 to 39% Impaired (Score 34- 44) PT-OP-E Functional Tests Start: 01/05/24 15:59 Freq: Status: Active Protocol: Document 01/05/24 11:15 DCW (Rec: 01/05/24 16:36 [facility] [id number]) Functional Tests Dynamic Gait Index (DGI) Score 10 DGI Impairment Rating 40 to <60% Impaired (Score 10- 14) Timed Up and Go (TUG) Score 12.18 /c SPC Comments Three-trial average (13.47, 11 .79, 11.27) PT-OP-M Strength Start: 01/05/24 15:59 Freq: Status: Active Protocol: Document 01/05/24 11:15 DCW (Rec: 01/05/24 16:36 [facility] [id number]) Hip Strength Hip Manual Muscle Testing Right Flexion (L2) 3+ Fair+ Abduction 4 Good Adduction 3+ Fair+ External Rotation 3 Fair Internal Rotation 4 Good Left Flexion (L2) 4 Good Abduction 4 Good Adduction 4 Good External Rotation 4 Good Internal Rotation 4 Good Knee Strength Knee Manual Muscle Testing Right Flexion (S2) 4+ Good+ Extension (L3) 4+ Good+ Left Flexion (S2) 4+ Good+ Extension (L3) 4+ Good+ Ankle/Foot Strength Ankle and Foot Manual Muscle Testing Right Dorsiflexion (L4) 3 Fair Plantarflexion (S1) 2+ Poor+ Inversion 2 Poor Eversion (S1) 2 Poor Left Dorsiflexion (L4) 4- Good- Plantarflexion (S1) 2 Poor Inversion 2 Poor Eversion (S1) 2 Poor PT-OP-Q Treatments Start: 01/05/24 15:59 Freq: Status: Active Protocol: Document 01/14/24 09:45 DCW (Rec: 01/14/24 10:33 DCW [id number]) Gym Equipment Shuttle Recovery Bilateral Heel Raises Resistance 37# Reps/Time x15 Unilateral Squats Resistance 25# Shuttle Recovery Platform Stable Reps/Time x15 Bilateral Squats Resistance 50# Shuttle Recovery Platform Stable Reps/Time 2x20 Shuttle Balance Red Details WBOS, Staggered Therapeutic Exercises Standing Exercises Pallof Press Standing Exercise Name Pallof Press Side bilateral Resistance Green Neuro Re-Education Treatment Balance Activities Tandem Details Tandem stance Equipment // bars Ball/Cone Transfers Details Ball/cone transfers Comments Cross body reach /c normal stepping Hurdles Details Foam/Hurdles Comments Forward, Lateral PT-OP-T Assessment and Plan Start: 01/05/24 15:59 Freq: Status: Active Protocol: Document 01/14/24 09:45 DCW (Rec: 01/14/24 10:33 DCW [id number]) Physical Therapy Assessment Impairments Impairments Activity Tolerance,Balance, Functional Activities, Functional Mobility,Gait, Strength,Transfers Goals One Impairment Pt does not have an appropriate home exercise program Short Term Goal (STG) Pt to be independent and compliant with an appropriate HEP STG Duration 02/05/24 Three Impairment Severe bilateral ankle weakness (2/5 in nearly all planes) Collar Stay Fuser Tender Goal (LTG) Pt to improve bilateral ankle MMT to >3-/5 in order to improve ankle strategies to help decrease falls and improve limits of stability LTG Duration 04/04/24 Two Impairment Pt presents with high falls risk, per Robin (34/56) and DGI (04/21) Collar Stay Fuser Tender Goal (LTG) Pt to increase DGI score by at least five points to in order to demonstrate improvement with overall falls risk LTG Duration 04/04/24 Assessment Summary Assessment Good challenge with balance activities today, pt noted fairly significant fatigue throughout session, but put forth good effort. Physical Therapy Plan Frequency and Duration Frequency of Treatment 2x/Week Plan of Care Start Date 01/05/24 Plan of Care End Date 04/04/24 Therapeutic Interventions Therapeutic Interventions Balance Training,Coordination Training,Gait Training,Home Exercise Program,Joint Mobilizations,Manual Therapy, Neuromuscular Re-education, Patient/Caregiver Education, Self-Care/Home Management,Soft Tissue Mobilization, Therapeutic Activities, Therapeutic Exercises, Vestibular Rehabilitation Next Visit Focus/Plan Next Note Type Treatment Note Next Visit Plan Retro wall falls, LE strengthening, static/dynamic balance challenges, coordination training
--- NOTE | 2024-01-19 15:18 | PT.OTN ---
Current Diagnoses Muscle weakness (generalized) (01/19/24) Unsteadiness on feet (01/19/24) Other abnormalities of gait and mobility (01/19/24) Repeated falls (01/19/24) Physical Therapy Treatment Note PT-OP-A Visit Information Start: 01/05/24 15:59 Freq: Status: Active Protocol: Document 01/19/24 15:12 TS (Rec: 01/19/24 16:13 TS [id number]) Out-Patient Physical Therapy Visit Information Visit Information Visit Type Treatment Note Visit Start Time 15:18 Visit Stop Time 16:00 Visit Number 5 Number of SUSTAINABILITY COMMUNICATOR Visits 1 PT-OP-B Current Condition Start: 01/05/24 15:59 Freq: Status: Active Protocol: Document 01/05/24 11:15 DCW (Rec: 01/05/24 16:36 DCW [id number]) Current Condition History of Current Condition Onset Date Long-standing history Current Complaints Repeated falls, weakness, imbalance History of Current Condition Pt is a 68 year old female presenting with a long- standing, highly-complex medical history. Pt's current complaints involve repeated falls, which is not a new thing for her, however pt reports her falls have been more frequent and more severe over the past four months. Falls have recently been right backwards, or to the left ( due to repeated rolling of left ankle). Pt reports her feet often get tangled together, she can't tell where they're going to land on the floor, but denies any numbness. Does ambulate at all times with a SPC. Personal Factors Other Personal Factors That May Effect Highly-complex medical history Therapy/Recovery - Pham-Danlos Syndrome, Fibromyositis, Brain aneurysm, CHF, Concussion, Non-STEMI, Pneumonia, bilateral TSA, R ankle fusion, PTSD, Lumbar disc rupture, among many others PT-OP-C Subjective Start: 01/05/24 15:59 Freq: Status: Active Protocol: Document 01/19/24 15:12 TS (Rec: 01/19/24 16:13 TS [id number]) OP-PT Subjective Patient Comments Patient Comments Pt reports feeling wobbly today. PT-OP-D Balance Start: 01/05/24 15:59 Freq: Status: Active Protocol: Document 01/05/24 11:15 DCW (Rec: 01/05/24 16:36 DCW [id number]) Balance Tests Robin Balance Test Robin Balance Test Score 34/56 Robin Balance Assessment Evaluation Sitting to Standing Ability Independent w/out Hands Unsupported Stance Unable w/out Assistance Sitting Unsupported, Feet on Floor Safely- 2 minutes Standing to Sitting Ability Assist, Control w/Hands Transfer Ability Supervision, Verbal Cues Unsupported Stance- Eyes Closed Supervision, 10 seconds Unsupported Stance- Eyes Open Independent, <30 seconds Reaching Forward Standing Safely, 5 inches Pick- Up Object From Floor Supervision Look Behind Shoulder - Standing Shifts Weight Well Turning 360 Degrees Supervision/Verbal Cues Unsupported Stance, Alternating Feet on 2 Steps w/Minimum Assist Stair Unsupported Tandem Stance Holds Tandem- 30 seconds Unilateral Leg Stance Lifts Leg/Unable to Hold Total Score Robin Total Score (out of 56 points) 34 Robin Impairment Rating 20 to 39% Impaired (Score 34- 44) PT-OP-E Functional Tests Start: 01/05/24 15:59 Freq: Status: Active Protocol: Document 01/05/24 11:15 DCW (Rec: 01/05/24 16:36 [facility] [id number]) Functional Tests Dynamic Gait Index (DGI) Score 04/21 DGI Impairment Rating 40 to <60% Impaired (Score 10- 14) Timed Up and Go (TUG) Score 12.18 /c SPC Comments Three-trial average (13.47, 11 .79, 11.27) PT-OP-M Strength Start: 01/05/24 15:59 Freq: Status: Active Protocol: Document 01/05/24 11:15 DCW (Rec: 01/05/24 16:36 [facility] [id number]) Hip Strength Hip Manual Muscle Testing Right Flexion (L2) 3+ Fair+ Abduction 4 Good Adduction 3+ Fair+ External Rotation 3 Fair Internal Rotation 4 Good Left Flexion (L2) 4 Good Abduction 4 Good Adduction 4 Good External Rotation 4 Good Internal Rotation 4 Good Knee Strength Knee Manual Muscle Testing Right Flexion (S2) 4+ Good+ Extension (L3) 4+ Good+ Left Flexion (S2) 4+ Good+ Extension (L3) 4+ Good+ Ankle/Foot Strength Ankle and Foot Manual Muscle Testing Right Dorsiflexion (L4) 3 Fair Plantarflexion (S1) 2+ Poor+ Inversion 2 Poor Eversion (S1) 2 Poor Left Dorsiflexion (L4) 4- Good- Plantarflexion (S1) 2 Poor Inversion 2 Poor Eversion (S1) 2 Poor PT-OP-Q Treatments Start: 01/05/24 15:59 Freq: Status: Active Protocol: Document 01/19/24 15:12 TS (Rec: 01/19/24 16:13 TS [id number]) Gym Equipment Shuttle Recovery Bilateral Heel Raises Resistance 37# Reps/Time x15 Unilateral Squats Resistance 25# Shuttle Recovery Platform Stable Reps/Time x15 Shuttle Balance Red Details WBOS, Staggered Comments Challenging for pt. Requires Silver to ModA for balance. Therapeutic Exercises Standing Exercises Pallof Press Standing Exercise Name Pallof Press Side bilateral Resistance Green Comments x1LOB, required MaxA Neuro Re-Education Treatment Balance Activities BWD Walk Surface flat Equipment rail Reps/Duration 4x15' Comments Uses rail for cathcing balance . Tandem Details Tandem stance Equipment // bars Ball/Cone Transfers Details Ball/cone transfers Comments Cross body reach /c normal stepping Retro Wall Fall Details Retro wall fall Comments heels 4 from wall Foam Details NBOS /c head turns Surface AirEx Hurdles Details Foam/Hurdles Comments Forward, Lateral PT-OP-T Assessment and Plan Start: 01/05/24 15:59 Freq: Status: Active Protocol: Document 01/19/24 15:12 TS (Rec: 01/19/24 16:13 TS [id number]) Physical Therapy Assessment Goals One Impairment Pt does not have an appropriate home exercise program Short Term Goal (STG) Pt to be independent and compliant with an appropriate HEP STG Duration 02/05/24 Three Impairment Severe bilateral ankle weakness (2/5 in nearly all planes) Impairment . Correction Goal (LTG) Pt to improve bilateral ankle MMT to >3-/5 in order to improve ankle strategies to help decrease falls and improve limits of stability LTG Duration 04/04/24 Two Impairment Pt presents with high falls risk, per Robin (34/56) and DGI (04/21) Impairment . Mender Knit Goods Goal (LTG) Pt to increase DGI score by at least five points to in order to demonstrate improvement with overall falls risk LTG Duration 04/04/24 Assessment Summary Assessment Pt continues to be challeneged by balance acts. She requires Silver-ModA for shuttle balance . She had multiple LOB's during BWD, hurdles with foam and Pallof press. She can be impulsive and has some difficulty following cues. Physical Therapy Plan Next Visit Focus/Plan Next Note Type Treatment Note Next Visit Plan Retro wall falls, LE strengthening, static/dynamic balance challenges, coordination training
--- NOTE | 2024-01-22 08:59 | PT.OTN ---
Current Diagnoses Muscle weakness (generalized) (01/22/24) Unsteadiness on feet (01/22/24) Other abnormalities of gait and mobility (01/22/24) Repeated falls (01/22/24) Physical Therapy Treatment Note PT-OP-A Visit Information Start: 01/05/24 15:59 Freq: Status: Active Protocol: Document 01/22/24 08:19 SP (Rec: 01/22/24 09:04 SP [id number]) Out-Patient Physical Therapy Visit Information Visit Information Visit Type Treatment Note Visit Start Time 08:19 Visit Stop Time 08:59 Visit Number 6 Number of CORE LAYER MACHINE OPERATOR Visits 2 Evaluation Information Evaluation Date 01/05/24 PT-OP-B Current Condition Start: 01/05/24 15:59 Freq: Status: Active Protocol: Document 01/05/24 11:15 DCW (Rec: 01/05/24 16:36 DCW [id number]) Current Condition History of Current Condition Onset Date Long-standing history Current Complaints Repeated falls, weakness, imbalance History of Current Condition Pt is a 68 year old female presenting with a long- standing, highly-complex medical history. Pt's current complaints involve repeated falls, which is not a new thing for her, however pt reports her falls have been more frequent and more severe over the past four months. Falls have recently been right backwards, or to the left ( due to repeated rolling of left ankle). Pt reports her feet often get tangled together, she can't tell where they're going to land on the floor, but denies any numbness. Does ambulate at all times with a SPC. Personal Factors Other Personal Factors That May Effect Highly-complex medical history Therapy/Recovery - Pham-Danlos Syndrome, Fibromyositis, Brain aneurysm, CHF, Concussion, Non-STEMI, Pneumonia, bilateral TSA, R ankle fusion, PTSD, Lumbar disc rupture, among many others PT-OP-C Subjective Start: 01/05/24 15:59 Freq: Status: Active Protocol: Document 01/22/24 08:19 SP (Rec: 01/22/24 09:04 SP [id number]) OP-PT Subjective Patient Comments Patient Comments Pt reports I felt ok after last tx. Doing her paloff press side step at home. PT-OP-D Balance Start: 01/05/24 15:59 Freq: Status: Active Protocol: Document 01/05/24 11:15 DCW (Rec: 01/05/24 16:36 [facility] [id number]) Balance Tests Robin Balance Test Robin Balance Test Score 34/56 Robin Balance Assessment Evaluation Sitting to Standing Ability Independent w/out Hands Unsupported Stance Unable w/out Assistance Sitting Unsupported, Feet on Floor Safely- 2 minutes Standing to Sitting Ability Assist, Control w/Hands Transfer Ability Supervision, Verbal Cues Unsupported Stance- Eyes Closed Supervision, 10 seconds Unsupported Stance- Eyes Open Independent, <30 seconds Reaching Forward Standing Safely, 5 inches Pick- Up Object From Floor Supervision Look Behind Shoulder - Standing Shifts Weight Well Turning 360 Degrees Supervision/Verbal Cues Unsupported Stance, Alternating Feet on 2 Steps w/Minimum Assist Stair Unsupported Tandem Stance Holds Tandem- 30 seconds Unilateral Leg Stance Lifts Leg/Unable to Hold Total Score Robin Total Score (out of 56 points) 34 Robin Impairment Rating 20 to 39% Impaired (Score 34- 44) PT-OP-E Functional Tests Start: 01/05/24 15:59 Freq: Status: Active Protocol: Document 01/05/24 11:15 DCW (Rec: 01/05/24 16:36 [facility] [id number]) Functional Tests Dynamic Gait Index (DGI) Score 10 DGI Impairment Rating 40 to <60% Impaired (Score 10- 14) Timed Up and Go (TUG) Score 12.18 /c SPC Comments Three-trial average (13.47, 11 .79, 11.27) PT-OP-M Strength Start: 01/05/24 15:59 Freq: Status: Active Protocol: Document 01/05/24 11:15 DCW (Rec: 01/05/24 16:36 [facility] [id number]) Hip Strength Hip Manual Muscle Testing Right Flexion (L2) 3+ Fair+ Abduction 4 Good Adduction 3+ Fair+ External Rotation 3 Fair Internal Rotation 4 Good Left Flexion (L2) 4 Good Abduction 4 Good Adduction 4 Good External Rotation 4 Good Internal Rotation 4 Good Knee Strength Knee Manual Muscle Testing Right Flexion (S2) 4+ Good+ Extension (L3) 4+ Good+ Left Flexion (S2) 4+ Good+ Extension (L3) 4+ Good+ Ankle/Foot Strength Ankle and Foot Manual Muscle Testing Right Dorsiflexion (L4) 3 Fair Plantarflexion (S1) 2+ Poor+ Inversion 2 Poor Eversion (S1) 2 Poor Left Dorsiflexion (L4) 4- Good- Plantarflexion (S1) 2 Poor Inversion 2 Poor Eversion (S1) 2 Poor PT-OP-Q Treatments Start: 01/05/24 15:59 Freq: Status: Active Protocol: Document 01/22/24 08:19 SP (Rec: 01/22/24 09:04 SP [id number]) Gym Equipment Shuttle Recovery Bilateral Heel Raises Resistance 37# (navy) Reps/Time 2x15 Unilateral Squats Resistance 25# Shuttle Recovery Platform Stable Reps/Time 2x15 Bilateral Squats Resistance 50# (navy) Shuttle Recovery Platform Stable Reps/Time 2x20 Therapeutic Exercises Sitting Exercises sit to stand Sitting Exercise Name added to HEP Equipment Used large chair Reps/Minutes x10, 5 reps Comments cued scoot forward, feet back and apart- keep toes down seated clamshell Sitting Exercise Name added to HEP Resistance Tb #3 around thighs Reps/Minutes 10 x10 Comments good hip abd muscle tiring Other Exercises Resisted Ambulation Other Exercise Name Resisted side-stepping- inPT only Resistance Lv 3 Loop at ankles Equipment Used 1 UE rail support hallway Reps/Minutes 20 ft x2 laps Comments cued trail ft clearance, little bigger than normal step Neuro Re-Education Treatment Balance Activities tandem walking Equipment finger/elbow glide on wall, near hallway rail Reps/Duration 20 ft x2 lengths each Comments challenging but improves less contact wall with cues for tall, rhomboid and core fac, wt shift into advanced LE. BWD Walk Surface flat Equipment rail PRN Reps/Duration 15 ft x4 lengths Comments Uses rail for cathcing balance . PT-OP-T Assessment and Plan Start: 01/05/24 15:59 Freq: Status: Active Protocol: Document 01/22/24 08:19 SP (Rec: 01/22/24 09:04 SP [id number]) Physical Therapy Assessment Goals One Impairment Pt does not have an appropriate home exercise program Short Term Goal (STG) Pt to be independent and compliant with an appropriate HEP STG Duration 02/05/24 Three Impairment Severe bilateral ankle weakness (2/5 in nearly all planes) Impairment . Longterm Goal (LTG) Pt to improve bilateral ankle MMT to >3-/5 in order to improve ankle strategies to help decrease falls and improve limits of stability LTG Duration 04/04/24 Two Impairment Pt presents with high falls risk, per Robin (34/56) and DGI (04/21) Impairment . Vocational Auto Body Instructor Goal (LTG) Pt to increase DGI score by at least five points to 15 in order to demonstrate improvement with overall falls risk LTG Duration 04/04/24 Assessment Summary Assessment Pt feedback hip abd muscle tiring during ther ex add for HEP to assist progress hip strengthening to support standing stability. Pt challenged but tolerated balance activities required decreased contact rail back stepping, had LOB (min A recovery and use of HR) more initially during trial tandem walking than as laps progressed. Mod cues provided for elongated posture, COG over advanced LE with TA draw in and rhomboid fac to support midline stability. Physical Therapy Plan Frequency and Duration Frequency of Treatment 2x/Week Plan of Care Start Date 01/05/24 Plan of Care End Date 04/04/24 Therapeutic Interventions Therapeutic Interventions Balance Training,Coordination Training,Gait Training,Home Exercise Program,Joint Mobilizations,Manual Therapy, Neuromuscular Re-education, Patient/Caregiver Education, Self-Care/Home Management,Soft Tissue Mobilization, Therapeutic Activities, Therapeutic Exercises, Vestibular Rehabilitation Next Visit Focus/Plan Next Note Type Treatment Note Next Visit Plan REview HEP as needed: paloff press, STS, resisted seated clamshell. POC: Retro wall falls, LE strengthening, static/dynamic balance challenges, coordination training
--- NOTE | 2024-01-27 09:02 | PT.OTN ---
Current Diagnoses Muscle weakness (generalized) (01/27/24) Unsteadiness on feet (01/27/24) Other abnormalities of gait and mobility (01/27/24) Repeated falls (01/27/24) Physical Therapy Treatment Note PT-OP-A Visit Information Start: 01/05/24 15:59 Freq: Status: Active Protocol: Document 01/27/24 08:03 AB (Rec: 01/27/24 09:02 AB [id number]) Out-Patient Physical Therapy Visit Information Visit Information Visit Type Treatment Note Visit Note [email or web address] Access Code: [email or web address] Visit Start Time 08:15 Visit Stop Time 08:59 Visit Number 7 Number of PARAPROFESSIONAL EDUCATION ASSISTANT Visits 3 Evaluation Information Evaluation Date 01/05/24 PT-OP-B Current Condition Start: 01/05/24 15:59 Freq: Status: Active Protocol: Document 01/05/24 11:15 DCW (Rec: 01/05/24 16:36 DCW [id number]) Current Condition History of Current Condition Onset Date Long-standing history Current Complaints Repeated falls, weakness, imbalance History of Current Condition Pt is a 68 year old female presenting with a long- standing, highly-complex medical history. Pt's current complaints involve repeated falls, which is not a new thing for her, however pt reports her falls have been more frequent and more severe over the past four months. Falls have recently been right backwards, or to the left ( due to repeated rolling of left ankle). Pt reports her feet often get tangled together, she can't tell where they're going to land on the floor, but denies any numbness. Does ambulate at all times with a SPC. Personal Factors Other Personal Factors That May Effect Highly-complex medical history Therapy/Recovery - Pham-Danlos Syndrome, Fibromyositis, Brain aneurysm, CHF, Concussion, Non-STEMI, Pneumonia, bilateral TSA, R ankle fusion, PTSD, Lumbar disc rupture, among many others PT-OP-C Subjective Start: 01/05/24 15:59 Freq: Status: Active Protocol: Document 01/27/24 08:03 AB (Rec: 01/27/24 09:02 AB [id number]) OP-PT Subjective Patient Comments Patient Comments Patient reports her back hurts today for some reason, doesn' t think it was anything she did in PT. Patient rates back pain 6/10 left back/gluteal area. PT-OP-D Balance Start: 01/05/24 15:59 Freq: Status: Active Protocol: Document 01/05/24 11:15 DCW (Rec: 01/05/24 16:36 DCW [id number]) Balance Tests Robin Balance Test Robin Balance Test Score 34/56 Robin Balance Assessment Evaluation Sitting to Standing Ability Independent w/out Hands Unsupported Stance Unable w/out Assistance Sitting Unsupported, Feet on Floor Safely- 2 minutes Standing to Sitting Ability Assist, Control w/Hands Transfer Ability Supervision, Verbal Cues Unsupported Stance- Eyes Closed Supervision, 10 seconds Unsupported Stance- Eyes Open Independent, <30 seconds Reaching Forward Standing Safely, 5 inches Pick- Up Object From Floor Supervision Look Behind Shoulder - Standing Shifts Weight Well Turning 360 Degrees Supervision/Verbal Cues Unsupported Stance, Alternating Feet on 2 Steps w/Minimum Assist Stair Unsupported Tandem Stance Holds Tandem- 30 seconds Unilateral Leg Stance Lifts Leg/Unable to Hold Total Score Robin Total Score (out of 56 points) 34 Robin Impairment Rating 20 to 39% Impaired (Score 34- 44) PT-OP-E Functional Tests Start: 01/05/24 15:59 Freq: Status: Active Protocol: Document 01/05/24 11:15 DCW (Rec: 01/05/24 16:36 DCW [id number]) Functional Tests Dynamic Gait Index (DGI) Score 1024 DGI Impairment Rating 40 to <60% Impaired (Score 10- 14) Timed Up and Go (TUG) Score 12.18 /c SPC Comments Three-trial average (13.47, 11 .79, 11.27) PT-OP-M Strength Start: 01/05/24 15:59 Freq: Status: Active Protocol: Document 01/05/24 11:15 DCW (Rec: 01/05/24 16:36 DCW [id number]) Hip Strength Hip Manual Muscle Testing Right Flexion (L2) 3+ Fair+ Abduction 4 Good Adduction 3+ Fair+ External Rotation 3 Fair Internal Rotation 4 Good Left Flexion (L2) 4 Good Abduction 4 Good Adduction 4 Good External Rotation 4 Good Internal Rotation 4 Good Knee Strength Knee Manual Muscle Testing Right Flexion (S2) 4+ Good+ Extension (L3) 4+ Good+ Left Flexion (S2) 4+ Good+ Extension (L3) 4+ Good+ Ankle/Foot Strength Ankle and Foot Manual Muscle Testing Right Dorsiflexion (L4) 3 Fair Plantarflexion (S1) 2+ Poor+ Inversion 2 Poor Eversion (S1) 2 Poor Left Dorsiflexion (L4) 4- Good- Plantarflexion (S1) 2 Poor Inversion 2 Poor Eversion (S1) 2 Poor PT-OP-Q Treatments Start: 01/05/24 15:59 Freq: Status: Active Protocol: Document 01/27/24 08:03 AB (Rec: 01/27/24 09:02 AB [id number]) Gym Equipment Shuttle Recovery Unilateral Squats Details X4 @25# then 15X 2 at 50# teal and blue Resistance 50# Shuttle Recovery Platform Stable Reps/Time initiated with at 25# with patient commenting too easy Shuttle Balance Red Details WBOS, Staggered Comments CGA to minimal assist, eye scanning added to WBOS Therapeutic Exercises Sitting Exercises seated clamshell Sitting Exercise Name on HEP Resistance Tb #3 above knees Reps/Minutes 10 x10 and 60 sec hold Standing Exercises bilateral heel raise Side bilateral Reps/Minutes X15 Comments Verbal cues to lower heels slowly for carryover to cont fwd momentum Calf stretches Standing Exercise Name Soleus and gastroc Reps/Minutes 60 sec X1 Extension Standing Exercise Name Hip Extension Side bilateral Resistance Lv 3 loop Reps/Minutes X10 Comments with UE support Neuro Re-Education Treatment Balance Activities tandem walking Equipment hands above bars CGA Reps/Duration 10 feet X 6 BWD Walk Details retro stepping hands above rail to use as needed Reps/Duration 10 ft X 2 Comments CGA hands above bars Retro Wall Fall Details Retro wall fall Reps/Duration X10 Comments pillow behind back Foam Details Romber with eyes closed Reps/Duration X6 Comments CGA Hurdles Details Hurdles Reps/Duration 10 feet X 6 Comments Forward CGA X 2 with hands on bars X 4 with hands above bars PT-OP-T Assessment and Plan Start: 01/05/24 15:59 Freq: Status: Active Protocol: Document 01/27/24 08:03 AB (Rec: 01/27/24 09:02 [id number]) Physical Therapy Assessment Goals One Impairment Pt does not have an appropriate home exercise program Short Term Goal (STG) Pt to be independent and compliant with an appropriate HEP STG Duration 02/05/24 Three Impairment Severe bilateral ankle weakness (2/5 in nearly all planes) Impairment . Automobile Racer Goal (LTG) Pt to improve bilateral ankle MMT to >3-/5 in order to improve ankle strategies to help decrease falls and improve limits of stability LTG Duration 04/04/24 Two Impairment Pt presents with high falls risk, per Robin (34/56) and DGI (04/21) Impairment . Fdc Goal (LTG) Pt to increase DGI score by at least five points to 15 in order to demonstrate improvement with overall falls risk LTG Duration 04/04/24 Assessment Summary Assessment Patient reports having no back pain end of session. Decreased assist required on Shuttle Balance this session. Physical Therapy Plan Frequency and Duration Frequency of Treatment 2x/Week Plan of Care Start Date 01/05/24 Plan of Care End Date 04/04/24 Next Visit Focus/Plan Next Note Type Treatment Note Next Visit Plan REview HEP as needed: paloff press, STS, resisted seated clamshell. POC: Retro wall falls, LE strengthening, static/dynamic balance challenges, coordination training
--- NOTE | 2024-02-02 16:45 | PT.OTN ---
Current Diagnoses Muscle weakness (generalized) (02/02/24) Unsteadiness on feet (02/02/24) Other abnormalities of gait and mobility (02/02/24) Repeated falls (02/02/24) Physical Therapy Treatment Note PT-OP-A Visit Information Start: 01/05/24 15:59 Freq: Status: Active Protocol: Document 02/02/24 16:00 DCW (Rec: 02/02/24 16:45 DCW [id number]) Out-Patient Physical Therapy Visit Information Visit Information Visit Type Treatment Note Visit Start Time 16:00 Visit Stop Time 16:45 Visit Number 8 Number of MECHANICAL DESIGN ENGINEER Visits 0 Evaluation Information Evaluation Date 01/05/24 PT-OP-B Current Condition Start: 01/05/24 15:59 Freq: Status: Active Protocol: Document 01/05/24 11:15 DCW (Rec: 01/05/24 16:36 DCW [id number]) Current Condition History of Current Condition Onset Date Long-standing history Current Complaints Repeated falls, weakness, imbalance History of Current Condition Pt is a 68 year old female presenting with a long- standing, highly-complex medical history. Pt's current complaints involve repeated falls, which is not a new thing for her, however pt reports her falls have been more frequent and more severe over the past four months. Falls have recently been right backwards, or to the left ( due to repeated rolling of left ankle). Pt reports her feet often get tangled together, she can't tell where they're going to land on the floor, but denies any numbness. Does ambulate at all times with a SPC. Personal Factors Other Personal Factors That May Effect Highly-complex medical history Therapy/Recovery - Pham-Danlos Syndrome, Fibromyositis, Brain aneurysm, CHF, Concussion, Non-STEMI, Pneumonia, bilateral TSA, R ankle fusion, PTSD, Lumbar disc rupture, among many others PT-OP-C Subjective Start: 01/05/24 15:59 Freq: Status: Active Protocol: Document 02/02/24 16:00 DCW (Rec: 02/02/24 16:45 DCW [id number]) OP-PT Subjective Patient Comments Patient Comments I like what we're doing and I think it's been really helpful. PT-OP-D Balance Start: 01/05/24 15:59 Freq: Status: Active Protocol: Document 01/05/24 11:15 DCW (Rec: 01/05/24 16:36 [facility] [id number]) Balance Tests Robin Balance Test Robin Balance Test Score 34/56 Robin Balance Assessment Evaluation Sitting to Standing Ability Independent w/out Hands Unsupported Stance Unable w/out Assistance Sitting Unsupported, Feet on Floor Safely- 2 minutes Standing to Sitting Ability Assist, Control w/Hands Transfer Ability Supervision, Verbal Cues Unsupported Stance- Eyes Closed Supervision, 10 seconds Unsupported Stance- Eyes Open Independent, <30 seconds Reaching Forward Standing Safely, 5 inches Pick- Up Object From Floor Supervision Look Behind Shoulder - Standing Shifts Weight Well Turning 360 Degrees Supervision/Verbal Cues Unsupported Stance, Alternating Feet on 2 Steps w/Minimum Assist Stair Unsupported Tandem Stance Holds Tandem- 30 seconds Unilateral Leg Stance Lifts Leg/Unable to Hold Total Score Robin Total Score (out of 56 points) 34 Robin Impairment Rating 20 to 39% Impaired (Score 34- 44) PT-OP-E Functional Tests Start: 01/05/24 15:59 Freq: Status: Active Protocol: Document 01/05/24 11:15 DCW (Rec: 01/05/24 16:36 [facility] [id number]) Functional Tests Dynamic Gait Index (DGI) Score 10 DGI Impairment Rating 40 to <60% Impaired (Score 10- 14) Timed Up and Go (TUG) Score 12.18 /c SPC Comments Three-trial average (13.47, 11 .79, 11.27) PT-OP-M Strength Start: 01/05/24 15:59 Freq: Status: Active Protocol: Document 01/05/24 11:15 DCW (Rec: 01/05/24 16:36 [facility] [id number]) Hip Strength Hip Manual Muscle Testing Right Flexion (L2) 3+ Fair+ Abduction 4 Good Adduction 3+ Fair+ External Rotation 3 Fair Internal Rotation 4 Good Left Flexion (L2) 4 Good Abduction 4 Good Adduction 4 Good External Rotation 4 Good Internal Rotation 4 Good Knee Strength Knee Manual Muscle Testing Right Flexion (S2) 4+ Good+ Extension (L3) 4+ Good+ Left Flexion (S2) 4+ Good+ Extension (L3) 4+ Good+ Ankle/Foot Strength Ankle and Foot Manual Muscle Testing Right Dorsiflexion (L4) 3 Fair Plantarflexion (S1) 2+ Poor+ Inversion 2 Poor Eversion (S1) 2 Poor Left Dorsiflexion (L4) 4- Good- Plantarflexion (S1) 2 Poor Inversion 2 Poor Eversion (S1) 2 Poor PT-OP-Q Treatments Start: 01/05/24 15:59 Freq: Status: Active Protocol: Document 02/02/24 16:00 DCW (Rec: 02/02/24 16:45 DCW [id number]) Gym Equipment Shuttle Recovery Bilateral Heel Raises Resistance 37# (navy) Reps/Time 2x15 Unilateral Squats Resistance 37# Shuttle Recovery Platform Stable Reps/Time 2x15 Bilateral Squats Resistance 50# (navy) Shuttle Recovery Platform Stable Reps/Time 2x20 Shuttle Balance Red Details WBOS, Staggered Comments CGA to minimal assist, eye scanning added to WBOS Therapeutic Exercises Standing Exercises Calf stretches Standing Exercise Name Soleus and gastroc Equipment Used LAURA Reps/Minutes 60 sec X1 Other Exercises Resisted Ambulation Other Exercise Name Resisted side-stepping- inPT only Resistance Green loop at ankles Equipment Used // bars Reps/Minutes 10 ft x2 laps Comments cued trail ft clearance, little bigger than normal step Neuro Re-Education Treatment Balance Activities Foam Details NBOS - EO/EC Hurdles Details Hurdles Comments Forward, Side-stepping PT-OP-T Assessment and Plan Start: 01/05/24 15:59 Freq: Status: Active Protocol: Document 02/02/24 16:00 DCW (Rec: 02/02/24 16:45 DCW [id number]) Physical Therapy Assessment Impairments Impairments Activity Tolerance,Balance, Functional Activities, Functional Mobility,Gait, Strength,Transfers Goals One Impairment Pt does not have an appropriate home exercise program Short Term Goal (STG) Pt to be independent and compliant with an appropriate HEP STG Duration 02/05/24 Three Impairment Severe bilateral ankle weakness (2/5 in nearly all planes) Impairment . Nursing Home Goal (LTG) Pt to improve bilateral ankle MMT to >3-/5 in order to improve ankle strategies to help decrease falls and improve limits of stability LTG Duration 04/04/24 Two Impairment Pt presents with high falls risk, per Robin (34/56) and DGI (04/21) Impairment . Nursing Home Goal (LTG) Pt to increase DGI score by at least five points to in order to demonstrate improvement with overall falls risk LTG Duration 04/04/24 Assessment Summary Assessment Pt continues to struggle most with activity tolerance, requires repeated rest breaks between nearly all exercises. Is showing increased ability with resisted side stepping and maintaining stability on Shuttle Balance Physical Therapy Plan Frequency and Duration Frequency of Treatment 2x/Week Plan of Care Start Date 01/05/24 Plan of Care End Date 04/04/24 Therapeutic Interventions Therapeutic Interventions Balance Training,Coordination Training,Gait Training,Home Exercise Program,Joint Mobilizations,Manual Therapy, Neuromuscular Re-education, Patient/Caregiver Education, Self-Care/Home Management,Soft Tissue Mobilization, Therapeutic Activities, Therapeutic Exercises, Vestibular Rehabilitation Next Visit Focus/Plan Next Note Type Treatment Note Next Visit Plan Review HEP as needed: paloff press, STS, resisted seated clamshell. POC: Retro wall falls, LE strengthening, static/dynamic balance challenges, coordination training
--- NOTE | 2024-02-09 14:30 | PT.OTN ---
Current Diagnoses Muscle weakness (generalized) (02/09/24) Unsteadiness on feet (02/09/24) Other abnormalities of gait and mobility (02/09/24) Repeated falls (02/09/24) Physical Therapy Treatment Note PT-OP-A Visit Information Start: 01/05/24 15:59 Freq: Status: Active Protocol: Document 02/09/24 14:31 TS (Rec: 02/09/24 15:22 TS [id number]) Out-Patient Physical Therapy Visit Information Visit Information Visit Type Treatment Note Visit Note [email or web address] Access Code: [email or web address] Visit Start Time 14:30 Visit Stop Time 15:10 Visit Number 9 Number of CARD HANGER Visits 1 PT-OP-B Current Condition Start: 01/05/24 15:59 Freq: Status: Active Protocol: Document 01/05/24 11:15 DCW (Rec: 01/05/24 16:36 DCW [id number]) Current Condition History of Current Condition Onset Date Long-standing history Current Complaints Repeated falls, weakness, imbalance History of Current Condition Pt is a 68 year old female presenting with a long- standing, highly-complex medical history. Pt's current complaints involve repeated falls, which is not a new thing for her, however pt reports her falls have been more frequent and more severe over the past four months. Falls have recently been right backwards, or to the left ( due to repeated rolling of left ankle). Pt reports her feet often get tangled together, she can't tell where they're going to land on the floor, but denies any numbness. Does ambulate at all times with a SPC. Personal Factors Other Personal Factors That May Effect Highly-complex medical history Therapy/Recovery - Pham-Danlos Syndrome, Fibromyositis, Brain aneurysm, CHF, Concussion, Non-STEMI, Pneumonia, bilateral TSA, R ankle fusion, PTSD, Lumbar disc rupture, among many others PT-OP-C Subjective Start: 01/05/24 15:59 Freq: Status: Active Protocol: Document 02/09/24 14:31 TS (Rec: 02/09/24 15:22 TS [id number]) OP-PT Subjective Patient Comments Patient Comments Pt reports balance is more off today and feels tired. Pt had some back pain a few days ago . PT-OP-D Balance Start: 01/05/24 15:59 Freq: Status: Active Protocol: Document 01/05/24 11:15 DCW (Rec: 01/05/24 16:36 DCW [id number]) Balance Tests Robin Balance Test Robin Balance Test Score 34/56 Robin Balance Assessment Evaluation Sitting to Standing Ability Independent w/out Hands Unsupported Stance Unable w/out Assistance Sitting Unsupported, Feet on Floor Safely- 2 minutes Standing to Sitting Ability Assist, Control w/Hands Transfer Ability Supervision, Verbal Cues Unsupported Stance- Eyes Closed Supervision, 10 seconds Unsupported Stance- Eyes Open Independent, <30 seconds Reaching Forward Standing Safely, 5 inches Pick- Up Object From Floor Supervision Look Behind Shoulder - Standing Shifts Weight Well Turning 360 Degrees Supervision/Verbal Cues Unsupported Stance, Alternating Feet on 2 Steps w/Minimum Assist Stair Unsupported Tandem Stance Holds Tandem- 30 seconds Unilateral Leg Stance Lifts Leg/Unable to Hold Total Score Robin Total Score (out of 56 points) 34 Robin Impairment Rating 20 to 39% Impaired (Score 34- 44) PT-OP-E Functional Tests Start: 01/05/24 15:59 Freq: Status: Active Protocol: Document 01/05/24 11:15 DCW (Rec: 01/05/24 16:36 [facility] [id number]) Functional Tests Dynamic Gait Index (DGI) Score 10 DGI Impairment Rating 40 to <60% Impaired (Score 10- 14) Timed Up and Go (TUG) Score 12.18 /c SPC Comments Three-trial average (13.47, 11 .79, 11.27) PT-OP-M Strength Start: 01/05/24 15:59 Freq: Status: Active Protocol: Document 01/05/24 11:15 DCW (Rec: 01/05/24 16:36 [facility] [id number]) Hip Strength Hip Manual Muscle Testing Right Flexion (L2) 3+ Fair+ Abduction 4 Good Adduction 3+ Fair+ External Rotation 3 Fair Internal Rotation 4 Good Left Flexion (L2) 4 Good Abduction 4 Good Adduction 4 Good External Rotation 4 Good Internal Rotation 4 Good Knee Strength Knee Manual Muscle Testing Right Flexion (S2) 4+ Good+ Extension (L3) 4+ Good+ Left Flexion (S2) 4+ Good+ Extension (L3) 4+ Good+ Ankle/Foot Strength Ankle and Foot Manual Muscle Testing Right Dorsiflexion (L4) 3 Fair Plantarflexion (S1) 2+ Poor+ Inversion 2 Poor Eversion (S1) 2 Poor Left Dorsiflexion (L4) 4- Good- Plantarflexion (S1) 2 Poor Inversion 2 Poor Eversion (S1) 2 Poor PT-OP-Q Treatments Start: 01/05/24 15:59 Freq: Status: Active Protocol: Document 02/09/24 14:31 TS (Rec: 02/09/24 15:22 TS [id number]) Gym Equipment Shuttle Recovery Bilateral Heel Raises Resistance 37# (navy) Reps/Time 1x15 Unilateral Squats Resistance 37# Shuttle Recovery Platform Stable Reps/Time 1x15 Bilateral Squats Resistance 50# (navy) Shuttle Recovery Platform Stable Reps/Time 1x20. Pt reports feeling weak and more fatigued today. Shuttle Balance Red Details WBOS, Staggered Comments requires MaxA for balance. Pt tends to retrolean. Therapeutic Exercises Standing Exercises Sidesteps Resistance LVL 3 Comments fatigues quickly Calf stretches Standing Exercise Name Soleus and gastroc Equipment Used LAURA Reps/Minutes 60 sec X2 Neuro Re-Education Treatment Balance Activities tandem walking Equipment // bars Reps/Duration 10 feet X 6 Comments Requires // bars for balance BWD Walk Details retro stepping hands above rail to use as needed Reps/Duration 10 ft X 2 Comments CGA hands above bars. Cues for slowing down and weight fwd. PT-OP-T Assessment and Plan Start: 01/05/24 15:59 Freq: Status: Active Protocol: Document 02/09/24 14:31 TS (Rec: 02/09/24 15:22 TS [id number]) Physical Therapy Assessment Goals One Impairment Pt does not have an appropriate home exercise program Short Term Goal (STG) Pt to be independent and compliant with an appropriate HEP STG Duration 02/05/24 Three Impairment Severe bilateral ankle weakness (2/5 in nearly all planes) Impairment . Half-Way Goal (LTG) Pt to improve bilateral ankle MMT to >3-/5 in order to improve ankle strategies to help decrease falls and improve limits of stability LTG Duration 04/04/24 Two Impairment Pt presents with high falls risk, per Robin (34/56) and DGI (04/21) Impairment . Independent Living Instructor Goal (LTG) Pt to increase DGI score by at least five points to in order to demonstrate improvement with overall falls risk LTG Duration 04/04/24 Assessment Summary Assessment Pt continues to fatigue with all ex and requires frequent rest breaks. She performed less sets of shuttle recovery this session due to fatigue. She required Min-MaxA for shuttle balance and cues to use handrails when unsteady. Physical Therapy Plan Next Visit Focus/Plan Next Note Type Progress Note Next Visit Plan Review HEP as needed: paloff press, STS, resisted seated clamshell. POC: Retro wall falls, LE strengthening, static/dynamic balance challenges, coordination training
--- NOTE | 2024-02-12 12:43 | PT.OTN ---
Current Diagnoses Muscle weakness (generalized) (02/12/24) Unsteadiness on feet (02/12/24) Other abnormalities of gait and mobility (02/12/24) Repeated falls (02/12/24) Physical Therapy Treatment Note PT-OP-A Visit Information Start: 01/05/24 15:59 Freq: Status: Active Protocol: Document 02/12/24 12:00 DCW (Rec: 02/12/24 12:41 DCW [id number]) Out-Patient Physical Therapy Visit Information Visit Information Visit Type Progress Note Visit Start Time 12:00 Visit Stop Time 12:45 Visit Number 10 Number of SEWER HEAD Visits 0 Evaluation Information Evaluation Date 01/05/24 PT-OP-B Current Condition Start: 01/05/24 15:59 Freq: Status: Active Protocol: Document 01/05/24 11:15 DCW (Rec: 01/05/24 16:36 DCW [id number]) Current Condition History of Current Condition Onset Date Long-standing history Current Complaints Repeated falls, weakness, imbalance History of Current Condition Pt is a 68 year old female presenting with a long- standing, highly-complex medical history. Pt's current complaints involve repeated falls, which is not a new thing for her, however pt reports her falls have been more frequent and more severe over the past four months. Falls have recently been right backwards, or to the left ( due to repeated rolling of left ankle). Pt reports her feet often get tangled together, she can't tell where they're going to land on the floor, but denies any numbness. Does ambulate at all times with a SPC. Personal Factors Other Personal Factors That May Effect Highly-complex medical history Therapy/Recovery - Pham-Danlos Syndrome, Fibromyositis, Brain aneurysm, CHF, Concussion, Non-STEMI, Pneumonia, bilateral TSA, R ankle fusion, PTSD, Lumbar disc rupture, among many others PT-OP-C Subjective Start: 01/05/24 15:59 Freq: Status: Active Protocol: Document 02/12/24 12:00 DCW (Rec: 02/12/24 12:41 DCW [id number]) OP-PT Subjective Patient Comments Patient Comments Pt notes she is feeling pretty good, not having any pain today. PT-OP-D Balance Start: 01/05/24 15:59 Freq: Status: Active Protocol: Document 01/05/24 11:15 DCW (Rec: 01/05/24 16:36 [facility] [id number]) Balance Tests Robin Balance Test Robin Balance Test Score 34/56 Robin Balance Assessment Evaluation Sitting to Standing Ability Independent w/out Hands Unsupported Stance Unable w/out Assistance Sitting Unsupported, Feet on Floor Safely- 2 minutes Standing to Sitting Ability Assist, Control w/Hands Transfer Ability Supervision, Verbal Cues Unsupported Stance- Eyes Closed Supervision, 10 seconds Unsupported Stance- Eyes Open Independent, <30 seconds Reaching Forward Standing Safely, 5 inches Pick- Up Object From Floor Supervision Look Behind Shoulder - Standing Shifts Weight Well Turning 360 Degrees Supervision/Verbal Cues Unsupported Stance, Alternating Feet on 2 Steps w/Minimum Assist Stair Unsupported Tandem Stance Holds Tandem- 30 seconds Unilateral Leg Stance Lifts Leg/Unable to Hold Total Score Robin Total Score (out of 56 points) 34 Robin Impairment Rating 20 to 39% Impaired (Score 34- 44) PT-OP-E Functional Tests Start: 01/05/24 15:59 Freq: Status: Active Protocol: Document 01/05/24 11:15 DCW (Rec: 01/05/24 16:36 [facility] [id number]) Functional Tests Dynamic Gait Index (DGI) Score 10 DGI Impairment Rating 40 to <60% Impaired (Score 10- 14) Timed Up and Go (TUG) Score 12.18 /c SPC Comments Three-trial average (13.47, 11 .79, 11.27) PT-OP-M Strength Start: 01/05/24 15:59 Freq: Status: Active Protocol: Document 01/05/24 11:15 DCW (Rec: 01/05/24 16:36 [facility] [id number]) Hip Strength Hip Manual Muscle Testing Right Flexion (L2) 3+ Fair+ Abduction 4 Good Adduction 3+ Fair+ External Rotation 3 Fair Internal Rotation 4 Good Left Flexion (L2) 4 Good Abduction 4 Good Adduction 4 Good External Rotation 4 Good Internal Rotation 4 Good Knee Strength Knee Manual Muscle Testing Right Flexion (S2) 4+ Good+ Extension (L3) 4+ Good+ Left Flexion (S2) 4+ Good+ Extension (L3) 4+ Good+ Ankle/Foot Strength Ankle and Foot Manual Muscle Testing Right Dorsiflexion (L4) 3 Fair Plantarflexion (S1) 2+ Poor+ Inversion 2 Poor Eversion (S1) 2 Poor Left Dorsiflexion (L4) 4- Good- Plantarflexion (S1) 2 Poor Inversion 2 Poor Eversion (S1) 2 Poor PT-OP-Q Treatments Start: 01/05/24 15:59 Freq: Status: Active Protocol: Document 02/12/24 12:00 DCW (Rec: 02/12/24 12:41 DCW [id number]) Gym Equipment Shuttle Recovery Bilateral Heel Raises Resistance 25# (navy) Reps/Time 1x15 Unilateral Squats Resistance 37# Shuttle Recovery Platform Stable Reps/Time 1x15 Bilateral Squats Resistance 50# (navy) Shuttle Recovery Platform Stable Reps/Time 2x20 Shuttle Balance Red Details WBOS, Staggered Comments CGA to minimal assist, head turns added to WBOS Therapeutic Exercises Standing Exercises Calf stretches Standing Exercise Name Soleus and gastroc Equipment Used LAURA Reps/Minutes 60 sec X2 Other Exercises Resisted Ambulation Other Exercise Name Resisted side-stepping Resistance Green loop at ankles Equipment Used // bars Reps/Minutes 10 ft x2 laps Neuro Re-Education Treatment Balance Activities BWD Walk Details Retro ambulation Equipment // bars Tandem Details Tandem Ambulation Equipment // bars Hurdles Details Hurdles Comments Forward, Side-stepping PT-OP-T Assessment and Plan Start: 01/05/24 15:59 Freq: Status: Active Protocol: Document 02/12/24 12:00 DCW (Rec: 02/12/24 12:41 DCW [id number]) Physical Therapy Assessment Impairments Impairments Activity Tolerance,Balance, Functional Activities, Functional Mobility,Gait, Strength,Transfers Goals One Impairment Pt does not have an appropriate home exercise program Short Term Goal (STG) Pt to be independent and compliant with an appropriate HEP STG Duration 02/05/24 Three Impairment Severe bilateral ankle weakness (2/5 in nearly all planes) Impairment . Territory Business Manager Goal (LTG) Pt to improve bilateral ankle MMT to >3-/5 in order to improve ankle strategies to help decrease falls and improve limits of stability LTG Duration 04/04/24 Two Impairment Pt presents with high falls risk, per Robin (34/56) and DGI (04/21) Impairment . Territory Business Manager Goal (LTG) Pt to increase DGI score by at least five points to in order to demonstrate improvement with overall falls risk LTG Duration 04/04/24 Assessment Summary Assessment Fatigued quickly today, but recovering faster with short rest breaks. Continues to struggle with stabilization/ balance. Focus on strengthening, balance challenges, and activity tolerance. Is showing some mild improvements with ankle strength, inversion MMT 3/5 today, and eversion tested at 2+/5 today bilaterally Physical Therapy Plan Frequency and Duration Frequency of Treatment 2x/Week Plan of Care Start Date 01/05/24 Plan of Care End Date 04/04/24 Therapeutic Interventions Therapeutic Interventions Balance Training,Coordination Training,Gait Training,Home Exercise Program,Joint Mobilizations,Manual Therapy, Neuromuscular Re-education, Patient/Caregiver Education, Self-Care/Home Management,Soft Tissue Mobilization, Therapeutic Activities, Therapeutic Exercises, Vestibular Rehabilitation Next Visit Focus/Plan Next Note Type Treatment Note Next Visit Plan Review HEP as needed: paloff press, STS, resisted seated clamshell. POC: Retro wall falls, LE strengthening, static/dynamic balance challenges, coordination training
--- NOTE | 2024-02-12 13:44 | PT.OPPN ---
Current Diagnoses Muscle weakness (generalized) (02/12/24) Unsteadiness on feet (02/12/24) Other abnormalities of gait and mobility (02/12/24) Repeated falls (02/12/24) Physical Therapy Progress Note PT-OP-A Visit Information Start: 01/05/24 15:59 Freq: Status: Active Protocol: Document 02/12/24 12:00 DCW (Rec: 02/12/24 12:41 DCW [id number]) Out-Patient Physical Therapy Visit Information Visit Information Visit Type Progress Note Visit Start Time 12:00 Visit Stop Time 12:45 Visit Number 10 Number of DIGITAL MARKETING APPRENTICE Visits 0 Evaluation Information Evaluation Date 01/05/24 PT-OP-B Current Condition Start: 01/05/24 15:59 Freq: Status: Active Protocol: Document 01/05/24 11:15 DCW (Rec: 01/05/24 16:36 DCW [id number]) Current Condition History of Current Condition Onset Date Long-standing history Current Complaints Repeated falls, weakness, imbalance History of Current Condition Pt is a 68 year old female presenting with a long- standing, highly-complex medical history. Pt's current complaints involve repeated falls, which is not a new thing for her, however pt reports her falls have been more frequent and more severe over the past four months. Falls have recently been right backwards, or to the left ( due to repeated rolling of left ankle). Pt reports her feet often get tangled together, she can't tell where they're going to land on the floor, but denies any numbness. Does ambulate at all times with a SPC. Personal Factors Other Personal Factors That May Effect Highly-complex medical history Therapy/Recovery - Pham-Danlos Syndrome, Fibromyositis, Brain aneurysm, CHF, Concussion, Non-STEMI, Pneumonia, bilateral TSA, R ankle fusion, PTSD, Lumbar disc rupture, among many others PT-OP-C Subjective Start: 01/05/24 15:59 Freq: Status: Active Protocol: Document 02/12/24 12:00 DCW (Rec: 02/12/24 12:41 DCW [id number]) OP-PT Subjective Patient Comments Patient Comments Pt notes she is feeling pretty good, not having any pain today. PT-OP-D Balance Start: 01/05/24 15:59 Freq: Status: Active Protocol: Document 01/05/24 11:15 DCW (Rec: 01/05/24 16:36 [facility] [id number]) Balance Tests Robin Balance Test Robin Balance Test Score 34/56 Robin Balance Assessment Evaluation Sitting to Standing Ability Independent w/out Hands Unsupported Stance Unable w/out Assistance Sitting Unsupported, Feet on Floor Safely- 2 minutes Standing to Sitting Ability Assist, Control w/Hands Transfer Ability Supervision, Verbal Cues Unsupported Stance- Eyes Closed Supervision, 10 seconds Unsupported Stance- Eyes Open Independent, <30 seconds Reaching Forward Standing Safely, 5 inches Pick- Up Object From Floor Supervision Look Behind Shoulder - Standing Shifts Weight Well Turning 360 Degrees Supervision/Verbal Cues Unsupported Stance, Alternating Feet on 2 Steps w/Minimum Assist Stair Unsupported Tandem Stance Holds Tandem- 30 seconds Unilateral Leg Stance Lifts Leg/Unable to Hold Total Score Robin Total Score (out of 56 points) 34 Robin Impairment Rating 20 to 39% Impaired (Score 34- 44) PT-OP-E Functional Tests Start: 01/05/24 15:59 Freq: Status: Active Protocol: Document 01/05/24 11:15 DCW (Rec: 01/05/24 16:36 [facility] [id number]) Functional Tests Dynamic Gait Index (DGI) Score 10 DGI Impairment Rating 40 to <60% Impaired (Score 10- 14) Timed Up and Go (TUG) Score 12.18 /c SPC Comments Three-trial average (13.47, 11 .79, 11.27) PT-OP-M Strength Start: 01/05/24 15:59 Freq: Status: Active Protocol: Document 01/05/24 11:15 DCW (Rec: 01/05/24 16:36 [facility] [id number]) Hip Strength Hip Manual Muscle Testing Right Flexion (L2) 3+ Fair+ Abduction 4 Good Adduction 3+ Fair+ External Rotation 3 Fair Internal Rotation 4 Good Left Flexion (L2) 4 Good Abduction 4 Good Adduction 4 Good External Rotation 4 Good Internal Rotation 4 Good Knee Strength Knee Manual Muscle Testing Right Flexion (S2) 4+ Good+ Extension (L3) 4+ Good+ Left Flexion (S2) 4+ Good+ Extension (L3) 4+ Good+ Ankle/Foot Strength Ankle and Foot Manual Muscle Testing Right Dorsiflexion (L4) 3 Fair Plantarflexion (S1) 2+ Poor+ Inversion 2 Poor Eversion (S1) 2 Poor Left Dorsiflexion (L4) 4- Good- Plantarflexion (S1) 2 Poor Inversion 2 Poor Eversion (S1) 2 Poor PT-OP-T Assessment and Plan Start: 01/05/24 15:59 Freq: Status: Active Protocol: Document 02/12/24 12:00 DCW (Rec: 02/12/24 12:41 DCW [id number]) Physical Therapy Assessment Impairments Impairments Activity Tolerance,Balance, Functional Activities, Functional Mobility,Gait, Strength,Transfers Goals One Impairment Pt does not have an appropriate home exercise program Short Term Goal (STG) Pt to be independent and compliant with an appropriate HEP STG Duration 02/05/24 Three Impairment Severe bilateral ankle weakness (2/5 in nearly all planes) Impairment . Network Operations Center Technician Goal (LTG) Pt to improve bilateral ankle MMT to >3-/5 in order to improve ankle strategies to help decrease falls and improve limits of stability LTG Duration 04/04/24 Two Impairment Pt presents with high falls risk, per Robin (34/56) and DGI (04/21) Impairment . Halfway Goal (LTG) Pt to increase DGI score by at least five points to in order to demonstrate improvement with overall falls risk LTG Duration 04/04/24 Assessment Summary Assessment Fatigued quickly today, but recovering faster with short rest breaks. Continues to struggle with stabilization/ balance. Focus on strengthening, balance challenges, and activity tolerance. Is showing some mild improvements with ankle strength, inversion MMT 3/5 today, and eversion tested at 2+/5 today bilaterally Physical Therapy Plan Frequency and Duration Frequency of Treatment 2x/Week Plan of Care Start Date 01/05/24 Plan of Care End Date 04/04/24 Therapeutic Interventions Therapeutic Interventions Balance Training,Coordination Training,Gait Training,Home Exercise Program,Joint Mobilizations,Manual Therapy, Neuromuscular Re-education, Patient/Caregiver Education, Self-Care/Home Management,Soft Tissue Mobilization, Therapeutic Activities, Therapeutic Exercises, Vestibular Rehabilitation Next Visit Focus/Plan Next Note Type Treatment Note Next Visit Plan Review HEP as needed: paloff press, STS, resisted seated clamshell. POC: Retro wall falls, LE strengthening, static/dynamic balance challenges, coordination training
--- NOTE | 2024-02-16 12:00 | PT.OTN ---
Current Diagnoses Muscle weakness (generalized) (02/16/24) Unsteadiness on feet (02/16/24) Other abnormalities of gait and mobility (02/16/24) Repeated falls (02/16/24) Physical Therapy Treatment Note PT-OP-A Visit Information Start: 01/05/24 15:59 Freq: Status: Active Protocol: Document 02/16/24 11:15 DCW (Rec: 02/16/24 12:00 DCW [id number]) Out-Patient Physical Therapy Visit Information Visit Information Visit Type Treatment Note Visit Start Time 11:15 Visit Stop Time 12:00 Visit Number 11 Number of RELIEF WORKER Visits 0 Evaluation Information Evaluation Date 01/05/24 PT-OP-B Current Condition Start: 01/05/24 15:59 Freq: Status: Active Protocol: Document 01/05/24 11:15 DCW (Rec: 01/05/24 16:36 DCW [id number]) Current Condition History of Current Condition Onset Date Long-standing history Current Complaints Repeated falls, weakness, imbalance History of Current Condition Pt is a 68 year old female presenting with a long- standing, highly-complex medical history. Pt's current complaints involve repeated falls, which is not a new thing for her, however pt reports her falls have been more frequent and more severe over the past four months. Falls have recently been right backwards, or to the left ( due to repeated rolling of left ankle). Pt reports her feet often get tangled together, she can't tell where they're going to land on the floor, but denies any numbness. Does ambulate at all times with a SPC. Personal Factors Other Personal Factors That May Effect Highly-complex medical history Therapy/Recovery - Pham-Danlos Syndrome, Fibromyositis, Brain aneurysm, CHF, Concussion, Non-STEMI, Pneumonia, bilateral TSA, R ankle fusion, PTSD, Lumbar disc rupture, among many others PT-OP-C Subjective Start: 01/05/24 15:59 Freq: Status: Active Protocol: Document 02/16/24 11:15 DCW (Rec: 02/16/24 12:00 DCW [id number]) OP-PT Subjective Patient Comments Patient Comments Pt notes a little low back pain today. Pt does note she gets out of bed more easily and with more energy since starting PT. PT-OP-D Balance Start: 01/05/24 15:59 Freq: Status: Active Protocol: Document 01/05/24 11:15 DCW (Rec: 01/05/24 16:36 DCW [id number]) Balance Tests Robin Balance Test Robin Balance Test Score 34/56 Robin Balance Assessment Evaluation Sitting to Standing Ability Independent w/out Hands Unsupported Stance Unable w/out Assistance Sitting Unsupported, Feet on Floor Safely- 2 minutes Standing to Sitting Ability Assist, Control w/Hands Transfer Ability Supervision, Verbal Cues Unsupported Stance- Eyes Closed Supervision, 10 seconds Unsupported Stance- Eyes Open Independent, <30 seconds Reaching Forward Standing Safely, 5 inches Pick- Up Object From Floor Supervision Look Behind Shoulder - Standing Shifts Weight Well Turning 360 Degrees Supervision/Verbal Cues Unsupported Stance, Alternating Feet on 2 Steps w/Minimum Assist Stair Unsupported Tandem Stance Holds Tandem- 30 seconds Unilateral Leg Stance Lifts Leg/Unable to Hold Total Score Robin Total Score (out of 56 points) 34 Robin Impairment Rating 20 to 39% Impaired (Score 34- 44) PT-OP-E Functional Tests Start: 01/05/24 15:59 Freq: Status: Active Protocol: Document 01/05/24 11:15 DCW (Rec: 01/05/24 16:36 [facility] [id number]) Functional Tests Dynamic Gait Index (DGI) Score 10 DGI Impairment Rating 40 to <60% Impaired (Score 10- 14) Timed Up and Go (TUG) Score 12.18 /c SPC Comments Three-trial average (13.47, 11 .79, 11.27) PT-OP-M Strength Start: 01/05/24 15:59 Freq: Status: Active Protocol: Document 01/05/24 11:15 DCW (Rec: 01/05/24 16:36 [facility] [id number]) Hip Strength Hip Manual Muscle Testing Right Flexion (L2) 3+ Fair+ Abduction 4 Good Adduction 3+ Fair+ External Rotation 3 Fair Internal Rotation 4 Good Left Flexion (L2) 4 Good Abduction 4 Good Adduction 4 Good External Rotation 4 Good Internal Rotation 4 Good Knee Strength Knee Manual Muscle Testing Right Flexion (S2) 4+ Good+ Extension (L3) 4+ Good+ Left Flexion (S2) 4+ Good+ Extension (L3) 4+ Good+ Ankle/Foot Strength Ankle and Foot Manual Muscle Testing Right Dorsiflexion (L4) 3 Fair Plantarflexion (S1) 2+ Poor+ Inversion 2 Poor Eversion (S1) 2 Poor Left Dorsiflexion (L4) 4- Good- Plantarflexion (S1) 2 Poor Inversion 2 Poor Eversion (S1) 2 Poor PT-OP-Q Treatments Start: 01/05/24 15:59 Freq: Status: Active Protocol: Document 02/16/24 11:15 DCW (Rec: 02/16/24 12:00 DCW [id number]) Gym Equipment Shuttle Recovery Bilateral Heel Raises Resistance 37# Reps/Time 1x15 Unilateral Squats Resistance 25# Shuttle Recovery Platform Stable Reps/Time 1x15 Bilateral Squats Resistance 50# (navy) Shuttle Recovery Platform Stable Reps/Time 2x20 Shuttle Balance Red Details WBOS, Staggered Comments CGA to minimal assist, head turns added to WBOS Sport Cord Blue Exercise Details 4-way resisted ambulation Cord/Resistance Blue/White Therapeutic Exercises Standing Exercises Calf stretches Standing Exercise Name Soleus and gastroc Equipment Used LAURA Reps/Minutes 60 sec X2 Neuro Re-Education Treatment Balance Activities SLS Details SLS BWD Walk Details Retro ambulation Tandem Details Tandem Stance Foam Details NBOS - EO/EC, Head turns Surface AirEx PT-OP-T Assessment and Plan Start: 01/05/24 15:59 Freq: Status: Active Protocol: Document 02/16/24 11:15 DCW (Rec: 02/16/24 12:00 DCW [id number]) Physical Therapy Assessment Impairments Impairments Activity Tolerance,Balance, Functional Activities, Functional Mobility,Gait, Strength,Transfers Goals One Impairment Pt does not have an appropriate home exercise program Short Term Goal (STG) Pt to be independent and compliant with an appropriate HEP STG Duration 02/05/24 Three Impairment Severe bilateral ankle weakness (2/5 in nearly all planes) Impairment . Fur Cutter Goal (LTG) Pt to improve bilateral ankle MMT to >3-/5 in order to improve ankle strategies to help decrease falls and improve limits of stability LTG Duration 04/04/24 Two Impairment Pt presents with high falls risk, per Robin (34/56) and DGI (04/21) Impairment . Chcf Goal (LTG) Pt to increase DGI score by at least five points to in order to demonstrate improvement with overall falls risk LTG Duration 04/04/24 Assessment Summary Assessment Pt slightly fatigued today, but continues to do much better with activity tolerance overall. Continues to focus on strength and balance. Physical Therapy Plan Frequency and Duration Frequency of Treatment 2x/Week Plan of Care Start Date 01/05/24 Plan of Care End Date 04/04/24 Therapeutic Interventions Therapeutic Interventions Balance Training,Coordination Training,Gait Training,Home Exercise Program,Joint Mobilizations,Manual Therapy, Neuromuscular Re-education, Patient/Caregiver Education, Self-Care/Home Management,Soft Tissue Mobilization, Therapeutic Activities, Therapeutic Exercises, Vestibular Rehabilitation Next Visit Focus/Plan Next Note Type Treatment Note Next Visit Plan Review HEP as needed: paloff press, STS, resisted seated clamshell. POC: Retro wall falls, LE strengthening, static/dynamic balance challenges, coordination training
--- NOTE | 2024-02-19 12:14 | PT.OTN ---
Current Diagnoses Muscle weakness (generalized) (02/19/24) Unsteadiness on feet (02/19/24) Other abnormalities of gait and mobility (02/19/24) Repeated falls (02/19/24) Physical Therapy Treatment Note PT-OP-A Visit Information Start: 01/05/24 15:59 Freq: Status: Active Protocol: Document 02/19/24 09:43 AB (Rec: 02/19/24 12:14 AB [id number]) Out-Patient Physical Therapy Visit Information Visit Information Visit Type Treatment Note Visit Note [email or web address] Access Code: [email or web address] Visit Start Time 11:22 Visit Stop Time 12:05 Visit Number 12 Number of LOGGING RAFTER LABORER Visits 1 Evaluation Information Evaluation Date 01/05/24 PT-OP-B Current Condition Start: 01/05/24 15:59 Freq: Status: Active Protocol: Document 01/05/24 11:15 DCW (Rec: 01/05/24 16:36 DCW [id number]) Current Condition History of Current Condition Onset Date Long-standing history Current Complaints Repeated falls, weakness, imbalance History of Current Condition Pt is a 68 year old female presenting with a long- standing, highly-complex medical history. Pt's current complaints involve repeated falls, which is not a new thing for her, however pt reports her falls have been more frequent and more severe over the past four months. Falls have recently been right backwards, or to the left ( due to repeated rolling of left ankle). Pt reports her feet often get tangled together, she can't tell where they're going to land on the floor, but denies any numbness. Does ambulate at all times with a SPC. Personal Factors Other Personal Factors That May Effect Highly-complex medical history Therapy/Recovery - Pham-Danlos Syndrome, Fibromyositis, Brain aneurysm, CHF, Concussion, Non-STEMI, Pneumonia, bilateral TSA, R ankle fusion, PTSD, Lumbar disc rupture, among many others PT-OP-C Subjective Start: 01/05/24 15:59 Freq: Status: Active Protocol: Document 02/19/24 09:43 AB (Rec: 02/19/24 12:14 AB [id number]) OP-PT Subjective Patient Comments Patient Comments Patient reports she is getting better, less wobbly. Patient reports having no falls since previous session. Patient reports her back pain is her normal pain. 4 sec left LE 3 sec right LE single leg stance without UE use start of session. PT-OP-D Balance Start: 01/05/24 15:59 Freq: Status: Active Protocol: Document 01/05/24 11:15 DCW (Rec: 01/05/24 16:36 DCW [id number]) Balance Tests Robin Balance Test Robin Balance Test Score 34/56 Robin Balance Assessment Evaluation Sitting to Standing Ability Independent w/out Hands Unsupported Stance Unable w/out Assistance Sitting Unsupported, Feet on Floor Safely- 2 minutes Standing to Sitting Ability Assist, Control w/Hands Transfer Ability Supervision, Verbal Cues Unsupported Stance- Eyes Closed Supervision, 10 seconds Unsupported Stance- Eyes Open Independent, <30 seconds Reaching Forward Standing Safely, 5 inches Pick- Up Object From Floor Supervision Look Behind Shoulder - Standing Shifts Weight Well Turning 360 Degrees Supervision/Verbal Cues Unsupported Stance, Alternating Feet on 2 Steps w/Minimum Assist Stair Unsupported Tandem Stance Holds Tandem- 30 seconds Unilateral Leg Stance Lifts Leg/Unable to Hold Total Score Robin Total Score (out of 56 points) 34 Robin Impairment Rating 20 to 39% Impaired (Score 34- 44) PT-OP-E Functional Tests Start: 01/05/24 15:59 Freq: Status: Active Protocol: Document 01/05/24 11:15 DCW (Rec: 01/05/24 16:36 DC [id number]) Functional Tests Dynamic Gait Index (DGI) Score 10/24 DGI Impairment Rating 40 to <60% Impaired (Score 10- 14) Timed Up and Go (TUG) Score 12.18 /c SPC Comments Three-trial average (13.47, 11 .79, 11.27) PT-OP-M Strength Start: 01/05/24 15:59 Freq: Status: Active Protocol: Document 01/05/24 11:15 DCW (Rec: 01/05/24 16:36 DCW [id number]) Hip Strength Hip Manual Muscle Testing Right Flexion (L2) 3+ Fair+ Abduction 4 Good Adduction 3+ Fair+ External Rotation 3 Fair Internal Rotation 4 Good Left Flexion (L2) 4 Good Abduction 4 Good Adduction 4 Good External Rotation 4 Good Internal Rotation 4 Good Knee Strength Knee Manual Muscle Testing Right Flexion (S2) 4+ Good+ Extension (L3) 4+ Good+ Left Flexion (S2) 4+ Good+ Extension (L3) 4+ Good+ Ankle/Foot Strength Ankle and Foot Manual Muscle Testing Right Dorsiflexion (L4) 3 Fair Plantarflexion (S1) 2+ Poor+ Inversion 2 Poor Eversion (S1) 2 Poor Left Dorsiflexion (L4) 4- Good- Plantarflexion (S1) 2 Poor Inversion 2 Poor Eversion (S1) 2 Poor PT-OP-Q Treatments Start: 01/05/24 15:59 Freq: Status: Active Protocol: Document 02/19/24 09:43 AB (Rec: 02/19/24 12:14 AB [id number]) Gym Equipment Shuttle Balance Red Details normal KATEY Comments CGA head turns and visual scanning Therapeutic Exercises Sitting Exercises Seated resisted trunk extension Sitting Exercise Name holding blue band Resistance level 4 blue band Reps/Minutes X10 sit to stand Sitting Exercise Name fatigue noted 8,9,10 rep as seen by decreased velocity, increased effort Side bilateral Resistance levle 4 blue band Reps/Minutes X10 without UE use Comments Verbal cues to keep tension on band, knees past 90 deg, monitored for pain seated clamshell Sitting Exercise Name on HEP Resistance Tb #4 above knees Reps/Minutes 15X 2 without hold and one60 sec hold Standing Exercises Sidesteps Resistance LVL 4 Reps/Minutes 10 feet X 2 left and right Comments verbal cues to avoid toeing out bilateral heel raise Side bilateral Reps/Minutes X15 Comments Verbal cues to lower heels slowly for carryover to cont fwd momentum Calf stretches Standing Exercise Name Soleus and gastroc Equipment Used LAURA Reps/Minutes 60 sec X2 Pallof Press Standing Exercise Name Pallof Press Side bilateral Resistance peach level one band Reps/Minutes X15 each side Comments CGA of note patient previously had LOB with MAX A using green band* Extension Standing Exercise Name Hip Extension Side bilateral Resistance level 4 band Reps/Minutes X10 Comments with UE support Neuro Re-Education Treatment Balance Activities marching Details CGA hands above bars Equipment large blue cushion Reps/Duration X10 step up taps Details CGA hands above bars Equipment 4 inch step Reps/Duration X10 tandem walking Details CGA hands above bars Reps/Duration 10 feet X 6 Tandem Details stepping Equipment // bars hands above to use as needed Reps/Duration 10 feet X 6 Comments CGA Retro Wall Fall Details Retro wall fall Reps/Duration X10 Comments pillow behind back, very small step fwd, increased effort to perform task, multiple trials to achieve upright on many repetitions Hurdles Details Hurdles, hands above bars Reps/Duration 10 feet X 6 Comments Forward, Side-stepping PT-OP-T Assessment and Plan Start: 01/05/24 15:59 Freq: Status: Active Protocol: Document 02/19/24 09:43 AB (Rec: 02/19/24 12:14 AB [id number]) Physical Therapy Assessment Goals One Impairment Pt does not have an appropriate home exercise program Short Term Goal (STG) Pt to be independent and compliant with an appropriate HEP STG Duration 02/05/24 Three Impairment Severe bilateral ankle weakness (2/5 in nearly all planes) Impairment . Shelter Goal (LTG) Pt to improve bilateral ankle MMT to >3-/5 in order to improve ankle strategies to help decrease falls and improve limits of stability LTG Duration 04/04/24 Two Impairment Pt presents with high falls risk, per Robin (34/56) and DGI (04/21) Impairment . Early Childhood Education Specialist Goal (LTG) Pt to increase DGI score by at least five points to in order to demonstrate improvement with overall falls risk LTG Duration 04/04/24 Assessment Summary Assessment Progressed to level 4 theraband for seated hip abduction with band. Good tolerance to activities this session. Physical Therapy Plan Frequency and Duration Frequency of Treatment 2x/Week Plan of Care Start Date 01/05/24 Plan of Care End Date 04/04/24 Next Visit Focus/Plan Next Note Type Treatment Note Next Visit Plan Review HEP as needed: paloff press, STS, resisted seated clamshell. POC: Retro wall falls, LE strengthening, static/dynamic balance challenges, coordination training
--- NOTE | 2024-02-26 14:47 | PT.OTN ---
Current Diagnoses Muscle weakness (generalized) (02/26/24) Unsteadiness on feet (02/26/24) Other abnormalities of gait and mobility (02/26/24) Repeated falls (02/26/24) Physical Therapy Treatment Note PT-OP-A Visit Information Start: 01/05/24 15:59 Freq: Status: Active Protocol: Document 02/26/24 08:47 AB (Rec: 02/26/24 09:47 AB [id number]) Out-Patient Physical Therapy Visit Information Visit Information Visit Type Treatment Note Visit Note [email or web address] Access Code: [email or web address] Visit Start Time 09:02 Visit Stop Time 09:45 Visit Number 13 Number of WAREHOUSE INVENTORY CLERK Visits 2 Evaluation Information Evaluation Date 01/05/24 PT-OP-B Current Condition Start: 01/05/24 15:59 Freq: Status: Active Protocol: Document 01/05/24 11:15 DCW (Rec: 01/05/24 16:36 DCW [id number]) Current Condition History of Current Condition Onset Date Long-standing history Current Complaints Repeated falls, weakness, imbalance History of Current Condition Pt is a 68 year old female presenting with a long- standing, highly-complex medical history. Pt's current complaints involve repeated falls, which is not a new thing for her, however pt reports her falls have been more frequent and more severe over the past four months. Falls have recently been right backwards, or to the left ( due to repeated rolling of left ankle). Pt reports her feet often get tangled together, she can't tell where they're going to land on the floor, but denies any numbness. Does ambulate at all times with a SPC. Personal Factors Other Personal Factors That May Effect Highly-complex medical history Therapy/Recovery - Pham-Danlos Syndrome, Fibromyositis, Brain aneurysm, CHF, Concussion, Non-STEMI, Pneumonia, bilateral TSA, R ankle fusion, PTSD, Lumbar disc rupture, among many others PT-OP-C Subjective Start: 01/05/24 15:59 Freq: Status: Active Protocol: Document 02/26/24 08:47 AB (Rec: 02/26/24 09:47 AB [id number]) OP-PT Subjective Patient Comments Patient Comments Patient reports she has had no falls since previous session. SLS without UE use 3 right 2/ 10 left with increased knee flexion, with increased knee flexion on trials. PT-OP-D Balance Start: 01/05/24 15:59 Freq: Status: Active Protocol: Document 01/05/24 11:15 DCW (Rec: 01/05/24 16:36 DCW [id number]) Balance Tests Robin Balance Test Robin Balance Test Score 34/56 Robin Balance Assessment Evaluation Sitting to Standing Ability Independent w/out Hands Unsupported Stance Unable w/out Assistance Sitting Unsupported, Feet on Floor Safely- 2 minutes Standing to Sitting Ability Assist, Control w/Hands Transfer Ability Supervision, Verbal Cues Unsupported Stance- Eyes Closed Supervision, 10 seconds Unsupported Stance- Eyes Open Independent, <30 seconds Reaching Forward Standing Safely, 5 inches Pick- Up Object From Floor Supervision Look Behind Shoulder - Standing Shifts Weight Well Turning 360 Degrees Supervision/Verbal Cues Unsupported Stance, Alternating Feet on 2 Steps w/Minimum Assist Stair Unsupported Tandem Stance Holds Tandem- 30 seconds Unilateral Leg Stance Lifts Leg/Unable to Hold Total Score Robin Total Score (out of 56 points) 34 Robin Impairment Rating 20 to 39% Impaired (Score 34- 44) PT-OP-E Functional Tests Start: 01/05/24 15:59 Freq: Status: Active Protocol: Document 01/05/24 11:15 DCW (Rec: 01/05/24 16:36 DC [id number]) Functional Tests Dynamic Gait Index (DGI) Score 1024 DGI Impairment Rating 40 to <60% Impaired (Score 10- 14) Timed Up and Go (TUG) Score 12.18 /c SPC Comments Three-trial average (13.47, 11 .79, 11.27) PT-OP-M Strength Start: 01/05/24 15:59 Freq: Status: Active Protocol: Document 01/05/24 11:15 DCW (Rec: 01/05/24 16:36 DCW [id number]) Hip Strength Hip Manual Muscle Testing Right Flexion (L2) 3+ Fair+ Abduction 4 Good Adduction 3+ Fair+ External Rotation 3 Fair Internal Rotation 4 Good Left Flexion (L2) 4 Good Abduction 4 Good Adduction 4 Good External Rotation 4 Good Internal Rotation 4 Good Knee Strength Knee Manual Muscle Testing Right Flexion (S2) 4+ Good+ Extension (L3) 4+ Good+ Left Flexion (S2) 4+ Good+ Extension (L3) 4+ Good+ Ankle/Foot Strength Ankle and Foot Manual Muscle Testing Right Dorsiflexion (L4) 3 Fair Plantarflexion (S1) 2+ Poor+ Inversion 2 Poor Eversion (S1) 2 Poor Left Dorsiflexion (L4) 4- Good- Plantarflexion (S1) 2 Poor Inversion 2 Poor Eversion (S1) 2 Poor PT-OP-Q Treatments Start: 01/05/24 15:59 Freq: Status: Active Protocol: Document 02/26/24 08:47 AB (Rec: 02/26/24 09:47 AB [id number]) Gym Equipment Shuttle Recovery Unilateral Squats Details X4 @25# then 15X 2 at 50# teal and blue Shuttle Recovery Platform Stable Reps/Time 1x8 Bilateral Squats Resistance 50# (navy) Shuttle Recovery Platform Stable Reps/Time 2x20 Shuttle Balance Red Details normal KATEY, stagger Comments CGA head turns and visual scanning for normal KATEY only Sport Cord Blue Exercise Details 4-way resisted ambulation Cord/Resistance Blue Comments CGA Therapeutic Exercises Sitting Exercises sit to stand Sitting Exercise Name X10 without band focus on mechanics of sit to stand HEP Side bilateral Resistance levle 4 blue band Reps/Minutes X10 X2 without UE use Comments Verbal cues to keep tension on band, knees past 90 deg, monitored for pain seated clamshell Sitting Exercise Name on HEP Resistance Tb #4 above knees Reps/Minutes 15X 2 without hold and one60 sec hold Standing Exercises bilateral heel raise Standing Exercise Name HEP Side bilateral Reps/Minutes X15 Comments Verbal cues to lower heels slowly for carryover to cont fwd momentum Neuro Re-Education Treatment Balance Activities tandem walking Details CGA hands above bars Reps/Duration 10 feet X 4 fwd X 1 side stepping Tandem Details stepping Equipment // bars hands above to use as needed Reps/Duration 10 feet X 4 Comments CGA PT-OP-T Assessment and Plan Start: 01/05/24 15:59 Freq: Status: Active Protocol: Document 02/26/24 08:47 AB (Rec: 02/26/24 09:47 AB [id number]) Physical Therapy Assessment Goals One Impairment Pt does not have an appropriate home exercise program Short Term Goal (STG) Pt to be independent and compliant with an appropriate HEP STG Duration 02/05/24 Three Impairment Severe bilateral ankle weakness (2/5 in nearly all planes) Impairment . [facility] Goal (LTG) Pt to improve bilateral ankle MMT to >3-/5 in order to improve ankle strategies to help decrease falls and improve limits of stability LTG Duration 04/04/24 Two Impairment Pt presents with high falls risk, per Robin (34/56) and DGI (04/21) Impairment . [facility] Goal (LTG) Pt to increase DGI score by at least five points to 15/24 in order to demonstrate improvement with overall falls risk LTG Duration 04/04/24 Assessment Summary Assessment Patient reports right knee ache with single leg leg press , pain with left knee with single leg press. Able to perform bilateral HR with reports of no increased pain. Physical Therapy Plan Frequency and Duration Frequency of Treatment 2x/Week Plan of Care Start Date 01/05/24 Plan of Care End Date 04/04/24 Next Visit Focus/Plan Next Note Type Treatment Note Next Visit Plan Review HEP as needed: paloff press, STS, resisted seated clamshell. POC: Retro wall falls, LE strengthening, static/dynamic balance challenges, coordination training
--- NOTE | 2024-03-11 12:12 | PT.OTN ---
Current Diagnoses Muscle weakness (generalized) (03/11/24) Unsteadiness on feet (03/11/24) Other abnormalities of gait and mobility (03/11/24) Repeated falls (03/11/24) Physical Therapy Treatment Note PT-OP-A Visit Information Start: 01/05/24 15:59 Freq: Status: Active Protocol: Document 03/11/24 11:16 AB (Rec: 03/11/24 12:10 AB [id number]) Out-Patient Physical Therapy Visit Information Visit Information Visit Type Treatment Note Visit Note [email or web address] Access Code: [email or web address] Visit Start Time 11:20 Visit Stop Time 12:06 Visit Number 14 Number of IRON CARRIER Visits 3 Evaluation Information Evaluation Date 01/05/24 PT-OP-B Current Condition Start: 01/05/24 15:59 Freq: Status: Active Protocol: Document 01/05/24 11:15 DCW (Rec: 01/05/24 16:36 DCW [id number]) Current Condition History of Current Condition Onset Date Long-standing history Current Complaints Repeated falls, weakness, imbalance History of Current Condition Pt is a 68 year old female presenting with a long- standing, highly-complex medical history. Pt's current complaints involve repeated falls, which is not a new thing for her, however pt reports her falls have been more frequent and more severe over the past four months. Falls have recently been right backwards, or to the left ( due to repeated rolling of left ankle). Pt reports her feet often get tangled together, she can't tell where they're going to land on the floor, but denies any numbness. Does ambulate at all times with a SPC. Personal Factors Other Personal Factors That May Effect Highly-complex medical history Therapy/Recovery - Pham-Danlos Syndrome, Fibromyositis, Brain aneurysm, CHF, Concussion, Non-STEMI, Pneumonia, bilateral TSA, R ankle fusion, PTSD, Lumbar disc rupture, among many others PT-OP-C Subjective Start: 01/05/24 15:59 Freq: Status: Active Protocol: Document 03/11/24 11:16 AB (Rec: 03/11/24 12:10 AB [id number]) OP-PT Subjective Patient Comments Patient Comments Patient comments it has been a long time since her last appointment, isn't sure how she is doing, reports she is doing her her exercises.2 sec left and right SLS without UE use PT-OP-D Balance Start: 01/05/24 15:59 Freq: Status: Active Protocol: Document 01/05/24 11:15 DCW (Rec: 01/05/24 16:36 DCW [id number]) Balance Tests Robin Balance Test Robin Balance Test Score 34/56 Robin Balance Assessment Evaluation Sitting to Standing Ability Independent w/out Hands Unsupported Stance Unable w/out Assistance Sitting Unsupported, Feet on Floor Safely- 2 minutes Standing to Sitting Ability Assist, Control w/Hands Transfer Ability Supervision, Verbal Cues Unsupported Stance- Eyes Closed Supervision, 10 seconds Unsupported Stance- Eyes Open Independent, <30 seconds Reaching Forward Standing Safely, 5 inches Pick- Up Object From Floor Supervision Look Behind Shoulder - Standing Shifts Weight Well Turning 360 Degrees Supervision/Verbal Cues Unsupported Stance, Alternating Feet on 2 Steps w/Minimum Assist Stair Unsupported Tandem Stance Holds Tandem- 30 seconds Unilateral Leg Stance Lifts Leg/Unable to Hold Total Score Robin Total Score (out of 56 points) 34 Robin Impairment Rating 20 to 39% Impaired (Score 34- 44) PT-OP-E Functional Tests Start: 01/05/24 15:59 Freq: Status: Active Protocol: Document 01/05/24 11:15 DCW (Rec: 01/05/24 16:36 DC [id number]) Functional Tests Dynamic Gait Index (DGI) Score 10 DGI Impairment Rating 40 to <60% Impaired (Score 10- 14) Timed Up and Go (TUG) Score 12.18 /c SPC Comments Three-trial average (13.47, 11 .79, 11.27) PT-OP-M Strength Start: 01/05/24 15:59 Freq: Status: Active Protocol: Document 01/05/24 11:15 DCW (Rec: 01/05/24 16:36 [facility] [id number]) Hip Strength Hip Manual Muscle Testing Right Flexion (L2) 3+ Fair+ Abduction 4 Good Adduction 3+ Fair+ External Rotation 3 Fair Internal Rotation 4 Good Left Flexion (L2) 4 Good Abduction 4 Good Adduction 4 Good External Rotation 4 Good Internal Rotation 4 Good Knee Strength Knee Manual Muscle Testing Right Flexion (S2) 4+ Good+ Extension (L3) 4+ Good+ Left Flexion (S2) 4+ Good+ Extension (L3) 4+ Good+ Ankle/Foot Strength Ankle and Foot Manual Muscle Testing Right Dorsiflexion (L4) 3 Fair Plantarflexion (S1) 2+ Poor+ Inversion 2 Poor Eversion (S1) 2 Poor Left Dorsiflexion (L4) 4- Good- Plantarflexion (S1) 2 Poor Inversion 2 Poor Eversion (S1) 2 Poor PT-OP-Q Treatments Start: 01/05/24 15:59 Freq: Status: Active Protocol: Document 03/11/24 11:16 AB (Rec: 03/11/24 12:10 AB [id number]) Gym Equipment Shuttle Recovery Bilateral Squats Resistance 50# ([employer]) Shuttle Recovery Platform Stable Reps/Time 2 X20 Sport Cord Blue Exercise Details 4-way resisted ambulation Cord/Resistance Blue Reps/Duration fwd, retro, lat, Comments CGA Therapeutic Exercises Sitting Exercises sit to stand Sitting Exercise Name HEP Side bilateral Resistance levle 4 blue band Reps/Minutes X10 X2 without UE use Comments Verbal cues to keep tension on band, knees past 90 deg, monitored for pain seated clamshell Sitting Exercise Name on HEP Resistance Tb #4 above knees Reps/Minutes 15X 2 without hold and one60 sec hold Standing Exercises bilateral heel raise Standing Exercise Name HEP Side bilateral Reps/Minutes X15 Comments Verbal cues to lower heels slowly for carryover to cont fwd momentum Calf stretches Standing Exercise Name Soleus and gastroc Equipment Used LAURA Reps/Minutes 60 sec X2 Neuro Re-Education Treatment Balance Activities step up taps Details CGA hands above bars Equipment 6 inch step standin on air ex Reps/Duration X10 Retro Wall Fall Details Retro wall fall, close supervision Reps/Duration X10 Comments pillow behind back, very Hurdles Details Hurdles, hands above bars CGA Reps/Duration 10 feet X 6 Comments Forward, PT-OP-T Assessment and Plan Start: 01/05/24 15:59 Freq: Status: Active Protocol: Document 03/11/24 11:16 AB (Rec: 03/11/24 12:10 AB [id number]) Physical Therapy Assessment Goals One Impairment Pt does not have an appropriate home exercise program Short Term Goal (STG) Pt to be independent and compliant with an appropriate HEP STG Duration 02/05/24 Three Impairment Severe bilateral ankle weakness (2/5 in nearly all planes) Impairment . Cylinder Handler Goal (LTG) Pt to improve bilateral ankle MMT to >3-/5 in order to improve ankle strategies to help decrease falls and improve limits of stability LTG Duration 04/04/24 Two Impairment Pt presents with high falls risk, per Robin (34/56) and DGI (04/21) Impairment . Cylinder Handler Goal (LTG) Pt to increase DGI score by at least five points to 15 in order to demonstrate improvement with overall falls risk LTG Duration 04/04/24 Assessment Summary Assessment 4 sec right LE 7 sec left LE SLS without UE use end of session. Patient unteady with sit to stand with level 5 band so not progressed to level 5 band at this time. Physical Therapy Plan Frequency and Duration Frequency of Treatment 2x/Week Plan of Care Start Date 01/05/24 Plan of Care End Date 04/04/24 Next Visit Focus/Plan Next Note Type Progress Note Next Visit Plan Review HEP as needed: paloff press, STS, resisted seated clamshell. POC: Retro wall falls, LE strengthening, static/dynamic balance challenges, coordination training
--- NOTE | 2024-03-24 14:29 | PT.OTN ---
Current Diagnoses Muscle weakness (generalized) (03/24/24) Unsteadiness on feet (03/24/24) Other abnormalities of gait and mobility (03/24/24) Repeated falls (03/24/24) Physical Therapy Treatment Note PT-OP-A Visit Information Start: 01/05/24 15:59 Freq: Status: Active Protocol: Document 03/24/24 13:45 DCW (Rec: 03/24/24 14:29 DCW [id number]) Out-Patient Physical Therapy Visit Information Visit Information Visit Type Discharge Summary Visit Start Time 13:45 Visit Stop Time 14:20 Visit Number 15 Number of BAR WAITER/WAITRESS Visits 0 Evaluation Information Evaluation Date 01/05/24 PT-OP-B Current Condition Start: 01/05/24 15:59 Freq: Status: Active Protocol: Document 01/05/24 11:15 DCW (Rec: 01/05/24 16:36 DCW [id number]) Current Condition History of Current Condition Onset Date Long-standing history Current Complaints Repeated falls, weakness, imbalance History of Current Condition Pt is a 68 year old female presenting with a long- standing, highly-complex medical history. Pt's current complaints involve repeated falls, which is not a new thing for her, however pt reports her falls have been more frequent and more severe over the past four months. Falls have recently been right backwards, or to the left ( due to repeated rolling of left ankle). Pt reports her feet often get tangled together, she can't tell where they're going to land on the floor, but denies any numbness. Does ambulate at all times with a SPC. Personal Factors Other Personal Factors That May Effect Highly-complex medical history Therapy/Recovery - Pham-Danlos Syndrome, Fibromyositis, Brain aneurysm, CHF, Concussion, Non-STEMI, Pneumonia, bilateral TSA, R ankle fusion, PTSD, Lumbar disc rupture, among many others PT-OP-C Subjective Start: 01/05/24 15:59 Freq: Status: Active Protocol: Document 03/24/24 13:45 DCW (Rec: 03/24/24 14:29 DCW [id number]) OP-PT Subjective Patient Comments Patient Comments Pt feeling very good about current level of function, has bee working hard with HEP Patient Reported Progress Improving PT-OP-D Balance Start: 01/05/24 15:59 Freq: Status: Active Protocol: Document 03/24/24 13:45 DCW (Rec: 03/24/24 14:25 DCW [id number]) Balance Tests Robin Balance Test Robin Balance Test Score 48/56 Robin Balance Assessment Evaluation Sitting to Standing Ability Independent w/out Hands Unsupported Stance Safely- 2 minutes Sitting Unsupported, Feet on Floor Safely- 2 minutes Standing to Sitting Ability Safely, Minimal Hand Use Transfer Ability Safely, Minimal Hand Use Unsupported Stance- Eyes Closed Safely, 10 seconds Unsupported Stance- Eyes Open Independent, 1 minute Reaching Forward Standing Confidently, 10 inches Pick- Up Object From Floor Independent/Safe Look Behind Shoulder - Standing Shifts Weight Well Turning 360 Degrees Turns Bilateral, < 4 secs Unsupported Stance, Alternating Feet on 2 Steps w/Minimum Assist Stair Unsupported Tandem Stance Small Step- 30 seconds Unilateral Leg Stance Lifts Leg/Unable to Hold Total Score Robin Total Score (out of 56 points) 48 Robin Impairment Rating 1 to 19% Impaired (Score 45-55 ) PT-OP-E Functional Tests Start: 01/05/24 15:59 Freq: Status: Active Protocol: Document 03/24/24 13:45 DCW (Rec: 03/24/24 14:25 NMW [id number]) Functional Tests Dynamic Gait Index (DGI) Score 16/24 DGI Impairment Rating 20 to <40% Impaired (Score 15- 19) Timed Up and Go (TUG) Score 10.07 /s AD Comments Three-trial average (10.24, 10 .37, 9.61) PT-OP-M Strength Start: 01/05/24 15:59 Freq: Status: Active Protocol: Document 03/24/24 13:45 DCW (Rec: 03/24/24 14:25 DCW [id number]) Ankle/Foot Strength Ankle and Foot Manual Muscle Testing Right Dorsiflexion (L4) 3+ Fair+ Plantarflexion (S1) 3- Fair- Inversion 3- Fair- Eversion (S1) 3- Fair- Left Dorsiflexion (L4) 4 Good Plantarflexion (S1) 3- Fair- Inversion 3- Fair- Eversion (S1) 3- Fair- PT-OP-Q Treatments Start: 01/05/24 15:59 Freq: Status: Active Protocol: Document 03/11/24 11:16 AB (Rec: 03/11/24 12:10 AB [id number]) Gym Equipment Shuttle Recovery Bilateral Squats Resistance 50# ([employer] Shuttle Recovery Platform Stable Reps/Time 2 X20 Sport Cord Blue Exercise Details 4-way resisted ambulation Cord/Resistance Blue Reps/Duration fwd, retro, lat, Comments CGA Therapeutic Exercises Sitting Exercises sit to stand Sitting Exercise Name HEP Side bilateral Resistance levle 4 blue band Reps/Minutes X10 X2 without UE use Comments Verbal cues to keep tension on band, knees past 90 deg, monitored for pain seated clamshell Sitting Exercise Name on HEP Resistance Tb #4 above knees Reps/Minutes 15X 2 without hold and one60 sec hold Standing Exercises bilateral heel raise Standing Exercise Name HEP Side bilateral Reps/Minutes X15 Comments Verbal cues to lower heels slowly for carryover to cont fwd momentum Calf stretches Standing Exercise Name Soleus and gastroc Equipment Used LAURA Reps/Minutes 60 sec X2 Neuro Re-Education Treatment Balance Activities step up taps Details CGA hands above bars Equipment 6 inch step standin on air ex Reps/Duration X10 Retro Wall Fall Details Retro wall fall, close supervision Reps/Duration X10 Comments pillow behind back, very Hurdles Details Hurdles, hands above bars CGA Reps/Duration 10 feet X 6 Comments Forward, PT-OP-T Assessment and Plan Start: 01/05/24 15:59 Freq: Status: Active Protocol: Document 03/24/24 13:45 DCW (Rec: 03/24/24 14:29 DCW [id number]) Physical Therapy Assessment Impairments Impairments Activity Tolerance,Balance, Functional Activities, Functional Mobility,Gait, Strength,Transfers Goals One Impairment Pt does not have an appropriate home exercise program Short Term Goal (STG) Pt to be independent and compliant with an appropriate HEP STG Duration Met Three Impairment Severe bilateral ankle weakness (2/5 in nearly all planes) Impairment . [facility] Goal (LTG) Pt to improve bilateral ankle MMT to >3-/5 in order to improve ankle strategies to help decrease falls and improve limits of stability LTG Duration 04/04/24 nearly met Two Impairment Pt presents with high falls risk, per Robin (34/56) and DGI (04/21) Impairment . [facility] Goal (LTG) Pt to increase DGI score by at least five points to in order to demonstrate improvement with overall falls risk LTG Duration Met Assessment Summary Assessment Pt has met or nearly met all original goals. Doing very well, Robin score has improved from 34/56 to 48/56, and DGI improved from 04/21 to . TUG score currently at 10.07 without use of her SPC. Pt comfortable with independent HEP, agreeable to discharge from skilled therapy at this time. Physical Therapy Plan Frequency and Duration Frequency of Treatment 2x/Week Plan of Care Start Date 01/05/24 Plan of Care End Date 04/04/24 Next Visit Focus/Plan Next Note Type Progress Note Next Visit Plan Review HEP as needed: paloff press, STS, resisted seated clamshell. POC: Retro wall falls, LE strengthening, static/dynamic balance challenges, coordination training
== END 2024-03-28 14:28 | disposition home or self-care (01) ==
LOC: PHYS 13:45
PROVIDERS: Family Provider Physician Assistant; PCP Physician Assistant; Referring Provider Physician Assistant; Visit Provider Physician Assistant
DX: R26.89 Other abnormalities of gait and mobility (principal); R29.6 Repeated falls; R26.81 Unsteadiness on feet; M62.81 Muscle weakness (generalized)
CPT/HCPCS: 97110; 97112; 97163

== ENCOUNTER → 2024-07-30 14:43 | Outpatient (CLI) | payer MEDICARE, OTHER, SELFPAY ==
--- NOTE | 2024-07-30 14:46 | DI.MRI.S_ITS ---
PROCEDURE: MR ANGIO HEAD WO CON INDICATIONS: cerebral aneurysm f/u TECHNIQUE: Noncontrast axial 3-D [id number] MR angiogram, with 3-dimensional maximum intensity projection (MIP) reformats of the internal carotid arteries and posterior circulation then performed. COMPARISON: [facility], CT, CT HEAD/BRAIN WO CON, 09/08/2023, 21:29. [facility], MR, MR ANGIO HEAD WO CON, 06/15/2020, 8:30. [facility], MR, MR ANGIO HEAD WO CON, 05/03/2021, 7:49. [facility], MR, MR ANGIO HEAD WO CON, 05/07/2022, 15:15. [facility], MR, MR ANGIO HEAD WO CON, 07/21/2023, 8:38. FINDINGS: Image quality: Diagnostic, with note made of motion artifact. Anterior circulation: Intracranial internal carotid arteries demonstrate normal size and intraluminal flow signal. The flow within the paired anterior cerebral arteries is normal and symmetric. The flow within the middle cerebral arteries is normal and symmetric. The anterior communicating artery is not well seen. No stenoses, occlusions, or aneurysms. Posterior circulation: At the tip of the basilar artery, there is a broad-based prominence seen, measuring 3 mm. Visualized portions of the vertebral arteries demonstrate normal caliber, and join to form a normal appearing basilar artery. The flow within the posterior cerebral arteries is normal and symmetric. No stenoses or occlusions. 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 Dictated by: Mahendra Gaitan M.D. on 08/01/2024 at 13:02 Approved by: Mahendra Gaitan M.D. on 08/01/2024 at 13:05
== END ==
PROVIDERS: Family Provider Physician Assistant; PCP Physician Assistant; Referring Provider Physician Assistant; Visit Provider Physician Assistant
DX: I72.5 Aneurysm of other precerebral arteries (principal)
CPT/HCPCS: 70544

== ENCOUNTER 2024-11-16 09:45 | Outpatient (RCR) | payer MEDICARE, OTHER, SELFPAY ==
--- NOTE | 2024-10-10 14:02 | OT.OPPOC ---
Physical, Occupational & Speech Therapy At [facility] Leta Block [id number] Visit Care Team Role Provider Type Mallory Last PA-C Family Provider Non-Staff Primary Care Provider Address: [address] [place] [address] [address], [place], [address] Mamadou Hernandez DO Attending Provider Non-Staff Referring Provider Address: [address] [place] [address], [id number] Occupational Therapy Plan of Care OT Outpatient Adult Evaluation Start: 10/10/24 08:08 Freq: Status: Active Protocol: Document 10/10/24 13:30 [email or web address] (Rec: 10/10/24 14:02 [facility] Laptop) General Information - Adult Visit Information Visit Number 1/ Plan of Care Dates 10/10/24 - 11/21/24 Insurance Information Medicare, KX after 19 visits Session Time Visit Start Date 10/10/24 Visit Start Time 08:15 Visit Stop Time 08:58 Setting Treatment Setting Outpatient Care Visit Type Note Type Initial Evaluation Referral Referring Physician Mamadou Hernandez Reason for Referral tenosynovitis R wrist, TFCC injury R, weakness R hand Identification Identification Confirmed Yes Identification Confirmed By name, EMR Patient Questionnaires Quick Dash- Upper Extremity Quick Dash UE Score 84.1 Quick Dash UE Impairment 80 to 99% Impaired (Score 80- 99) Quick Dash- Work and Sports Modules Quick Dash W&S Score 75 Quick Dash Work and Sport Impairment 60 to 79% Impaired (Score 60- 79) Goals Objective Measurements Objective Measurements AROM: R wrist ext 50 (L 70); wrist flex 66; ulnar deviation 20 (L 25) AROM MP ext: 2nd -20, 3rd -10, 4th and 5th 0 (the rest of digit flex/ext is WFL) Kapandji opposition: R 9/10 (p ! 5/10), L 10/10 MMT: R wrist flex and ext 4-/5 , L wrist flex/ext 5/5 Elevator Constructor Supervisor: R 35, 40, 40 (38.3# avg) , L 50, 47, 52 (49.7# avg) Pinch: lateral R 4#, L 12#; pincer R 4#, L 9#; 3 jaw R 6#, L 8.5# 9 hole peg test: R 36 sec, L 26 sec Pt uses the Patient Specific Functional Scale to rate 3 functional tasks that she desires to return to performing with less difficulty. Needle felting 0, Doing the dishes 3, Changing sheets 0 Treatment Treatment HEP: pt issued rubber band exercises and rubber band. Pt demonstrates these exercises with min vc/tc initially, progressing toward less assist with repetitive exercises. Pt performs finger spread ( with thumb) x10, 1st DI isotonic x10, and finger abd x10 Short Term Goals Short Term Goals 1. Pt will be I with initial HEP for improved strength and stability of digits. 2. Pt will report no p! with opposition 3. Pt will button a blouse with mod I using button hook. 4. Pt will increase scale manager strength by 5# for improved object manipulation Gravel Roofer Goals Gravel Roofer Goals 1. Pt will be I with advanced HEP 2. Pt will report p! with activity is no more than 6/10 3. Pt will increase R wrist strength to 4/5 4. Pt will increase R scale manager strength by 10# 5. Pt will perform R 9 hole peg test in 30 seconds or better Assessment/Plan Assessment Patient Response Excellent Rehabilitation Potential Excellent Impairments Identified ADLs,Body Mechanics, Coordination/Dexterity, Flexibility,Functional Activities,Motor Function,Pain ,Weakness,Range of Motion, Meaningful Activities, Stiffness,Eye-Hand Coordination Treatment Assessment Pt reports that she had a fall approximately 4 months ago in her home and landed on her R arm. 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 Pt's Pmhx is also significant for arthritis, HTN, falls, fibromyalgia, headaches, heart attack, neck pain, osteopenia , osteoporosis, SOB, thyroid disorder, and varicose veins. Pt has had multiple orthopedic surgeries including ankles, knee, shoulder. 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 Pt reports she has pain in her R wrist, ulnar side of dorsal palm, and 5th digit 2/10 for light tasks ( donning socks) and 10/10 for heavy tasks (lifting coffee cup, felting crown). Pt reports that she is unable to clean her house right now, her roommate assists currently, pt is unable to garden right now, pt is unable to button shirts and has difficulty tying things. Pt is L hand dominant. OT notes shoulder deformity at R CMC as well as general cupping to her R palm when asked to open her hand as much as she is able. Pt with no noted limits in retroposition. OT is able to move all joints passively to WNL without any tension or restriction. Pt would benefit from target exercises to improve strength, coordination , dexterity, and a return to functional tasks. Pt is interested in learning how to use a button hook to improve her I with BADLs. Skilled OT services are appropriate to address pt deficits and promote return toward PLOF. Reviewed with Patient Goals,Home Exercise Program Plan Length of treatment (weeks) 6 Plan of Care Start Date 10/10/24 Plan of Care End Date 11/21/24 Treatment Frequency Twice a Week Treatment Duration 45 Minutes Therapeutic Contents Active Range of Motion, Adaptive Equipment Education, Client Education,Functional Activities,Home Exercise Program,Joint Protection, Manual Therapy,Education, Neuromuscular Re-Education, Self-Care,Stretching/ Flexibility Activities, Therapeutic Activities, Therapeutic Exercises, Modalities Modalities As Needed Types of Modalities Contrast Bath Additional Types of Modalities PB,MHP Patient Instruction Home Exercise Program,Plan of Care,Questions/Concerns Functional Wrist/Hand Scan Hand Side Sensory Assessment Sensory Profile2 Electronically Signed by: Emmanuelle Omalley OT 10/10/24 0822 If you are in agreement with this Plan of Care, please return a signed and dated copy. I have reviewed this Plan of Care and certify that the skilled therapy services above are required to meet the patient?s needs. Physician Signature Date Printed Name and Credentials Clinical Instructor Signature Printed Name and Credentials
--- NOTE | 2024-10-17 09:27 | OT.OP.TRT ---
Visit Care Team Role Provider Type Mallory Last PA-C Family Provider Non-Staff Primary Care Provider Specialty: Medical Address: [address] [place] [address] [address], [place], [address] Email: Mamadou Hernandez DO Attending Provider Non-Staff Referring Provider Specialty: Orthopedics Address: [address] [place] [address], [place], [address] Email: Occupational Therapy Treatment Note OT Outpatient Treatment Note - Adult Start: 10/10/24 08:08 Freq: Status: Active Protocol: Document 10/17/24 08:15 ABY (Rec: 10/17/24 07:30 ABY [id number]) OT Outpatient Adult Treatment Note Session Time Visit Start Date 10/17/24 Visit Start Time 08:15 Visit Stop Time 09:00 Visit Information Visit Number 08/10 Plan of Care Dates 10/10/24 - 11/21/24 Insurance Information Medicare, KX after 19 visits Setting Treatment Setting Outpatient Care Visit Type Note Type Treatment Note - Subjective Identification Type Name Identification Reconciled With Medical Record Observations Pt reports that she has been performing her HEP multiple times throughout the day. Pt reports that she stays sore for about 10 minutes following . Pt reports no pain at start of tx, 3/10 with tx Chief Complaint(s) Loss of Motion/Stiffness,Pain Effect on Activity,Restricts - Objective Short Term Goals 1. Pt will be I with initial HEP for improved strength and stability of digits. 2. Pt will report no p! with opposition 3. Pt will button a blouse with mod I using button hook. 4. Pt will increase psychologist clinical strength by 5# for improved object manipulation Alf Goals 1. Pt will be I with advanced HEP 2. Pt will report p! with activity is no more than 6/10 3. Pt will increase R wrist strength to 4/5 4. Pt will increase R psychologist clinical strength by 10# 5. Pt will perform R 9 hole peg test in 30 seconds or better - Treatment 2 Descriptor In hand manipulation: porcupine ball in hand translation CW and CCW porcupine ball walking from distal digits to palm 1 Descriptor Proprioception: wiffle ball with marbles CW and CCW x30 sec Exercises 3 Descriptor Steel Erecting Pusher/Pinch/Dexterity: digi flex (yellow) alternating x10 graded clothespins on perpendicular dowels yellow- black (on and off) 2 Descriptor Isometrics: 10 sec holds x5 wrist flex wrist ext wrist UD wrist RD pronation supination 1 Descriptor Rubber band: all digit spread 10x2 2nd-5th spread 10x2 1st DI 10x2 - Assessment Patient Response to Treatment Excellent Rehabilitation Potential Excellent Impairments Identified ADLs,Body Mechanics, Coordination/Dexterity, Flexibility,Functional Activities,Motor Function,Pain ,Weakness,Range of Motion, Meaningful Activities, Stiffness,Eye-Hand Coordination Progress Towards Goals Good Progress Assessment of Overall Progress Improving Assessment of Improvement Pt is pleasant, cooperative, and appears eager to improve in strength and function. Pt reports that she will wear a button up shirt next tx to work on button hook. Pt had some complaints of pain at ulnar side of R wrist during tx up to 09/05. Pt also with c/ o p! in her R shoulder, pt reports she has had several shoulder replacements. As many activities as could be modified were performed in pt' s lap to avoid shoulder p!. Pt tolerated all exercises well, pt needs vcs for HEP, OT will continue to assess pt's I with these. Pt continues to be appropriate for skilled OT services. Cont per established POC. Reviewed with Patient/Caregiver Goals,Home Exercise Program - Plan Therapy Recommendations Continue with Current Program Amount of Therapy Recommended 1-2 Months Frequency of Treatment Twice a Week Length of Session 45 Minutes Therapeutic Contents Active Range of Motion, Adaptive Equipment Education, Client Education,Functional Activities,Home Exercise Program,Joint Protection, Manual Therapy,Education, Neuromuscular Re-Education, Self-Care,Stretching/ Flexibility Activities, Therapeutic Activities, Therapeutic Exercises, Modalities Modalities As Needed Types of Modalities Contrast Bath Additional Types of Modalities PB, DANAP
--- NOTE | 2024-10-31 12:47 | OT.OP.TRT ---
Visit Care Team Role Provider Type Mallory Last PA-C Family Provider Non-Staff Primary Care Provider Specialty: Medical Address: [address] [place] [address] [address], [place], [address] Email: Mamadou Hernandez DO Attending Provider Non-Staff Referring Provider Specialty: Orthopedics Address: [address] [place] [address], [place], [address] Email: Occupational Therapy Treatment Note OT Outpatient Treatment Note - Adult Start: 10/10/24 08:08 Freq: Status: Active Protocol: Document 10/31/24 08:15 ABY (Rec: 10/31/24 07:26 ABY [id number]) OT Outpatient Adult Treatment Note Session Time Visit Start Date 10/31/24 Visit Start Time 08:15 Visit Stop Time 09:00 Visit Information Visit Number 09/07 Plan of Care Dates 10/10/24 - 11/21/24 Insurance Information Medicare, KX after 19 visits Setting Treatment Setting Outpatient Care Visit Type Note Type Treatment Note - Subjective Identification Type Name Identification Reconciled With Medical Record Observations Pt reports she saw her prescribing MD about her wrist and he is concerned about the swelling at her wrist. Pt reports p! at start of tx 4 /10 along ulnar styloid. Pt c /o R shoulder pain during tx today, some tasks were modified to accomodate. Chief Complaint(s) Loss of Motion/Stiffness,Pain Effect on Activity,Restricts - Objective Short Term Goals 1. Pt will be I with initial HEP for improved strength and stability of digits. MET 2. Pt will report no p! with opposition 3. Pt will button a blouse with mod I using button hook. 4. 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 Pt will be I with advanced HEP 2. Pt will report p! with activity is no more than 6/10 3. Pt will increase R wrist strength to 4/5 4. Pt will increase R rail specialist strength by 10# 5. Pt will perform R 9 hole peg test in 30 seconds or better - Treatment 3 Descriptor Finger Isolation: alternating digit tap x 10 each alternating digit abd/add x 10 each opposition alternating finger tips x 10 each 2 Descriptor In hand manipulation: porcupine ball in hand translation CW and CCW x10 porcupine ball walking from distal digits to palm x10 picking up max porcupine balls with distal digits, holding in palm, and releasing at target x10 1 Descriptor Proprioception: wiffle ball with marbles CW and CCW x30 sec each porcupine ball in bucket CW and CCW x 60 sec each Exercises 3 Descriptor Document Clerk/Pinch/Dexterity: digi flex (yellow) alternating x graded clothespins on perpendicular dowels 2 Descriptor Isometrics: 10 sec holds x5 wrist flex wrist ext wrist UD wrist RD pronation supination 1 Descriptor Rubber band: all digit spread 10x2 2nd-5th spread 10x2 1st DI 10x2 - Assessment Patient Response to Treatment Excellent Rehabilitation Potential Excellent Impairments Identified ADLs,Body Mechanics, Coordination/Dexterity, Flexibility,Functional Activities,Motor Function,Pain ,Weakness,Range of Motion, Meaningful Activities, Stiffness,Eye-Hand Coordination Progress Towards Goals Good Progress Assessment of Overall Progress Improving Assessment of Improvement Pt is pleasant, cooperative, and appears eager to improve in strength and function. OT reminds pt to wear a button up shirt and to bring her felting crown to therapy session. OT also encourages pt to purchase the wrist splint her MD recommend. Pt had some complaints of pain at ulnar side of R wrist during tx up to 10/06. Pt also with c/ o p! in her R shoulder, pt reports she has had several shoulder replacements. As many activities as could be modified were performed in pt' s lap to avoid shoulder p!. Pt demonstrated HEP with I, meeting STG #1. Pt initially had p! with opposition, but pt reports this decreased with reps. Pt requires vcs initially for finger isolation exercises. Pt performs these slowly and deliberately. Overall pt tolerated tx well, demonstrates progress per established goals. Pt continues to be appropriate for skilled OT services. Cont per established POC. Reviewed with Patient/Caregiver Goals,Home Exercise Program - Plan Therapy Recommendations Continue with Current Program Amount of Therapy Recommended 1-2 Months Frequency of Treatment Twice a Week Length of Session 45 Minutes Therapeutic Contents Active Range of Motion, Adaptive Equipment Education, Client Education,Functional Activities,Home Exercise Program,Joint Protection, Manual Therapy,Education, Neuromuscular Re-Education, Self-Care,Stretching/ Flexibility Activities, Therapeutic Activities, Therapeutic Exercises, Modalities Modalities As Needed Types of Modalities Contrast Bath Additional Types of Modalities PB, MHP
--- NOTE | 2024-11-02 09:30 | OT.OP.TRT ---
Visit Care Team Role Provider Type Mallory Last PA-C Family Provider Non-Staff Primary Care Provider Specialty: Medical Address: [address] [place] [address] [address], [place], [address] Email: Mamadou Hernandez DO Attending Provider Non-Staff Referring Provider Specialty: Orthopedics Address: [address] [place] [address], [place], [address] Email: Occupational Therapy Treatment Note OT Outpatient Treatment Note - Adult Start: 10/10/24 08:08 Freq: Status: Active Protocol: Document 11/02/24 08:18 ABY (Rec: 11/02/24 07:24 ABY [id number]) OT Outpatient Adult Treatment Note Session Time Visit Start Date 11/02/24 Visit Start Time 08:18 Visit Stop Time 09:00 Visit Information Visit Number 10/08 Plan of Care Dates 10/10/24 - 11/21/24 Insurance Information Medicare, KX after 19 visits Setting Treatment Setting Outpatient Care Visit Type Note Type Treatment Note - Subjective Identification Type Name Identification Reconciled With Medical Record Observations Pt reports that she fell going up her steps into her house the day before yesterday landing on her R side. She reports that she did not go to ED or MD to get checked out and reports that she is sore . Pt does not intend to contact MD until scheduled follow up appt. Pt reports p! at 6/10 at start of tx and at 7/10 at end of tx along ulnar styloid. Chief Complaint(s) Loss of Motion/Stiffness,Pain Effect on Activity,Restricts - Objective Short Term Goals 1. Pt will be I with initial HEP for improved strength and stability of digits. MET 2. Pt will report no p! with opposition 3. Pt will button a blouse with mod I using button hook. MET 11/02/24 4. Pt will increase liquor inspector strength by 5# for improved object manipulation Custodial Goals 1. Pt will be I with advanced HEP 2. Pt will report p! with activity is no more than 6/10 3. Pt will increase R wrist strength to 4/5 4. Pt will increase R liquor inspector strength by 10# 5. Pt will perform R 9 hole peg test in 30 seconds or better - Treatment 4 Descriptor ADLs: OT educated pt on use of button hook for buttoning and buttoning a blouse. Pt required tc and vc with subsequent attempts, overall requiring min A. 2 Descriptor In hand manipulation: porcupine ball in hand translation CW and CCW x porcupine ball walking from distal digits to palm x10 picking up max porcupine balls with distal digits, holding in palm, and releasing at target x10 pen roll with neutral wrist position x 10 pencil shift/walks x 10 1 Descriptor Proprioception: wiffle ball with marbles CW and CCW x30 sec each porcupine ball in bucket CW and CCW x 60 sec each - Assessment Patient Response to Treatment Good Rehabilitation Potential Good Impairments Identified ADLs,Body Mechanics, Coordination/Dexterity, Flexibility,Functional Activities,Motor Function,Pain ,Weakness,Range of Motion, Meaningful Activities, Stiffness,Eye-Hand Coordination Progress Towards Goals Good Progress Assessment of Overall Progress Improving Assessment of Improvement Pt presents with increased p! at rest at ulnar side of wrist . OT notes no physical change, although pt reports she can see more swelling. Pt brought in a button up shirt and her felting crown today. OT educated pt on use of button hook for buttoning and unbuttoning blouse. Pt requires vc/tc and overall min A to complete this task. OT encourages pt to wear a button up shirt again if she would like additional education on this. OT noted that pt requires a very open and digit add position to be able to manipulate her felting crown. This is also rather heavy. Pt demonstrated modified positions that she can use this with. Pt was unable to tolerate exercises that would help support manipulation of the felting crown today. OT will continue to assess pt's ability to do so next week. OT continues to reaffirm MDs recommendation for a supportive wrist brace. Pt says she will buy one today. Pt met STG #3 today. Overall pt tolerated tx well, demonstrates progress per established goals. Pt continues to be appropriate for skilled OT services. Cont per established POC. Reviewed with Patient/Caregiver Goals,Home Exercise Program - Plan Therapy Recommendations Continue with Current Program Amount of Therapy Recommended 1-2 Months Frequency of Treatment Twice a Week Length of Session 45 Minutes Therapeutic Contents Active Range of Motion, Adaptive Equipment Education, Client Education,Functional Activities,Home Exercise Program,Joint Protection, Manual Therapy,Education, Neuromuscular Re-Education, Self-Care,Stretching/ Flexibility Activities, Therapeutic Activities, Therapeutic Exercises, Modalities Modalities As Needed Types of Modalities Contrast Bath Additional Types of Modalities PB, DANAP
--- NOTE | 2024-11-07 13:28 | OT.OP.TRT ---
Visit Care Team Role Provider Type Mallory Last PA-C Family Provider Non-Staff Primary Care Provider Specialty: Medical Address: [address] [facility], [place], [address] Email: Mamadou Hernandez DO Attending Provider Non-Staff Referring Provider Specialty: Orthopedics Address: [address] [facility], [place], [address] Email: Occupational Therapy Treatment Note OT Outpatient Treatment Note - Adult Start: 10/10/24 08:08 Freq: Status: Active Protocol: Document 11/07/24 08:15 ABY (Rec: 11/07/24 07:28 ABY [id number]) OT Outpatient Adult Treatment Note Session Time Visit Start Date 11/07/24 Visit Start Time 08:15 Visit Stop Time 08:55 Visit Information Visit Number 11/07 Plan of Care Dates 10/10/24 - 11/21/24 Insurance Information Medicare, KX after 19 visits Setting Treatment Setting Outpatient Care Visit Type Note Type Treatment Note - Subjective Identification Type Name Identification Reconciled With Medical Record Observations Pt ordered a wrist brace online and asked what OT thought of it. Pt reports decreased p! with opposition while wearing brace. Pt reports that the coin task is exhausting. I feel like this is really making my whole arm stronger! Pt reports p! at 4/10 at start of tx. Chief Complaint(s) Loss of Motion/Stiffness,Pain Effect on Activity,Restricts - Objective Short Term Goals 1. Pt will be I with initial HEP for improved strength and stability of digits. MET 2. Pt will report no p! with opposition 3. Pt will button a blouse with mod I using button hook. MET 11/02/24 4. Pt will increase retail sales merchandiser strength by 5# for improved object manipulation Motorcoach Driver Goals 1. Pt will be I with advanced HEP 2. Pt will report p! with activity is no more than 6/10 3. Pt will increase R wrist strength to 4/5 4. Pt will increase R retail sales merchandiser strength by 10# 5. Pt will perform R 9 hole peg test in 30 seconds or better - Treatment 5 Descriptor Education: Pt arrived with a wrist splint she had ordered online. Pt's MD had asked her to get a hard wrist splint, at last tx OT had given pt the example of a carpal tunnel brace that she could get at the local drug store. Today, pt arrived with a wrist splint that also blocked her MP extension. OT was able to bend the metal so that her MPs were no longer blocked. Pt reported that this wrist splint caused her more p! than not wearing it. OT recommended that pt return the brace and consider a wrist widget or bullseye splint instead. OT showed pt pictures of these splints and explained the benefits of each . Pt verbalized understanding. 4 Descriptor ADLs: 3 Descriptor Finger Isolation: alternating digit tap x 10 each alternating digit abd/add x 10 each opposition alternating finger tips x 10 each 2 Descriptor In hand manipulation: porcupine ball in hand translation CW and CCW x 15 picking up coins and holding in palm, moving to distally to finger tips and placing in bank x 25 porcupine ball walking from distal digits to palm x 0 picking up max porcupine balls with distal digits, holding in palm, and releasing at target x 0 pen roll with neutral wrist position x 0 pencil shift/walks x 0 1 Descriptor Proprioception: small ball on plate CW and CCW x 60 sec each Exercises 3 Descriptor Clinical Laboratory Manager/Pinch/Dexterity: digi flex (yellow) alternating x graded clothespins on perpendicular dowels 2 Descriptor Isometrics: 10 sec holds x5 wrist flex wrist ext wrist UD wrist RD - Assessment Patient Response to Treatment Good Rehabilitation Potential Good Impairments Identified ADLs,Body Mechanics, Coordination/Dexterity, Flexibility,Functional Activities,Motor Function,Pain ,Weakness,Range of Motion, Meaningful Activities, Stiffness,Eye-Hand Coordination Progress Towards Goals Good Progress Assessment of Overall Progress Improving Assessment of Improvement Pt arrived to therapy with a large wrist brace with a component that blocks MP extension. This was not the splint style discussed with pt during last tx. OT was able to modify splint so that her digits were no longer blocked; however, pt c/o of it being p ! when utilizing her hand. OT believes pt would be better suited with a wrist widget or bullseye style splint. OT provided information for these to pt. Pt had less p! today and was able to tolerate more exercise today. OT to issue isometric HEP next tx, for improved strengthening at home . Overall pt tolerated tx well and continues to be appropriate for skilled OT services. Cont per established POC. Reviewed with Patient/Caregiver Goals,Home Exercise Program - Plan Therapy Recommendations Continue with Current Program Amount of Therapy Recommended 1-2 Months Frequency of Treatment Twice a Week Length of Session 45 Minutes Therapeutic Contents Active Range of Motion, Adaptive Equipment Education, Client Education,Functional Activities,Home Exercise Program,Joint Protection, Manual Therapy,Education, Neuromuscular Re-Education, Self-Care,Stretching/ Flexibility Activities, Therapeutic Activities, Therapeutic Exercises, Modalities Modalities As Needed Types of Modalities Contrast Bath Additional Types of Modalities PB, MHP
--- NOTE | 2024-11-09 09:13 | OT.OP.TRT ---
Visit Care Team Role Provider Type Mallory Last PA-C Family Provider Non-Staff Primary Care Provider Specialty: Medical Address: [address], [place], [address] Email: Mamadou Hernandez DO Attending Provider Non-Staff Referring Provider Specialty: Orthopedics Address: [address] [facility], [place], [address] Email: Occupational Therapy Treatment Note OT Outpatient Treatment Note - Adult Start: 10/10/24 08:08 Freq: Status: Active Protocol: Document 11/09/24 08:20 ABY (Rec: 11/09/24 07:31 ABY [id number]) OT Outpatient Adult Treatment Note Session Time Visit Start Date 11/09/24 Visit Start Time 08:20 Visit Stop Time 09:00 Visit Information Visit Number 12/08 Plan of Care Dates 10/10/24 - 11/21/24 Insurance Information Medicare, KX after 19 visits Setting Treatment Setting Outpatient Care Visit Type Note Type Treatment Note - Subjective Identification Type Name Identification Reconciled With Medical Record Observations Pt reports she ordered a bullseye brace for herself. She reports that when she is using her hand she has p! at about 4/10. Pt reports p! at 4/10 at start of tx. Chief Complaint(s) Loss of Motion/Stiffness,Pain Effect on Activity,Restricts - Objective Short Term Goals 1. Pt will be I with initial HEP for improved strength and stability of digits. MET 2. Pt will report no p! with opposition MET 11/09/24 3. Pt will button a blouse with mod I using button hook. MET 11/02/24 4. Pt will increase scenic arts supervisor strength by 5# for improved object manipulation Group Home Goals 1. Pt will be I with advanced HEP 2. Pt will report p! with activity is no more than 6/10 3. Pt will increase R wrist strength to 4/5 4. Pt will increase R scenic arts supervisor strength by 10# 5. Pt will perform R 9 hole peg test in 30 seconds or better - Treatment 5 Descriptor Education: 4 Descriptor ADLs: 3 Descriptor Finger Isolation: opposition alternating finger tips x 10 each (no p!) alternating digit tap x alternating digit abd/add x 1 Descriptor Proprioception: small ball on plate CW and CCW x 60 sec each Exercises 3 Descriptor Windows Phone Developer/Pinch/Dexterity: graded clothespins on and off perpendicular dowels (yellow- black) tputty: (red) gross grasp and alternating pinches 2 Descriptor Isometrics: (10 sec holds) 10x2 wrist flex wrist ext wrist UD wrist RD forearm pronation forearm supination Manual Therapy Manual Therapy TFM to ECU for improved circulation and healing - Assessment Patient Response to Treatment Good Rehabilitation Potential Good Impairments Identified ADLs,Body Mechanics, Coordination/Dexterity, Flexibility,Functional Activities,Motor Function,Pain ,Weakness,Range of Motion, Meaningful Activities, Stiffness,Eye-Hand Coordination Progress Towards Goals Good Progress Assessment of Overall Progress Improving Assessment of Improvement Pt issued isometric HEP, demonstrating them with min vcs during today's tx. OT will reassess pt's I with these next tx. OT also issued pt red tputty and instructed pt in gross grasp and alternating pinches. Additional exercises may be added next tx. Pt was able to perform opposition to alternating finger tips today x 10 reps without any p!. Pt also tolerates TFM very well. Pt believes this has relieved her p!, OT educated on the purpose of TFM and goal for improved healing process by increasing circulatory response. PT has met STG #2 and makes progress toward remaining goals. Overall pt tolerated tx well and continues to be appropriate for skilled OT services. Cont per established POC. Reviewed with Patient/Caregiver Goals,Progress Being Made,Home Exercise Program - Plan Therapy Recommendations Continue with Current Program Amount of Therapy Recommended 1-2 Months Frequency of Treatment Twice a Week Length of Session 45 Minutes Therapeutic Contents Active Range of Motion, Adaptive Equipment Education, Client Education,Functional Activities,Home Exercise Program,Joint Protection, Manual Therapy,Education, Neuromuscular Re-Education, Self-Care,Stretching/ Flexibility Activities, Therapeutic Activities, Therapeutic Exercises, Modalities Modalities As Needed Types of Modalities Contrast Bath Additional Types of Modalities PB, DANAP
--- NOTE | 2024-11-16 10:40 | OT.OP.TRT ---
Visit Care Team Role Provider Type Mallory Last PA-C Family Provider Non-Staff Primary Care Provider Specialty: Medical Address: [address], [place], [address] Email: Mamadou Hernandez DO Attending Provider Non-Staff Referring Provider Specialty: Orthopedics Address: [address] [facility], [place], [address] Email: Occupational Therapy Treatment Note OT Outpatient Treatment Note - Adult Start: 10/10/24 08:08 Freq: Status: Active Protocol: Document 11/16/24 09:44 ABY (Rec: 11/16/24 09:06 ABY [id number]) OT Outpatient Adult Treatment Note Session Time Visit Start Date 11/16/24 Visit Start Time 09:44 Visit Stop Time 10:29 Visit Information Visit Number 01/07 Plan of Care Dates 10/10/24 - 11/21/24 Insurance Information Medicare, KX after 19 visits Setting Treatment Setting Outpatient Care Visit Type Note Type Treatment Note - Subjective Identification Type Name Identification Reconciled With Medical Record Observations I think it's getting a lot stronger. My wrist feels good today! Pt reports p! at 0/10 at start , middle, and end of tx. Chief Complaint(s) Loss of Motion/Stiffness,Pain Effect on Activity,Restricts - Objective Objective Measurements Kapandji opposition: R 9/10 ( without p!), L 10/10 MMT: R wrist flex 5/5, R wrist ext 4+/5 (L 5/5) Toll Booth Operator: R 45, 49, 40 (avg 44.6#) ; L 55, 50, 54 (avg 53#) Pinch: Lateral R 5.5#, L 13#; Pincer R 5.5#, L 7#; 3 jaw R 6 .5#, L 10# 9HPT: R 29 seconds, L 26 seconds PSFS: Needle felting 0, Doing the dishes 3, Changing sheets 4 Short Term Goals 1. Pt will be I with initial HEP for improved strength and stability of digits. MET 2. Pt will report no p! with opposition MET 11/09/24 3. Pt will button a blouse with mod I using button hook. MET 11/02/24 4. Pt will increase client resource specialist strength by 5# for improved object manipulation MET Washer Operator Goals 1. Pt will be I with advanced HEP MET 11/16/24 2. Pt will report p! with activity is no more than 6/10 MET 11/16/24 3. Pt will increase R wrist strength to 4/5 MET 11/16/24 4. Pt will increase R client resource specialist strength by 10# (PROGRESS, increase 6.3#) 5. Pt will perform R 9 hole peg test in 30 seconds or better MET 11/16/24 - Treatment 2 Descriptor In hand manipulation: picking up coins and holding in palm, moving to distally to finger tips and placing in bank x 25 1 Descriptor Proprioception: small ball on plate CW and CCW x 60 sec each Exercises 3 Descriptor Toll Booth Operator/Pinch/Dexterity: graded clothespins on and off perpendicular dowels (yellow- black) graded clothespin pinch with digits 1, 4, and 5: yellow x 5 , red x 5, green x 5, blue x 5 2 Descriptor Isometrics: (10 sec holds) 10x wrist flex wrist ext wrist UD wrist RD forearm pronation forearm supination 1 Descriptor Rubber band: all digit spread 10x 2nd-5th spread 10x 1st DI 10x - Assessment Patient Response to Treatment Good Rehabilitation Potential Good Impairments Identified ADLs,Body Mechanics, Coordination/Dexterity, Flexibility,Functional Activities,Motor Function,Pain ,Weakness,Range of Motion, Meaningful Activities, Stiffness,Eye-Hand Coordination Progress Towards Goals Excellent Progress Assessment of Overall Progress Improving Assessment of Improvement Pt demonstrated I with issued isometric HEP as well as initial HEP. Pt reported no pain throughout tx session today and demonstrates improvements in muscle strength, client resource specialist, and FMC, see objective section for details. Pt reports being satisfied with progress and confidence in performing her HEPs regularly for carry over. Pt is appropriate for d/c from skilled OT services. D/C at this time. Pt has been treated by skilled OT services for 7 treatments, with treatments focusing on BADL adaptive techniques, inhand manipulation, proprioception, finger isolation and dexterity, and client resource specialist/wrist/finger strengthening. Pt reports that MD recommended that she buy a wrist brace, pt purchased a cumbersome brace which included a block to digit extension. OT recommended that pt purchase a wrist widget or bullseye style brace for support at the wrist but the ability to functionally use her hand. Pt reports that she tried to order this but it hasn?t arrived yet. Since beginning OT, she has seen her ordering provider, pt reports at that visit she was told to stop all of her felting tasks. Pt has brought her felting crown to OT session. This requires a very large open grasp and significant strength especially for ulnar side of wrist/digits. OT and pt discussed ways she could modify holding this when she is cleared by MD to continue these tasks. Pt demonstrates improvements with opposition, MMT, client resource specialist, pinch and 9 HPT, see objective section for specific details. Pt has met 4/4 STGs and /45 LTGs. Pt has made sufficient progress towards goals and is appropriate for d/c from skilled OT services to HEP. Pt agrees with this decision. Reviewed with Patient/Caregiver Goals,Progress Being Made,Home Exercise Program - Plan Therapy Recommendations Discharge to Home Exercise Program,Discharge from Occupational Therapy
--- NOTE | 2024-11-16 10:40 | OT.OP.DC ---
Visit Care Team Role Provider Type Mallory Last PA-C Family Provider Non-Staff Primary Care Provider Address: [address] [facility], [place], [address] Email: Mamadou Hernandez DO Attending Provider Non-Staff Referring Provider Address: [address], [place], [address] Email: OT Outpatient OT Outpatient Adult Evaluation Start: 10/10/24 08:08 Freq: Status: Active Protocol: Document 10/10/24 13:30 [facility]wenRAY [facility]PITALGreenTrapOnline (Rec: 10/10/24 14:02 [facility] Laptop) General Information - Adult Visit Information Visit Number 1/ Plan of Care Dates 10/10/24 - 11/21/24 Insurance Information Medicare, KX after 19 visits Session Time Visit Start Date 10/10/24 Visit Start Time 08:15 Visit Stop Time 08:58 Setting Treatment Setting Outpatient Care Visit Type Note Type Initial Evaluation Referral Referring Physician Mamadou Hernandez Reason for Referral tenosynovitis R wrist, TFCC injury R, weakness R hand Identification Identification Confirmed Yes Identification Confirmed By name, EMR Patient Questionnaires Quick Dash- Upper Extremity Quick Dash UE Score 84.1 Quick Dash UE Impairment 80 to 99% Impaired (Score 80- 99) Quick Dash- Work and Sports Modules Quick Dash W&S Score 75 Quick Dash Work and Sport Impairment 60 to 79% Impaired (Score 60- 79) Goals Objective Measurements Objective Measurements AROM: R wrist ext 50 (L 70); wrist flex 66; ulnar deviation 20 (L 25) AROM MP ext: 2nd -20, 3rd -10, 4th and 5th 0 (the rest of digit flex/ext is WFL) Kapandji opposition: R 9/10 (p ! 5/10), L 10/10 MMT: R wrist flex and ext 4-/5 , L wrist flex/ext 5/5 Mixer Operator: R 35, 40, 40 (38.3# avg) , L 50, 47, 52 (49.7# avg) Pinch: lateral R 4#, L 12#; pincer R 4#, L 9#; 3 jaw R 6#, L 8.5# 9 hole peg test: R 36 sec, L 26 sec Pt uses the Patient Specific Functional Scale to rate 3 functional tasks that she desires to return to performing with less difficulty. Needle felting 0, Doing the dishes 3, Changing sheets 0 Treatment Treatment HEP: pt issued rubber band exercises and rubber band. Pt demonstrates these exercises with min vc/tc initially, progressing toward less assist with repetitive exercises. Pt performs finger spread ( with thumb) x10, 1st DI isotonic x10, and finger abd x10 Short Term Goals Short Term Goals 1. Pt will be I with initial HEP for improved strength and stability of digits. 2. Pt will report no p! with opposition 3. Pt will button a blouse with mod I using button hook. 4. Pt will increase scale assembly set up worker strength by 5# for improved object manipulation Branch Assistant Goals Branch Assistant Goals 1. Pt will be I with advanced HEP 2. Pt will report p! with activity is no more than 6/10 3. Pt will increase R wrist strength to 4/5 4. Pt will increase R scale assembly set up worker strength by 10# 5. Pt will perform R 9 hole peg test in 30 seconds or better Assessment/Plan Assessment Patient Response Excellent Rehabilitation Potential Excellent Impairments Identified ADLs,Body Mechanics, Coordination/Dexterity, Flexibility,Functional Activities,Motor Function,Pain ,Weakness,Range of Motion, Meaningful Activities, Stiffness,Eye-Hand Coordination Treatment Assessment Pt reports that she had a fall approximately 4 months ago in her home and landed on her R arm. 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 Pt's Pmhx is also significant for arthritis, HTN, falls, fibromyalgia, headaches, heart attack, neck pain, osteopenia , osteoporosis, SOB, thyroid disorder, and varicose veins. Pt has had multiple orthopedic surgeries including ankles, knee, shoulder. 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 Pt reports she has pain in her R wrist, ulnar side of dorsal palm, and 5th digit 2/10 for light tasks ( donning socks) and 10/10 for heavy tasks (lifting coffee cup, felting crown). Pt reports that she is unable to clean her house right now, her roommate assists currently, pt is unable to garden right now, pt is unable to button shirts and has difficulty tying things. Pt is L hand dominant. OT notes shoulder deformity at R C[facility] as well as general cupping to her R palm when asked to open her hand as much as she is able. Pt with no noted limits in retroposition. OT is able to move all joints passively to WNL without any tension or restriction. Pt would benefit from target exercises to improve strength, coordination , dexterity, and a return to functional tasks. Pt is interested in learning how to use a button hook to improve her I with BADLs. Skilled OT services are appropriate to address pt deficits and promote return toward PLOF. Reviewed with Patient Goals,Home Exercise Program Plan Length of treatment (weeks) 6 Plan of Care Start Date 10/10/24 Plan of Care End Date 11/21/24 Treatment Frequency Twice a Week Treatment Duration 45 Minutes Therapeutic Contents Active Range of Motion, Adaptive Equipment Education, Client Education,Functional Activities,Home Exercise Program,Joint Protection, Manual Therapy,Education, Neuromuscular Re-Education, Self-Care,Stretching/ Flexibility Activities, Therapeutic Activities, Therapeutic Exercises, Modalities Modalities As Needed Types of Modalities Contrast Bath Additional Types of Modalities PB,MHP Patient Instruction Home Exercise Program,Plan of Care,Questions/Concerns Functional Wrist/Hand Scan Hand Side Sensory Assessment Sensory Profile2 OT Outpatient Discharge Note - Adult Start: 10/10/24 08:08 Freq: Status: Active Protocol: Document 11/16/24 09:44 ABY (Rec: 11/16/24 09:06 ABY [id number]) OT Outpatient Adult Discharge Note Session Time Visit Start Date 11/16/24 Visit Start Time 09:44 Visit Stop Time 10:29 Visit Information Visit Number 01/07 Plan of Care Dates 10/10/24 - 11/21/24 Insurance Information Medicare, KX after 19 visits Setting Treatment Setting Outpatient Care Visit Type Note Type Discharge Note - Subjective Identification Type Name Identification Reconciled With Medical Record Observations I think it's getting a lot stronger. My wrist feels good today! Pt reports p! at 0/10 at start , middle, and end of tx. Chief Complaint(s) Loss of Motion/Stiffness,Pain Effect on Activity,Restricts - Objective Objective Measurements Kapandji opposition: R 9/10 ( without p!), L 10/10 MMT: R wrist flex 5/5, R wrist ext 4+/5 (L 5/5) Mixer Operator: R 45, 49, 40 (avg 44.6#) ; L 55, 50, 54 (avg 53#) Pinch: Lateral R 5.5#, L 13#; Pincer R 5.5#, L 7#; 3 jaw R 6 .5#, L 10# 9HPT: R 29 seconds, L 26 seconds PSFS: Needle felting 0, Doing the dishes 3, Changing sheets 4 Short Term Goals 1. Pt will be I with initial HEP for improved strength and stability of digits. MET 2. Pt will report no p! with opposition MET 11/09/24 3. Pt will button a blouse with mod I using button hook. MET 11/02/24 4. Pt will increase scale assembly set up worker strength by 5# for improved object manipulation MET Branch Assistant Goals 1. Pt will be I with advanced HEP MET 11/16/24 2. Pt will report p! with activity is no more than 6/10 MET 11/16/24 3. Pt will increase R wrist strength to 4/5 MET 11/16/24 4. Pt will increase R scale assembly set up worker strength by 10# (PROGRESS, increase 6.3#) 5. Pt will perform R 9 hole peg test in 30 seconds or better MET 11/16/24 - - Assessment Patient Response to Treatment Good Rehabilitation Potential Good Impairments Identified ADLs,Body Mechanics, Coordination/Dexterity, Flexibility,Functional Activities,Motor Function,Pain ,Weakness,Range of Motion, Meaningful Activities, Stiffness,Eye-Hand Coordination Progress Towards Goals Excellent Progress Assessment of Overall Progress Improving Assessment of Improvement Pt has been treated by skilled OT services for 7 treatments, with treatments focusing on BADL adaptive techniques, inhand manipulation, proprioception, finger isolation and dexterity, and scale assembly set up worker/wrist/finger strengthening. Pt reports that MD recommended that she buy a wrist brace, pt purchased a cumbersome brace which included a block to digit extension. OT recommended that pt purchase a wrist widget or bullseye style brace for support at the wrist but the ability to functionally use her hand. Pt reports that she tried to order this but it hasn?t arrived yet. Since beginning OT, she has seen her ordering provider, pt reports at that visit she was told to stop all of her felting tasks. Pt has brought her felting crown to OT session. This requires a very large open grasp and significant strength especially for ulnar side of wrist/digits. OT and pt discussed ways she could modify holding this when she is cleared by MD to continue these tasks. Pt demonstrates improvements with opposition, MMT, scale assembly set up worker, pinch and 9 HPT, see objective section for specific details. Pt has met 4/4 STGs and /45 LTGs. Pt has made sufficient progress towards goals and is appropriate for d/c from skilled OT services to HEP. Pt agrees with this decision. Reviewed with Patient/Caregiver Goals,Progress Being Made,Home Exercise Program - Plan Therapy Recommendations Discharge to Home Exercise Program,Discharge from Occupational Therapy
== END 2024-11-25 13:49 | disposition home or self-care (01) ==
LOC: OT 09:45
PROVIDERS: Family Provider Physician Assistant; PCP Physician Assistant; Referring Provider Orthopaedic Surgery; Visit Provider Orthopaedic Surgery
DX: M65.931 Unspecified synovitis and tenosynovitis, right forearm (principal); S69.81XA Other specified injuries of right wrist, hand and finger(s), initial encounter; R29.898 Other symptoms and signs involving the musculoskeletal system
CPT/HCPCS: 97110; 97140; 97166; 97530; 97535